=== PATIENT | female | born 1970 | race Caucasian/White ===

== ENCOUNTER → 2020-12-03 14:45 | Outpatient (CLI) | payer OTHER, SELFPAY | PROVIDERS: PCP Family Medicine; Referring Provider Family Medicine; Visit Provider Family Medicine | DX: Z20.822 Contact with and (suspected) exposure to COVID-19 (principal) | CPT/HCPCS: 87635; U0005; U0003 ==

== ENCOUNTER 2022-01-11 20:24 | Emergency (ER) | payer OTHER, SELFPAY ==
[2022-01-11 20:24] VITALS: BP 153/87; PULSE 73; RESP 15; TEMP 36.8; O2SAT 96; BMI 34.2
[2022-01-11 20:32] VITALS: RESP 16
--- NOTE | 2022-01-11 20:32 | RAD_ITS ---
INDICATION: injury EXAMINATION/TECHNIQUE: X-RAY - RIGHT XR Wrist Min 3 Views 3 VIEWS COMPARISON: None. FINDINGS: SOFT TISSUES: No soft tissue swelling or gas. No radiopaque foreign body. BONES/JOINTS: 1. There is normal bony alignment, degenerative change however noted at the trapezium metacarpal articulation. Endplate sclerosis and minimal osteophyte formation noted. 2. Widening of scapholunate distance is also noted which is of uncertain acuity. Chronic ligamentous laxity versus acute ligamentous injury are considerations. 3. The remaining carpal rows have normal appearance. 4. There is on the positive configuration of distal radial ulnar joint. 5. No acute fractures or acute destructive bony process. RAD/Wrist min 3 Views IMPRESSION: 1. Degenerative change involving the trapezium metacarpal articulation. 2. Ulna positive configuration of distal radial ulnar joint. 3. Widening of scapholunate distance is also noted which is of uncertain acuity. Chronic ligamentous laxity versus acute ligamentous injury are considerations. Electronically Signed: Chance West MD at 20:56 EDT ,
--- NOTE | 2022-01-11 20:44 | EX.ED.UPPERE ---
HPI History of Present Illness Chief Complaint: Upper Extremity Injury Detail of Chief Complaint: Injury right wrist. Informant: patient Occured/Mechanism Mechanism/Context: Yes blunt trauma, Yes fall and Yes same level fall Comment: Patient fell and attempted to stop her fall by putting her right arm out out to walk/ease her fall. Onset/Context/Timing Onset: Hours Context: Sudden Onset Timing: Continuous Quality of Pain: Dull Location: Right wrist Current Severity: Mild Maximum Severity: Moderate Worsened by: Movement Relieved by: Rest Associated Symptoms Associated Symptoms: Negative for Parasthesia, Weakness or Loss of Funtion Narrative Narrative: Patient is a [id number] woman who presents with blunt trauma to the right wrist due to a fall onto an outstretched extremity. She localizes the pain to the right wrist. Denies paresthesia, anesthesia motors. She denies prior fracture. She denies pain in her digits, elbow or shoulder. Prior similar symptoms: No Recent Illness/Hospitalization: No PFSH PFSH Medical History no medical history no medical history Home Medications meclizine 25 mg tablet 25 mg PO 4X/DAY PRN PRN Vertigo ##20 01/15/16 [Rx Last Taken Unknown] Allergy/AdvReac Type Severity Reaction Status Date / Time No Known Allergies Allergy Verified 01/11/22 20:27 Social History (Updated 01/11/22 @ 20:[address] Keaton Pak MD) household members: spouse Smoking Status: Never smoker substance use type: does not use ROS ROS ED Musculoskeletal Musculoskeletal: Denies back pain, myalgias or neck pain Integumentary Denies Abrasions or rash Neurologic Neurologic: Denies paresthesias or weakness Hematologic/Lymphatic Hematologic/Lymphatic: Denies easy bleeding or easy bruising EXAM Physical Exam Const Vital Signs: 01/11/22 20:24 Temperature 98.3 F Temperature Source Temporal Pulse Rate 73 Respiratory Rate 15 Blood Pressure 153/87 H Blood Pressure Mean 109 Pulse Ox 96 Oxygen Delivery Method Room Air Positive well nourished, well developed and obese General Appearance ED: well developed and NAD; Negative for cyanotic or diaphoretic Nutritional Appearance: obese HEENT Reports moist mucous membranes normocephalic and atraumatic Eyes PERRL Resp normal respiratory effort Cardio regular rate and regular rhythm Extremity Negative for normal to inspection Extremity Narrative: There is soft tissue swelling over the wrist. She complains of pain to palpation of the distal radius. There is no pain ovation of the anatomical snuffbox Axalid in the thumb. Median, radial and ulnar function intact. There is no pain the patient of the proximal humerus. There is no pain the patient over the lateral medial epicondyle, lateral process or radial head. There is no pain the patient over the metacarpal bones or phalanges. Neuro oriented x3, CN's II-XII intact bilaterally and moves all extremities Sensorium / Orientation: alert Psych mental status grossly normal Skin Lesions: no lesions Rashes: no rashes Trauma: no lacerations or abrasions MDM MDM MDM Narrative Medical decision making narrative: Nurse protocol was initiated and x-ray of the wrist was obtained. Radiography Diagnostic Testin view x-ray of the right wrist was obtained. There is no evidence of fracture. There is no malalignment of the carpal bones. There is no volar fat pad noted. There is no subluxation or dislocation. There is an independently reviewed and interpreted by me at 2047. Discharge Plan Triage Chief Complaint: Upper Extremity Injury ED Provider: Keaton Pak Dx/Rx/DC Orders Clinical Impression: Contusion of right wrist, initial encounter Instructions: ED Soft Tissue Contusion Prescriptions: No Action meclizine 25 MG tablet 25 mg PO 4X/DAY PRN PRN (Reason: Vertigo) Qty: 20 0RF Primary Care Provider: Pk Piedra Referrals: Pk Piedra MD [Primary Care Provider] - 1 Week if not improving Disposition Disposition: Home, Self Care
[2022-01-11 20:49] VITALS: RESP 16
== END 2022-01-11 21:23 | disposition home or self-care (01) ==
PROVIDERS: Emergency Provider Emergency Medicine; PCP Family Medicine; Visit Provider Emergency Medicine
DX: S60.211A Contusion of right wrist, initial encounter (principal); W18.30XA Fall on same level, unspecified, initial encounter; E66.9 Obesity, unspecified; Z68.34 Body mass index [BMI] 34.0-34.9, adult
CPT/HCPCS: 73110; 99282

== ENCOUNTER → 2022-04-28 | Outpatient (CLI) | payer OTHER, SELFPAY ==
[2022-04-28 14:07] LABS: Anion Gap 10 (5-15); BUN 10 mg/dL (7-18); BUN/Creat Ratio 12.6 RATIO (10-20); Calcium,Total 9.4 mg/dL (8.5-10.1); Chloride 106 mmol/L (98-107); Cholesterol 406 mg/dL (200); Creatinine, Serum 0.79 mg/dL (0.55-1.02); EST Glomerular Filtration Rate 81 mL/min (>60); Est Glom Filt Rate - Afr Amer 98 mL/min (>60); Glucose 88 mg/dL (74-106); High Density Lipoprotein 59 mg/dL; Potassium 4.4 mmol/L (3.5-5.1); Sodium Level 138 mmol/L (136-145); Thyroid Stim Hormone (TSH) 0.55 uIU/mL (0.358-3.74); Triglycerides 228 mg/dL; Very Low Density Lipoprotein 46 mg/dL (5-40)
== END | disposition home or self-care (01) ==
LOC: MFPLAB 11:12
PROVIDERS: PCP Family Medicine; Referring Provider Family Medicine; Visit Provider Family Medicine
DX: Z13.1 Encounter for screening for diabetes mellitus (principal); Z13.29 Encounter for screening for other suspected endocrine disorder; Z13.220 Encounter for screening for lipoid disorders
CPT/HCPCS: 36415; 80048; 80061; 84443

== ENCOUNTER 2022-05-29 02:45 | Emergency (ER) | payer OTHER, SELFPAY ==
[2022-05-29 02:46] VITALS: BP 142/109; PULSE 80; RESP 28; TEMP 35.8; O2SAT 100; BMI 33.0
--- NOTE | 2022-05-29 03:41 | EKG12_ITS ---
Test Reason : CP Blood Pressure : / mmHG Vent. Rate : 069 BPM Atrial Rate : 069 BPM P-R Int : 118 ms QRS Dur : 076 ms QT Int : 394 ms P-R-T Axes : 015 069 067 degrees QTc Int : 422 ms Normal sinus rhythm with sinus arrhythmia Normal ECG Confirmed by ELISHA LY, RHIANNA ([id number]), editor sound LAZARUS GUDINO ([id number]) on 05/31/2022 9:31:42 AM Referred By: GLADIS Confirmed By:RHIANNA TELLO MD
--- NOTE | 2022-05-29 03:41 | ED.VIS.GI ---
HPI HPI - GI History of Present Illness Chief Complaint: Abd Pain Informant: patient and family Abdominal Pain/Flank Pain Onset: Days (3) Context: Gradual Onset Timing: Intermittent Quality: Sharp Location: Epigastric Current Severity: Severe Maximum Severity: Severe Worsened by: Nothing Relieved by: - (Vomiting) Nausea/Vomiting/Emesis GI Symptom: Positive for Nausea and Vomiting Onset: Days (2) Quality: Positive for Nonbilious; Negative for Blood streaks, Coffee ground or Hematemesis Diarrhea/Melena/Hematochezia GI Symptom: Negative for Diarrhea, Melena or Hematochezia Associated Symptoms Associated Symptoms: Negative for Dysuria, Frequency or Hematuria Narrative Narrative: Patient presents with abdominal pain that has been intermittent over the last 3 days. Patient states it is worse at night. Patient states that it comes on rather suddenly. Patient describes the pain as sharp. Patient states the pain is over the epigastric area. Patient states nothing makes it worse. Patient states it feels better after she vomits briefly. Patient denies any hematemesis or coffee-ground emesis. Patient denies any diarrhea, melena, or hematochezia. Patient denies any dysuria, hematuria, or frequency. Patient denies any fevers or chills. Patient denies any radiation of the pain into her back. [facility] Medical History (Updated 05/29/22 @ 07:[address] Constantino Juarez DO) Hypercholesterolemia Home Medications hydrocodone-acetaminophen 5-325mg 5mg-325mg 1 tab PO Q6H PRN PRN Pain 3 days #10 TABLETS 05/29/22 [Rx Last Taken Unknown] Allergy/AdvReac Type Severity Reaction Status Date / Time No Known Allergies Allergy Verified 05/29/22 02:49 Surgical History no surgical history no surgical history Social History household members: spouse Smoking Status: Never smoker substance use type: does not use ROS ROS ED Constitutional Constitutional ED: Denies chills or fever(s) Eyes Eyes: Denies blurry vision or change in vision ENT ENT ED: Denies rhinorrhea or sore throat Cardiovascular Cardiovascular: Denies chest pain or palpitations Respiratory/Chest Respiratory/Chest: Reports dyspnea; Denies cough Gastrointestinal Gastrointestinal: Reports abdominal pain, nausea and vomiting Genitourinary Genitourinary ED: Denies dysuria or hematuria Musculoskeletal Musculoskeletal: Denies back pain or neck pain Integumentary Denies abscess or rash Neurologic Neurologic: Denies headache(s) or weakness Allergic/Immunologic Allergic/Immunologic ED: Denies mouth swelling or urticaria EXAM Physical Exam Const Vital Signs: 05/29/22 02:46 05/29/22 02:59 05/29/22 03:52 Temperature 96.4 F L Temperature Source Temporal Pulse Rate 80 61 Respiratory Rate 28 H 17 Respiratory Effort Short of Breath Respiratory Pattern Tachypnea Blood Pressure 142/109 H 124/103 H Blood Pressure Mean 120 110 Pulse Ox 100 100 Oxygen Delivery Method Room Air Room Air 05/29/22 05:00 Temperature Temperature Source Pulse Rate 57 L Respiratory Rate 22 H Respiratory Effort Respiratory Pattern Blood Pressure Blood Pressure Mean Pulse Ox 100 Oxygen Delivery Method Room Air Positive well nourished, well developed and obese General Appearance ED: well developed and NAD Nutritional Appearance: obese HEENT Reports moist mucous membranes Neck supple and no JVD Resp normal respiratory effort and clear to auscultation bilaterally Cardio regular rate, regular rhythm and no murmurs GI normal to inspection, nondistended, normoactive bowel sounds Palpation: soft and tender epigastric, LUQ and RUQ; Negative for guarding or rebound tenderness present Extremity normal to inspection General Extremety ED: Negative for edema or tenderness General Extremity: Negative for edema Neuro oriented x3, CN's II-XII intact bilaterally and no sensory deficits noted Sensorium / Orientation: alert Motor Exam: strength 5/5 throughout Psych mental status grossly normal Mood & Affect: anxious Skin no rashes or lesions noted MDM MDM MDM Narrative Medical decision making narrative: Differential diagnosis includes pancreatitis, bowel obstruction, perforation, gastroenteritis, cholecystitis, cholelithiasis, colitis, cardiac dysrhythmia, and cardiac ischemia. EKG will be obtained to assess for cardiac dysrhythmia and cardiac ischemia. CBC will be obtained to assess for leukocytosis and anemia. Comprehensive metabolic profile will be obtained to assess for hepatic function, renal function, and electrolyte abnormality. Lipase will be obtained to assess for pancreatitis. Troponin will be obtained to assess for cardiac ischemia. CT scan of the abdomen pelvis will be obtained to assess for bowel obstruction, perforation, cholelithiasis, colitis, and pancreatitis. Lab Data Attestation: I reviewed the patient's lab results. Lab results narrative: CBC was reviewed and was within normal limits. Comprehensive metabolic profile was reviewed and was within normal limits with the exception of a mildly elevated glucose of 132. Lipase was reviewed and was normal. Urinalysis was reviewed and showed urine ketones of 150 but does not show any evidence of hematuria or urinary tract infection. Labs: Laboratory Results - last 24 hr 05/29/22 05/29/22 05/29/22 02:55 02:55 07:15 WBC 10.6 RBC 5.15 Hgb 14.5 Hct 43.0 MCV 83.5 MCH 28.2 MCHC 33.7 RDW Std Deviation 39.7 RDW Coeff of [place] 13.0 Plt Count 388 MPV 10.8 Immature Gran % (Auto) 0.300 Neut % (Auto) 68.7 Lymph % (Auto) 23.0 [place] % (Auto) 6.8 Eos % (Auto) 0.9 Baso % (Auto) 0.3 Absolute Neuts (auto) 7.3 Absolute Lymphs (auto) 2.44 Nucleated RBC % 0 Sodium 137 Potassium 3.8 Chloride 107 Carbon Dioxide 17.0 L Anion Gap 13 BUN 15 Creatinine 0.98 Estim Creat Clear Calc 67.74 Est GFR (MDRD) Af Amer 77 Est GFR (MDRD) Non-Af 64 BUN/Creatinine Ratio 15.4 Glucose 132 H Calcium 9.2 Total Bilirubin 0.40 AST 21 ALT 26 Alkaline Phosphatase 117 Troponin I High Sens 6 Total Protein 7.6 Albumin 3.8 Globulin 3.8 Albumin/Globulin Ratio 1.0 Lipase 115 Urine Color Yellow Urine Clarity Clear Urine pH 7.0 Ur Specific [place] 1.005 Urine Protein 30 H Urine Glucose (UA) 50 H Urine Ketones 150 A* Urine Occult Blood Negative Urine Nitrite Negative Urine Bilirubin Negative Urine Urobilinogen Normal Ur Leukocyte Esterase Negative Urine RBC 0 SEEN Urine WBC 0 SEEN Ur Squamous Epith Cells 0 SEEN Urine Bacteria 0 SEEN Urine Mucus 0 SEEN Radiography Diagnostic Testing: Clinical Impression(s) from Imaging Studies Abdomen/Pelvis CT 05/29/22 03:47 IMPRESSION: 1. No acute intra-abdominal findings. 2. 2.7 cm nodule in the inferior right breast. Recommend mammographic correlation. Electronically Signed: Petra Osuna MD at 6:43 EST , CT scan of the abdomen pelvis was obtained. There is no acute intra-abdominal abnormality. There is no free air or free fluid. There is a 2.7 cm nodule in the inferior right breast. This was interpreted by the radiologist and was also independently reviewed by myself. EKG Initial EKG: Attestation: I personally reviewed and interpreted this EKG as follows: Interpretation: Sinus Rhythm (69) and No Acute Injury Pattern Comments: EKG was obtained. On my independent interpretation, it showed a normal sinus rhythm with a rate of 69. MI interval, QRS interval, and QTc intervals were all normal. [place] was normal. There are no acute ST or T wave changes. Prior EKG tracings: not available for review Prior: No Prior Treatment and Re-Evaluation Narrative: Patient was given IV fluids, morphine, and Zofran. Patient was still having persistent pain. Patient was given a dose of Bentyl. Patient was still having pain after this. Patient was given a dose of Dilaudid. Patient is resting comfortably on reevaluation. Patient was advised of her findings. Patient was instructed to start with liquids and bland foods and advance her diet as tolerated. Patient was given a prescription for a short course of [place]. Patient was instructed to follow-up with her primary care physician in 5 to 7 days. Patient understood and was agreeable with the plan. All questions were answered. Discharge Plan Triage Chief Complaint: Abd Pain ED Provider: Constantino Juarez Dx/Rx/DC Orders Clinical Impression: Epigastric abdominal pain, Obesity (BMI 30-39.9) Instructions: ED Epigastric Pain Uncertain Cause Prescriptions: New hydrocodone-acetaminophen [hydrocodone-acetaminophen] 5-325 mg tablet 1 tab PO Q6H PRN PRN (Reason: Pain) 3 Days Qty: 10 0RF Primary Care Provider: Pk Piedra Referrals: Pk Piedra MD [Primary Care Provider] - 3-5 Days
[2022-05-29] MEDS: 0.9% Normal Saline 1,000 ML 1000 ML IV (03:46)
[2022-05-29] MEDS: Ondansetron 4 MG/2 ML Vial IV (03:46)
--- NOTE | 2022-05-29 03:47 | CT_ITS ---
INDICATION: Abdominal pain -- IV PO Contrast EPIGASTRIC PAIN,ABD CRAMPING,NAUSEA X3 DAYS N/V WORSE TODAY EXAMINATION: CT ABDOMEN AND PELVIS WITH CONTRAST - CT Abdomen And Pelvis W/ Contrast Injection TECHNIQUE: Helically acquired images were obtained of the abdomen and pelvis following IV contrast. A radiation dose optimization technique was used for this scan. IV Contrast dosage and agent: Oral contrast: With. COMPARISON: None. FINDINGS: LOWER CHEST: Unremarkable. LIVER: Unremarkable. GALLBLADDER/BILE DUCTS: Unremarkable. PANCREAS: Unremarkable. SPLEEN: Unremarkable. ADRENAL GLANDS: Unremarkable. KIDNEYS / URETERS: Unremarkable. BOWEL / MESENTERY: Unremarkable. No bowel obstruction. APPENDIX: Not identified. No findings to suggest acute appendicitis. PERITONEUM: No free air. No free fluid. VESSELS: Abdominal aorta is normal caliber. RETROPERITONEUM: Unremarkable. REPRODUCTIVE ORGANS: Small uterine fibroid. BLADDER: Unremarkable. ABDOMINAL WALL: Unremarkable. BONES: No acute abnormality. OTHER: There is a 2.7 x 2.5 cm low-attenuation nodular structure in the inferior right breast. CT/Abdomen/Pelvis WITH Contrast IMPRESSION: 1. No acute intra-abdominal findings. 2. 2.7 cm nodule in the inferior right breast. Recommend mammographic correlation. Electronically Signed: Petra Osuna MD at 6:43 EST ,
[2022-05-29] MEDS: Morphine 4 MG/ML Syringe IV (03:50)
[2022-05-29 03:52] VITALS: BP 124/103; PULSE 61; RESP 17; O2SAT 100
[2022-05-29 03:59] LABS: Absolute Lymphocyte Count 2.44 X10^3/uL (0.83-4.51); Absolute Neutrophil Count 7.3 X10^3/uL (2.0-7.7); Basophil# 0.03 X10^3/uL; Basophil% 0.3 % (0-1); Eosinophils% 0.9 % (0-5); Hemoglobin 14.5 g/dL (12.0-15.0); Lymphocyte # 2.44 X10^3/ul (0.83-4.51); Mean Corp Hgb Conc 33.7 g/dL (32-36); Mean Corpuscular Hgb 28.2 pg (27.0-32.0); Mean Corpuscular Volume 83.5 fL (81-99); Mean Platelet Vol. 10.8 fl (6.2-12.0); Monocyte# 0.72 X10^3/uL; Monocyte% 6.8 % (0-10); NRBC Flagged by Analyzer 0 % (0-5); Neutrophil # 7.27 X10^3/uL (2.7-7.7); Neutrophil % 68.7 % (47-70); Platelet Count 388 K/mm3 (150-450); RBC Distribution Width SD 39.7 fl (35.1-43.9); Red Blood Count 5.15 M/mm3 (4.2-5.4); White Blood Count 10.6 K/mm3 (4.4-11.0)
[2022-05-29] MEDS: Dicyclomine 20 MG/2 ML Vial IM (04:15)
[2022-05-29 04:18] LABS: AST(SGOT) 21 U/L (15-37); Alanine Aminotransfer ALT/SGPT 26 U/L (13-56); Albumin, Serum 3.8 g/dL (3.2-5.0); Alkaline Phosphatase 117 U/L (45-117); Anion Gap 13 (5-15); BUN 15 mg/dL (7-18); BUN/Creat Ratio 15.4 RATIO (10-20); Calcium,Total 9.2 mg/dL (8.5-10.1); Chloride 107 mmol/L (98-107); Creatinine, Serum 0.98 mg/dL (0.55-1.02); EST Glomerular Filtration Rate 64 mL/min (>60); Est Glom Filt Rate - Afr Amer 77 mL/min (>60); Estimated Creatinine Clearance 67.74 ml/min; Globulin 3.8 g/dL (2.2-4.2); Glucose 132 mg/dL (74-106); Lipase 115 U/L (73-393); Potassium 3.8 mmol/L (3.5-5.1); Protein, Total 7.6 g/dL (6.4-8.2); Sodium Level 137 mmol/L (136-145); Troponin-I HS 6 pg/mL (3.0-54.0)
[2022-05-29 05:00] VITALS: PULSE 57; RESP 22; O2SAT 100
[2022-05-29] MEDS: HYDROmorphone 1 MG/ML Syringe 0.5 MG IV ×2 (05:10→08:29)
--- NOTE | 2022-05-29 05:30 | ED.RN ---
IV flushed before administration of dilaudid. Pt denies any pain. IV push dilaudid given, NS hooked back up for infusion. RN noticed arm was swollen and cool to touch. IV fluid administration stopped, IV d/c, wrapped site and used warm compress. Education given on infiltration, Dr. Juarez notified, careful monitoring warranted.
[2022-05-29 07:22] LABS: Bacteria 0 SEEN /hpf (None Seen); Mucous, Urine 0 SEEN /hpf (<or=2+); Red Blood Cells-Urine 0 SEEN /hpf (0-5); Squamous Epithelial Cells - UA 0 SEEN /hpf (5-10); White Blood Cells 0 SEEN /hpf (0-5)
[2022-05-29 07:23] LABS: Color, Urine Yellow (Yellow); Glucose, Dipstick 50 mg/dl (Normal); Leukocyte Esterase-Dipstick Negative /ul (Negative); Nitrite-Dipstick Negative (Negative); Occult Blood-Urine Negative /ul (Negative); Protein-Dipstick 30 mg/dl (Negative); Specific Gravity, Urine 1.005 (1.002-1.030); Urine Bilirubin Dipstick Negative (Negative); Urine Clarity Clear (Clear); Urine Urobilinogen Normal (Normal)
[2022-05-29 07:27] LABS: Ketone-Dipstick 150 mg/dl (Negative)
--- NOTE | 2022-05-29 07:27 | ED.RN ---
LAB CALLED CRITICAL OF URINE KETON[facility] 150. DR BROWN
--- NOTE | 2022-05-29 08:53 | ED.RN ---
PT VERY ANGRY AND REFUSING DISCHARGE. THIS RN INTO ROOM TO TALK WITH PT. THIS RN TALKED WITH DR GAN. DR GAN AGREED TO 1 FINAL DOSE OF PAIN MEDICATION. PT WAS OBSERVED. PT REMAINS PAINFUL. PT REQUESTING ADMISSION. THIS RN EXPLAINS ADMISSION PROCESS AND RATIONALE FOR EMERGENCY CARE. PT ENCOURAGED TO FOLLOW UP WITH HER PHYSICIAN TOMORROW. PT AGREES. AMBULATORY OUT OF DEPARTMENT
[2022-05-29 08:57] VITALS: BP 190/88; PULSE 80; RESP 20; O2SAT 98
== END 2022-05-29 08:59 | disposition home or self-care (01) ==
LOC: ED 03:45
PROVIDERS: Emergency Provider Emergency Medicine; PCP Family Medicine; Visit Provider Emergency Medicine
DX: R10.13 Epigastric pain (principal); E66.9 Obesity, unspecified
CPT/HCPCS: 74177; 80053; 81001; 83690; 84484; 85025; 93005; 96361; 96372; 96374; 96375; 96376; 99284; J7030; Q9967; A4216; J2405

== ENCOUNTER 2022-06-01 04:17 | Emergency (ER) | payer OTHER, SELFPAY ==
[2022-06-01 04:17] VITALS: BP 184/101; PULSE 71; RESP 16; TEMP 36.6; O2SAT 100; BMI 33.3
--- NOTE | 2022-06-01 04:35 | EKG12_ITS ---
Test Reason : DYSRHYHMIA Blood Pressure : / mmHG Vent. Rate : 075 BPM Atrial Rate : 075 BPM P-R Int : 128 ms QRS Dur : 080 ms QT Int : 388 ms P-R-T Axes : 063 053 053 degrees QTc Int : 433 ms Normal sinus rhythm with sinus arrhythmia Septal infarct , age undetermined Abnormal ECG Confirmed by RAÚL LY, NEISHA ([id number]), newspaper editor LAZARUS GUDINO ([id number]) on 06/06/2022 9:59:28 AM Referred By: BARBARA Confirmed By:MICHELLE OLSEN MD
--- NOTE | 2022-06-01 04:36 | ED.VIS.GI ---
HPI HPI - GI History of Present Illness Chief Complaint: Abd Pain Informant: patient and spouse/S.O. Narrative Narrative: This is repeat dictation of dictation that was lost in the middle of work process. This is after computer downtime. The computer then shut off again unexpectedly. Data in detail that had been initially documented is now lost. Patient presents with epigastric pain nausea vomiting. She was seen recently in the emergency department for this. She had blood work done along with CT scan. She was sent home with some Vicodin. She took 1 this morning but likely threw it up. She also saw her physician yesterday. They thought this might be GERD. However the patient is not on any H2 tushar or proton pump inhibitors. She has been having symptoms since the recent night. These always tend to occur at night. Her pain is well isolated to the epigastric area. It does not really radiate. She gets vomiting of bile type material with burning sensation. But she does not normally have burning at other times. She does not carry a diagnosis of GERD. She is overall healthy and on no routine medications. She is about to start a statin for cholesterol. She has not yet started this. She has no history of any abdominal surgeries. [facility] Medical History Hypercholesterolemia Home Medications hydrocodone-acetaminophen 5-325mg 5mg-325mg 1 tab PO Q6H PRN PRN Pain 3 days #10 TABLETS 05/29/22 [Rx Last Taken Unknown] esomeprazole magnesium 20 mg capsule,delayed release (Nexium) 20 mg PO BID 30 days #60 caps 06/01/22 [Rx Last Taken Unknown] ondansetron 4 mg disintegrating tablet 4 mg PO Q8H PRN PRN Nausea #10 tabs 06/01/22 [Rx Last Taken Unknown] promethazine 25 mg tablet 25 mg PO Q6H PRN PRN Nausea #10 TABLETS 06/01/22 [Rx Last Taken Unknown] sucralfate 1 gram tablet (Carafate) 1 g PO Q6H #60 tabs 06/01/22 [Rx Last Taken Unknown] Allergy/AdvReac Type Severity Reaction Status Date / Time No Known Allergies Allergy Verified 06/01/22 04:20 Social History household members: spouse Smoking Status: Never smoker substance use type: does not use ROS ROS ED Constitutional Constitutional ED: Denies chills or fever(s) ENT ENT ED: Denies sore throat Cardiovascular Cardiovascular: Denies palpitations Respiratory/Chest Respiratory/Chest: Denies cough or dyspnea Gastrointestinal Gastrointestinal: Reports abdominal pain, diarrhea, nausea, vomiting and other Details: She had 1 soft bowel movement. No blood in the stool or vomitus. All her abdominal pain is epigastric. ; Denies constipation or melena Genitourinary Genitourinary ED: Denies dysuria or hematuria Musculoskeletal Musculoskeletal: Denies back pain Integumentary Denies rash Hematologic/Lymphatic Hematologic/Lymphatic: Denies easy bleeding or easy bruising Allergic/Immunologic Allergic/Immunologic ED: Denies urticaria EXAM Physical Exam Narrative Exam Narrative: Patient awake and alert. She is having dry heaves holding an emesis bag at this time. She looks somewhat uncomfortable feeling. HEENT shows no pallor. Mucous membranes are moist. Neck shows no JVD Lungs are clear bilaterally Heart is regular. Peripheral pulses are normal. Abdomen is soft does have normal sounding bowel sounds. She has some epigastric tenderness but no rebound or guarding. No tenderness of the right upper quadrant or right lower quadrant. Skin shows no pallor mottling or rash. Neurologically she is awake alert and appropriate. Const Vital Signs: 06/01/22 04:17 06/01/22 07:07 Temperature 97.8 F Temperature Source Temporal Pulse Rate 71 75 Respiratory Rate 16 15 Blood Pressure 184/101 H 199/104 H Blood Pressure Mean 128 135 Pulse Ox 100 99 Oxygen Delivery Method Room Air Room Air MDM MDM MDM Narrative Medical decision making narrative: Patient CBC shows minimal elevation of white count but also slight elevation of the hemoglobin. Electrolytes do show low potassium at 3.1 but this is likely due to her vomiting as is the low bicarb. Liver function test look good. Glucose was minimally up at 133. Alk phos had minimal elevations at 130. Lipase was negative. Troponin was also negative. My independent interpretation of her CT of the abdomen does show a little bit of stranding around the pancreas. But she is not having back pain. She is not having elevation of the lipase which would normally be elevated in somebody who has never had pancreatitis before. I think this stranding as read by radiology is more from the stomach and likely due to ulcer disease. There is no sign of perforation. Patient was rechecked but she started getting very nauseated again. She was given Phenergan which seems to really have helped her quite a bit. I am now gone and another time to see her. She is calm down she is relaxed she is feeling markedly improved. I think her illness likely represents ulcer disease with some gastritis and reflux. I do not see any indication that this would be dissection or other acute process that would require a CTA. She is having no chest symptoms at all. This patient is already been seen but she has not really been started on many meds. She still has about 5 or 6 hydrocodone at home. But I will get her started on a proton pump inhibitor. I will also start her on Carafate. We will send her home on both Phenergan and Zofran so she has 2 options for nausea. If she develops hematemesis, worsening pain, lightheadedness, fevers or is not improving she may need to return but I hope we can get this under control. I will refer her to gastroenterology. Lab Data Attestation: I reviewed the patient's lab results. Labs: Laboratory Results - last 24 hr 06/01/22 06/01/22 05:00 05:00 WBC 12.4 H RBC 5.37 Hgb 15.1 H Hct 45.9 MCV 85.5 MCH 28.1 MCHC 32.9 RDW Std Deviation 39.8 RDW Coeff of Sydnee 12.8 Plt Count 400 MPV 10.2 Immature Gran % (Auto) 0.200 Neut % (Auto) 79.5 H Lymph % (Auto) 15.2 L [place] % (Auto) 4.7 Eos % (Auto) 0.2 Baso % (Auto) 0.2 Absolute Neuts (auto) 9.8 H Absolute Lymphs (auto) 1.88 Nucleated RBC % 0 Sodium 138 Potassium 3.1 L Chloride 107 Carbon Dioxide 19.0 L Anion Gap 12 BUN 14 Creatinine 0.93 Estim Creat Clear Calc 71.38 Est GFR (MDRD) Af Amer 82 Est GFR (MDRD) Non-Af 67 BUN/Creatinine Ratio 15.1 Glucose 133 H Calcium 9.3 Total Bilirubin 0.40 AST 21 ALT 41 Alkaline Phosphatase 130 H Troponin I High Sens 5 Total Protein 7.6 Albumin 3.9 Globulin 3.7 Albumin/Globulin Ratio 1.1 Lipase 102 Radiography Diagnostic Testing: Clinical Impression(s) from Imaging Studies Abdomen/Pelvis CT 06/01/22 05:55 IMPRESSION: Mild inflammatory stranding adjacent to the gastric antrum and the head of the pancreas (which approximate each other). Differential includes pancreatic head pancreatitis or gastritis/duodenitis with or without ulceration. Correlate pancreatic labs. Fluoroscopic upper GI or endoscopy could further evaluate for occult ulceration as clinically indicated. Redemonstration of right posterior upper and right outer inferior breast 2.9 and 1.7 cm indeterminate masses. Follow-up diagnostic mammogram with ultrasound is recommended to further characterize. Fibroid uterus. Electronically Signed: Sukhwinder Davis MD at 6:39 EST , ADDENDUM: 06/01/22 0701 IMPRESSION: Mild inflammatory stranding adjacent to the gastric antrum and the head of the pancreas (which approximate each other). Differential includes pancreatic head pancreatitis or gastritis/duodenitis with or without ulceration. Correlate pancreatic labs. Fluoroscopic upper GI or endoscopy could further evaluate for occult ulceration as clinically indicated. Redemonstration of right posterior upper and right outer inferior breast 2.9 and 1.7 cm indeterminate masses. Follow-up diagnostic mammogram with ultrasound is recommended to further characterize. Fibroid uterus. N.B. : Franklin Martinez MD, confirmed on 06/01/2022 06:54:41 (ET) that the healthcare facility has received the radiology report. Electronically Signed: Sukhwinder Davis MD at 6:39 EST , EKG Initial EKG: Comments: My independent interpretation of the EKG done for upper abdominal pain in a 52-year-old female shows a normal sinus rhythm with a rate of 75. Mild sinus arrhythmia. No ventricular ectopy. No acute ST elevation or depression. [place] interval, QRS duration and QTc are normal. Discharge Plan Triage Chief Complaint: Abd Pain ED Provider: Franklin Martinez Dx/Rx/DC Orders Clinical Impression: Epigastric abdominal pain, Gastric ulcer, Nausea & vomiting Instructions: ED Abdominal Pain Unkn Cause Fem, ED Gastritis Ulcer No Abx Prescriptions: New sucralfate [Carafate] 1 gram tablet 1 g PO Q6H Qty: 60 0RF Rx Instructions: Take 4 times a day for at least 5 days. If better after several days can reduce to 3 times a day then twice a day. promethazine [promethazine] 25 mg tablet 25 mg PO Q6H PRN PRN (Reason: Nausea) Qty: 10 0RF ondansetron [ondansetron] 4 mg tablet,disintegrating 4 mg PO Q8H PRN PRN (Reason: Nausea) Qty: 10 0RF esomeprazole magnesium [Nexium] 20 mg capsule,delayed release(DR/EC) 20 mg PO BID 30 Days Qty: 60 0RF No Action hydrocodone-acetaminophen [hydrocodone-acetaminophen] 5-325 mg tablet 1 tab PO Q6H PRN PRN (Reason: Pain) 3 Days Qty: 10 0RF Primary Care Provider: Pk Piedra Referrals: Pk Piedra MD [Primary Care Provider] - 3-5 Days if not improving Johnny Rincon DO [Med Staff - Active Staff] - 1 Week Disposition Disposition: Home, Self Care Discharge Date/Time: 06/01/22 07:52
[2022-06-01] MEDS: 0.9% Normal Saline 1,000 ML 1000 ML IV (05:12)
[2022-06-01] MEDS: Ondansetron 4 MG/2 ML Vial IV (05:12)
[2022-06-01] MEDS: Morphine 4 MG/ML Syringe IV ×2 (05:12→06:02)
[2022-06-01 05:18] LABS: Absolute Lymphocyte Count 1.88 X10^3/uL (0.83-4.51); Absolute Neutrophil Count 9.8 X10^3/uL (2.0-7.7); Basophil# 0.03 X10^3/uL; Basophil% 0.2 % (0-1); Eosinophil# 0.03 X10^3/uL; Eosinophils% 0.2 % (0-5); Hematocrit 45.9 % (37-47); Hemoglobin 15.1 g/dL (12.0-15.0); Lymphocyte # 1.88 X10^3/ul (0.83-4.51); Lymphocyte % 15.2 % (19-41); Mean Corp Hgb Conc 32.9 g/dL (32-36); Mean Corpuscular Hgb 28.1 pg (27.0-32.0); Mean Corpuscular Volume 85.5 fL (81-99); Mean Platelet Vol. 10.2 fl (6.2-12.0); Monocyte# 0.58 X10^3/uL; Monocyte% 4.7 % (0-10); NRBC Flagged by Analyzer 0 % (0-5); Neutrophil # 9.82 X10^3/uL (2.7-7.7); Neutrophil % 79.5 % (47-70); Platelet Count 400 K/mm3 (150-450); RBC Distribution Width CV 12.8 % (11.6-14.6); RBC Distribution Width SD 39.8 fl (35.1-43.9); Red Blood Count 5.37 M/mm3 (4.2-5.4); White Blood Count 12.4 K/mm3 (4.4-11.0)
[2022-06-01 05:45] LABS: ALB/GLOB Ratio 1.1 RATIO (0.9-2.4); AST(SGOT) 21 U/L (15-37); Alanine Aminotransfer ALT/SGPT 41 U/L (13-56); Albumin, Serum 3.9 g/dL (3.2-5.0); Alkaline Phosphatase 130 U/L (45-117); Anion Gap 12 (5-15); BUN 14 mg/dL (7-18); BUN/Creat Ratio 15.1 RATIO (10-20); Calcium,Total 9.3 mg/dL (8.5-10.1); Chloride 107 mmol/L (98-107); Creatinine, Serum 0.93 mg/dL (0.55-1.02); EST Glomerular Filtration Rate 67 mL/min (>60); Est Glom Filt Rate - Afr Amer 82 mL/min (>60); Estimated Creatinine Clearance 71.38 ml/min; Globulin 3.7 g/dL (2.2-4.2); Glucose 133 mg/dL (74-106); Lipase 102 U/L (73-393); Potassium 3.1 mmol/L (3.5-5.1); Protein, Total 7.6 g/dL (6.4-8.2); Sodium Level 138 mmol/L (136-145); Troponin-I HS 5 pg/mL (3.0-54.0)
--- NOTE | 2022-06-01 05:55 | CT_ITS ---
ACR Level 3 findings have been noted. An addendum which confirms receipt of the report will follow. INDICATION: Epigastric pain EXAMINATION: CT ABDOMEN AND PELVIS WITH CONTRAST - CT Abdomen And Pelvis W/ Contrast Injection TECHNIQUE: Helically acquired images were obtained of the abdomen and pelvis following IV contrast. A radiation dose optimization technique was used for this scan. IV Contrast dosage and agent: 100 mL Isovue-300 Oral contrast: None. COMPARISON: None 05/29/2022. FINDINGS: LOWER CHEST: Lung bases are clear. No cardiomegaly or pericardial effusion. LIVER: Homogeneous. No focal mass. GALLBLADDER AND BILIARY TREE: No calcified gallstones. No gallbladder distension or wall edema. No intra- or extrahepatic biliary ductal dilation. PANCREAS: No focal cystic or solid mass. Pancreatic head is in close proximity to the gastric antrum with mild adjacent fat stranding. SPLEEN: Normal size without focal cystic or solid mass. ADRENAL GLANDS: No nodules. KIDNEYS AND URETERS: Normal renal size and position. No hydronephrosis. PERITONEUM: No ascites or free air. No other fluid collection. BOWEL: Stomach is decompressed. There is mild fat inflammatory stranding along the gastric antrum, axial image 54-59. No gross CT apparent ulceration. Small bowel is nondistended without focal wall thickening. Colonic diverticulosis without evidence of diverticulitis. LYMPH NODES:. No suspicious adenopathy.. No enlarged mesenteric or retroperitoneal lymph nodes. VESSELS: Minimal scattered atherosclerosis without ectasia. URINARY BLADDER: Unremarkable. REPRODUCTIVE ORGANS: Exophytic fundal uterine fibroid. No evidence of adnexal mass.. ABDOMINAL WALL: No discrete abdominal or pelvic wall hernia. MUSCULOSKELETAL: No lytic or blastic abnormality. Redemonstration of right inferior breast cystic 2.9 cm mass with adjacent fat stranding in close proximity to pectoralis. Additional 1.7 cm hypodense mass at the inferior outer right breast. CT/Abdomen/Pelvis W IV Cont ONLY IMPRESSION: Mild inflammatory stranding adjacent to the gastric antrum and the head of the pancreas (which approximate each other). Differential includes pancreatic head pancreatitis or gastritis/duodenitis with or without ulceration. Correlate pancreatic labs. Fluoroscopic upper GI or endoscopy could further evaluate for occult ulceration as clinically indicated. Redemonstration of right posterior upper and right outer inferior breast 2.9 and 1.7 cm indeterminate masses. Follow-up diagnostic mammogram with ultrasound is recommended to further characterize. Fibroid uterus. Electronically Signed: Sukhwinder Davis MD at 6:39 EST ,
[2022-06-01] MEDS: proMETHazine 25 MG/ML Syringe 12.5 MG IM (07:03)
[2022-06-01 07:07] VITALS: BP 199/104; PULSE 75; RESP 15; O2SAT 99
== END 2022-06-01 07:52 | disposition home or self-care (01) ==
PROVIDERS: Emergency Provider Emergency Medicine; PCP Family Medicine; Visit Provider Emergency Medicine
DX: R10.13 Epigastric pain (principal); K25.9 Gastric ulcer, unspecified as acute or chronic, without hemorrhage or perforation; R11.2 Nausea with vomiting, unspecified
CPT/HCPCS: 74177; 80053; 83690; 84484; 85025; 93005; 96365; 96372; 96375; 99282; J7030; Q9967; A4216; J2405; J3490

== ENCOUNTER → 2022-06-07 | Outpatient (CLI) | payer OTHER, SELFPAY ==
--- NOTE | 2022-06-07 08:44 | BI_ITS ---
MAMMOGRAPHY - BILATERAL DIAGNOSTIC REASON FOR EXAM: Female, 52 years old. Right breast lump. PERTINENT HISTORY: Grandmother with breast cancer. Aunt with breast cancer. TECHNIQUE: Digital bilateral breast mirela (3D mammographic acquisition) in the CC and MLO projections. 2-D mediolateral oblique (MLO) and craniocaudad (CC) views of both breasts were obtained. CAD: Full Field Digital Mammography with Computer Added Detection was performed. COMPARISON: None. Baseline examination. FINDINGS: Breast Composition: The breasts are heterogeneously dense, which may obscure small masses. There is a 2.8 cm x 2.3 cm mass in the deep central lateral aspect of the right breast. This corresponds to the palpable abnormality and the CT findings. There is also evidence of a 1.4 cm x 1.1 cm nodule in the slightly inferior central portion of the right breast. There is also evidence of an enlarged lymph node in the right axilla measuring 1.8 cm. Correlation with ultrasound is recommended. No other significant abnormalities are identified. BI/DIAG MAMM W/CAD, BILAT IMPRESSION: 2 masses are seen in the right breast as described as well as enlargement of the right axillary lymph node. Correlation with ultrasound is recommended. ASSESSMENT CATEGORY: BIRADS Category 2: Benign. A letter regarding these results will be sent to the patient by the facility within 30 days. Approximately 10% of breast cancers are not detected by mammography. A normal mammogram should not delay biopsy of a clinically suspicious abnormality. Electronically Signed: Jamie Langford MD at 10:06 EST ,
--- NOTE | 2022-06-07 08:46 | US_ITS ---
STUDY: ULTRASOUND BREAST - RIGHT REASON FOR EXAM: Female, 52 years old. Abnormal screening mammogram. TECHNIQUE: Axial and longitudinal images of the RIGHT breast were performed with a high resolution ultrasound transducer. # OF IMAGES: 95 COMPARISON: Comparison is made with prior exam done earlier in the day. FINDINGS: RIGHT Breast: There is a 4.1 cm x 3.8 cm x 2.8 cm hypoechoic irregular mass lesion at the 8:00 position of the breast at 10 cm from the nipple. Biopsy is strongly recommended. There is also evidence of a 2.2 cm x 1.9 cm by 1.4 cm irregular mass with vascularity at the 7:00 position of the breast at 5 cm from the nipple. Biopsy is strongly recommended. There is a 2.1 cm x 1.8 cm x 1.6 cm abnormal lymph node in the right axilla . US/Breast Limited Unilateral IMPRESSION: Suspicious masses in the right breast as described. Biopsy strongly recommended. Abnormal appearance of the right axilla. ASSESSMENT CATEGORY: BIRADS Category 5: Highly Suggestive of Malignancy - Appropriate Action Should Be Taken. A letter regarding these results will be sent to the patient by the facility within 30 days. Electronically Signed: Jamie Langford MD at 10:56 EST ,
== END | disposition home or self-care (01) ==
PROVIDERS: PCP Family Medicine; Visit Provider Nurse Practitioner Family
DX: N63.10 Unspecified lump in the right breast, unspecified quadrant (principal)
CPT/HCPCS: 76642; 77062; 77066; G0279

== ENCOUNTER → 2022-06-08 | Outpatient (CLI) | payer OTHER, SELFPAY ==
--- NOTE | 2022-06-08 | IMM_PTH ---
PATIENT: ZAN FERRERA LOC: [facility] U#:[id number] AGE/SX: 52/F ROOM: RE06/08/[address]: Dr. Joy Sams MD : 1970 BED: DIS: 06/08/2022 SPEC #: [id number] RECD: 06/10/22 14:22 STATUS: GEETHA REQ #: [id number] SUMMER: 06/08/22 00:[address]: Joy Sams DEPT: IMMUNOHISTOCHEMISTRY RECD BY: Erica Nielsen ENTERED: 06/10/22 14:24 SP TYPE: IMMUNO OTHR DR: Dr. Victor M Piedra MD Tissues: A - Right breast, NOS C - Axillary lymph node, NOS Procedures: Mammoglobin (initial) CALPONIN-1 (add) CK5-6 (add) CK7 (add) CK8 (add) E-CAD (add) HER2 JUAN (add) KI-67 (add) P53 (add) AR (add) Pankeratin (add) GATA3 (add) P40 (add) ER (initial) PHYSICIAN & [address] [address] SPECIMEN INFORMATION: Tissue Source: A - Right breast mass, 5.0 cm, 7 o?clock, C - Right axillary lymph node tissue Clinical Info: Right breast mass x2, lymph node likely cancer Specimen Number: [id number] A & C CPT code: 76852 x2, 30425 x9, 59327 x3 METHODOLOGY: Deparaffinized sections of prefer/formalin-fixed tissue or PAP/DQ stained slides are incubated with monoclonal/polyclonal antibodies/oligonucleotide probes. Localization is made via biotin free immunoperoxidase method. Appropriate controls are performed and reacted as expected. Results on target cell population are indicated in the following table: RESULTS: ANTIBODY / CLONE RESULT Block A E-Cad (ECH-6) positive CK8 (99agecY77) positive Calponin-1 (OJ252O) negative CK5-6 (D5 & 1684) positive, focal P40 (BC28) negative P53 (DO-7) positive, focal (wild-type pattern) Ki-67 (30-9) positive, ~70% MORPHOMETRIC ANALYSIS ER (clone 6F11) 0% AR (clone 16/1E2) 0% Her-2Neu (clone CB11) 1+ Block C Mammaglobin (31A5) negative GATA3 (L50-823) negative AE1-3 (AE1/AE3/PCK26) positive CK7 (OV-TL12/30) positive The prognostic test for HER2 is performed on formalin-fixed paraffin embedded tissue. A 3+ (positive) staining pattern is defined as intense, homogeneous, complete, circumferential membranous staining in >10% of contiguous tumor cells. A similar weak (2+) staining pattern is interpreted as equivocal. ROHINI follow-up testing is recommended for all equivocal cases. Positivity/negativity for ER/AR is reported if > or < 1% of the tumor cells are immuno- reactive, respectively. The ASCO/CAP criteria is used for scoring. Reference: Journal of Clinical Oncology, 2013; 31:0452-3296 & 2010; 16:1260-7571. Duration of fixation: 27 Hrs; Sample Adequate: Yes. These assays have not been validated on decalcified tissues. Results should be interpreted with caution given the likelihood of false negativity on decalcified specimens. These tests were developed and their performance characteristics determined by [facility]. They may not have been cleared or approved by the U.S. Food and Drug Administration. The FDA has determined that such clearance or approval is not necessary. The above immunohistochemical/dualISH markers are ordered and reviewed by the Pathologist. INTERPRETATION: A. Right breast mass, 5.0 cm, 7 o?clock, core biopsy: Invasive ductal carcinoma. Negative for estrogen receptors (unfavorable prognostic indicator). Negative for progesterone receptors (unfavorable prognostic indicator). Negative for overexpression of ZPL7iyp. C. Right axillary lymph node tissue, core biopsy: Metastatic carcinoma. SJ:andreas 06/13/2022
--- NOTE | 2022-06-08 | BRBX_PTH ---
PATIENT: ZAN FERRERA [facility]: [facility] U#:[id number] AGE/SX: 52/F ROOM: RE06/08/[address]: Dr. Joy Sams MD : 1970 BED: DIS: 06/08/2022 SPEC #: [id number] RECD: 06/08/22 16:27 STATUS: GEETHA RECalos #: [id number] SUMMER: 06/08/22 00:[address]: Joy Sams DEPT: SURGICAL PATHOLOGY RECD BY: Roxana Elder ENTERED: 06/09/22 08:09 SP TYPE: BREAST BX OTHR DR: Dr. Victor M Piedra MD Tissues: A - Right breast, NOS B - Right breast, NOS C - Lymph node, NOS Procedures: Surgery Specimen Level IV HEADER OPERATION: Biopsy of right breast mass x2, biopsy of lymph node right axilla PRE-OP DIAGNOSIS: Right breast mass x2, lymph node likely cancer TISSUE SUBMITTED: A - Central lateral right breast mass tissue 7 o?clock 5.0 cm, B - Central inferior right breast mass tissue 8 o?clock 10.0 cm, C - Right axilla lymph node tissue MICROSCOPIC DIAGNOSIS A. Right breast mass, 5.0 cm, 7 o?clock, core biopsy: Invasive ductal carcinoma, nuclear grade 2 (0.8 cm in greatest length). See comment. B. Right breast mass, 10.0 cm, 8 o?clock, core biopsy: Invasive ductal carcinoma, nuclear grade 2 (1.1 cm in greatest length). See comment. C. Right axillary lymph node tissue, core biopsy: Metastatic carcinoma. See comment. SJ:rg 06/10/2022 COMMENT A. Immunohistochemistry ([id number]) supports the above diagnosis. ER/WV/Qlt8bxj studies are being performed on sections of tumor and the results from this study will be reported separately ([id number]). A & B. Both tumors show extensive necrosis. They are similar in morphology. If ER/WV/Ksq9iqs studies are needed in specimen B, please notify the laboratory. C. Immunohistochemistry ([id number]) supports the above diagnosis. Metastatic focus measures 0.4 cm in greatest length. MICROSCOPIC DESCRIPTION Slides are reviewed. GROSS DESCRIPTION A - Received in fixative is one container labeled with the patient's name and designated right breast mass tissue 5.0 cm, 7 o?clock. The specimen consists of multiple elongated fragments of michel-yellow fibroadipose tissue that in aggregate measure 1.5 x 0.3 x 0.1 cm. The entire specimen is submitted in one cassette. B - Received in fixative is one container labeled with the patient's name and designated right breast mass tissue 10.0 cm, 8 o?clock. The specimen consists of two elongated fragments of michel-yellow fibroadipose tissue that in aggregate measure 1.5 x 0.3 x 0.1 cm. The entire specimen is submitted in one cassette. C - Received fresh and post fixed in formalin is one container labeled with the patient's name and designated right axillary lymph node tissue. The specimen consists of multiple elongated fragments of michel-yellow soft tissue that in aggregate measure 1.0 x 0.5 x 0.1 cm. The entire specimen is submitted in one cassette. / SJ:rg 06/09/2022 TC:0 [facility]: 30274 x3, 20061 ADDENDUM ADDENDUM ADDENDUM ADDENDUM ADDENDUM ADDENDUM ADDENDUM ADDENDUM ADDENDUM ADDENDUM ADDENDUM ADDENDUM ADDENDUM ADDENDUM 08/01/2022 14:35 ADDENDUM 08/01/2022 14:35 ADDENDUM 08/01/2022 14:35 ADDENDUM 08/01/2022 14:35 ADDENDUM 08/01/2022 14:35 This addendum is added to incorporate an outside pathology consultation report. The case was examined at [facility] (#[id number]) and the following diagnosis was rendered. A. Right breast mass, 5.0 cm, 7 o?clock, core biopsy: Invasive ductal carcinoma, grade 3 with associated necrosis. B. Right breast mass, 10.0 cm, 8 o?clock, core biopsy: Invasive ductal carcinoma, grade 3 with associated necrosis. C. Right axillary lymph node tissue, core biopsy: Lymph node with macrometastatic carcinoma. Please see complete above mentioned consultation report in EMR
== END | disposition home or self-care (01) ==
LOC: LABSPEC 16:38
PROVIDERS: PCP Family Medicine; Referring Provider Surgery; Visit Provider Surgery
DX: C50.911 Malignant neoplasm of unspecified site of right female breast (principal); C77.3 Secondary and unspecified malignant neoplasm of axilla and upper limb lymph nodes
CPT/HCPCS: 88305; 88341; 88342

== ENCOUNTER → 2022-06-29 | Outpatient (CLI) | payer OTHER, SELFPAY ==
--- NOTE | 2022-06-29 07:40 | CT_ITS ---
STUDY: CT CHEST T ABDOMEN WITH CONTRAST REASON FOR EXAM: Female, 52 years old. STAGING BREAST CA. New diagnosis. RADIATION DOSAGE (If Supplied By Facility): CTDIvol = ( 14.29 ) mGy, DLP = ( 560.31 ) mGycm TECHNIQUE: Transaxial imaging was performed following intravenous administration of IV 100mL Isovue-300. Multiplanar coronal and sagittal images were reformatted. Individualized dose optimization techniques were used for this CT. COMPARISON: No relevant priors. FINDINGS: CHEST There is a 1.9 cm x 1.8 cm enlarged lymph node in the right axilla. Nodular appearance in the lateral inferior aspect of the right breast. There is a 1.57 nodule or a tissue clip marker within it. There is also evidence of a 3.2 cm x 3.2 cm mass in the inferior deep medial portion of the right breast. The lungs are normal. There is no demonstrated pleural abnormality. There are calcifications of the coronary arteries. Normal mediastinum. Normal hilar regions. Normal unenhanced pulmonary arteries. Normal aorta arch and descending thoracic aorta. There are multi-level degenerative changes of the thoracic spine. There is no demonstrated abnormality of the visualized upper abdomen. CT/Chest WITH Contrast IMPRESSION: Enlarged right axillary lymph nodes. 2. Masses are seen in the right breast as described. Electronically Signed: Jamie Langford MD at 15:05 EDT ,
== END | disposition home or self-care (01) ==
PROVIDERS: PCP Family Medicine; Visit Provider Internal Medicine Medical Oncology
DX: C50.911 Malignant neoplasm of unspecified site of right female breast (principal)
CPT/HCPCS: 71260; Q9967

== ENCOUNTER → 2022-06-30 | Outpatient (CLI) | payer OTHER, SELFPAY ==
--- NOTE | 2022-06-30 10:14 | MRI_ITS ---
STUDY: BILATERAL BREAST MR WITHOUT AND WITH CONTRAST REASON FOR EXAM: Female, 52 years old. 2 right breast masses with enlarged axillary lymph nodes. Biopsy proven breast cancer. TECHNIQUE: Multi-sequence multi-echo imaging of both breasts was performed with a dedicated breast coil. T1-weighted and T2-weighted images were performed before the administration of contrast. T1-weighted images were also performed after the intravenous administration 19 cc of Clariscan contrast. COMPARISON: Bilateral mammogram dated June 07, 2022 and right breast ultrasound dated June 07, 2022. FINDINGS: RIGHT BREAST: Scattered fibroglandular density with minimal background enhancement. No abnormal enhancing masses or areas of non-mass enhancement in the right breast. LEFT BREAST: Scattered fibroglandular density with minimal background enhancement. Irregular enhancing mass in the lateral and inferior aspect of the right breast at approximately the 8:00 position measuring 2 cm x 1.6 cm x 18 mm corresponding to the lesion seen at ultrasound. Separate enhancing mass with apparent cavitation 10 cm behind the anterior lesion measuring 4 cm x 3.3 cm x 2.5 cm. This lesion was also seen at ultrasound. Multiple enlarged lymph nodes in the right axilla, the largest of which measures approximately 1.6 cm x 1.8 cm. No abnormality in the visualized regions of the chest or liver. MRI/Breast Bilateral W/O and W IMPRESSION: 2 masses in the right breast corresponding to the ultrasonographic masses, the largest of which resides posteriorly near the chest wall but not involving the chest wall. Multiple enlarged lymph nodes in the right axilla as described. CATEGORY: BIRADS Category 6: Known Biopsy-Proven Malignancy - Appropriate Action Should Be Taken. A letter regarding these results will be sent to the patient by the facility within 30 days. Electronically Signed: Michel Boyle, at 11:39 EDT ,
--- NOTE | 2022-06-30 13:51 | ECHODONC_ITS ---
Reason For Study: R BREAST MASS Procedure This was a 2D Doppler, Color Flow transthoracic echocardiogram. Myocardial strain analysis was performed in this exam to aid in the assessment of cardiac function. Exam performed in department. Left Ventricle Normal LV size. Left ventricular systolic function is normal. The estimated ejection fraction is 58 %. Normal diastology for age. No regional wall motion abnormalities noted. Right Ventricle Normal RV size. Normal systolic function. Atria Normal left atrium. Normal right atrium. Mitral Valve Normal mitral valve. Tricuspid Valve Normal tricuspid valve. Mild (1+) tricuspid valve insufficiency. Pulmonary artery systolic pressure is 28 mmHg. Aortic Valve Normal aortic valve. Trisinus/trileaflet aortic valve. Pulmonic Valve Normal pulmonic valve. Great Vessels Normal aortic root. The pulmonary artery is normal size. Normal inferior vena cava. Pericardium/Pleural No pericardial effusion. MMode/2D Measurements & Calculations LVIDd: 4.6 cm IVSd: 1.0 cm Ao root diam: 2.6 cm LVIDs: 2.9 cm LVPWd: 0.88 cm RVDd: 3.0 cm FS: 35.7 % LAV(MOD-bp): 32.8 ml LVAd ap4: 25.2 cm2 SV(MOD-sp4): 42.1 ml LAV(MOD-bp) Indexed: 15.5 ml/m2 LVLd ap4: 7.9 cm LAV(MOD-sp2): 34.9 ml EDV(MOD-sp4): 65.4 ml LAV(MOD-sp4): 30.4 ml EDV(sp4-el): 68.0 ml LVAs ap4: 13.0 cm2 LVLs ap4: 6.6 cm ESV(MOD-sp4): 23.3 ml ESV(sp4-el): 21.7 ml EF(MOD-sp4): 64.3 % EF(sp4-el): 68.1 % SV(sp4-el): 46.3 ml LA A4 area: 13.7 cm2 LA dimension(2D): 3.7 cm RA A4 area: 11.3 cm2 Time Measurements MV dec time: 0.25 sec Doppler Measurements & Calculations MV E max john: 102.5 cm/sec Lat Peak E' John: 13.7 cm/sec Med Peak E' John: 16.0 cm/sec MV A max john: 76.3 cm/sec E/E' lat: 7.5 E/E' med: 6.4 MV E/A: 1.3 Ao V2 max: 161.3 cm/sec LV V1 max: 142.1 cm/sec PA V2 max: 95.0 cm/sec Ao max P.4 mmHg LV V1 max P.1 mmHg TR max john: 243.2 cm/sec TR max P.7 mmHg ECHO/ONC Echo Complete Interpretation Summary Normal LV size. Left ventricular systolic function is normal. The estimated ejection fraction is 58 %. Pulmonary artery systolic pressure is 28 mmHg. The global longitudinal strain is normal. The global longitudinal strain = -17. 7 % (normal). Ordering Physician: Sukh Miller Referring Physician: Joy Sams Performed By: Aliya Sesay RDCS
== END | disposition home or self-care (01) ==
PROVIDERS: PCP Family Medicine; Referring Provider Surgery; Visit Provider Surgery
DX: C50.911 Malignant neoplasm of unspecified site of right female breast (principal); R59.0 Localized enlarged lymph nodes
CPT/HCPCS: 77049; 93306; 93356; A9575; A4216; C8908

== ENCOUNTER → 2022-07-05 | Outpatient (CLI) | payer OTHER, SELFPAY ==
--- NOTE | 2022-07-05 08:31 | NM_ITS ---
CLINICAL: 52-year-old female with history of primary breast carcinoma. WHOLE BODY 99m Tc MDP RADIONUCLIDE BONE SCINTIGRAPHY COMPARISON: None available FINDINGS: Following the intravenous administration of 25.0 mCi of 99m Tc MDP, whole body bone images reveal: 1. Increased radiopharmaceutical concentration is defined in the upper cervical spine posteriorly on the left, fourth lumbar vertebra posteriorly on the left and right, the ninth thoracic vertebra posteriorly on the left and right, the acromioclavicular compartments of both shoulders. 2. The remaining skeletal structures are scintigraphically unremarkable with normal-appearing renal images and urinary bladder activity identified. NM/Bone Scan Whole Body IMPRESSION: 1. The increase in radiotracer visualized in the cervical, thoracic, and lumbar spine, the bilateral shoulders is commensurate with degenerative arthritis. 2. There is no definitive scintigraphic evidence of skeletal metastatic disease. Electronically Signed: Chance D eLa Garza, at 23:08 EDT ,
== END | disposition home or self-care (01) ==
LOC: NM 08:31
PROVIDERS: PCP Family Medicine; Visit Provider Internal Medicine Medical Oncology
DX: C50.911 Malignant neoplasm of unspecified site of right female breast (principal)
CPT/HCPCS: 78306; A9503

== ENCOUNTER 2022-07-07 07:12 | Day surgery (SDC) | payer OTHER, SELFPAY ==
[2022-07-07] VITALS (7 sets, daily range): BP systolic 90–133; BP diastolic 52–70; PULSE 60–75; RESP 16–18; TEMP 36.2–36.8; O2SAT 95–100; BMI 32.1
--- NOTE | 2022-07-07 07:35 | PCM.HP.STD ---
HPI - General General Date of Admission: 07/07/22 HPI Narrative ZAN FERRERA, is a 52 F who presents for port placement due to right breast cancer and lymphadenopathy. Patient is planned starting neoadjuvant chemotherapy next Monday. [facility] Medical History Alcohol use Cancer Gastric reflux History of echocardiogram History of edema History of stress test Hypercholesterolemia Migraine headache Non-smoker Wears glasses Home Medications pantoprazole 40 mg tablet,delayed release 40 mg PO DAILY #30 tabs 06/08/22 [Rx Last Taken 07/07/22 06:45] Allergy/AdvReac Type Severity Reaction Status Date / Time No Known Allergies Allergy Verified 07/07/22 07:42 Family History Grandmother Breast cancer CVA (cerebral vascular accident) Aunt Breast cancer Surgical History Hx of breast biopsy No history of previous surgery Social History household members: spouse Smoking Status: Never smoker substance use type: does not use Physical Exam Narrative Neck supple, palpation bilateral upper chest normal Const oriented x3 and no apparent distress Resp normal respiratory effort Cardio regular rate GI soft to palpation and non-tender Assessment & Plan Assessment/Plan (1) Encounter for insertion of venous access port: (2) Invasive ductal carcinoma of right breast: (3) Lymphadenopathy, axillary: PLAN: Plan I have discussed above with the patient- Port-a-Cath placement. Patient has been counseled as to the risks/benefits of the procedure. I have explained the risks of the surgery, including but not limited to: infection, bleeding, injury to any blood vessels/nerves, injury to lungs (such as pneumothorax or hemothorax and need for chest tube), not having any access, nonfunctioning of port due to thrombosis, infection of port, etc. the patient understands and agrees to proceed. I have answered all the patient's questions to the patient?s satisfaction and the patient has no further questions. Joy Sams M.D. Pager: [phone] [facility] [address] [place] [address], [facility], [address] [place] [address] Office: [phone]
[2022-07-07 07:40] LABS: Internal QC Validated? YES +Cl - CLEAR BKGD; Pregnancy, Urine Negative Negative
[2022-07-07] MEDS: Lactated Ringers 1,000 ML 15 ML IV (07:53)
[2022-07-07] MEDS: Cefazolin 2 GM in 0.9% Normal Saline 100 ML IV (08:43)
[2022-07-07] MEDS: Bupivacaine 0.25% 30 ML Vial (08:57)
[2022-07-07] MEDS: Lidocaine 1% /Epi 1:100 (20ml) 20 ML Vial (08:57)
--- NOTE | 2022-07-07 09:21 | OP.PCM_ITS ---
Report of Operation Date of Procedure: 07/07/22 Pre-Operative Diagnosis: z45.2. Right breast cancer Post-Operative Diagnosis: Same Surgery/Procedure Performed:: 1. Insertion of left IJ Port-A-Cath, 2. Use of fluoroscopy, 3. Use of ultrasound Surgeon: Joy Sams Type of Anesthesia: Local MAC Anesthesiologist: Bib Coronado Special Medications: Ancef 2 g IV x1 Estimated Blood Loss (mL): < 10 cc Description of Procedure: After informed consent was given, the patient was brought to the operating room and placed in the supine position. Appropriate time out protocol was followed. Patient was then given IV conscious sedation for anesthesia. The patient's left upper chest and neck were then prepped with a surgical skin preparation and sterile surgical drapes were placed. After proper landmarks were ascertained, the skin at the upper left chest area was then infiltrated with 1:1 mixture of 1% lidocaine with epinephrine and 0.5% marcaine. A needle trocar was then inserted into the left internal jugular vein with ultrasound guidance-multiple vessels were viewed with u/s and the left IJ was ch osen-- and there was good aspiration of venous blood. A wire was then threaded into the needle trocar and this was visualized under fluoroscopy to ensure that the wire was in the superior vena cava. Once this was done, then the needle trocar was removed. A small skin sejal was made with an 11 blade knife at the wire entrance site. The dilator with the introducer sheath attached was then placed over the wire into the left internal jugular vein via the Seldinger technique and this was visualized under fluoroscopy. The dilator and sheath were in proper position as visualized by fluoroscopy. A subcutaneous pocket was then created caudad to the catheter insertion site. A transverse skin incision was made after the skin and subcutaneous tissues were infiltrated with local anesthetic. Blunt dissection was then used to create a space large enough for placement of the subcutaneous port. The catheter was then tunneled into the subcutaneous pocket. The wire and dilator were then removed. The catheter was then threaded into the introducer sheath and was positioned with its tip at the junction of the superior vena cava and the right atrium as visualized under fluoroscopy. The excess catheter was transected. The catheter was then attached to the subcutaneous port using manufacturers guidelines. The catheter was flushed with a heparin saline mixture prior to placement. Hemostasis was carefully controlled with electrocautery. The port was sutured to the subcutaneous fascia using 2-0 Vicryl suture at two sites. The port was then placed in the subcutaneous pocket. The incision were reapproximated with interrupted subdermal 3-0 vicryl sutures. The skin was reapproximated with 3-0 nylon suture in a interrupted fashion. Steristrips were used for reinforcement of the skin closure at IJ insertion site and a sterile opsite dressings were applied. The patient tolerated the procedure well. Grafts/Implants Used: Bard PowerPort isp M.R.I. 6Fr Lot [id number] Complications none
--- NOTE | 2022-07-07 09:21 | RAD_ITS ---
STUDY: X-RAY CHEST REASON FOR EXAM: Female, 52 years old. Port -- pacu TECHNIQUE: Single AP portable view of the chest. COMPARISON: None. FINDINGS: A left-sided Port-A-Cath is seen with the tip at the junction of the superior vena cava and right atrium. EKG electrodes are seen. Scattered calcified granulomas. No acute abnormality seen. There is no demonstrated pleural abnormality. Normal size heart. Normal mediastinum and trevin. Normal visualized pulmonary arteries. Normal visualized aortic arch and descending thoracic aorta. Normal visualized thoracic spine. Normal visualized ribs, clavicles, and shoulders. There is no demonstrated abnormality of the visualized soft tissue structures of the upper abdomen. RAD/Chest 1 View (Portable) IMPRESSION: The tip of the left amparo catheter is at the junction of the superior vena cava and right atrium. Electronically Signed: Jamie Langford MD at 9:47 EDT ,
--- NOTE | 2022-07-07 09:23 | DCINST_ITS ---
Discharge Instructions Procedure Port-A-Cath Diet Discharge Diet: Light diet - advance as tolerated Activity May shower in (days): 5 (Keep port site clean and dry x5 days. Neck incision okay to get wet after 1 day. Okay to lower shower and upper sponge bath. OR okay to taper off port site with a Ziploc bag to shower) Lifting Restrictions: No lifting > 15 pounds for 3 days with the arm on the side of the port Dressing / Incision Call your doctor if your incision/area has: Continuous Slow Oozing, Sudden Increased Bleeding, Increased Pain/ Swelling, Increased Redness, Foul Smelling Discharge and Swelling at the incision site Call your doctor if you observe: Fever of 101 or Higher Change Dressing in: 2 days Follow Up Care Please Follow Up With: Joy Sams MD When: In 10 days for permanent suture removal?call office for appointment Test Results: Test results from this visit will be discussed in further detail at your follow- up appointment, if applicable. Discharge Plan Admission Attending Provider: Joy Sams Primary Care Provider: Pk Piedra Discharge Orders/Prescriptions Prescriptions: New oxycodone-acetaminophen 5-325 mg tablet 1 tab PO Q6H PRN (Reason: pain) 3 Days Qty: 5 0RF Continued pantoprazole 40 mg tablet,delayed release (DR/EC) 40 mg PO DAILY Qty: 30 3RF Referrals / Follow Up: Pk Piedra MD [Primary Care Provider] - Disposition Disposition (needs filled in before D/C Order can be placed): Home, Self Care
== END 2022-07-07 10:56 | disposition home or self-care (01) ==
LOC: SDC 07:17 → AC 07:18
PROVIDERS: Anesthesiology; PCP Family Medicine; Referring Provider Surgery; Visit Provider Surgery
PROC: (CPT 36561; principal; 2022-07-07 08:30)
DX: Z45.2 Encounter for adjustment and management of vascular access device (principal); C50.511 Malignant neoplasm of lower-outer quadrant of right female breast; Z17.1 Estrogen receptor negative status [ER-]; R59.0 Localized enlarged lymph nodes
CPT/HCPCS: 36561; 71045; 77001; 81025; J7120; J2405

== ENCOUNTER 2022-08-22 10:55 | Day surgery (SDC) | payer OTHER, SELFPAY ==
[2022-08-22] VITALS (7 sets, daily range): BP systolic 101–131; BP diastolic 58–78; PULSE 71–82; RESP 16; TEMP 36.2–36.6; O2SAT 97–100; BMI 30.8
--- NOTE | 2022-08-22 11:02 | HP.PCM_ITS ---
History and Physical Date of Admission: 08/22/22 ?52 F who presents to the office today to establish with Gastroenterology for episodes of epigastric pain. She presented to the ED twice for this pain. The first time the epigastric pain occurred it awoke her in the night, describes it as a stabbing pain, then she vomited and the pain lessened. Pain returned during the daytime. 05/29/22 CT had incidental finding of breast mass. Another CT on 06/01/22 showed mild fat inflammatory stranding along the gastric antrum, adjacent to the pancreatic head. Pain didn't radiate. She stopped coffee, soda, acidic foods and that has helped. When she tried to resume these foods then the pain recurred. She was started on PPI therapy, taking pantoprazole 40 mg daily. The epigastric pain hasn't returned since she changed her diet and started PPI, but she did vomit once after eating salsa. Currently denies nausea, vomiting, heartburn, acid reflux, dysphagia, abdominal pain, diarrhea, constipation, melena. She has had some bright red blood with a couple of BMs in the last week, may be due to chemotherapy. No prior EGD or colonoscopy. No hx of GERD or PUD. No prior GI issues. She has right breast invasive ductal carcinoma, triple negative, BRCA2 mutation positive. On neoadjuvant chemotherapy. Also has left breast invasive ductal carcinoma. Father had colon polyps ROS Const Constitutional: Positive for fatigue ENT ENT: No difficulty swallowing Gastro GI: Positive for abdominal pain, bloating, constipation, excessive flatus, Blood in stool and vomiting; No belching, change in bowel habits, change in stool character, coffee ground emesis, cramping, diarrhea, heartburn, difficulty swallowing, feeling full early, incontinent of stools, Vomiting blood/hematemesis, loose stools, Black,tarry stools, nausea/dyspepsia, pain with swallowing or other Musc Musculoskeletal: No joint pain Skin Skin: No yellowing of the eye or itchy eyes Psych Psychiatric: No anxiety and No depression Endo Endocrine: Positive for fatigue Aller/Imm Allergy/Immunologic: No itchy eyes Lincoln/Lymp Hematologic/Lymphatic: Positive for easy bleeding and easy bruising Exam Const General: cooperative, comfortable and no acute distress Nutritional Appearance: obese Orientation: alert, awake and oriented x3 Eyes Sclera: sclerae normal Resp Effort & Inspection: normal respiratory effort GI Inspection: normal to inspection Skin General: no rashes or lesions noted Other: alopecia Neuro Speech: speech normal Gait: normal gait Psych Mood: congruent mood Quality Reporting Tobacco Screening ([facility] 138) Smoking Status: Never smoker Assessment and Plan Assessment and Plan (1) Epigastric pain: ?Status:?Acute ?Plan: 52 yr old female with episodes of epigastric pain which have resolved with low- acid diet and PPI. Breast masses were found incidentally on CT scans done in ED when she presented for the abdominal pain. She is now undergoing treatment for breast cancer. She is BRCA2 mutation positive. Will get EGD to evaluate for PUD, H pylori, gastritis, duodenitis or other cause for the recent pain. Continue pantoprazole 40 mg daily. Consider other causes for epigastric pain including pancreatic or biliary etiology. I'll discuss possibly getting tumor markers with Dr Rincon, considering BRCA2 mutation--CEA, CA 19-9, AFP. Will get colonoscopy to eval the recent BRBPR; no prior screening colonoscopy. I have examined the patient and the H&P has been reviewed. There are no clinical changes since date of exam.
[2022-08-22] MEDS: Lactated Ringers 1,000 ML 15 ML IV (11:22)
--- NOTE | 2022-08-22 12:15 | EGD_PTH ---
PATIENT: ZAN FERRERA LOC: EN U#:[id number] AGE/SX: 52/F ROOM: RE08/22/[address]: Dr. Johnny Rincon DO : 1970 BED: DIS: 08/22/2022 SPEC #: [id number] RECD: 08/22/22 13:34 STATUS: GEETHA REQ #: [id number] SUMMER: 08/22/22 12:[address]: Johnny Rincon DEPT: SURGICAL PATHOLOGY RECD BY: Roxana Elder ENTERED: 08/23/22 07:52 SP TYPE: EGD BIOPSY OT DR: Dr. Victor M Piedra MD Tissues: A - Esophagus, NOS B - Esophagus, NOS Procedures: Special Stain Group II Surgery Specimen Level IV Alcian Blue/PAS (control) HEADER OPERATION: [place] [place] PRE-OP DIAGNOSIS: Epigastric pain TISSUE SUBMITTED: A ? Distal esophagus biopsy, B ? Random esophageal biopsy MICROSCOPIC DIAGNOSIS A. Distal esophagus, biopsy: Gastroesophageal junctional mucosa with mild chronic inflammation. No evidence of goblet cell metaplasia. See comment. B. Esophagus, random biopsy: No pathologic change. AM:andreas 08/24/2022 COMMENT A. Alcian blue/PAS stain with matched control supports the above diagnosis. MICROSCOPIC DESCRIPTION Slides are reviewed. GROSS DESCRIPTION A - Received in fixative is one container labeled with the patient's name and designated distal esophagus biopsy. The specimen consists of two irregular fragments of light michel soft tissue that in aggregate measure 0.7 x 0.5 x 0.1 cm. The specimen is totally submitted in one cassette. B - Received in fixative is one container labeled with the patient's name and designated random esophageal biopsy. The specimen consists of multiple irregular fragments of light michel soft tissue that in aggregate measure 1.0 x 0.3 x 0.1 cm. The specimen is totally submitted in one cassette. / SJ:andreas 08/23/2022 TC:3 CPT: 74747 x2, 31200
--- NOTE | 2022-08-22 12:43 | OP.EGD_ITS ---
Patient Name: Milvia Gillis Procedure Date: 08/22/2022 12:06 PM Date of : 1970 Age: 52 Procedure: Upper GI endoscopy Indications: Epigastric abdominal pain Providers: Johnny Rincon DO Medicines: Monitored Anesthesia Care Patient Profile: This is a 52 year old female. Refer to note in patient chart for documentation of history and physical. Patient has symptoms of acute epigastric abdominal pain. Complications: No immediate complications. Procedure: Pre-Anesthesia Assessment: - Prior to the procedure, a History and Physical was performed, and patient medications and allergies were reviewed. The patient is competent. The risks and benefits of the procedure and the sedation options and risks were discussed with the patient. All questions were answered and informed consent was obtained. Patient identification and proposed procedure were verified by the physician in the pre-procedure area. Mental Status Examination: alert and oriented. Airway Examination: normal oropharyngeal airway and neck mobility. Respiratory Examination: clear to auscultation. CV Examination: normal. Prophylactic Antibiotics: The patient does not require prophylactic antibiotics. Prior Anticoagulants: The patient has taken no previous anticoagulant or antiplatelet agents. ASA Grade Assessment: II - A patient with mild systemic disease. After reviewing the risks and benefits, the patient was deemed in satisfactory condition to undergo the procedure. The anesthesia plan was to use monitored anesthesia care (MAC). Immediately prior to administration of medications, the patient was re-assessed for adequacy to receive sedatives. The heart rate, respiratory rate, oxygen saturations, blood pressure, adequacy of pulmonary ventilation, and response to care were monitored throughout the procedure. The physical status of the patient was re-assessed after the procedure. After obtaining informed consent, the endoscope was passed under direct vision. Throughout the procedure, the patient's blood pressure, pulse, and oxygen saturations were monitored continuously. The pediatric colonoscope was introduced through the mouth, and advanced to the second part of duodenum. The upper GI endoscopy was accomplished without difficulty. The patient tolerated the procedure well. Scope In: 12:14:21 PM Scope Out: 12:19:05 PM Total Procedure Duration Time 0 hours 4 minutes 44 seconds Findings: Non-severe esophagitis with no bleeding was found 35 to 37 cm from the incisors. Biopsies were taken with a cold forceps for histology. Verification of patient identification for the specimen was done. Estimated blood loss was minimal. Patchy mildly erythematous mucosa without bleeding was found in the gastric body. The second portion of the duodenum was normal. Impression: - Non-severe non-erosive esophagitis. Biopsied. - Erythematous mucosa in the gastric body. - Normal second portion of the duodenum. Recommendation: - Discharge patient to home. - Resume previous diet. - Continue present medications. - Await pathology results. Procedure Code(s): --- Professional --- 61322, Esophagogastroduodenoscopy, flexible, transoral; with biopsy, single or multiple CPT copyright 2017 [employer]. All rights reserved. The codes documented in this report are preliminary and upon shellfish weigher review may be revised to meet current compliance requirements. Johnny Rincon DO 08/22/2022 12:43:17 PM This report has been signed electronically. Number of Addenda: 0 Note Initiated On: 08/22/2022 12:06 PM
--- NOTE | 2022-08-22 12:44 | OP.CCLET_ITS ---
08/22/2022 Pk Piedra [address] [place] [address] Re : Upper GI endoscopy procedure for Milvia Gillis Dear Dr. Piedra This procedure was performed on Monday, August 22, 2022. My impressions and recommendations are as follows: Impressions : - Non-severe non-erosive esophagitis. Biopsied. - Erythematous mucosa in the gastric body. - Normal second portion of the duodenum. Recommendations : - Discharge patient to home. - Resume previous diet. - Continue present medications. - Await pathology results. My findings are described in the full procedure note, which is enclosed. If I can be of further assistance, please feel free to contact me at . Sincerely, Johnny Rincon, 08/22/2022 12:43:17 PM This report has been signed electronically.
--- NOTE | 2022-08-22 12:46 | OP.COLON_ITS ---
Patient Name: Milvia Gillis Procedure Date: 08/22/2022 12:19 PM Date of : 1970 Age: 52 Procedure: Colonoscopy Indications: Screening for colorectal malignant neoplasm Providers: Johnny Rincon DO Medicines: Monitored Anesthesia Care Patient Profile: This is a 52 year old female. Refer to note in patient chart for documentation of history and physical. Patient has symptoms of acute epigastric abdominal pain. Last Colonoscopy: none. The patient's first colonoscopy is today. Complications: No immediate complications. Procedure: Pre-Anesthesia Assessment: - Prior to the procedure, a History and Physical was performed, and patient medications and allergies were reviewed. The patient is competent. The risks and benefits of the procedure and the sedation options and risks were discussed with the patient. All questions were answered and informed consent was obtained. Patient identification and proposed procedure were verified by the physician in the pre-procedure area. Mental Status Examination: alert and oriented. Airway Examination: normal oropharyngeal airway and neck mobility. Respiratory Examination: clear to auscultation. CV Examination: normal. Prophylactic Antibiotics: The patient does not require prophylactic antibiotics. Prior Anticoagulants: The patient has taken no previous anticoagulant or antiplatelet agents. ASA Grade Assessment: II - A patient with mild systemic disease. After reviewing the risks and benefits, the patient was deemed in satisfactory condition to undergo the procedure. The anesthesia plan was to use monitored anesthesia care (MAC). Immediately prior to administration of medications, the patient was re-assessed for adequacy to receive sedatives. The heart rate, respiratory rate, oxygen saturations, blood pressure, adequacy of pulmonary ventilation, and response to care were monitored throughout the procedure. The physical status of the patient was re-assessed after the procedure. After I obtained informed consent, the scope was passed under direct vision. Throughout the procedure, the patient's blood pressure, pulse, and oxygen saturations were monitored continuously. The pediatric colonoscope was introduced through the anus and advanced to the cecum, identified by appendiceal orifice and ileocecal valve. The colonoscopy was performed without difficulty. The patient tolerated the procedure well. The quality of the bowel preparation was adequate. Scope In: 12:20:53 PM Scope Withdrawal Time 0 hours 8 minutes 40 seconds Scope Out: 12:36:07 PM Total Procedure Duration Time 0 hours 15 minutes 14 seconds Findings: The perianal and digital rectal examinations were normal. A few small and large-mouthed diverticula were found in the recto-sigmoid colon and sigmoid colon. The exam was otherwise without abnormality on direct and retroflexion views. Impression: - Diverticulosis in the recto-sigmoid colon and in the sigmoid colon. - The examination was otherwise normal on direct and retroflexion views. - No specimens collected. Recommendation: - Discharge patient to home. - Resume previous diet. - Continue present medications. - Repeat colonoscopy in 10 years for screening purposes. Procedure Code(s): --- Professional --- G0121, Colorectal cancer screening; colonoscopy on individual not meeting criteria for high risk CPT copyright 2017 [employer]. All rights reserved. The codes documented in this report are preliminary and upon sling operator review may be revised to meet current compliance requirements. Johnny Rincon DO 08/22/2022 12:46:27 PM This report has been signed electronically. Number of Addenda: 0 Note Initiated On: 08/22/2022 12:19 PM
--- NOTE | 2022-08-22 12:47 | OP.CCLET_ITS ---
08/22/2022 Pk Piedra [address] [place] [address] Re : Colonoscopy procedure for Milvia Gillis Dear Dr. Piedra This procedure was performed on Monday, August 22, 2022. My impressions and recommendations are as follows: Impressions : - Diverticulosis in the recto-sigmoid colon and in the sigmoid colon. - The examination was otherwise normal on direct and retroflexion views. - No specimens collected. Recommendations : - Discharge patient to home. - Resume previous diet. - Continue present medications. - Repeat colonoscopy in 10 years for screening purposes. My findings are described in the full procedure note, which is enclosed. If I can be of further assistance, please feel free to contact me at . Sincerely, Johnny Rincon, 08/22/2022 12:46:27 PM This report has been signed electronically.
== END 2022-08-22 13:27 | disposition home or self-care (01) ==
LOC: EN 10:56 → AC 10:57
PROVIDERS: PCP Family Medicine; Referring Provider Family Medicine; Visit Provider Internal Medicine Gastroenterology
PROC: 0DJD8ZZ Inspection of Lower Intestinal Tract, Via Natural or Artificial Opening Endoscopic (ICD-10-PCS; CPT 45378; principal; 2022-08-22 12:10)
DX: Z12.11 Encounter for screening for malignant neoplasm of colon (principal); C50.912 Malignant neoplasm of unspecified site of left female breast; Z15.01 Genetic susceptibility to malignant neoplasm of breast; K57.30 Diverticulosis of large intestine without perforation or abscess without bleeding; K21.00 Gastro-esophageal reflux disease with esophagitis, without bleeding; E78.00 Pure hypercholesterolemia, unspecified; Z79.899 Other long term (current) drug therapy
CPT/HCPCS: 43239; 45378; 88305; 88313; J7120; A4216; J2405

== ENCOUNTER → 2022-08-31 | Outpatient (CLI) | payer OTHER, SELFPAY ==
--- NOTE | 2022-08-31 12:07 | US_ITS ---
STUDY: ULTRASOUND BREAST - RIGHT REASON FOR EXAM: Female, 52 years old. History of bilateral breast masses. Patient is on chemotherapy. TECHNIQUE: Axial and longitudinal images of the RIGHT breast were performed with a high resolution ultrasound transducer. # OF IMAGES: 70 COMPARISON: Comparison is made with prior mammogram dated June 07, 2022 as well as MRI of the breasts dated June 30, 2022 and ultrasound of the right breast. FINDINGS: RIGHT Breast: There is a 1.9 cm x 2.7 cm x 2.1 cm solid mass at the 8:00 position breast at 10 cm from nipple. There is also evidence of a 1.1 cm x 1.2 cm x 0.4 cm solid mass at the 7:00 position of the breast at 7 cm from nipple. A dominant axillary node measuring 2.6 x 1.4 cm x 0.9 cm is seen. IMPRESSION: Dominant mass at the o''clock position breast at 10 cm from the nipple measuring 1.9 cm x 2.7 cm x 2.1 cm. There is also evidence of an enlarged lymph node measuring 2.6 x 1.4 cm x 0.9 cm in the right axilla. ASSESSMENT CATEGORY: BIRADS Category 4: Suspicious - Biopsy Should Be Considered. A letter regarding these results will be sent to the patient by the facility within 30 days. Electronically Signed: Jamie Langford MD at 14:27 EDT , STUDY: ULTRASOUND BREAST - LEFT REASON FOR EXAM: Female, 52 years old. Abnormal screening mammogram. TECHNIQUE: Axial and longitudinal images of the LEFT breast were performed with a high resolution ultrasound transducer. # OF IMAGES: 70 COMPARISON: Comparison is made with prior mammogram dated June 07, 2022 and MRI dated June 30, 2022. FINDINGS: LEFT Breast: The inner lower aspect of the left breast was examined with ultrasound. No sonographic abnormality is seen at this time. US/Breast Limited Unilateral IMPRESSION: No sonographic abnormality is seen at this time. ASSESSMENT CATEGORY: BIRADS Category 1: Negative. A letter regarding these results will be sent to the patient by the facility within 30 days. Electronically Signed: Jamie Langford MD at 14:28 EDT ,
--- NOTE | 2022-08-31 12:07 | US_ITS ---
STUDY: ULTRASOUND BREAST - RIGHT REASON FOR EXAM: Female, 52 years old. History of bilateral breast masses. Patient is on chemotherapy. TECHNIQUE: Axial and longitudinal images of the RIGHT breast were performed with a high resolution ultrasound transducer. # OF IMAGES: 70 COMPARISON: Comparison is made with prior mammogram dated June 07, 2022 as well as MRI of the breasts dated June 30, 2022 and ultrasound of the right breast. FINDINGS: RIGHT Breast: There is a 1.9 cm x 2.7 cm x 2.1 cm solid mass at the 8:00 position breast at 10 cm from nipple. There is also evidence of a 1.1 cm x 1.2 cm x 0.4 cm solid mass at the 7:00 position of the breast at 7 cm from nipple. A dominant axillary node measuring 2.6 x 1.4 cm x 0.9 cm is seen. IMPRESSION: Dominant mass at the o''clock position breast at 10 cm from the nipple measuring 1.9 cm x 2.7 cm x 2.1 cm. There is also evidence of an enlarged lymph node measuring 2.6 x 1.4 cm x 0.9 cm in the right axilla. ASSESSMENT CATEGORY: BIRADS Category 4: Suspicious - Biopsy Should Be Considered. A letter regarding these results will be sent to the patient by the facility within 30 days. Electronically Signed: Jamie Langford MD at 14:27 EDT , STUDY: ULTRASOUND BREAST - LEFT REASON FOR EXAM: Female, 52 years old. Abnormal screening mammogram. TECHNIQUE: Axial and longitudinal images of the LEFT breast were performed with a high resolution ultrasound transducer. # OF IMAGES: 70 COMPARISON: Comparison is made with prior mammogram dated June 07, 2022 and MRI dated June 30, 2022. FINDINGS: LEFT Breast: The inner lower aspect of the left breast was examined with ultrasound. No sonographic abnormality is seen at this time. US/Breast Limited Unilateral IMPRESSION: No sonographic abnormality is seen at this time. ASSESSMENT CATEGORY: BIRADS Category 1: Negative. A letter regarding these results will be sent to the patient by the facility within 30 days. Electronically Signed: Jamie Langford MD at 14:28 EDT ,
== END | disposition home or self-care (01) ==
LOC: OPUS 12:06
PROVIDERS: PCP Family Medicine; Referring Provider Internal Medicine Medical Oncology; Visit Provider Internal Medicine Medical Oncology
DX: C50.811 Malignant neoplasm of overlapping sites of right female breast (principal); C50.912 Malignant neoplasm of unspecified site of left female breast
CPT/HCPCS: 76642

== ENCOUNTER 2022-09-02 03:54 | Emergency (ER) | payer OTHER, SELFPAY ==
[2022-09-02 03:56] VITALS: BP 154/59; PULSE 97; RESP 16; TEMP 37.8; O2SAT 96; BMI 32.1
--- NOTE | 2022-09-02 04:05 | RAD_ITS ---
INDICATION: fever EXAMINATION/TECHNIQUE: X-RAY - XR Chest 1 View COMPARISON: 07/07/2022 FINDINGS: LINES/DEVICES: Mediporte on the left. LUNGS: No consolidation, edema or effusion. No pneumothorax. MEDIASTINUM AND CARDIOVASCULAR STRUCTURES: Cardiac silhouette not enlarged. Central airways and mediastinal contour are unremarkable. BONES AND SOFT TISSUES: Unremarkable. RAD/Chest 1 View (Portable) IMPRESSION: No radiographic evidence of acute cardiopulmonary disease. Electronically Signed: Mario Schaefer MD at 5:11 EDT ,
--- NOTE | 2022-09-02 04:07 | EDS_ITS ---
HPI History of Present Illness Chief Complaint: Fever Detail of Chief Complaint: Fever Informant: patient Narrative Narrative: Patient presents with fever that started this morning. Patient states that she woke up around 1 AM with chills. Initially checked her temperature and it was 99 and she waited about 45 minutes and checked it again it was 102. She denies cough or sore throat. She denies vomiting or diarrhea. She denies abdominal pain. She denies sick contacts. Patient currently being treated for breast cancer and receiving chemotherapy. Last chemotherapy was 2 days ago. PFSH PFS Medical History Alcohol use Cancer Encounter for education Gastric reflux History of echocardiogram History of edema History of stress test Hypercholesterolemia Migraine headache Non-smoker Wears glasses Home Medications pantoprazole 40 mg tablet,delayed release 40 mg PO DAILY #30 tabs 06/08/22 [Rx Last Taken 08/22/22 09:00] lidocaine-prilocaine 2.5 %-2.5 % topical cream 1 applic topical ONCE PRN port access 30 days #30 grams 07/12/22 [Rx Last Taken Unknown] ondansetron 8 mg disintegrating tablet 8 mg PO Q8H PRN nausea and vomiting #30 tabs 07/12/22 [Rx Last Taken Unknown] hydrocodone-acetaminophen 5-325mg 5mg-325mg 1 tab PO Q4H PRN PRN Pain 09/02/22 [History Last Taken Unknown] polyethylene glycol 3350 17 gram oral powder packet (Miralax) 17 g PO DAILY PRN Constipation 09/02/22 [History Last Taken Unknown] Allergy/AdvReac Type Severity Reaction Status Date / Time No Known Allergies Allergy Verified 08/31/22 09:05 Family History Grandmother Breast cancer CVA (cerebral vascular accident) Aunt Breast cancer Surgical History History of left breast biopsy History of vascular access device Hx of breast biopsy Social History household members: spouse Smoking Status: Never smoker substance use type: does not use ROS ROS ED Review of Systems ROS Unobtainable: other Constitutional Constitutional ED: Reports chills, fever(s) and lethargy; Denies sweats or weight loss Eyes Eyes: Denies blurry vision, change in vision or diplopia ENT ENT ED: Denies rhinorrhea or sore throat Cardiovascular Cardiovascular: Denies chest pain, orthopnea or racing heartbeat Respiratory/Chest Respiratory/Chest: Denies cough, dyspnea, dyspnea on exertion, orthopnea or sputum Gastrointestinal Gastrointestinal: Denies abdominal pain, diarrhea, nausea or vomiting Genitourinary Genitourinary ED: Denies dysuria, hematuria or urinary frequency Musculoskeletal Musculoskeletal: Denies arthralgias, back pain, myalgias or neck pain Integumentary Denies abscess, Abrasions or rash Neurologic Neurologic: Denies headache(s) or weakness Psychiatric Psychiatric: Denies anxiety, depression or suicidal thoughts Endocrine Endocrinology: Denies polydipsia, polyphagia or polyuria Hematologic/Lymphatic Hematologic/Lymphatic: Denies easy bleeding, easy bruising or lymphadenopathy Allergic/Immunologic Allergic/Immunologic ED: Denies mouth swelling, tongue swelling or urticaria EXAM Physical Exam Const Vital Signs: 09/02/22 03:56 Temperature 100.0 F H Temperature Source Temporal Pulse Rate 97 Respiratory Rate 16 Blood Pressure 154/59 H Blood Pressure Mean 90 Pulse Ox 96 Oxygen Delivery Method Room Air Positive well nourished and well developed General Appearance ED: well developed and NAD HEENT Reports TM's clear and moist mucous membranes normocephalic and atraumatic; Negative for trauma or tenderness Tympanic Membrane ED: Yes TM's clear Eyes PERRL and EOMs intact bilaterally General Eye ED: Negative for pale conjunctiva or scleral icterus Neck no lymphadenopathy, supple and no JVD General: Negative for tenderness Chest Wall inspection of chest normal and palpation of chest normal Chest: Negative for tenderness Resp normal respiratory effort and clear to auscultation bilaterally Effort and Inspection: Negative for respiratory distress or pain with movement Auscultation: Negative for rhonchi, wheezes or diminished lung sounds Cardio regular rate, regular rhythm, S1 normal heart sound, S2 normal heart sound and no murmurs Peripheral Pulses: pulses 2+ throughout GI normal to inspection, nondistended, normoactive bowel sounds, soft to palpation, non-tender, non-distended and no masses Back/Spine no CVA tenderness and no thoracic nor lumbar tenderness Extremity normal to inspection General Extremety ED: Negative for edema General Extremity: Negative for edema Neuro oriented x3, CN's II-XII intact bilaterally, no sensory deficits noted and gait normal Sensorium / Orientation: awake, alert, oriented to person, oriented to place and oriented to time Motor Exam: strength 5/5 throughout and strength abnormal Psych mental status grossly normal Skin no rashes or lesions noted and no wounds MDM MDM MDM Narrative Medical decision making narrative: Patient with history of cancer and presents with fever. Clinically looks well. IV line established on arrival. CBC with differential obtained showed a white count of 4.9 with a hemoglobin of 8.8 and platelet count 281. She had 79% neutrophils and an absolute neutrophil count of 3.9. Patient is not neutropenic. Chemistries unremarkable. Lactate was normal at 1.4. LFTs were normal. BUN was 28 and creatinine 1.17. COVID and flu testing negative. Chest x-ray unremarkable. Urinalysis normal. Patient had blood cultures ordered. Case discussed with oncologist on-call for Dr. Miller, spoke with Dr. Brandon. He felt no antibiotics were indicated and I am in agreement. As she does look well and we do not have a source. In the differential would be infectious etiology With a virus versus bacterial infection. This felt patient can be discharged to home and outpatient follow-up on her culture results. She is advised to return if worrisome symptoms should develop such as lightheadedness, shortness of breath, severe abdominal pain, dehydration, or condition should worsen anyway. Lab Data Attestation: I reviewed the patient's lab results. Labs: Laboratory Results - last 24 hr 09/02/22 09/02/22 09/02/22 04:32 04:32 04:32 WBC 4.9 RBC 2.99 L Hgb 8.8 L Hct 26.7 L MCV 89.3 MCH 29.4 MCHC 33.0 RDW Std Deviation 53.1 H RDW Coeff of Sydnee 17.1 H Plt Count 281 MPV 9.5 Immature Gran % (Auto) 0.600 Neut % (Auto) 79.5 H Lymph % (Auto) 13.[address] [place] % (Auto) 5.9 Eos % (Auto) 0.2 Baso % (Auto) 0.0 Absolute Neuts (auto) 3.9 Absolute Lymphs (auto) 0.68 L Nucleated RBC % 0 Sodium 139 Potassium 3.5 Chloride 107 Carbon Dioxide 24.0 Anion Gap 8 BUN 28 H Creatinine 1.17 H Estim Creat Clear Calc 56.74 Est GFR (MDRD) Af Amer 62 Est GFR (MDRD) Non-Af 52 L BUN/Creatinine Ratio 23.9 H Glucose 102 Lactic Acid 1.4 Calcium 8.5 Total Bilirubin 0.30 AST 11 L ALT 22 Alkaline Phosphatase 105 Total Protein 6.4 Albumin 3.1 L Globulin 3.3 Albumin/Globulin Ratio 0.9 Urine Color Urine Clarity Urine pH Ur Specific [place] Urine Protein Urine Glucose (UA) Urine Ketones Urine Occult Blood Urine Nitrite Urine Bilirubin Urine Urobilinogen Ur Leukocyte Esterase Urine RBC Urine WBC Ur Squamous Epith Cells Urine Bacteria Urine Mucus 09/02/22 04:49 WBC RBC Hgb Hct MCV MCH MCHC RDW Std Deviation RDW Coeff of Sydnee Plt Count MPV Immature Gran % (Auto) Neut % (Auto) Lymph % (Auto) [place] % (Auto) Eos % (Auto) Baso % (Auto) Absolute Neuts (auto) Absolute Lymphs (auto) Nucleated RBC % Sodium Potassium Chloride Carbon Dioxide Anion Gap BUN Creatinine Estim Creat Clear Calc Est GFR (MDRD) Af Amer Est GFR (MDRD) Non-Af BUN/Creatinine Ratio Glucose Lactic Acid Calcium Total Bilirubin AST ALT Alkaline Phosphatase Total Protein Albumin Globulin Albumin/Globulin Ratio Urine Color Yellow Urine Clarity Clear Urine pH 5.0 Ur Specific [place] 1.010 Urine Protein 15 H Urine Glucose (UA) Normal Urine Ketones Negative Urine Occult Blood 10 H Urine Nitrite Negative Urine Bilirubin Negative Urine Urobilinogen Normal Ur Leukocyte Esterase 100 H Urine RBC 0-5 SEEN Urine WBC 0-5 SEEN Ur Squamous Epith Cells 0-5 SEEN Urine Bacteria RARE Urine Mucus 0 SEEN Radiography Diagnostic Testing: Clinical Impression(s) from Imaging Studies Chest X-Ray 09/02/22 04:05 IMPRESSION: No radiographic evidence of acute cardiopulmonary disease. Electronically Signed: Mario Schaefer MD at 5:11 EDT Reading Location ID and State: [facility] / [place] Tel , Service support , 1 view chest x-ray obtained interpreted by myself as no evidence of infiltrate or pneumothorax or acute disease process. Radiology in agreement. Discharge Plan Triage Chief Complaint: Fever ED Provider: Dian Phillip Dx/Rx/DC Orders Clinical Impression: FUO (fever of unknown origin) Instructions: ED FUO Adult Prescriptions: No Action pantoprazole 40 mg tablet,delayed release (DR/EC) 40 mg PO DAILY Qty: 30 3RF polyethylene glycol 3350 [Miralax] 17 gram Powder In Packet 17 g PO DAILY PRN (Reason: Constipation) hydrocodone-acetaminophen 5-325 mg tablet 1 tab PO Q4H PRN PRN (Reason: Pain) lidocaine-prilocaine 2.5-2.5 % cream 1 applic topical ONCE PRN (Reason: port access) 30 Days Qty: 30 2RF ondansetron 8 mg tablet,disintegrating 8 mg PO Q8H PRN (Reason: nausea and vomiting) Qty: 30 2RF Primary Care Provider: Pk Piedra Referrals: Pk Piedra MD [Primary Care Provider] - Disposition Disposition: Home, Self Care
[2022-09-02 04:41] LABS: Absolute Lymphocyte Count 0.68 X10^3/uL (0.83-4.51); Absolute Neutrophil Count 3.9 X10^3/uL (2.0-7.7); Eosinophil# 0.01 X10^3/uL; Eosinophils% 0.2 % (0-5); Hematocrit 26.7 % (37-47); Hemoglobin 8.8 g/dL (12.0-15.0); Lymphocyte # 0.68 X10^3/ul (0.83-4.51); Lymphocyte % 13.8 % (19-41); Mean Corpuscular Hgb 29.4 pg (27.0-32.0); Mean Corpuscular Volume 89.3 fL (81-99); Mean Platelet Vol. 9.5 fl (6.2-12.0); Monocyte# 0.29 X10^3/uL; Monocyte% 5.9 % (0-10); NRBC Flagged by Analyzer 0 % (0-5); Neutrophil # 3.91 X10^3/uL (2.7-7.7); Neutrophil % 79.5 % (47-70); Platelet Count 281 K/mm3 (150-450); RBC Distribution Width CV 17.1 % (11.6-14.6); RBC Distribution Width SD 53.1 fl (35.1-43.9); Red Blood Count 2.99 M/mm3 (4.2-5.4); White Blood Count 4.9 K/mm3 (4.4-11.0)
[2022-09-02] MEDS: 0.9% Normal Saline 1,000 ML 150 ML IV (04:52)
[2022-09-02] MEDS: Acetaminophen 500 MG Tablet 1000 MG PO (04:52)
[2022-09-02 04:54] LABS: Mucous, Urine 0 SEEN /hpf (<or=2+)
[2022-09-02 04:58] LABS: ALB/GLOB Ratio 0.9 RATIO (0.9-2.4); AST(SGOT) 11 U/L (15-37); Alanine Aminotransfer ALT/SGPT 22 U/L (13-56); Albumin, Serum 3.1 g/dL (3.2-5.0); Alkaline Phosphatase 105 U/L (45-117); Anion Gap 8 (5-15); BUN 28 mg/dL (7-18); BUN/Creat Ratio 23.9 RATIO (10-20); Calcium,Total 8.5 mg/dL (8.5-10.1); Chloride 107 mmol/L (98-107); Creatinine, Serum 1.17 mg/dL (0.55-1.02); EST Glomerular Filtration Rate 52 mL/min (>60); Est Glom Filt Rate - Afr Amer 62 mL/min (>60); Estimated Creatinine Clearance 56.74 ml/min; Globulin 3.3 g/dL (2.2-4.2); Glucose 102 mg/dL (74-106); Potassium 3.5 mmol/L (3.5-5.1); Protein, Total 6.4 g/dL (6.4-8.2); Sodium Level 139 mmol/L (136-145)
[2022-09-02 05:01] LABS: Color, Urine Yellow (Yellow); Glucose, Dipstick Normal (Normal); Ketone-Dipstick Negative (Negative); Leukocyte Esterase-Dipstick 100 /ul (Negative); Nitrite-Dipstick Negative (Negative); Occult Blood-Urine 10 /ul (Negative); Protein-Dipstick 15 mg/dl (Negative); Urine Bilirubin Dipstick Negative (Negative); Urine Clarity Clear (Clear); Urine Urobilinogen Normal (Normal)
[2022-09-02 05:07] LABS: Lactic Acid 1.4 mmol/L (0.4-1.9)
[2022-09-02 05:28] LABS: Bacteria RARE /hpf (None Seen); Red Blood Cells-Urine 0-5 SEEN /hpf (0-5); Squamous Epithelial Cells - UA 0-5 SEEN /hpf (5-10); White Blood Cells 0-5 SEEN /hpf (0-5)
[2022-09-02 06:21] VITALS: BP 145/60; PULSE 80; RESP 16; TEMP 37.2; O2SAT 97
== END 2022-09-02 06:28 | disposition home or self-care (01) ==
PROVIDERS: Emergency Provider Emergency Medicine; PCP Family Medicine; Visit Provider Emergency Medicine
DX: R50.9 Fever, unspecified (principal); C50.912 Malignant neoplasm of unspecified site of left female breast
CPT/HCPCS: 36591; 71045; 80053; 81001; 83605; 85025; 87040; 87086; 87088; 87428; 99284; J7030; A4216

== ENCOUNTER 2022-09-06 05:34 | Emergency (ER) | payer OTHER, SELFPAY ==
[2022-09-06 05:35] VITALS: BP 138/73; PULSE 108; RESP 20; TEMP 37.2; O2SAT 96; BMI 32.1
[2022-09-06 05:38] VITALS: BP 138/73; PULSE 107; RESP 20; TEMP 37.2; O2SAT 98
--- NOTE | 2022-09-06 05:45 | RAD_ITS ---
EXAM: XR CHEST, 2 VIEWS CLINICAL INDICATION: fever TECHNIQUE: Frontal and lateral views of the chest. COMPARISON: September 02, 2022. FINDINGS: LUNGS AND PLEURAL SPACES: Unremarkable. No consolidation or edema. No pneumothorax. No effusion. HEART: Unremarkable. Cardiac silhouette not enlarged. MEDIASTINUM: Central airways and mediastinal contour are unremarkable. BONES/JOINTS: Unremarkable. SOFT TISSUES: Unremarkable. TUBES, LINES AND DEVICES: Stable left jugular [id number] catheter, tip over the mid-distal SVC, estimated to be 3 cm proximal to the SVC-right atrial junction. RAD/Chest PA and Lateral IMPRESSION: Stable chest. No infiltrates or effusions. Electronically Signed: Irma Teixeira MD at 6:30 EDT ,
[2022-09-06 06:01] LABS: Mucous, Urine 0 SEEN /hpf (<or=2+); Red Blood Cells-Urine 0 SEEN /hpf (0-5)
[2022-09-06 06:03] LABS: Color, Urine Yellow (Yellow); Glucose, Dipstick Normal (Normal); Ketone-Dipstick Negative (Negative); Leukocyte Esterase-Dipstick 500 /ul (Negative); Nitrite-Dipstick Negative (Negative); Occult Blood-Urine 10 /ul (Negative); Protein-Dipstick 30 mg/dl (Negative); Urine Bilirubin Dipstick Negative (Negative); Urine Clarity Clear (Clear); Urine Urobilinogen Normal (Normal)
[2022-09-06] MEDS: 0.9% Normal Saline 1,000 ML 150 ML IV (06:11)
[2022-09-06 06:12] LABS: Absolute Lymphocyte Count 0.67 X10^3/uL (0.83-4.51); Absolute Neutrophil Count 3.3 X10^3/uL (2.0-7.7); Basophil# 0.01 X10^3/uL; Basophil% 0.2 % (0-1); Eosinophil# 0.06 X10^3/uL; Eosinophils% 1.3 % (0-5); Hematocrit 27.5 % (37-47); Hemoglobin 8.8 g/dL (12.0-15.0); Lymphocyte # 0.67 X10^3/ul (0.83-4.51); Lymphocyte % 15.1 % (19-41); Mean Corpuscular Hgb 29.3 pg (27.0-32.0); Mean Corpuscular Volume 91.7 fL (81-99); Mean Platelet Vol. 8.8 fl (6.2-12.0); Monocyte# 0.35 X10^3/uL; Monocyte% 7.9 % (0-10); NRBC Flagged by Analyzer 0 % (0-5); Neutrophil # 3.34 X10^3/uL (2.7-7.7); Neutrophil % 75.1 % (47-70); Platelet Count 398 K/mm3 (150-450); RBC Distribution Width CV 17.3 % (11.6-14.6); RBC Distribution Width SD 56.6 fl (35.1-43.9); White Blood Count 4.5 K/mm3 (4.4-11.0)
[2022-09-06 06:20] LABS: Bacteria 1+ /hpf (None Seen); Hyaline Cast 0-5 SEEN /lpf (0-5); Squamous Epithelial Cells - UA 0-5 SEEN /hpf (5-10); White Blood Cells 50-100 SEEN /hpf (0-5)
[2022-09-06 06:29] LABS: ALB/GLOB Ratio 0.9 RATIO (0.9-2.4); AST(SGOT) 11 U/L (15-37); Alanine Aminotransfer ALT/SGPT 20 U/L (13-56); Alkaline Phosphatase 111 U/L (45-117); Anion Gap 6 (5-15); BUN 20 mg/dL (7-18); BUN/Creat Ratio 16.1 RATIO (10-20); Calcium,Total 8.9 mg/dL (8.5-10.1); Chloride 110 mmol/L (98-107); Creatinine, Serum 1.24 mg/dL (0.55-1.02); EST Glomerular Filtration Rate 48 mL/min (>60); Est Glom Filt Rate - Afr Amer 58 mL/min (>60); Estimated Creatinine Clearance 53.54 ml/min; Globulin 3.5 g/dL (2.2-4.2); Glucose 99 mg/dL (74-106); Potassium 3.2 mmol/L (3.5-5.1); Protein, Total 6.5 g/dL (6.4-8.2); Sodium Level 138 mmol/L (136-145)
[2022-09-06 06:41] LABS: Lactic Acid 1.6 mmol/L (0.4-1.9)
--- NOTE | 2022-09-06 07:56 | EDS_ITS ---
HPI History of Present Illness Chief Complaint: Fever Informant: patient Narrative Narrative: Patient is a 52-year-old female with breast cancer currently undergoing chemotherapy and immunotherapy with [facility], last chemotherapy was 1 week ago. She is presenting with recurrent fever. Patient had a fever 3 to 4 days ago and was seen in the ER. She had neutropenic work-up and everything largely came back normal. She was discharged home. Patient states she did well over the weekend however last night she woke up having chills and checked her temperature at 4 AM. Was 99.7. She did take a dose of Tylenol but continued to check her temperature and she went up from 100.7-101.4. She notes that she had a mild cough. Denies any abdominal pain, urinary symptoms, chest pain or difficulty breathing. Denies any associated nausea or vomiting. Does have a slight rash on her hands that she describes as tiny pinpoint blisters. She notes she had it once before and was associated with gardening. No significant change in this rash. Initially was itchy but that since resolved. No other complaints at this time. [facility] Medical History Alcohol use Cancer Encounter for education Gastric reflux History of echocardiogram History of edema History of stress test Hypercholesterolemia Migraine headache Non-smoker Wears glasses Home Medications pantoprazole 40 mg tablet,delayed release 40 mg PO DAILY #30 tabs 06/08/22 [Rx Last Taken 08/22/22 09:00] lidocaine-prilocaine 2.5 %-2.5 % topical cream 1 applic topical ONCE PRN port access 30 days #30 grams 07/12/22 [Rx Last Taken Unknown] ondansetron 8 mg disintegrating tablet 8 mg PO Q8H PRN nausea and vomiting #30 tabs 07/12/22 [Rx Last Taken Unknown] hydrocodone-acetaminophen 5-325mg 5mg-325mg 1 tab PO Q4H PRN PRN Pain 09/02/22 [History Last Taken Unknown] polyethylene glycol 3350 17 gram oral powder packet (Miralax) 17 g PO DAILY PRN Constipation 09/02/22 [History Last Taken Unknown] cephalexin 500 mg capsule 500 mg PO Q12 #14 CAPSULES 09/06/22 [Rx Last Taken Unknown] Allergy/AdvReac Type Severity Reaction Status Date / Time No Known Allergies Allergy Verified 09/06/22 05:34 Family History Grandmother Breast cancer CVA (cerebral vascular accident) Aunt Breast cancer Surgical History History of left breast biopsy History of vascular access device Hx of breast biopsy Social History household members: spouse Smoking Status: Never smoker substance use type: does not use ROS ROS ED Constitutional Constitutional ED: Reports chills and fever(s) Eyes Eyes: Denies blurry vision ENT ENT ED: Denies sore throat Cardiovascular Cardiovascular: Denies chest pain or palpitations Respiratory/Chest Respiratory/Chest: Reports cough; Denies dyspnea Gastrointestinal Gastrointestinal: Denies abdominal pain, nausea or vomiting Genitourinary Genitourinary ED: Denies dysuria or hematuria Musculoskeletal Musculoskeletal: Denies arthralgias, back pain or myalgias Integumentary Reports rash Neurologic Neurologic: Denies headache(s) or weakness Hematologic/Lymphatic Hematologic/Lymphatic: Denies easy bleeding or easy bruising EXAM Physical Exam Const Vital Signs: 09/06/22 05:35 09/06/22 05:38 09/06/22 05:40 Temperature 99.0 F 99.0 F Temperature Source Oral Oral Pulse Rate 108 H 107 H Respiratory Rate 20 H 20 H Respiratory Effort Normal Respiratory Pattern Normal Blood Pressure 138/73 H 138/73 H Blood Pressure Mean 94 94 Pulse Ox 96 98 Oxygen Delivery Method Room Air Room Air Positive well nourished and well developed General Appearance ED: well developed and NAD HEENT Reports TM's clear and moist mucous membranes Tympanic Membrane ED: Yes TM's clear Eyes PERRL and EOMs intact bilaterally Neck supple Chest Wall inspection of chest normal and palpation of chest normal Chest Narrative: port in left anterior chest wall. Resp normal respiratory effort and clear to auscultation bilaterally Cardio regular rhythm and no murmurs Rate: tachycardic GI normal to inspection, nondistended, normoactive bowel sounds and non-tender Palpation: soft; Negative for tender or guarding Back/Spine no CVA tenderness Extremity normal to inspection Neuro oriented x3 Motor Exam: Negative for general weakness Psych mental status grossly normal Skin no wounds Skin Narrative: Patient is a scattered erythematous rash over the dorsum of her bilateral hands most pronounced over the index finger and the second metacarpal. Some of the areas are slightly scabbed over and in very stages of healing. No involvement of the palms. It is blanching. MDM MDM MDM Narrative Medical decision making narrative: Patient is evaluated for fever at home. She has no obvious source. She is currently undergoing chemotherapy is high risk of neutropenic fever. Neutropenic fever order set is entered and patient is given empiric cefepime. Patient's lab work shows a stable anemia and normal white blood cell count with a normal absolute neutrophil count. Her CMP shows a mild elevation of her creatinine of 1.24, her baseline is 0.9. Her urinalysis is consistent with UTI with 500 leukoesterase, 50-100 white blood cells and 1+ bacteria. In addition she does have some casts. I suspect she has a component of dehydration. Patient is given a liter of IV fluids in the emergency room. Her lactate is normal. Blood cultures and urine culture are sent. Case is discussed with oncology nurse practitioner, Kassandra. She would like the patient to follow-up tomorrow to see how she is doing and determine at that time if she received another infusion/treatment. Can be discharged home. Does not require admission. Will be placed on Keflex. Is counseled return precautions. Patient verbalizes agreement understanding with this plan. Is discharged home in stable condition. History & Record Review Discussion w/independent historian: Patient Additional record(s) reviewed:: Prior ED visit Lab Data Labs: Laboratory Results - last 24 hr 09/06/22 09/06/22 09/06/22 05:58 06:03 06:03 WBC 4.5 RBC 3.00 L Hgb 8.8 L Hct 27.5 L MCV 91.7 MCH 29.3 MCHC 32.0 RDW Std Deviation 56.6 H RDW Coeff of Sydnee 17.3 H Plt Count 398 MPV 8.8 Immature Gran % (Auto) 0.400 Neut % (Auto) 75.1 H Lymph % (Auto) 15.1 L [place] % (Auto) 7.9 Eos % (Auto) 1.3 Baso % (Auto) 0.2 Absolute Neuts (auto) 3.3 Absolute Lymphs (auto) 0.67 L Nucleated RBC % 0 Sodium 138 Potassium 3.2 L Chloride 110 H Carbon Dioxide 22.0 Anion Gap 6 BUN 20 H Creatinine 1.24 H Estim Creat Clear Calc 53.54 Est GFR (MDRD) Af Amer 58 L Est GFR (MDRD) Non-Af 48 L BUN/Creatinine Ratio 16.1 Glucose 99 Lactic Acid Calcium 8.9 Total Bilirubin 0.30 AST 11 L ALT 20 Alkaline Phosphatase 111 Total Protein 6.5 Albumin 3.0 L Globulin 3.5 Albumin/Globulin Ratio 0.9 Urine Color Yellow Urine Clarity Clear Urine pH 6.0 Ur Specific [place] 1.010 Urine Protein 30 H Urine Glucose (UA) Normal Urine Ketones Negative Urine Occult Blood 10 H Urine Nitrite Negative Urine Bilirubin Negative Urine Urobilinogen Normal Ur Leukocyte Esterase 500 H Urine RBC 0 SEEN Urine WBC 50-100 SEEN Ur Squamous Epith Cells 0-5 SEEN Urine Bacteria 1+ Hyaline Casts 0-5 SEEN Urine Mucus 0 SEEN 09/06/22 06:03 WBC RBC Hgb Hct MCV MCH MCHC RDW Std Deviation RDW Coeff of Sydnee Plt Count MPV Immature Gran % (Auto) Neut % (Auto) Lymph % (Auto) [place] % (Auto) Eos % (Auto) Baso % (Auto) Absolute Neuts (auto) Absolute Lymphs (auto) Nucleated RBC % Sodium Potassium Chloride Carbon Dioxide Anion Gap BUN Creatinine Estim Creat Clear Calc Est GFR (MDRD) Af Amer Est GFR (MDRD) Non-Af BUN/Creatinine Ratio Glucose Lactic Acid 1.6 Calcium Total Bilirubin AST ALT Alkaline Phosphatase Total Protein Albumin Globulin Albumin/Globulin Ratio Urine Color Urine Clarity Urine pH Ur Specific [place] Urine Protein Urine Glucose (UA) Urine Ketones Urine Occult Blood Urine Nitrite Urine Bilirubin Urine Urobilinogen Ur Leukocyte Esterase Urine RBC Urine WBC Ur Squamous Epith Cells Urine Bacteria Hyaline Casts Urine Mucus Radiography Chest X-Ray - ED: 2 View, Read by ED Physician, Read by Radiologist and No Acute Disease Diagnostic Testing: Clinical Impression(s) from Imaging Studies Chest X-Ray 09/06/22 05:45 IMPRESSION: Stable chest. No infiltrates or effusions. Electronically Signed: Irma Teixeira MD at 6:30 EDT , Discharge Plan Triage Chief Complaint: Fever ED Provider: Ana Lombardi Dx/Rx/DC Orders Clinical Impression: UTI (urinary tract infection), Breast cancer, left Instructions: ED Cystitis Female Adult Prescriptions: New cephalexin 500 mg capsule 500 mg PO Q12 Qty: 14 0RF No Action pantoprazole 40 mg tablet,delayed release (DR/EC) 40 mg PO DAILY Qty: 30 3RF polyethylene glycol 3350 [Miralax] 17 gram Powder In Packet 17 g PO DAILY PRN (Reason: Constipation) hydrocodone-acetaminophen 5-325 mg tablet 1 tab PO Q4H PRN PRN (Reason: Pain) lidocaine-prilocaine 2.5-2.5 % cream 1 applic topical ONCE PRN (Reason: port access) 30 Days Qty: 30 2RF ondansetron 8 mg tablet,disintegrating 8 mg PO Q8H PRN (Reason: nausea and vomiting) Qty: 30 2RF Primary Care Provider: Pk Piedra Referrals: Pk Piedra MD [Primary Care Provider] - Activity Restrictions/Additional Instructions: Please follow-up tomorrow as scheduled with oncology. Try to drink lots of fluids as you do have some findings consistent with dehydration your lab work today. Disposition Disposition: Home, Self Care
[2022-09-06 08:03] VITALS: BP 135/73; PULSE 106; RESP 20; TEMP 37.2; O2SAT 100
== END 2022-09-06 09:22 | disposition home or self-care (01) ==
PROVIDERS: Emergency Provider Emergency Medicine; PCP Family Medicine; Visit Provider Emergency Medicine
DX: N39.0 Urinary tract infection, site not specified (principal); C50.912 Malignant neoplasm of unspecified site of left female breast; Z79.899 Other long term (current) drug therapy
CPT/HCPCS: 36415; 36591; 71046; 80053; 81001; 83605; 85025; 87040; 87086; 87088; 96361; 96365; 99284; J7030; A4216

== ENCOUNTER 2022-09-07 11:20 | Inpatient (IN) | payer OTHER, SELFPAY ==
[2022-09-07 11:20] VITALS: BP 158/75; PULSE 102; RESP 20; TEMP 36.1; O2SAT 98; BMI 31.4
--- NOTE | 2022-09-07 11:50 | EX.ED.DYSGE1 ---
HPI History of Present Illness Chief Complaint: Fever Detail of Chief Complaint: Fever Informant: patient Narrative Narrative: Patient presents with fever she said for about a week. She had several visits to the emergency department for this as she is a cancer patient undergoing chemotherapy. Patient diagnosed with a UTI yesterday and started on antibiotics. This morning she vomited twice and she had somewhat decreased p.o. intake. She was to have chemotherapy today and they repeated her blood work and noted a worsening renal function and concern for pyelonephritis. Patient was referred to the emergency department. Patient denies any abdominal pain. She just generally feels achy all over. [facility] Medical History Alcohol use Cancer Encounter for education Gastric reflux History of echocardiogram History of edema History of stress test Hypercholesterolemia Migraine headache Non-smoker Wears glasses Home Medications pantoprazole 40 mg tablet,delayed release 40 mg PO DAILY #30 tabs 06/08/22 [Rx Last Taken 09/07/22 10:00] lidocaine-prilocaine 2.5 %-2.5 % topical cream 1 applic topical ONCE PRN port access 30 days #30 grams 07/12/22 [Rx Last Taken 08/31/22] ondansetron 8 mg disintegrating tablet 8 mg PO Q8H PRN nausea and vomiting #30 tabs 07/12/22 [Rx Last Taken Unknown] polyethylene glycol 3350 17 gram oral powder packet (Miralax) 17 g PO DAILY PRN PRN Constipation 09/02/22 [History Last Taken 09/01/22] cephalexin 500 mg capsule 500 mg PO Q12 #14 CAPSULES 09/06/22 [Rx Last Taken 09/07/22 10:00] acetaminophen 500 mg tablet 1,000 mg PO DAILY PRN PRN Fever 09/07/22 [History Last Taken 09/06/22 22:00] Allergy/AdvReac Type Severity Reaction Status Date / Time No Known Allergies Allergy Verified 09/07/22 11:20 Family History Grandmother Breast cancer CVA (cerebral vascular accident) Aunt Breast cancer Surgical History History of left breast biopsy History of vascular access device Hx of breast biopsy Social History household members: spouse Smoking Status: Never smoker substance use type: does not use ROS ROS ED Review of Systems ROS Unobtainable: other Constitutional Constitutional ED: Reports fever(s) and lethargy; Denies chills, sweats or weight loss Eyes Eyes: Denies blurry vision, change in vision or diplopia ENT ENT ED: Denies rhinorrhea or sore throat Cardiovascular Cardiovascular: Denies chest pain, orthopnea or racing heartbeat Respiratory/Chest Respiratory/Chest: Denies cough, dyspnea, dyspnea on exertion, orthopnea or sputum Gastrointestinal Gastrointestinal: Denies abdominal pain, diarrhea, nausea or vomiting Genitourinary Genitourinary ED: Denies dysuria, hematuria or urinary frequency Musculoskeletal Musculoskeletal: Reports back pain; Denies arthralgias, myalgias or neck pain Integumentary Denies abscess, Abrasions or rash Neurologic Neurologic: Denies headache(s) or weakness Psychiatric Psychiatric: Denies anxiety, depression or suicidal thoughts Endocrine Endocrinology: Denies polydipsia, polyphagia or polyuria Hematologic/Lymphatic Hematologic/Lymphatic: Denies easy bleeding, easy bruising or lymphadenopathy Allergic/Immunologic Allergic/Immunologic ED: Denies mouth swelling, tongue swelling or urticaria EXAM Physical Exam Const Vital Signs: 09/07/22 11:20 09/07/22 11:29 Temperature 97.0 F L Temperature Source Temporal Pulse Rate 102 H Respiratory Rate 20 H Respiratory Effort Normal Non-Labored Respiratory Pattern Normal Blood Pressure 158/75 H Blood Pressure Mean 102 Pulse Ox 98 Oxygen Delivery Method Room Air Positive well nourished and well developed General Appearance ED: well developed and NAD HEENT Reports TM's clear and moist mucous membranes normocephalic and atraumatic; Negative for trauma or tenderness Tympanic Membrane ED: Yes TM's clear Eyes PERRL and EOMs intact bilaterally General Eye ED: Negative for pale conjunctiva or scleral icterus Neck no lymphadenopathy, supple and no JVD General: Negative for tenderness Chest Wall inspection of chest normal and palpation of chest normal Chest: Negative for tenderness Resp normal respiratory effort and clear to auscultation bilaterally Effort and Inspection: Negative for respiratory distress or pain with movement Auscultation: Negative for rhonchi, wheezes or diminished lung sounds Cardio regular rate, regular rhythm, S1 normal heart sound, S2 normal heart sound and no murmurs Peripheral Pulses: pulses 2+ throughout GI normal to inspection, nondistended, normoactive bowel sounds, soft to palpation, non-tender, non-distended and no masses Back/Spine no CVA tenderness and no thoracic nor lumbar tenderness Extremity normal to inspection General Extremety ED: Negative for edema General Extremity: Negative for edema Neuro oriented x3, CN's II-XII intact bilaterally, no sensory deficits noted and gait normal Sensorium / Orientation: awake, alert, oriented to person, oriented to place and oriented to time Motor Exam: strength 5/5 throughout and strength abnormal Psych mental status grossly normal Skin no rashes or lesions noted and no wounds MDM MDM MDM Narrative Medical decision making narrative: Patient presents with lab work-up that was performed today. She was noted to have acute kidney injury. IV line established. Patient was started on Rocephin 1 g IV. She was ordered a liter of the same fluid bolus. We will discussed with hospitalist to evaluate patient for admission. Lab Data Attestation: I reviewed the patient's lab results. Discharge Plan Triage Chief Complaint: Fever ED Provider: Dian Phillip Dx/Rx/DC Orders Clinical Impression: UTI (urinary tract infection), NGOC (acute kidney injury), Fever, History of breast cancer Prescriptions: No Action pantoprazole 40 mg tablet,delayed release (DR/EC) 40 mg PO DAILY Qty: 30 3RF polyethylene glycol 3350 [Miralax] 17 gram Powder In Packet 17 g PO DAILY PRN PRN (Reason: Constipation) cephalexin 500 mg capsule 500 mg PO Q12 Qty: 14 0RF acetaminophen 500 mg Tablet 1,000 mg PO DAILY PRN PRN (Reason: Fever) lidocaine-prilocaine 2.5-2.5 % cream 1 applic topical ONCE PRN (Reason: port access) 30 Days Qty: 30 2RF ondansetron 8 mg tablet,disintegrating 8 mg PO Q8H PRN (Reason: nausea and vomiting) Qty: 30 2RF Primary Care Provider: Pk Piedra Referrals: Pk Piedra MD [Primary Care Provider] - Disposition Disposition: [facility]
--- NOTE | 2022-09-07 11:56 | PCM.HP.STD ---
HPI - General General Date of Admission: 09/07/22 Date of Service: 09/07/22 Chief Complaint: fever HPI Narrative ZAN FERRERA, is a 52 F with a PMH as outlined who presents via the EDb with a complaint of fever. She has a history of breast cancer undergoing chemotherapy. She said she has been having fever for about a week. She has had several visits to the emergency room for this. She was started on antibiotics for UTI the day before admission after she came to the ED. She went to see her oncologist for chemotherapy on the day of admission, and labs done showed worsening renal function, so she was brought in to the ED. She still complained of fever but denied any chills, she said she felt achy all over. She also had some associated vomiting. Review of systems is otherwise negative. Vitals were 158/75, TX of 102, RR of 20 and temp of 97F. She was saturating at 98% on room air. Labs done today in her oncologist's office showed Hb of 9, wbc of 7.5 and platelets of 428. CHemsitry was significant for Cr of 2.4, with a baseline of 0.8. Urine culture from 09/06/2022 grew mixed gram positive organisms. Blood cultures were ordered. She is being admitted to be managed for NGOC and UTI with concern for pyelonephritis in the setting of breast cancer, undergoing chemotherapy. [facility] Medical History (Updated 09/07/22 @ 13:18 by Lashawn Clemente NP, CREDIT REPRESENTATIVE-C) NGOC (acute kidney injury) Alcohol use Cancer Complicated UTI (urinary tract infection) Encounter for education Gastric reflux History of echocardiogram History of edema History of stress test Hypercholesterolemia Migraine headache Non-smoker Wears glasses Home Medications pantoprazole 40 mg tablet,delayed release 40 mg PO DAILY #30 tabs 06/08/22 [Rx Last Taken 09/07/22 10:00] lidocaine-prilocaine 2.5 %-2.5 % topical cream 1 applic topical ONCE PRN port access 30 days #30 grams 07/12/22 [Rx Last Taken 08/31/22] ondansetron 8 mg disintegrating tablet 8 mg PO Q8H PRN nausea and vomiting #30 tabs 07/12/22 [Rx Last Taken Unknown] polyethylene glycol 3350 17 gram oral powder packet (Miralax) 17 g PO DAILY PRN PRN Constipation 09/02/22 [History Last Taken 09/01/22] cephalexin 500 mg capsule 500 mg PO Q12 #14 CAPSULES 09/06/22 [Rx Last Taken 09/07/22 10:00] acetaminophen 500 mg tablet 1,000 mg PO DAILY PRN PRN Fever 09/07/22 [History Last Taken 09/06/22 22:00] Allergy/AdvReac Type Severity Reaction Status Date / Time No Known Allergies Allergy Verified 09/07/22 11:20 Family History Grandmother Breast cancer CVA (cerebral vascular accident) Aunt Breast cancer Surgical History History of left breast biopsy History of vascular access device Hx of breast biopsy Social History household members: spouse Smoking Status: Never smoker substance use type: does not use ROS Review of Systems ROS Unobtainable: Denies due to encephalopathy Constitutional Constitutional: Reports chills, fatigue, fever(s) and malaise; Denies anorexia, change in weight or weakness Eyes Eyes: Denies change in vision ENT HEENT: Denies dysphagia or headache(s) Cardiovascular Cardiovascular: Denies chest pain, dyspnea on exertion, edema, lightheadedness, orthopnea or rapid heart rate Respiratory/Chest Respiratory/Chest: Denies cough, dyspnea, productive cough, shortness of breath at rest or shortness of breath with exertion Gastrointestinal Gastrointestinal: Denies abdominal pain, diarrhea, nausea or vomiting Genitourinary Genitourinary: Denies difficulty urinating or dysuria Musculoskeletal Musculoskeletal: Denies arthralgias Neurologic Neurologic: Denies confusion, dizziness, headache(s) or seizures Psychiatric Psychiatric: Denies anxiety Vital Signs Vital Signs Vital Signs: 09/07/22 11:20 09/07/22 11:29 Temperature 97.0 F L Temperature Source Temporal Pulse Rate 102 H Respiratory Rate 20 H Respiratory Effort Normal Non-Labored Respiratory Pattern Normal Blood Pressure 158/75 H Blood Pressure Mean 102 Pulse Ox 98 Oxygen Delivery Method Room Air Weight Weight: 212 lb 9.6 oz Body Mass Index (BMI) 31.4 Physical Exam Const Negative for alert, oriented x3 or no apparent distress General Appearance: Negative for cooperative HEENT Negative for normocephalic, head/scalp atraumatic or moist oral mucous membranes Mouth: No oral and palatal mucosa normal Eyes Negative for PERRL, EOMs intact bilaterally or conjunctivae normal Neck No no lymphadenopathy Resp No normal respiratory effort, No no retractions, No no use of accessory muscles and No clear to auscultation bilaterally Cardio Negative for regular rhythm, S1 normal heart sound, S2 normal heart sound or no murmurs Cardio Narrative: tachycardia GI normal to inspection, nondistended, normoactive bowel sounds, soft to palpation, non-tender, non-distended and hepatosplenomegaly GI Narrative: costophrenic angle tenderness Extremity normal to inspection, full ROM and no clubbing, cyanosis or edema Neuro oriented x3, CN's II-XII intact bilaterally and moves all extremities Sensorium / Orientation: awake and alert Motor Exam: strength 5/5 throughout Psych affect normal Assessment & Plan Assessment/Plan (1) NGOC (acute kidney injury): (2) Complicated UTI (urinary tract infection): PLAN: Plan #Acute UTI admit to PCU was started on oral antibiotics yesterday after being diagnosed with UTI yesterday. there is concern for pyelonephritis but denies any flank tenderness start IV ceftriaxone urine culture and blood culture ordered. #NGOC Cr is up to 2.4, with baseline being <1 likely due to decreased intake and recent diarrhea hydrate with IVF and trend Cr. #Breast cancer has bilateral breast cancer is undergoing neoadjuvant therapy. to follow up with oncology on outpatient basis. #GERD: on PPI DVT prophylaxis; lovenox Code status: full code Patient counseled extensively about different types of CODE STATUS including full code, DNR CCA and DNR CCA. Patient elects to be full code. Total [id number] time 16 minutes. Charges/Coding Visit Charges Inpatient E&M: 92948 Init Hosp L3 Procedures Hospitalists Procedures: 39183 Advncd Care Plan 30 Min
[2022-09-07] MEDS: 0.9% Normal Saline 1,000 ML 1000 ML IV (12:03)
[2022-09-07] MEDS: Ondansetron 4 MG/2 ML Vial IV (12:04)
[2022-09-07] MEDS: Ceftriaxone 1 GM/50 ML BAG IV (12:09)
[2022-09-07 12:10] VITALS: BP 130/63; PULSE 91; RESP 18; TEMP 36.1; O2SAT 99
[2022-09-07 15:31] VITALS: BP 145/79; PULSE 101; RESP 20; TEMP 37.5; O2SAT 97
[2022-09-07 15:35] VITALS: BMI 31.4
[2022-09-07] MEDS: 0.9% Normal Saline 1,000 ML 125 ML IV ×2 (16:33→23:55)
[2022-09-07 20:59] VITALS: BP 150/67; PULSE 102; RESP 20; TEMP 37.8; O2SAT 99
[2022-09-07] MEDS: 0.9% Saline Lock 10 ML Syringe IV (21:05)
[2022-09-07] MEDS: Acetaminophen 325 MG Tablet 650 MG PO (21:05)
[2022-09-08 04:07] VITALS: BP 138/88; PULSE 87; RESP 20; TEMP 36.5; O2SAT 98
[2022-09-08 06:40] LABS: Absolute Lymphocyte Count 0.72 X10^3/uL (0.83-4.51); Absolute Neutrophil Count 5.6 X10^3/uL (2.0-7.7); Basophil# 0.03 X10^3/uL; Basophil% 0.4 % (0-1); Eosinophil# 0.03 X10^3/uL; Eosinophils% 0.4 % (0-5); Hematocrit 26.4 % (37-47); Hemoglobin 8.4 g/dL (12.0-15.0); Lymphocyte # 0.72 X10^3/ul (0.83-4.51); Lymphocyte % 9.9 % (19-41); Mean Corp Hgb Conc 31.8 g/dL (32-36); Mean Corpuscular Hgb 29.6 pg (27.0-32.0); Mean Platelet Vol. 9.2 fl (6.2-12.0); Monocyte# 0.89 X10^3/uL; Monocyte% 12.2 % (0-10); NRBC Flagged by Analyzer 0 % (0-5); Neutrophil # 5.57 X10^3/uL (2.7-7.7); Neutrophil % 76.4 % (47-70); Platelet Count 402 K/mm3 (150-450); RBC Distribution Width CV 18.2 % (11.6-14.6); RBC Distribution Width SD 60.6 fl (35.1-43.9); Red Blood Count 2.84 M/mm3 (4.2-5.4); White Blood Count 7.3 K/mm3 (4.4-11.0)
[2022-09-08 07:16] LABS: Anion Gap 7 (5-15); BUN 42 mg/dL (7-18); BUN/Creat Ratio 11.2 RATIO (10-20); Calcium,Total 8.7 mg/dL (8.5-10.1); Chloride 112 mmol/L (98-107); Creatinine, Serum 3.76 mg/dL (0.55-1.02); EST Glomerular Filtration Rate 13 mL/min (>60); Est Glom Filt Rate - Afr Amer 16 mL/min (>60); Estimated Creatinine Clearance 18.29 ml/min; Glucose 123 mg/dL (74-106); Potassium 3.7 mmol/L (3.5-5.1); Sodium Level 138 mmol/L (136-145)
[2022-09-08 07:20] VITALS: O2SAT 96
--- NOTE | 2022-09-08 08:03 | CT_ITS ---
STUDY: CT ABDOMEN AND PELVIS WITHOUT CONTRAST REASON FOR EXAM: Female, 52 years old. Acute renal failure. History of breast cancer. RADIATION DOSAGE (If Supplied By Facility): CTDIvol = ( 15.81 ) mGy, DLP = ( 793.83 ) mGycm TECHNIQUE: Transaxial images were obtained from the dome of the diaphragm to the symphysis pubis without oral contrast, and without intravenous contrast. Sagittal and coronal images were reconstructed. Individualized dose optimization techniques were used for this CT. COMPARISON: Comparison is made with prior study June 01, 2022. FINDINGS: A tissue clip marker is seen within the nodule in the inferior right breast. 2.6 cm nodule in the lateral inferior aspect of the right breast. Minimal bilateral pleural effusions with mild bibasilar atelectasis. The visualized portions of the heart are within normal limits. Normal liver. The gallbladder is contracted. Findings suggestive of sludge and/or tiny gallstones along the dependent portion of the gallbladder lumen. Normal spleen. Normal pancreas. Normal bilateral adrenal glands. Mild degree of nonspecific bilateral perinephric stranding. There is engorgement of both kidneys more prominent on the right side. Normal visualized stomach. Normal small intestine. Normal colon. The appendix is visualized and appears normal. There is diffuse atherosclerotic calcification of the abdominal aorta, without a demonstrated aneurysm. Normal inferior vena cava. Normal retroperitoneum. Normal urinary bladder. Tiny amount of free fluid in the cul-de-sac. Normal abdominal wall. Normal osseous structures. CT/Abdomen/Pelvis without Cont IMPRESSION: Nonspecific bilateral perinephric stranding and engorgement of both kidneys. Sludge or tiny gallstones in the gallbladder lumen. Small amount of free fluid in the cul-de-sac. Tiny bilateral pleural effusions with bibasilar atelectasis. Electronically Signed: Jamie Langford MD at 9:36 EDT ,
[2022-09-08] MEDS: Ceftriaxone 1 GM/50 ML BAG IV (09:42)
[2022-09-08] MEDS: 0.9% Saline Lock 10 ML Syringe IV (09:42)
[2022-09-08] MEDS: 0.9% Normal Saline 1,000 ML 150 ML IV ×2 (09:42→15:50)
[2022-09-08] MEDS: Pantoprazole Sodium 40 MG Tablet PO (09:44)
[2022-09-08 09:55] VITALS: BP 149/89; PULSE 91; RESP 18; TEMP 36.6; O2SAT 97
[2022-09-08 11:36] LABS: Urea Nitrogen, Urine 199 mg/dL (NO RANGE EST.)
--- NOTE | 2022-09-08 12:00 | PN_ITS ---
Subjective Subjective Patient seen and examined. She had no complaints and had an uneventful night. Review of symptoms otherwise negative. Her creatinine has trended up from 2.4- 3.76 today. She says she is making good urine. She denies any abdominal pain or flank pain and denies any fever or chills. Review of systems otherwise neg ative. Objective Data Objective Data Vital Signs: Vital Signs Temp Pulse Resp BP Pulse Ox O2 Del Method 97.8 F 91 18 149/89 H 97 Room Air 09/08/22 09:55 09/08/22 09:55 09/08/22 09:55 09/08/22 09:55 09/08/22 09:55 09/08/22 09:55 Oxygen Delivery Method Room Air Weight: 212 lb 9.6 oz Body Mass Index (BMI) 31.4 Intake & Output: Intake and Output for Last 24 Hours 09/06/22 09/07/22 09/08/22 23:59 23:59 23:59 Intake Total 2210.83 / 2210.83 990.25 / 990.25 Balance 2210.83 / 2210.83 990.25 / 990.25 Lab / Micro Data Result Diagrams: 09/08/22 06:23 09/08/22 06:23 Labs: Laboratory Results - last 24 hr 09/08/22 06:23: WBC 7.3, RBC 2.84 L, Hgb 8.4 L, Hct 26.4 L, MCV 93.0, MCH 29.6, MCHC 31.8 L D, RDW Std Deviation 60.6 H, RDW Coeff of Sydnee 18.2 H, Plt Count 402, MPV 9.2, Immature Gran % (Auto) 0.700, Neut % (Auto) 76.4 H, Lymph % (Auto) 9.9 L, Alexander % (Auto) 12.2 H, Eos % (Auto) 0.4, Baso % (Auto) 0.4, Absolute Neuts (auto) 5.6, Absolute Lymphs (auto) 0.72 L, Nucleated RBC % 0 09/08/22 06:23: Sodium 138, Potassium 3.7, Chloride 112 H, Carbon Dioxide 19.0 L , Anion Gap 7, BUN 42 H, Creatinine 3.76 H, Estim Creat Clear Calc 18.29, Est GFR (MDRD) Af Amer 16 L, Est GFR (MDRD) Non-Af 13 L, BUN/Creatinine Ratio 11.2, Glucose 123 H, Calcium 8.7 09/08/22 11:00: Urine Creatinine 29.20, Urine Urea Nitrogen 199 Radiography Diagnostic Testing: Radiology Impression Abdomen/Pelvis CT 09/08/22 08:03 IMPRESSION: Nonspecific bilateral perinephric stranding and engorgement of both kidneys. Sludge or tiny gallstones in the gallbladder lumen. Small amount of free fluid in the cul-de-sac. Tiny bilateral pleural effusions with bibasilar atelectasis. Electronically Signed: Jamie Langford MD at 9:36 EDT , Physical Exam Const alert, oriented x3 and no apparent distress General Appearance: cooperative HEENT normocephalic, head/scalp atraumatic and moist oral mucous membranes Eyes PERRL, EOMs intact bilaterally and conjunctivae normal Neck no lymphadenopathy Resp No normal respiratory effort, normal air movement, No no retractions, no use of accessory muscles and clear to auscultation bilaterally Cardio regular rate, regular rhythm, S1 normal heart sound, S2 normal heart sound and no murmurs GI normal to inspection, nondistended, normoactive bowel sounds, soft to palpation, non-tender and non-distended Extremity normal to inspection, full ROM, normal capillary refill and no clubbing, cyanosis or edema Skin General Skin Exam: no breakdown Neuro oriented x3, CN's II-XII intact bilaterally and moves all extremities Sensorium / Orientation: awake and alert Motor Exam: strength 5/5 throughout Psych thought process normal, cooperative and affect normal Appearance: appropriate Assessment & Plan Assessment/Plan (1) NGOC (acute kidney injury): (2) Complicated UTI (urinary tract infection): PLAN: Plan #Acute UTI * on iV ceftriaxone. * urine cultures pending * being hydrated with IVF * * * #NGOC * Cr today is up to 3.76 from 2.4 yesterday * was thought to be pre-renal, due to decreased intake and recent diarrhea * being hydrated with IVF, but kidney function is worsening. * will order CT abdomen and pelvis without contrast, and check FeUrera * nephrology consulted * continue gentle hydration with IVF * carboplatin and keytruda can cause nephrotoxicity, so may be contributing to her worsening kidney function * await nephrology recs. 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 * is undergoing neoadjuvant therapy with carboplatin, keytruda and taxol. Of her chemo meds, carboplatin and keytruda can cause nephrotoxicity, so it may be contirbuting to the NGOC. * to follow up with oncology on outpatient basis. * #GERD: on PPI DVT prophylaxis; lovenox Code status: full code * Charges/Coding Visit Charges Inpatient E&M: 33666 Subs Hosp L3
--- NOTE | 2022-09-08 13:05 | CASEMGMT ---
NORMAN DOTSON Assessment: Face to Face with pt for initial transition planning/care coordination assessment. RN MAURI introduced self and role at [facility], pt voices understanding and consents to assessment. Pt is A/O x4 and answers all questions appropriately at this time. Pt sitting up in bed with 2 visitors at bedside. Pt agreeable to assessment with visitors present. Care providers, pharmacy, and demographics verified/updated. Admitting Dx: UTI, NGOC PCP:Dorothea Specialists:Prah, onc; Friend, GI Preferred Pharmacy: [facility] Retail Insurance: MMO Prescription Benefit: yes LNOK: Gabriel Munguia, ex ; Bassem Munguia, son Living Arrangements: Pt lives with dtr in a two story home with 3 steps to enter. Pt reprots she is I in ADL's and denies concerns at home. Transportation: Pt drives self and denies concerns with transportation. DME/HHC/SNF: Pt denies having any DME in the home, previous HHC or SNF stays. Pt states no concerns with going home at time of dc. Pt states no further concerns/needs. CM to follow. Advised pt to ask CM if any further question/concerns/needs arise, voices understanding. Pt Goal: Home Plan: Home
--- NOTE | 2022-09-08 13:38 | CHAPLAIN ---
Type of Pastoral Visit _x__ Initial Visit ___ Follow-up Visit ___ On-call Visit ___ General Patient Visit ___ Spiritual Assessment ___ Family Conference ___ Bereavement ___ Rapid Response ___ Code Blue ___ Other (describe below) Pastoral Care Referral From _x__ Patient ___ Family ___ Nurse ___ Physician ___ Soldering Machine Feeder ___ Asic Design Engineer ___ Other (describe below) Sacrament/Intervention _x__ Active listening ___ Anointing ___ Caodaism ___ Bereavement ___ Communion ___ Rita exploration ___ ___ Life review ___ Prayer ___ Reconciliation ___ Sacrament of Sick ___ Supportive presence ___ Wedding ___ Other (describe below) Pastoral Comments patient calls this a bump along the road of my cancer/chemo treatments; pt has family members and perry in the room; pt states that she is coping well and just hopes to have treatments restart soon; no other needs
--- NOTE | 2022-09-08 14:32 | CON.PCM.RE_ITS ---
Assessment & Plan Assessment/Plan (1) NGOC (acute kidney injury): PLAN: Plan acute renal failure. Normal baseline creatinine. Fractional excretion of urea is more than 55%. Urine analysis shows leukocytes, negative nitrates. Urine culture is negative. CT abdomen without any hydronephrosis, it is noted that the kidneys are somewhat adamant this with perinephric stranding suggestive of inflammation. She denies NSAIDs. No recent contrast. Other than PPI for acid reflux which was started in June or the new medications. Discussed with hospitalist. Does not seem like she has any sepsis at this point. WBC count is normal. No fevers. Blood cultures negative urine cultures negative. Chest x-ray is clear. CT abdomen without any obvious findings. Differential includes immune checkpoint inhibitor induced nephritis versus carboplatin nephrotoxicity. It is possible that this is Keytruda induced. She does not have pulmonary involvement, no GI symptoms. She does have a faint skin rash over her hands. No rash on the back or lower extremities. We'll be somewhat unusual to have isolated nephritis from checkpoint inhibitor but it has been described. Less likely possibilities carboplatin nephrotoxicity which again is rare but is possible. She also does not have any other signs of carboplatin toxicity. There is some studies that show coexisting PPI use increases the risk of checkpoint inhibitor induced nephritis Discussed with oncology. Diagnoses does have some implications for her breast cancer diagnosis. We will go ahead with biopsy. Ordered PT PTT. Will order biopsy. If all cultures remain negative tomorrow, I'll start her on high-dose steroids empirically for checkpoint inhibitor induced nephritis. In general treatment carries good prognosis if started within 3-4 days of suspected nephritis. HPI Consult Data Date of Consult: 09/08/22 HPI Narrative Reason for Consultation: acute renal failure HPI Narrative: ZAN FERRERA, is a 52 F who presents to the hospital with acute renal failure. Somewhat complicated history. In May she came into the hospital with abdominal pain, CT abdomen showed breast mass. Subsequent workup showed metastatic breast cancer. She was started on adjuvant chemotherapy with Keytruda, carboplatin and paclitaxel. She has received 2 cycles of chemotherapy so far. She was you for the third round today. Spiked a fever last week, went to the emergency room, initial sepsis workup was negative, discharged home. She spiked another fever yesterday, routine blood work showed worsening renal failure and she was sent in for suspected pyelonephritis. Currently feels okay. No fevers. Blood pressure is okay. WBC count is normal. No urinary complaints. Urine analysis did show leukocytes per urine culture is negative. Blood culture is negative. No obstructive symptoms. She was started on PPI in June after endoscopy showed reflux esophagitis. Other than chemotherapy and associated medications no other medications new. No [id number] me dications. [facility] Medical History (Updated 09/07/22 @ 13:18 by Lashawn Clemente BOATBUILDER APPRENTICE WOOD, BOATBUILDER APPRENTICE WOOD-C) NGOC (acute kidney injury) Alcohol use Cancer Complicated UTI (urinary tract infection) Encounter for education Gastric reflux History of echocardiogram History of edema History of stress test Hypercholesterolemia Migraine headache Non-smoker Wears glasses Home Medications pantoprazole 40 mg tablet,delayed release 40 mg PO DAILY #30 tabs 06/08/22 [Rx Last Taken 09/07/22 10:00] lidocaine-prilocaine 2.5 %-2.5 % topical cream 1 applic topical ONCE PRN port access 30 days #30 grams 07/12/22 [Rx Last Taken 08/31/22] ondansetron 8 mg disintegrating tablet 8 mg PO Q8H PRN nausea and vomiting #30 tabs 07/12/22 [Rx Last Taken Unknown] polyethylene glycol 3350 17 gram oral powder packet (Miralax) 17 g PO DAILY PRN PRN Constipation 09/02/22 [History Last Taken 09/01/22] cephalexin 500 mg capsule 500 mg PO Q12 #14 CAPSULES 09/06/22 [Rx Last Taken 09/07/22 10:00] acetaminophen 500 mg tablet 1,000 mg PO DAILY PRN PRN Fever 09/07/22 [History Last Taken 09/06/22 22:00] Allergy/AdvReac Type Severity Reaction Status Date / Time No Known Allergies Allergy Verified 09/07/22 11:20 Family History Grandmother Breast cancer CVA (cerebral vascular accident) Aunt Breast cancer Surgical History History of left breast biopsy History of vascular access device Hx of breast biopsy Social History household members: spouse Smoking Status: Never smoker substance use type: does not use ROS ROS Narrative negative except above Physical Exam Narrative Alert awake oriented x 3 no obvious distress no pallor no icterus no JVD s1s2 no murmurs lungs clear abdomen soft no organomegaly no edema no cyanosis Lab / Micro Data Result Diagrams: 09/08/22 06:23 09/08/22 06:23 Labs: Laboratory Results - last 24 hr 09/08/22 06:23: WBC 7.3, RBC 2.84 L, Hgb 8.4 L, Hct 26.4 L, MCV 93.0, MCH 29.6, MCHC 31.8 L D, RDW Std Deviation 60.6 H, RDW Coeff of Sydnee 18.2 H, Plt Count 402, MPV 9.2, Immature Gran % (Auto) 0.700, Neut % (Auto) 76.4 H, Lymph % (Auto) 9.9 L, Weber % (Auto) 12.2 H, Eos % (Auto) 0.4, Baso % (Auto) 0.4, Absolute Neuts (auto) 5.6, Absolute Lymphs (auto) 0.72 L, Nucleated RBC % 0 09/08/22 06:23: Sodium 138, Potassium 3.7, Chloride 112 H, Carbon Dioxide 19.0 L , Anion Gap 7, BUN 42 H, Creatinine 3.76 H, Estim Creat Clear Calc 18.29, Est GFR (MDRD) Af Amer 16 L, Est GFR (MDRD) Non-Af 13 L, BUN/Creatinine Ratio 11.2, Glucose 123 H, Calcium 8.7 09/08/22 11:00: Urine Creatinine 29.20, Urine Urea Nitrogen 199 Radiology Impression Abdomen/Pelvis CT 09/08/22 08:03 IMPRESSION: Nonspecific bilateral perinephric stranding and engorgement of both kidneys. Sludge or tiny gallstones in the gallbladder lumen. Small amount of free fluid in the cul-de-sac. Tiny bilateral pleural effusions with bibasilar atelectasis. Electronically Signed: Jamie Langford MD at 9:36 EDT ,
[2022-09-08 14:51] VITALS: BP 163/86; PULSE 91; RESP 18; TEMP 36.7; O2SAT 100
[2022-09-08 15:54] VITALS: BP 157/84
[2022-09-08 20:51] VITALS: BP 164/90; PULSE 96; RESP 16; TEMP 37.1; O2SAT 97
[2022-09-08] MEDS: Acetaminophen 325 MG Tablet 650 MG PO (21:15)
[2022-09-09] VITALS (36 sets, daily range): BP systolic 92–222; BP diastolic 45–111; PULSE 70–126; RESP 12–32; TEMP 36.6–37.1; O2SAT 95–100
[2022-09-09 06:15] LABS: Absolute Lymphocyte Count 0.74 X10^3/uL (0.83-4.51); Absolute Neutrophil Count 4.9 X10^3/uL (2.0-7.7); Basophil# 0.01 X10^3/uL; Basophil% 0.2 % (0-1); Eosinophil# 0.06 X10^3/uL; Eosinophils% 0.9 % (0-5); Hematocrit 24.2 % (37-47); Hemoglobin 7.6 g/dL (12.0-15.0); Lymphocyte # 0.74 X10^3/ul (0.83-4.51); Lymphocyte % 11.4 % (19-41); Mean Corp Hgb Conc 31.4 g/dL (32-36); Mean Corpuscular Hgb 29.3 pg (27.0-32.0); Mean Corpuscular Volume 93.4 fL (81-99); Mean Platelet Vol. 9.3 fl (6.2-12.0); Monocyte% 10.8 % (0-10); NRBC Flagged by Analyzer 0 % (0-5); Neutrophil # 4.94 X10^3/uL (2.7-7.7); Neutrophil % 75.9 % (47-70); Platelet Count 413 K/mm3 (150-450); RBC Distribution Width CV 17.8 % (11.6-14.6); Red Blood Count 2.59 M/mm3 (4.2-5.4); White Blood Count 6.5 K/mm3 (4.4-11.0)
[2022-09-09 06:25] LABS: International Normalized Ratio 1.2; Partial Thromboplast Time 33.8 Seconds (24.1-36.2); Prothrombin Time (Protime)PT. 15.3 SECONDS (11.7-14.9)
[2022-09-09 06:48] LABS: Anion Gap 10 (5-15); BUN 49 mg/dL (7-18); BUN/Creat Ratio 10.9 RATIO (10-20); Calcium,Total 8.9 mg/dL (8.5-10.1); Chloride 109 mmol/L (98-107); Creatinine, Serum 4.51 mg/dL (0.55-1.02); EST Glomerular Filtration Rate 11 mL/min (>60); Est Glom Filt Rate - Afr Amer 13 mL/min (>60); Estimated Creatinine Clearance 15.25 ml/min; Glucose 112 mg/dL (74-106); Potassium 3.2 mmol/L (3.5-5.1); Sodium Level 136 mmol/L (136-145)
--- NOTE | 2022-09-09 09:00 | CT_ITS ---
PROCEDURE: CT GUIDED PERCUTANEOUS KIDNEY BIOPSY. DATE: September 09, 2022. INDICATION: Female, 52 years old. Acute renal failure. PHYSICIAN: Jamie Langford M.D. MEDICATIONS: 2 mg of Versed and 50 mcg of fentanyl intravenously. Conscious sedation was started at 1:17 PM and terminated at 1:35 PM. The patient was independently monitored by the department nurse. ACCESS SITE: Lower pole right kidney. NEEDLE: 18-gauge core biopsy needle system SPECIMEN: 4 18-gauge cores EBL: None. COMPLICATIONS: None immediate. RADIATION DOSAGE (If Supplied By Facility): CTDIvol = ( 17.5 ) mGy, DLP = ( 856.75 ) mGycm. Individualized dose optimization techniques were utilized. The risks, benefits, and alternatives to the procedure and sedation were explained to the patient. The specific risk of hemorrhage requiring further treatment or intervention was detailed and accepted. Written informed consent was obtained. The patient was placed on the CT table in the prone position. Multiple axial images were obtained from the lung base through the caudal extent of the kidneys. An appropriate entry site was identified and a dory made on the skin. The skin overlying the [right ] posterior flank was prepped and draped in sterile fashion. 1% lidocaine was administered subcutaneously for local anesthesia. Initially, a 22 gauge needle was advanced and CT images confirmed good needle position. The 22 gauge needle was then exchanged for an 17 gauge introducer needle which was advanced. Repeat CT images confirmed good needle trajectory and tip position. The introducer needle was then advanced into the periphery of the inferior renal pole, and CT images were again obtained to confirm exact tip location. The inner stylet of the introducer needle was then removed and an 18 gauge coaxial needle was advanced thru the introducer needle and biopsy performed. A total of [4 ] passes were performed and the specimen collected was sent to Pathology for further evaluation. The needle was withdrawn. Hemostasis was achieved with manual compression and a sterile dressing was applied. Repeat CT images of the biopsy area was performed which demonstrated no gross bleeding or hematoma. The patient tolerated the procedure well without immediate complications. The patient was transported to the [floor/recovery area] in stable condition. CT/Biopsy/Inj or Needle Placement IMPRESSION: Successful CT guided percutaneous kidney biopsy. Conscious sedation protocol was followed. Electronically Signed: Jamie Langford MD at 14:10 EDT ,
--- NOTE | 2022-09-09 09:08 | NURSING ---
pt off floor for procedure
[2022-09-09] MEDS: hydrALAZINE 20 MG/ML Vial 10 MG IV (09:24)
--- NOTE | 2022-09-09 10:15 | PCM.PROGNOTE ---
Subjective Subjective Patient seen and examined. She complained of abdominal bloating, but denied any nausea, vomiting or fever or chills. Review of systems is otherwise negative. She is for renal biopsy today. Objective Data Objective Data Vital Signs: Vital Signs Temp Pulse Resp BP Pulse Ox O2 Del Method 98.8 F 114 H 20 H 212/108 H 98 Room Air 09/09/22 09:14 09/09/22 09:45 09/09/22 09:45 09/09/22 09:45 09/09/22 09:45 09/09/22 09:45 Oxygen Delivery Method Room Air Weight: 212 lb 9.609 oz Body Mass Index (BMI) 31.4 Intake & Output: Intake and Output for Last 24 Hours 09/07/22 09/08/22 09/09/22 23:59 23:59 23:59 Intake Total 2210.83 / 2210.83 3410.25 / 3410.25 Output Total 1200 / 1200 800 / 800 Balance 2210.83 / 2210.83 2210.25 / 2210.25 -800 / -800 Lab / Micro Data Result Diagrams: 09/09/22 05:40 09/09/22 05:40 Labs: Laboratory Results - last 24 hr 09/08/22 11:00: Urine Creatinine 29.20, Urine Urea Nitrogen 199 09/09/22 05:40: WBC 6.5, RBC 2.59 L, Hgb 7.6 L, Hct 24.2 L, MCV 93.4, MCH 29.3, MCHC 31.4 L, RDW Std Deviation 60.0 H, RDW Coeff of Sydnee 17.8 H, Plt Count 413, MPV 9.3, Immature Gran % (Auto) 0.800, Neut % (Auto) 75.9 H, Lymph % (Auto) 11.4 L, [place] % (Auto) 10.8 H, Eos % (Auto) 0.9, Baso % (Auto) 0.2, Absolute Neuts (auto) 4.9, Absolute Lymphs (auto) 0.74 L, Nucleated RBC % 0 09/09/22 05:40: Sodium 136, Potassium 3.2 L, Chloride 109 H, Carbon Dioxide 17.0 L, Anion Gap 10, BUN 49 H, Creatinine 4.51 H, Estim Creat Clear Calc 15.25, Est GFR (MDRD) Af Amer 13 L, Est GFR (MDRD) Non-Af 11 L, BUN/Creatinine Ratio 10.9, Glucose 112 H, Calcium 8.9 09/09/22 05:40: PT 15.3 H, INR 1.2, APTT 33.8 Physical Exam Const alert, oriented x3 and no apparent distress General Appearance: cooperative HEENT normocephalic, head/scalp atraumatic, moist oral mucous membranes and oropharynx normal Mouth: dry mucous membranes Eyes PERRL, EOMs intact bilaterally and conjunctivae normal Neck no lymphadenopathy, supple and no JVD Lymph Lymphatic: no lymphadenopathy noted and no lymphedema noted Resp No normal respiratory effort, normal air movement, No no retractions, no use of accessory muscles and clear to auscultation bilaterally Cardio regular rhythm, S1 normal heart sound, S2 normal heart sound and no murmurs Cardio Narrative: tachycardia GI normal to inspection, nondistended, normoactive bowel sounds, soft to palpation, non-tender, non-distended and hepatosplenomegaly GI Narrative: no costophrenic angle tenderness Extremity normal to inspection, full ROM, normal capillary refill and no clubbing, cyanosis or edema General Extremity: no tenderness to palpation of joints or extremities Skin General Skin Exam: no breakdown Neuro oriented x3, CN's II-XII intact bilaterally and moves all extremities Sensorium / Orientation: awake and alert Motor Exam: strength 5/5 throughout Psych thought process normal, cooperative and affect normal Appearance: appropriate Assessment & Plan Assessment/Plan (1) NGOC (acute kidney injury): (2) Complicated UTI (urinary tract infection): PLAN: Plan #Acute UTI on iV ceftriaxone. urine cultures grew mixed gram positive organisms and blood cultures negative. #NGOC Cr today is up to 4.51, from 3.76 yesterday. thought to be due to chemotherapy induced nephritis from Keytruda. CT abdomen and pelvis without contrast showed nonspecific bilateral perinephric stranding and engorgement of both kidneys, and tiny bilateral pleural effusions as well as sludge or tiny gallstones in gallbladder lumen was due for a renal biopsy today, but it wasnt done today due to elevated BP. #Elevated BP BP markedly increased and in the 220s systolic not a known hypertensive IV hydralazine. Give PO clonidine 0.2mg x 1 start on amlodipine 10mg daily and check BP. 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 is undergoing neoadjuvant therapy with carboplatin, keytruda and taxol. Of her chemo meds, carboplatin and keytruda can cause nephrotoxicity, so it may be contirbuting to the NGOC. to follow up with oncology on outpatient basis. #GERD: on PPI; hold PPI as it can be nephrotoxic DVT prophylaxis; lovenox Code status: full code Charges/Coding Visit Charges Inpatient E&M: 80852 Subs Hosp L2
--- NOTE | 2022-09-09 10:44 | NURSING ---
residential monitor showing Hr is 145-150's. This RN in to see pt and C/O SOB and vomitting. Pt reports she has CP since last night squeezing feeling. CP is Sternal area does not go anywhere else. REspirations 27/min. CPS here and doing [address] Mosley notified via [email or web address] and has not viewed yet.
[2022-09-09] MEDS: cloNIDine HCl 0.2 MG Tablet PO (10:58)
[2022-09-09] MEDS: amLODIPine 10 MG Tablet PO (10:58)
--- NOTE | 2022-09-09 10:59 | NURSING ---
Dr. Mosley aware of CP, SOB, N/V and EKG. Sent a photo of EKG via Cortext to Dr. Mosley. Dr. Mosley wants Nursing to give the Po Catapress and Norvasc, get Troponins and Transfer to PCU. Michael Elevator Installer aware of the need to transfer to PCU.
--- NOTE | 2022-09-09 11:04 | EKG12_ITS ---
Test Reason : Blood Pressure : / mmHG Vent. Rate : 123 BPM Atrial Rate : 123 BPM P-R Int : 132 ms QRS Dur : 074 ms QT Int : 274 ms P-R-T Axes : 056 058 009 degrees QTc Int : [address] & T wave abnormality, consider inferior ischemia Abnormal ECG Confirmed by ELISHA LY, RHIANNA ([id number]), newspaper editor managing LAZARUS GUDINO ([id number]) on 09/13/2022 9:45:09 AM Referred By: OLINDA Confirmed By:RHIANNA TELLO MD
[2022-09-09] MEDS: Ceftriaxone 1 GM/50 ML BAG IV (11:06)
--- NOTE | 2022-09-09 11:06 | NURSING ---
Lab aware of Troponin series order. Dr. Mosley called back and asked for her to be sent to ICU instead of PCU.
--- NOTE | 2022-09-09 11:11 | NURSING ---
This RN called and spoke with Roxanne Quiroz, pts sister as to what was going on. Pt also has family member in the room with her.
--- NOTE | 2022-09-09 11:29 | NURSING ---
Report called and given to ICU, pt going to room 202
[2022-09-09 11:36] LABS: Troponin-I HS 31 pg/mL (3.0-54.0)
--- NOTE | 2022-09-09 12:39 | NURSING ---
Dr Serra here talking with pt , to radiology per bed for kidney biopsy, family present bp 127/68
--- NOTE | 2022-09-09 12:50 | RAD_ITS ---
STUDY: X-RAY CHEST REASON FOR EXAM: Female, 52 years old. Shortness of breath TECHNIQUE: PA and lateral views of the chest. COMPARISON: Comparison is made with prior study dated September 06, 2022. FINDINGS: EKG electrodes are seen. A left-sided portacatheter is seen with the tip at the junction of the superior vena cava and right atrium. Small bilateral pleural effusions with evidence of vascular congestion and mild CHF. Normal size heart. Normal mediastinum and trevin. Normal visualized pulmonary arteries. Normal visualized aortic arch and descending thoracic aorta. Normal visualized thoracic spine. Normal visualized ribs, clavicles, and shoulders. There is no demonstrated abnormality of the visualized soft tissue structures of the upper abdomen. RAD/Chest PA and Lateral IMPRESSION: Massive congestion and mild CHF with bilateral pleural effusions. Electronically Signed: Jamie Langford MD at 13:21 EDT ,
[2022-09-09] MEDS: Acetaminophen 325 MG Tablet 650 MG PO (13:00)
--- NOTE | 2022-09-09 13:04 | PCM.PN.REN ---
Subjective Subjective Events noted. She went for biopsy this morning, was found to have significantly high blood pressure. Transferred to the ICU. Currently somewhat better. Blood pressure is back to normal. She also complained of chest pain. She tells me that it felt like acid reflux pain that she had before. Urine output is okay. Creatinine continues to worsen. Objective Data Objective Data Vital Signs: Vital Signs Temp Pulse Resp BP Pulse Ox O2 Del Method O2 Flow Rate 98.8 F 92 30 H 140/72 H 100 Nasal Cannula 2 09/09/22 09:14 09/09/22 12:00 09/09/22 12:00 09/09/22 12:00 09/09/22 12:00 09/09/22 12:00 09/09/22 11:29 Oxygen Flow Rate (L/min) 2 Oxygen Delivery Method Nasal Cannula Weight: 96.434 kg Body Mass Index (BMI) 31.4 Intake & Output: Intake and Output for Last 24 Hours 09/07/22 09/08/22 09/09/22 23:59 23:59 23:59 Intake Total 2210.83 / 2210.83 3410.25 / 3410.25 50 / 50 Output Total 1200 / 1200 1250 / 1250 Balance 2210.83 / 2210.83 2210.25 / 2210.25 -1200 / -1200 Lab / Micro Data Result Diagrams: 09/09/22 05:40 09/09/22 05:40 Labs: Laboratory Results - last 24 hr 09/09/22 05:40: WBC 6.5, RBC 2.59 L, Hgb 7.6 L, Hct 24.2 L, MCV 93.4, MCH 29.3, MCHC 31.4 L, RDW Std Deviation 60.0 H, RDW Coeff of Sydnee 17.8 H, Plt Count 413, MPV 9.3, Immature Gran % (Auto) 0.800, Neut % (Auto) 75.9 H, Lymph % (Auto) 11.4 L, Peach % (Auto) 10.8 H, Eos % (Auto) 0.9, Baso % (Auto) 0.2, Absolute Neuts (auto) 4.9, Absolute Lymphs (auto) 0.74 L, Nucleated RBC % 0 09/09/22 05:40: Sodium 136, Potassium 3.2 L, Chloride 109 H, Carbon Dioxide 17.0 L, Anion Gap 10, BUN 49 H, Creatinine 4.51 H, Estim Creat Clear Calc 15.25, Est GFR (MDRD) Af Amer 13 L, Est GFR (MDRD) Non-Af 11 L, BUN/Creatinine Ratio 10.9, Glucose 112 H, Calcium 8.9 09/09/22 05:40: PT 15.3 H, INR 1.2, APTT 33.8 09/09/22 11:08: Troponin I High Sens 31 Physical Exam Narrative Alert awake oriented x 3 no obvious distress no pallor no icterus no JVD s1s2 no murmurs lungs clear abdomen soft no organomegaly no edema no cyanosis Assessment & Plan Assessment/Plan (1) NGOC (acute kidney injury): PLAN: Plan acute renal failure. Normal baseline creatinine. Fractional excretion of urea is more than 55%. Urine analysis shows leukocytes, negative nitrates. Urine culture is negative. CT abdomen without any hydronephrosis, it is noted that the kidneys are somewhat prominent with perinephric stranding suggestive of inflammation. She denies NSAIDs. No recent contrast. Other than PPI for acid reflux which was started in June no other new medications. Discussed with hospitalist. Does not seem like she has any sepsis at this point. WBC count is normal. No fevers. Blood cultures negative urine cultures negative. Chest x-ray is clear. CT abdomen without any obvious findings. Differential includes immune checkpoint inhibitor induced nephritis versus carboplatin nephrotoxicity. It is possible that this is Keytruda induced. She does not have pulmonary involvement, no GI symptoms. She does have a faint skin rash over her hands. No rash on the back or lower extremities. We'll be somewhat unusual to have isolated nephritis from checkpoint inhibitor but it has been described. Less likely possibilities carboplatin nephrotoxicity which again is rare but is possible. She also does not have any other signs of carboplatin toxicity. There is some studies that show coexisting PPI use increases the risk of checkpoint inhibitor induced nephritis Discussed with oncology. Diagnoses does have some implications for her breast cancer diagnosis. 09/09/2022. Blood pressure is better now. She will get biopsy today. Will probably not get results till Monday. I do not see any other alternative diagnosis. I will go ahead and start the treatment empirically. Explained about high-dose prednisone treatment, explained potential side effects including acid reflux, lack of sleep, excessive appetite, hyperglycemia, fluid overload, mood changes. At this point she is willing to try anything and deal with issues as they come along. I will start back the PPI since we will have prednisone coverage. She will eventually need prophylaxis with Bactrim. I will hold that for today. Discussed with family at bedside. Discussed with hospitalist. Raymond catheter can be removed.
[2022-09-09] MEDS: Midazolam 2 MG/2 ML Syringe IV (13:17)
[2022-09-09] MEDS: fentaNYL 100 MCG/2 ML Ampul IV (13:20)
[2022-09-09] MEDS: Lidocaine 2% (20 ml mdv) 20 ML Vial INFILT (13:31)
--- NOTE | 2022-09-09 13:34 | KI_PTH ---
PATIENT: ZAN FERRERA LOC: [facility] U#:[id number] AGE/SX: 52/F ROOM: [facility] RE09/07/[address]: Dr. Melyssa Mosley MD : 1970 BED: 1 DIS: 09/14/2022 SPEC #: [id number] RECD: 09/09/22 13:46 STATUS: GEETHA REQ #: [id number] SUMMER: 09/09/22 13:[address]: Valdemar Serra DEPT: SURGICAL PATHOLOGY RECD BY: Alexsandra Vásquez ENTERED: 09/12/22 08:17 SP TYPE: KIDNEY BX OTHR DR: MD Dr. Vivek Humphries MD Dr. Christopher Ranney, MD Dr. Derek Brown, DO Dr. Gabriele Pedicelli, MD Dr. Jayaprakas Dasari, MD Dr. Lee Ann Baggott, MD Dr. Nana Yaa Koram, MD Dr. Tanmay Panchabhai, MD Christina Muller, RAW FINISH MILL OPERATOR-C Tissues: Kidney, NOS Procedures: Electron Microscopy (ACH) Fluorescent Antibody (ACH) Sp St Grp II Kidney (ACH) Kidney Biopsy (ACH) Fluorescent antibody (ACH) add'l Comments: @ Ordering doctor for KIDBX edited from to @ by BOSSMAN at 09/12/22 0858 @ Submitting doctor edited from to @ by BOSSMAN at 09/12/22 0858 HEADER OPERATION: CT-guided kidney biopsy PRE-OP DIAGNOSIS: Acute kidney injury TISSUE SUBMITTED: Right kidney 18-gauge x4 MICROSCOPIC DIAGNOSIS Kidney, right, renal biopsy: Acute interstitial nephritis, marked/severe, lymphocyte-predominant. Arteriolar hyalinosis, mild. Interstitial fibrosis (10%). COMMENT The findings are those of renal parenchyma with mild arteriolar hyalinosis and with intact/patent (open) glomeruli and with marked interstitial inflammatory infiltrate including tubulitis, disruption of tubules and extravasation of Tamm-Horsfall protein. The inflammatory infiltrate consists predominantly of small round (nucleus) lymphocytes and is T-cell predominant with an admixture of B cells (immunohistochemical stains/findings). There is also an admixture of plasma cells in addition to rare eosinophils and scattered neutrophils. No vasculitis is identified, rather, the inflammatory infiltrate occupies and expands the interstitial space of the kidney. There is a background 10% interstitial fibrosis (trichrome positive). No active glomerular or vascular disease is identified. No immune deposition or immune deposits or electron dense deposits are seen. Pattern best fits with acute interstitial nephritis (lymphocyte predominant), marked/severe. This pattern may be seen with/as response to medications or administered medications, among others. The patient?s history of PDL-1 inhibitor therapy/administration (and history of lung neoplasm) is noted. This pattern of injury is the most frequent manifestation of renal toxicity due to immune checkpoint administration/use. Clinical and medication history correlation may be helpful. MICROSCOPIC DESCRIPTION LIGHT MICROSCOPY: Good biopsy specimen consisting predominantly of renal cortex and up to 9 glomeruli or portions of glomeruli for histologic evaluation. All glomeruli demonstrate open capillary loops with normal mesangial matrix and cellularity. Vasculature is otherwise unremarkable. Interstitium demonstrates marked lymphocytic infiltrate in addition to admixture of plasma cells and few eosinophils and rare neutrophils. Tubulitis is also identified. Extravasated Tamm-Horsfall protein is also noted within the interstitium. Marked interstitial inflammatory infiltrate is seen throughout the biopsy specimen. PAS stain highlights normal glomeruli, vasculature with mild arteriolar hyalinosis and marked interstitial inflammatory infiltrate. Elizondo (silver) stain demonstrates normal thickness glomerular basement membranes in all glomeruli with no ?splits,? ?breaks? or irregular luminal outlines. Marked interstitial inflammatory infiltrate is noted. Congo red stain is negative for congophilia and is negative for birefringence and dichromatism by polarization microscopy. Trichrome stain is negative for fuchsinophilic deposits within glomeruli and demonstrates marked interstitial inflammatory infiltrate with widening of tubular interstitium as well as disruption of some tubules in addition to tubulitis and extravasated tubular contents in some areas/sections. No vasculitis is identified. Mild arteriolar hyalinosis is seen. Interstitial fibrosis (renal cortical) is estimated at 10%. CD20 immunostain highlights the presence of B cells (CD20 positive cells) within the interstitium. CD3 demonstrates predominantly T cells within this interstitial inflammatory infiltrate (lymphocyte-rich). IMMUNOFLUORESCENCE: Tissue submitted for immunofluorescence microscopy demonstrates renal cortex and medulla and up to 5 glomeruli or portions of glomeruli for histologic evaluation. All glomeruli demonstrate open capillary loops and normal mesangial matrix and cellularity. Marked interstitial inflammatory infiltrate is seen with predominantly small round (nucleus) lymphocytes in addition to rare admixed plasma cells and scattered eosinophils and rare neutrophils. IgG, IgA, IgM, C1q, kappa light chain, lambda light chain, fibrin and albumin are negative within glomeruli, tubules and vascular structures. C3 demonstrates 1+ positivity within small vascular jiménez (arteriolar hyalinosis) but is negative within glomeruli and tubules/interstitium. ELECTRON MICROSCOPY: Toluidine blue-stained sections (thick/?electrical engineering teacher? sections) reveal 3 glomeruli or portions of glomeruli for histologic evaluation. Interstitium demonstrates marked interstitial inflammatory infiltrate consisting of small round (nucleus) lymphocytes in addition to plasma cells and scattered eosinophils and rare neutrophils. Active tubulitis is also noted. Rare extravasated Tamm-Horsfall protein is also noted within the interstitium. Ultrastructure examination reveals normal thickness glomerular basement membranes without electron dense deposits. Podocyte arrangement is otherwise unremarkable and glomerular basement membranes demonstrate normal thickness and contour. Interstitial inflammatory infiltrate is lymphocyte rich and contains an admixture of plasma cells in addition to rare polymorphonuclear leukocytes including eosinophils and rare neutrophils. No abnormal extracellular deposits are seen. No electron dense deposits are identified. GROSS DESCRIPTION The specimen is sent entirely to [facility] for diagnosis. Received in transport medium labeled with the patient?s name and ?right kidney,? the specimen consists of four cylindrical cores of michel-yellow renal parenchyma that are 1.0 to 1.3 cm in maximum dimension. Cabinet Finisher portion is submitted for immunofluorescent microscopy. Cabinet Finisher portion is submitted for microscopy. The remainder of the specimen is entirely submitted for light microscopic examination as A1.
[2022-09-09] MEDS: predniSONE 20 MG Tablet 80 MG PO (14:52)
[2022-09-09 21:49] LABS: Troponin-I HS 29 pg/mL (3.0-54.0)
[2022-09-10] VITALS (21 sets, daily range): BP systolic 112–144; BP diastolic 61–81; PULSE 68–94; RESP 14–85; TEMP 36.4–36.6; O2SAT 93–100; BMI 31.3
[2022-09-10] MEDS: predniSONE 20 MG Tablet 80 MG PO (08:26)
[2022-09-10] MEDS: amLODIPine 10 MG Tablet PO (08:26)
--- NOTE | 2022-09-10 08:56 | NURSING ---
EMERGENCY ON UNIT - crisis charting done and not all assessments completed
[2022-09-10] MEDS: Ceftriaxone 1 GM/50 ML BAG IV (10:23)
--- NOTE | 2022-09-10 10:28 | PN_ITS ---
Subjective Subjective Patient seen and examined. She had no complaints today. Her BP has improved markedly, and she didnt require any nitro drip. She did have the biopsy done yesterday. Review of systems is otherwise negative. Objective Data Objective Data Vital Signs: Vital Signs Temp Pulse Resp BP Pulse Ox O2 Del Method O2 Flow Rate 97.6 F L 78 14 132/76 H 100 Room Air 3 09/10/22 07:46 09/10/22 09:00 09/10/22 09:00 09/10/22 09:00 09/10/22 09:00 09/10/22 09:00 09/10/22 08:39 Oxygen Flow Rate (L/min) [5] 3 Oxygen Flow Rate (L/min) [4] 3 Oxygen Flow Rate (L/min) [3] 3 Oxygen Flow Rate (L/min) [2] 3 Oxygen Flow Rate (L/min) [1 ( 3 Initial Baseline)] Oxygen Flow Rate (L/min) 3 Oxygen Delivery Method [5] Nasal Cannula Oxygen Delivery Method [4] Nasal Cannula Oxygen Delivery Method [3] Nasal Cannula Oxygen Delivery Method [2] Nasal Cannula Oxygen Delivery Method [1 ( Nasal Cannula Initial Baseline)] Oxygen Delivery Method Room Air Weight: 211 lb 14.4 oz Body Mass Index (BMI) 31.3 Intake & Output: Intake and Output for Last 24 Hours 09/08/22 09/09/22 09/10/22 23:59 23:59 23:59 Intake Total 3410.25 / 3410.25 460 / 460 110 / 110 Output Total 1200 / 1200 1450 / 1450 Balance 2210.25 / 2210.25 -990 / -990 110 / 110 Lab / Micro Data Result Diagrams: 09/09/22 05:40 09/09/22 05:40 Labs: Laboratory Results - last 24 hr 09/09/22 11:08: Troponin I High Sens 31 09/09/22 21:02: Troponin I High Sens 29 Radiography Diagnostic Testing: Radiology Impression Biopsy CT 09/09/22 09:00 IMPRESSION: Successful CT guided percutaneous kidney biopsy. Conscious sedation protocol was followed. Electronically Signed: Jamie Langford MD at 14:10 EDT , Chest X-Ray 09/09/22 12:50 IMPRESSION: Massive congestion and mild CHF with bilateral pleural effusions. Electronically Signed: Jamie Langford MD at 13:21 EDT , Physical Exam Const alert, oriented x3 and no apparent distress General Appearance: cooperative HEENT normocephalic, head/scalp atraumatic, moist oral mucous membranes and oropharynx normal Eyes PERRL, EOMs intact bilaterally and conjunctivae normal Neck no lymphadenopathy, supple and no JVD Lymph Lymphatic: no lymphadenopathy noted and no lymphedema noted Resp No normal respiratory effort, normal air movement, No no retractions, no use of accessory muscles and clear to auscultation bilaterally Cardio regular rate, regular rhythm, S1 normal heart sound, S2 normal heart sound and no murmurs GI normal to inspection, nondistended, normoactive bowel sounds, soft to palpation, non-tender, non-distended and hepatosplenomegaly Extremity normal to inspection, full ROM, normal capillary refill and no clubbing, cyanosis or edema General Extremity: no tenderness to palpation of joints or extremities Skin General Skin Exam: no breakdown Neuro oriented x3, CN's II-XII intact bilaterally, moves all extremities and no focal motor deficits Sensorium / Orientation: awake and alert Motor Exam: strength 5/5 throughout Psych thought process normal, cooperative and affect normal Appearance: appropriate Assessment & Plan Assessment/Plan (1) NGOC (acute kidney injury): (2) Complicated UTI (urinary tract infection): PLAN: Plan #Acute UTI * on iV ceftriaxone. * urine cultures grew mixed gram positive organisms and blood cultures negative. * #NGOC * Cr pending today. Went up to 4.51 * thought to be chemotherapy induced nephritis from keytruda * CT abdomen and pelvis without contrast showed nonspecific bilateral perineph ashlyn stranding and engorgement of both kidneys, and tiny bilateral pleural effusions as well as sludge or tiny gallstones in gallbladder lumen * had renal biopsy done yesterday. * started on high dose steroids- PO prednisone 80mg daily * #Elevated BP * She was transferred to the ICU yesterday on account of markedly elevated blood pressure with chest pain, meeting the criteria for hypertensive emergency. She was to be started on nitro drip. However blood pressure subsequently came down and this was not required. 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 * is undergoing neoadjuvant therapy with carboplatin, keytruda and taxol. Of her chemo meds, carboplatin and keytruda can cause nephrotoxicity, so it may be contirbuting to the NGOC. * to follow up with oncology on outpatient basis. * #GERD: on PPI; hold PPI as it can be nephrotoxic DVT prophylaxis; lovenox Code status: full code Charges/Coding Visit Charges Inpatient E&M: 98182 Subs Hosp L2
[2022-09-10] MEDS: Alteplase 2 MG/2 ML Vial IV (12:13)
[2022-09-10 13:05] LABS: Absolute Lymphocyte Count 0.52 X10^3/uL (0.83-4.51); Absolute Neutrophil Count 7.5 X10^3/uL (2.0-7.7); Basophil# 0.01 X10^3/uL; Basophil% 0.1 % (0-1); Hematocrit 22.9 % (37-47); Hemoglobin 7.6 g/dL (12.0-15.0); Lymphocyte # 0.52 X10^3/ul (0.83-4.51); Mean Corp Hgb Conc 33.2 g/dL (32-36); Mean Corpuscular Volume 90.5 fL (81-99); Mean Platelet Vol. 9.4 fl (6.2-12.0); Monocyte# 0.52 X10^3/uL; NRBC Flagged by Analyzer 0 % (0-5); Neutrophil # 7.54 X10^3/uL (2.7-7.7); POSITIVE DIFFERENTIAL YES; Platelet Count 416 K/mm3 (150-450); RBC Distribution Width CV 17.8 % (11.6-14.6); RBC Distribution Width SD 58.1 fl (35.1-43.9); Red Blood Count 2.53 M/mm3 (4.2-5.4); White Blood Count 8.7 K/mm3 (4.4-11.0)
[2022-09-10 13:07] LABS: Anion Gap 11 (5-15); BUN 64 mg/dL (7-18); BUN/Creat Ratio 10.6 RATIO (10-20); Calcium,Total 8.4 mg/dL (8.5-10.1); Chloride 109 mmol/L (98-107); Creatinine, Serum 6.01 mg/dL (0.55-1.02); EST Glomerular Filtration Rate 8 mL/min (>60); Est Glom Filt Rate - Afr Amer 9 mL/min (>60); Estimated Creatinine Clearance 11.44 ml/min; Glucose 156 mg/dL (74-106); Potassium 3.6 mmol/L (3.5-5.1); Sodium Level 135 mmol/L (136-145)
[2022-09-10 13:31] LABS: Differential Indicated SCAN CRITERIA MET
[2022-09-10 13:53] LABS: Differential Comment SCANNED
--- NOTE | 2022-09-10 17:36 | NURSING ---
report called to [facility] for transfer to room 105, transferred per wheelchair with belongings, family present
--- NOTE | 2022-09-10 20:05 | PCM.PN.REN ---
Subjective Subjective Following for acute kidney injury. The patient complains of bloated feeling around the abdomen. There is no pain. She denies nausea or vomiting. There has been no diarrhea. There is no chest pain or shortness of breath. Objective Data Objective Data Vital Signs: Vital Signs Temp Pulse Resp BP Pulse Ox O2 Del Method O2 Flow Rate 97.6 F L 94 18 144/81 H 99 Room Air 3 09/10/22 17:45 09/10/22 17:45 09/10/22 17:45 09/10/22 17:45 09/10/22 17:45 09/10/22 17:45 09/10/22 08:39 Oxygen Flow Rate (L/min) [5] 3 Oxygen Flow Rate (L/min) [4] 3 Oxygen Flow Rate (L/min) [3] 3 Oxygen Flow Rate (L/min) [2] 3 Oxygen Flow Rate (L/min) [1 ( 3 Initial Baseline)] Oxygen Flow Rate (L/min) 3 Oxygen Delivery Method [5] Nasal Cannula Oxygen Delivery Method [4] Nasal Cannula Oxygen Delivery Method [3] Nasal Cannula Oxygen Delivery Method [2] Nasal Cannula Oxygen Delivery Method [1 ( Nasal Cannula Initial Baseline)] Oxygen Delivery Method Room Air Weight: 96.116 kg Body Mass Index (BMI) 31.3 Intake & Output: Intake and Output for Last 24 Hours 09/08/22 09/09/22 09/10/22 23:59 23:59 23:59 Intake Total 3410.25 / 3410.25 460 / 460 970 / 970 Output Total 1200 / 1200 1450 / 1450 800 / 800 Balance 2210.25 / 2210.25 -990 / -990 170 / 170 Lab / Micro Data Result Diagrams: 09/10/22 12:45 09/10/22 12:45 Labs: Laboratory Results - last 24 hr 09/09/22 21:02: Troponin I High Sens 29 09/10/22 12:45: WBC 8.7, RBC 2.53 L, Hgb 7.6 L, Hct 22.9 L, MCV 90.5, MCH 30.0, MCHC 33.2 D, RDW Std Deviation 58.1 H, RDW Coeff of Sydnee 17.8 H, Plt Count 416, MPV 9.4, Immature Gran % (Auto) 0.900, Neut % (Auto) 87.0 H, Lymph % (Auto) 6.0 L, [place] % (Auto) 6.0, Eos % (Auto) 0.0, Baso % (Auto) 0.1, Absolute Neuts (auto) 7.5, Absolute Lymphs (auto) 0.52 L, Nucleated RBC % 0, Differential Comment SCANNED 09/10/22 12:45: Sodium 135 L, Potassium 3.6, Chloride 109 H, Carbon Dioxide 15.0 L, Anion Gap 11, BUN 64 H, Creatinine 6.01 H, Estim Creat Clear Calc 11.44, Est GFR (MDRD) Af Amer 9 L, Est GFR (MDRD) Non-Af 8 L, BUN/Creatinine Ratio 10.6, Glucose 156 H, Calcium 8.4 L Physical Exam Narrative Alert awake oriented x 3 no obvious distress no pallor no icterus no JVD s1s2 no murmurs lungs clear abdomen soft no organomegaly no edema no cyanosis Assessment & Plan Assessment/Plan (1) NGOC (acute kidney injury): PLAN: Plan Acute kidney injury. Normal baseline creatinine. Fractional excretion of urea is more than 55%. Urine analysis shows leukocytes, negative nitrates. Urine culture is negative. CT abdomen without any hydronephrosis, it is noted that the kidneys are somewhat prominent with perinephric stranding suggestive of inflammation. She denies NSAIDs. No recent contrast. Other than PPI for acid reflux which was started in June no other new medications. Discussed with hospitalist. Does not seem like she has any sepsis at this point. WBC count is normal. No fevers. Blood cultures negative urine cultures negative. Chest x-ray is clear. CT abdomen without any obvious findings. Differential includes immune checkpoint inhibitor induced nephritis versus carboplatin nephrotoxicity. It is possible that this is Keytruda induced. She does not have pulmonary involvement, no GI symptoms. She does have a faint skin rash over her hands. No rash on the back or lower extremities. We'll be somewhat unusual to have isolated nephritis from checkpoint inhibitor but it has been described. Less likely possibilities carboplatin nephrotoxicity which again is rare but is possible. She also does not have any other signs of carboplatin toxicity. There is some studies that show coexisting PPI use increases the risk of checkpoint inhibitor induced nephritis Discussed with oncology. Diagnoses does have some implications for her breast cancer diagnosis. 09/09/2022. Blood pressure is better now. She will get biopsy today. Will probably not get results till Monday. I do not see any other alternative diagnosis. I will go ahead and start the treatment empirically. Explained about high-dose prednisone treatment, explained potential side effects including acid reflux, lack of sleep, excessive appetite, hyperglycemia, fluid overload, mood changes. At this point she is willing to try anything and deal with issues as they come along. I will start back the PPI since we will have prednisone coverage. She will eventually need prophylaxis with Bactrim. I will hold that for today. Discussed with family at bedside. Discussed with hospitalist. Raymond catheter can be removed. 09/10/2022: The patient was started on empiric corticosteroid for suspected interstitial nephritis from immune checkpoint inhibitor. Unfortunately, serum creatinine has continued to increase and is now 6.01 mg/dL. Serum bicarbonate level is also low at 15 mmol/L. No indications for sodium bicarbonate supplementation in the setting of NGOC. There is no hyperkalemia. The patient may still need kidney replacement therapy while we are waiting for corticosteroid to work. She was informed about the possibility of hemodialysis today. Continue to encourage oral solute/fluid intake. We should have some definitive answer on what is causing her NGOC by early next week. Kidney biopsy was done on 09/09/2022. Nephrology plan was discussed with Dr. Mosley.
[2022-09-11 05:19] VITALS: BMI 31.5
[2022-09-11 06:22] VITALS: BP 125/64; PULSE 82; RESP 16; TEMP 36.5; O2SAT 99
[2022-09-11 06:26] LABS: Albumin, Serum 2.3 g/dL (3.2-5.0); BUN 78 mg/dL (7-18); BUN/Creat Ratio 11.7 RATIO (10-20); Calcium,Total 8.8 mg/dL (8.5-10.1); Chloride 109 mmol/L (98-107); Creatinine, Serum 6.65 mg/dL (0.55-1.02); EST Glomerular Filtration Rate 7 mL/min (>60); Est Glom Filt Rate - Afr Amer 8 mL/min (>60); Estimated Creatinine Clearance 10.34 ml/min; Glucose 117 mg/dL (74-106); Phosphorus 5.2 mg/dL (2.5-4.9); Sodium Level 137 mmol/L (136-145)
[2022-09-11 08:05] VITALS: BP 139/79; PULSE 79; RESP 16; TEMP 36.4; O2SAT 99
[2022-09-11] MEDS: amLODIPine 10 MG Tablet PO (08:24)
[2022-09-11] MEDS: predniSONE 20 MG Tablet 80 MG PO (08:24)
[2022-09-11] MEDS: 0.9% Saline Lock 10 ML Syringe IV (08:31)
[2022-09-11] MEDS: Ceftriaxone 1 GM/50 ML BAG IV (09:32)
--- NOTE | 2022-09-11 09:41 | PN_ITS ---
Subjective Subjective Patient seen nad examined. She still complained of bloating. She denied any fever, chills, cough, chets pain, palpitations, dizziness,nausea, vomiting or diarrhea. Review of systems is otherwise negative. Her Cr has trended upwards some more to 6.65 today and bicarb is 15. She has otherwise remained hemodynamically stable. Objective Data Objective Data Vital Signs: Vital Signs Temp Pulse Resp BP Pulse Ox O2 Del Method O2 Flow Rate 97.5 F L 79 16 139/79 H 99 Room Air 3 09/11/22 08:05 09/11/22 08:05 09/11/22 08:05 09/11/22 08:05 09/11/22 08:05 09/11/22 08:05 09/10/22 08:39 Oxygen Flow Rate (L/min) [5] 3 Oxygen Flow Rate (L/min) [4] 3 Oxygen Flow Rate (L/min) [3] 3 Oxygen Flow Rate (L/min) [2] 3 Oxygen Flow Rate (L/min) [1 ( 3 Initial Baseline)] Oxygen Flow Rate (L/min) 3 Oxygen Delivery Method [5] Nasal Cannula Oxygen Delivery Method [4] Nasal Cannula Oxygen Delivery Method [3] Nasal Cannula Oxygen Delivery Method [2] Nasal Cannula Oxygen Delivery Method [1 ( Nasal Cannula Initial Baseline)] Oxygen Delivery Method Room Air Weight: 213 lb 6.519 oz Body Mass Index (BMI) 31.5 Intake & Output: Intake and Output for Last 24 Hours 09/09/22 09/10/22 09/11/22 23:59 23:59 23:59 Intake Total 460 / 460 1330 / 1330 110 / 110 Output Total 1450 / 1450 1100 / 1100 400 / 400 Balance -990 / -990 230 / 230 -290 / -290 Lab / Micro Data Result Diagrams: 09/10/22 12:45 09/11/22 05:27 Labs: Laboratory Results - last 24 hr 09/10/22 12:45: WBC 8.7, RBC 2.53 L, Hgb 7.6 L, Hct 22.9 L, MCV 90.5, MCH 30.0, MCHC 33.2 D, RDW Std Deviation 58.1 H, RDW Coeff of Sydnee 17.8 H, Plt Count 416, MPV 9.4, Immature Gran % (Auto) 0.900, Neut % (Auto) 87.0 H, Lymph % (Auto) 6.0 L, [place] % (Auto) 6.0, Eos % (Auto) 0.0, Baso % (Auto) 0.1, Absolute Neuts (auto) 7.5, Absolute Lymphs (auto) 0.52 L, Nucleated RBC % 0, Differential Comment SCANNED 09/10/22 12:45: Sodium 135 L, Potassium 3.6, Chloride 109 H, Carbon Dioxide 15.0 L, Anion Gap 11, BUN 64 H, Creatinine 6.01 H, Estim Creat Clear Calc 11.44, Est GFR (MDRD) Af Amer 9 L, Est GFR (MDRD) Non-Af 8 L, BUN/Creatinine Ratio 10.6, Glucose 156 H, Calcium 8.4 L 09/11/22 05:27: Sodium 137, Potassium 4.0, Chloride 109 H, Carbon Dioxide 15.0 L , BUN 78 H, Creatinine 6.65 H, Estim Creat Clear Calc 10.34, Est GFR (MDRD) Af Amer 8 L, Est GFR (MDRD) Non-Af 7 L, BUN/Creatinine Ratio 11.7, Glucose 117 H, Calcium 8.8, Phosphorus 5.2 H, Albumin 2.3 L
[2022-09-11 14:04] VITALS: BP 130/80; PULSE 89; RESP 17; TEMP 36.5; O2SAT 96
[2022-09-11 20:13] VITALS: BP 155/88; PULSE 93; RESP 18; TEMP 36.4; O2SAT 100
[2022-09-12] VITALS (7 sets, daily range): BP systolic 131–158; BP diastolic 75–84; PULSE 86–95; RESP 14–18; TEMP 36.4–36.6; O2SAT 95–100; BMI 33.9
--- NOTE | 2022-09-12 04:01 | PCA ---
RN has been notified of weight differential
[2022-09-12] MEDS: 0.9% Saline Lock 10 ML Syringe IV ×2 (06:07→15:11)
[2022-09-12] MEDS: predniSONE 20 MG Tablet 80 MG PO (08:31)
[2022-09-12 08:35] LABS: Absolute Lymphocyte Count 1.23 X10^3/uL (0.83-4.51); Absolute Neutrophil Count 10.1 X10^3/uL (2.0-7.7); Basophil# 0.04 X10^3/uL; Basophil% 0.3 % (0-1); Hemoglobin 8.2 g/dL (12.0-15.0); Lymphocyte # 1.23 X10^3/ul (0.83-4.51); Lymphocyte % 9.6 % (19-41); Mean Corp Hgb Conc 32.8 g/dL (32-36); Mean Corpuscular Hgb 29.6 pg (27.0-32.0); Mean Corpuscular Volume 90.3 fL (81-99); Mean Platelet Vol. 9.2 fl (6.2-12.0); Monocyte# 0.98 X10^3/uL; Monocyte% 7.6 % (0-10); NRBC Flagged by Analyzer 0 % (0-5); Neutrophil # 10.07 X10^3/uL (2.7-7.7); Neutrophil % 78.5 % (47-70); Platelet Count 502 K/mm3 (150-450); RBC Distribution Width CV 18.1 % (11.6-14.6); RBC Distribution Width SD 58.8 fl (35.1-43.9); Red Blood Count 2.77 M/mm3 (4.2-5.4); White Blood Count 12.8 K/mm3 (4.4-11.0)
[2022-09-12 08:58] LABS: Anion Gap 14 (5-15); BUN 97 mg/dL (7-18); BUN/Creat Ratio 13.6 RATIO (10-20); Calcium,Total 8.9 mg/dL (8.5-10.1); Chloride 109 mmol/L (98-107); Creatinine, Serum 7.15 mg/dL (0.55-1.02); EST Glomerular Filtration Rate 6 mL/min (>60); Est Glom Filt Rate - Afr Amer 8 mL/min (>60); Estimated Creatinine Clearance 9.62 ml/min; Glucose 102 mg/dL (74-106); Potassium 3.8 mmol/L (3.5-5.1); Sodium Level 136 mmol/L (136-145)
[2022-09-12] MEDS: amLODIPine 10 MG Tablet PO (09:02)
[2022-09-12] MEDS: Ceftriaxone 1 GM/50 ML BAG IV (09:26)
--- NOTE | 2022-09-12 09:50 | PCM.PN.REN ---
Subjective Subjective Following for NGOC. The patient is tolerating high-dose corticosteroid pretty well so far. She denies chest pain, shortness of breath, or nausea. The patient does complain of feeling bloated and more swollen especially in the lower extremities. Objective Data Objective Data Vital Signs: Vital Signs Temp Pulse Resp BP Pulse Ox O2 Del Method O2 Flow Rate 97.8 F 88 16 135/75 H 95 Room Air 3 09/12/22 06:09 09/12/22 09:00 09/12/22 06:09 09/12/22 09:00 09/12/22 07:26 09/12/22 08:23 09/10/22 08:39 Oxygen Flow Rate (L/min) [5] 3 Oxygen Flow Rate (L/min) [4] 3 Oxygen Flow Rate (L/min) [3] 3 Oxygen Flow Rate (L/min) [2] 3 Oxygen Flow Rate (L/min) [1 ( 3 Initial Baseline)] Oxygen Flow Rate (L/min) 3 Oxygen Delivery Method [5] Nasal Cannula Oxygen Delivery Method [4] Nasal Cannula Oxygen Delivery Method [3] Nasal Cannula Oxygen Delivery Method [2] Nasal Cannula Oxygen Delivery Method [1 ( Nasal Cannula Initial Baseline)] Oxygen Delivery Method Room Air Weight: 104.1 kg Body Mass Index (BMI) 33.9 Intake & Output: Intake and Output for Last 24 Hours 09/10/22 09/11/22 09/12/22 23:59 23:59 23:59 Intake Total 1330 / 1330 2220 / 2220 170 / 170 Output Total 1100 / 1100 1600 / 1600 350 / 350 Balance 230 / 230 620 / 620 -180 / -180 Lab / Micro Data Result Diagrams: 09/12/22 08:17 09/12/22 08:17 Labs: Laboratory Results - last 24 hr 09/12/22 08:17: WBC 12.8 H, RBC 2.77 L, Hgb 8.2 L, Hct 25.0 L, MCV 90.3, MCH 29.6, MCHC 32.8, RDW Std Deviation 58.8 H, RDW Coeff of Sydnee 18.1 H, Plt Count 502 H, MPV 9.2, Immature Gran % (Auto) 4.000 H, Neut % (Auto) 78.5 H, Lymph % (Auto) 9.6 L, [place] % (Auto) 7.6, Eos % (Auto) 0.0, Baso % (Auto) 0.3, Absolute Neuts (auto) 10.1 H, Absolute Lymphs (auto) 1.23, Nucleated RBC % 0 09/12/22 08:17: Sodium 136, Potassium 3.8, Chloride 109 H, Carbon Dioxide 13.0 L, Anion Gap 14, BUN 97 H, Creatinine 7.15 H, Estim Creat Clear Calc 9.62, Est GFR (MDRD) Af Amer 8 L, Est GFR (MDRD) Non-Af 6 L, BUN/Creatinine Ratio 13.6, Glucose 102, Calcium 8.9 Physical Exam Narrative General: Alert and oriented x3, NAD HEENT: Normocephalic, atraumatic. Mucous membrane moist. Cardiovascular: Normal S1, S2. No rubs or murmurs. Lungs: Clear to auscultation bilaterally. Abdomen: Normal bowel sound, soft, nontender, no guarding or rebound. Extremities: There is 1+ edema of the lower extremities. Assessment & Plan Assessment/Plan (1) NGOC (acute kidney injury): PLAN: Plan Impression/Plan: The patient is a 52-year-old woman with past history of breast cancer, hyperlipidemia, and GERD. The patient was admitted to the hospital on 09/07/2022 because of fever. She is being treated for UTI with antibiotic. The patient was also found to have acute kidney injury on presentation with serum creatinine of 2.40 mg/dL on 09/07/2022. The patient was on pembrolizumab for breast cancer prior to admission. Nephrology is following for NGOC. Acute kidney injury. Normal baseline creatinine. Serum creatinine was 0.82 mg/dL as recently as 08/24/2022. The patient has been on pembrolizumab for treatment of her breast cancer. She was also on carboplatin. Differential diagnoses for NGOC includes immune checkpoint inhibitor induced nephritis versus carboplatin nephrotoxicity. It is possible that this is pembrolizumab induced interstitial nephritis. However, she does not have pulmonary involvement, no GI symptoms. She does have a faint skin rash over her hands. No rash on the back or lower extremities. Less likely possibilities carboplatin nephrotoxicity which again is rare but is possible. She also does not have any other signs of carboplatin toxicity. There is some studies that show coexisting PPI use increases the risk of checkpoint inhibitor induced nephritis The patient underwent kidney biopsy on 09/09/2022. I will call pathology today to see if there is any preliminary diagnosis. She was started on high-dose corticosteroid on 09/09/2022. Unfortunately, her renal function continues to decline despite starting prednisone on 09/09/2022. Serum creatinine is up to 7.15 mg/dL today. Acidosis is worse and serum bicarbonate level is down to 13 mmol/L. There is no hyperkalemia. Therefore, there is no immediate need for kidney replacement therapy today but she is at increased risk. Continue steroid for now until we can get more definitive answers from kidney biopsy. Although there is no immediate need for dialysis today, we will proceed with hemodialysis tomorrow if renal function continue to worsen. Dialysis was discussed with the patient and her family in the room today. Hypertension. BP is acceptable on current dose of amlodipine. UTI. The patient is being treated for IV ceftriaxone as directed by hospital medicine service.
--- NOTE | 2022-09-12 13:07 | PN_ITS ---
Subjective Subjective Patient seen and examined. she had no complaints and had an uneventful night. She still does feel a bit bloated. Review of systems is otherwise negative. Cr has trended upwards to 7.15. and bicarb is 13. Objective Data Objective Data Vital Signs: Vital Signs Temp Pulse Resp BP Pulse Ox O2 Del Method O2 Flow Rate 97.7 F L 90 18 149/84 H 99 Room Air 3 09/12/22 11:58 09/12/22 11:58 09/12/22 11:58 09/12/22 11:58 09/12/22 11:58 09/12/22 11:58 09/10/22 08:39 Oxygen Flow Rate (L/min) [5] 3 Oxygen Flow Rate (L/min) [4] 3 Oxygen Flow Rate (L/min) [3] 3 Oxygen Flow Rate (L/min) [2] 3 Oxygen Flow Rate (L/min) [1 ( 3 Initial Baseline)] Oxygen Flow Rate (L/min) 3 Oxygen Delivery Method [5] Nasal Cannula Oxygen Delivery Method [4] Nasal Cannula Oxygen Delivery Method [3] Nasal Cannula Oxygen Delivery Method [2] Nasal Cannula Oxygen Delivery Method [1 ( Nasal Cannula Initial Baseline)] Oxygen Delivery Method Room Air Weight: 229 lb 8.019 oz Body Mass Index (BMI) 33.9 Intake & Output: Intake and Output for Last 24 Hours 09/10/22 09/11/22 09/12/22 23:59 23:59 23:59 Intake Total 1330 / 1330 2220 / 2220 1100 / 1100 Output Total 1100 / 1100 1600 / 1600 825 / 825 Balance 230 / 230 620 / 620 275 / 275 Lab / Micro Data Result Diagrams: 09/12/22 08:17 09/12/22 08:17 Labs: Laboratory Results - last 24 hr 09/12/22 08:17: WBC 12.8 H, RBC 2.77 L, Hgb 8.2 L, Hct 25.0 L, MCV 90.3, MCH 29.6, MCHC 32.8, RDW Std Deviation 58.8 H, RDW Coeff of Sydnee 18.1 H, Plt Count 502 H, MPV 9.2, Immature Gran % (Auto) 4.000 H, Neut % (Auto) 78.5 H, Lymph % (Auto) 9.6 L, Jones % (Auto) 7.6, Eos % (Auto) 0.0, Baso % (Auto) 0.3, Absolute Neuts (auto) 10.1 H, Absolute Lymphs (auto) 1.23, Nucleated RBC % 0 09/12/22 08:17: Sodium 136, Potassium 3.8, Chloride 109 H, Carbon Dioxide 13.0 L , Anion Gap 14, BUN 97 H, Creatinine 7.15 H, Estim Creat Clear Calc 9.62, Est GFR (MDRD) Af Amer 8 L, Est GFR (MDRD) Non-Af 6 L, BUN/Creatinine Ratio 13.6, Glucose 102, Calcium 8.9 Physical Exam Const alert, oriented x3 and no apparent distress General Appearance: cooperative and well developed HEENT normocephalic, head/scalp atraumatic, moist oral mucous membranes and oropharynx normal Eyes PERRL, EOMs intact bilaterally and conjunctivae normal Neck no lymphadenopathy, supple and no JVD Lymph Lymphatic: no lymphadenopathy noted and no lymphedema noted Resp No normal respiratory effort, normal air movement, No no retractions, no use of accessory muscles and clear to auscultation bilaterally Cardio regular rate, regular rhythm, S1 normal heart sound, S2 normal heart sound and no murmurs Cardio Narrative: GI normal to inspection, nondistended, normoactive bowel sounds, soft to palpation, non-tender, non-distended and hepatosplenomegaly Extremity normal to inspection, full ROM and normal capillary refill Extremity Narrative: 1+ bipedal edema General Extremity: no tenderness to palpation of joints or extremities Skin General Skin Exam: no breakdown Neuro oriented x3, CN's II-XII intact bilaterally, moves all extremities and no focal motor deficits Sensorium / Orientation: awake and alert Motor Exam: strength 5/5 throughout Psych thought process normal, cooperative and affect normal Appearance: appropriate Assessment & Plan Assessment/Plan (1) NGOC (acute kidney injury): (2) Complicated UTI (urinary tract infection): PLAN: Plan #Acute UTI * on iV ceftriaxone. * urine cultures grew mixed gram positive organisms and blood cultures negative. * #NGOC * Cr up to 7.15 today. Cr keeps trending upwards. * thought to be chemotherapy induced nephritis from keytruda * CT abdomen and pelvis without contrast showed nonspecific bilateral perinephric stranding and engorgement of both kidneys, and tiny bilateral pleural effusions as well as sludge or tiny gallstones in gallbladder lumen * renal biopsy done, results pending. * continue on high dose steroids. * Patient counseled that she is heading towards requiring temporary dialysis. Will defer to nephrology about when to initiate dialysis. * #Hypertension * On p.o. amlodipine 10 mg daily. 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 * is undergoing neoadjuvant therapy with carboplatin, keytruda and taxol. Of her chemo meds, carboplatin and keytruda can cause nephrotoxicity, so it may be contirbuting to the NGOC. * to follow up with oncology on outpatient basis. * #GERD: on PPI; DVT prophylaxis; lovenox Code status: full code Charges/Coding Visit Charges Inpatient E&M: 37102 Subs Hosp L2
[2022-09-12] MEDS: Furosemide 40 MG/4 ML Vial IV (15:11)
--- NOTE | 2022-09-12 15:39 | CON.PCM.SX_ITS ---
Assessment & Plan Assessment/Plan (1) NGOC (acute kidney injury): (2) Invasive ductal carcinoma of right breast: (3) Breast cancer, left: PLAN: Plan Discussed with patient that we will plan to place right IJ tunneled dialysis catheter tomorrow if patient's creatinine does increase in the morning. Discussed procedure including but not limited to risk of bleeding, infection, and anesthesia. Patient no further questions this time. Joy Sams M.D. Pager: [phone] [facility] [address] [place] [address], [facility], [address] [place] [address] Office: [phone] HPI Consult Data Date of Consult: 09/13/22 HPI Narrative Reason for Consultation: Possible need for tunneled dialysis catheter HPI Narrative: ZAN FERRERA, is a 52 F who admitted due to acute kidney injury. Patient is currently on chemotherapy for bilateral breast cancer. Patient is well-known to me. Patient's creatinine this morning is 7.15-if this increases tomorrow nephrology will plan to start dialysis. Patient has a left IJ Port-A-Cath in place. [facility] Medical History (Updated 09/10/22 @ 00:05 by Background Daemon) NGOC (acute kidney injury) Alcohol use Cancer Complicated UTI (urinary tract infection) Encounter for education Gastric reflux History of echocardiogram History of edema History of stress test Hypercholesterolemia Migraine headache Non-smoker Wears glasses Home Medications pantoprazole 40 mg tablet,delayed release 40 mg PO DAILY #30 tabs 06/08/22 [Rx Last Taken 09/07/22 10:00] lidocaine-prilocaine 2.5 %-2.5 % topical cream 1 applic topical ONCE PRN port access 30 days #30 grams 07/12/22 [Rx Last Taken 08/31/22] ondansetron 8 mg disintegrating tablet 8 mg PO Q8H PRN nausea and vomiting #30 tabs 07/12/22 [Rx Last Taken Unknown] polyethylene glycol 3350 17 gram oral powder packet (Miralax) 17 g PO DAILY PRN PRN Constipation 09/02/22 [History Last Taken 09/01/22] cephalexin 500 mg capsule 500 mg PO Q12 #14 CAPSULES 09/06/22 [Rx Last Taken 09/07/22 10:00] acetaminophen 500 mg tablet 1,000 mg PO DAILY PRN PRN Fever 09/07/22 [History Last Taken 09/06/22 22:00] Allergy/AdvReac Type Severity Reaction Status Date / Time No Known Allergies Allergy Verified 09/07/22 11:20 Family History Grandmother Breast cancer CVA (cerebral vascular accident) Aunt Breast cancer Surgical History History of left breast biopsy History of vascular access device Hx of breast biopsy Social History household members: spouse Smoking Status: Never smoker substance use type: does not use ROS Eyes Eyes: Denies change in vision ENT HEENT: Denies dysphagia Cardiovascular Cardiovascular: Denies chest pain Respiratory/Chest Respiratory/Chest: Denies cough Gastrointestinal Gastrointestinal: Denies abdominal pain or vomiting Genitourinary Genitourinary: Denies hematuria Musculoskeletal Musculoskeletal: Denies joint swelling Integumentary Integumentary: Denies jaundice Neurologic Neurologic: Denies focal weakness Psychiatric Psychiatric: Denies depression Hematologic/Lymphatic Hematologic/Lymphatic: Denies easy bleeding Physical Exam Const alert and oriented x3 Neck supple Chest Chest Narrative: Left IJ Port-A-Cath in place and accessed, right upper chest normal palpation Resp normal respiratory effort Cardio Rate: regular rate Lab / Micro Data Result Diagrams: 09/13/22 04:29 09/13/22 04:29 Labs: Laboratory Results - last 24 hr 09/12/22 08:17: WBC 12.8 H, RBC 2.77 L, Hgb 8.2 L, Hct 25.0 L, MCV 90.3, MCH 29.6, MCHC 32.8, RDW Std Deviation 58.8 H, RDW Coeff of Sydnee 18.1 H, Plt Count 502 H, MPV 9.2, Immature Gran % (Auto) 4.000 H, Neut % (Auto) 78.5 H, Lymph % (Auto) 9.6 L, [place] % (Auto) 7.6, Eos % (Auto) 0.0, Baso % (Auto) 0.3, Absolute Neuts (auto) 10.1 H, Absolute Lymphs (auto) 1.23, Nucleated RBC % 0 09/12/22 08:17: Sodium 136, Potassium 3.8, Chloride 109 H, Carbon Dioxide 13.0 L , Anion Gap 14, BUN 97 H, Creatinine 7.15 H, Estim Creat Clear Calc 9.62, Est GFR (MDRD) Af Amer 8 L, Est GFR (MDRD) Non-Af 6 L, BUN/Creatinine Ratio 13.6, Glucose 102, Calcium 8.9 Charges/Coding Visit Charges Inpatient E&M: 04423 Init Hosp L2
[2022-09-13] VITALS (12 sets, daily range): BP systolic 129–175; BP diastolic 62–90; PULSE 76–102; RESP 16–18; TEMP 36.3–37.3; O2SAT 95–100; BMI 33.9
[2022-09-13 05:26] LABS: Mean Corp Hgb Conc 33.3 g/dL (32-36); Mean Corpuscular Hgb 29.5 pg (27.0-32.0); Mean Corpuscular Volume 88.6 fL (81-99); Mean Platelet Vol. 9.3 fl (6.2-12.0); POSITIVE COUNT YES; POSITIVE MORPHOLOGY YES; Platelet Count 504 K/mm3 (150-450); RBC Distribution Width CV 18.1 % (11.6-14.6); RBC Distribution Width SD 57.7 fl (35.1-43.9); Red Blood Count 2.71 M/mm3 (4.2-5.4); White Blood Count 14.4 K/mm3 (4.4-11.0)
[2022-09-13 05:29] LABS: Differential Indicated MANUAL DIFF
[2022-09-13 05:52] LABS: Anisocytosis 1+; Platelet Estimate MOD INC (ADEQ)
[2022-09-13 05:56] LABS: Absolute Lymphocyte Count 1.15 X10^3/uL (0.83-4.51); Absolute Neutrophil Count 12.1 X10^3/uL (2.0-7.7); Lymphocyte 8 % (19-41); Monocyte 4 % (0-10); Myelocyte 4 % (0-0); Neutrophil-Band 4 % (0-5); Neutrophil-Segmented 80 % (47-70); Red Cell Morphology NORM C+C NORMAL (NORM C&C); Total Cells Counted 100 (MANUAL DIFF)
[2022-09-13 05:58] LABS: Albumin, Serum 2.5 g/dL (3.2-5.0); BUN 109 mg/dL (7-18); BUN/Creat Ratio 14.7 RATIO (10-20); Calcium,Total 8.8 mg/dL (8.5-10.1); Chloride 107 mmol/L (98-107); Creatinine, Serum 7.44 mg/dL (0.55-1.02); EST Glomerular Filtration Rate 6 mL/min (>60); Est Glom Filt Rate - Afr Amer 7 mL/min (>60); Estimated Creatinine Clearance 9.24 ml/min; Glucose 98 mg/dL (74-106); Phosphorus 5.8 mg/dL (2.5-4.9); Potassium 4.1 mmol/L (3.5-5.1); Sodium Level 134 mmol/L (136-145)
[2022-09-13] MEDS: amLODIPine 10 MG Tablet PO (07:54)
--- NOTE | 2022-09-13 10:00 | CASEMGMT ---
NORMAN DOTSON updated by cafe assistant that patient will need HD setup as outpatient and prefers [facility]. NORMAN DOTSON placed HD referral through [facility] via [employer] portal. CM will continue to follow this patient and plan for a safe discharge.
[2022-09-13] MEDS: 0.9% Saline Lock 10 ML Syringe IV (10:12)
[2022-09-13 10:16] LABS: Hepatitis B Surface Antigen Non-Reactive (Nonreactive)
--- NOTE | 2022-09-13 10:36 | PCM.PN.REN ---
Subjective Subjective Resting quietly in bed. No complaints today. No overnight events Objective Data Objective Data Vital Signs: Vital Signs Temp Pulse Resp BP Pulse Ox O2 Del Method O2 Flow Rate 97.9 F 89 17 149/80 H 99 Room Air 3 09/13/22 08:17 09/13/22 08:21 09/13/22 08:17 09/13/22 08:17 09/13/22 08:17 09/13/22 08:21 09/10/22 08:39 Oxygen Flow Rate (L/min) [5] 3 Oxygen Flow Rate (L/min) [4] 3 Oxygen Flow Rate (L/min) [3] 3 Oxygen Flow Rate (L/min) [2] 3 Oxygen Flow Rate (L/min) [1 ( 3 Initial Baseline)] Oxygen Flow Rate (L/min) 3 Oxygen Delivery Method [5] Nasal Cannula Oxygen Delivery Method [4] Nasal Cannula Oxygen Delivery Method [3] Nasal Cannula Oxygen Delivery Method [2] Nasal Cannula Oxygen Delivery Method [1 ( Nasal Cannula Initial Baseline)] Oxygen Delivery Method Room Air Weight: 104.2 kg Body Mass Index (BMI) 33.9 Intake & Output: Intake and Output for Last 24 Hours 09/11/22 09/12/22 09/13/22 23:59 23:59 23:59 Intake Total 2220 / 2220 2340 / 2340 Output Total 1600 / 1600 2075 / 2475 1400 / 1400 Balance 620 / 620 265 / -135 -1400 / -1400 Lab / Micro Data Result Diagrams: 09/13/22 04:29 09/13/22 04:29 Labs: Laboratory Results - last 24 hr 09/13/22 04:29: Sodium 134 L, Potassium 4.1, Chloride 107, Carbon Dioxide 13.0 L, BUN 109 H*, Creatinine 7.44 H*, Estim Creat Clear Calc 9.24, Est GFR (MDRD) Af Amer 7 L, Est GFR (MDRD) Non-Af 6 L, BUN/Creatinine Ratio 14.7, Glucose 98, Calcium 8.8, Phosphorus 5.8 H, Albumin 2.5 L 09/13/22 04:29: Hep Bs Antigen Non-Reactive 09/13/22 04:29: WBC 14.4 H, RBC 2.71 L, Hgb 8.0 L, Hct 24.0 L, MCV 88.6, MCH 29.5, MCHC 33.3, RDW Std Deviation 57.7 H, RDW Coeff of Sydnee 18.1 H, Plt Count 504 H, MPV 9.3, Neut % (Auto) Not Reportable, Absolute Neuts (auto) 12.1 H, Absolute Lymphs (auto) 1.15, Total Counted 100, Neutrophils % (Manual) 80 H, Band Neutrophils % 4, Lymphocytes % (Manual) 8 L, Monocytes % (Manual) 4, Myelocytes % 4 H, Diff Path Review May foll, Platelet Estimate MOD INC, RBC Morphology NORM C+C, Anisocytosis 1+ Physical Exam Narrative General: Alert and oriented x3, NAD HEENT: Normocephalic, atraumatic. Mucous membrane moist. Cardiovascular: Normal S1, S2. No rubs or murmurs. Lungs: Clear to auscultation bilaterally. Abdomen: Normal bowel sounds, soft, nontender Extremities: There is 1+ edema of the lower extremities. Port-A-Cath left chest Assessment & Plan Assessment/Plan (1) NGOC (acute kidney injury): PLAN: Plan Impression/Plan: The patient is a 52-year-old woman with past history of breast cancer, hyperlipidemia, and GERD. The patient was admitted to the hospital on 09/07/2022 because of fever. She is being treated for UTI with antibiotic. The patient was also found to have acute kidney injury on presentation with serum creatinine of 2.40 mg/dL on 09/07/2022. The patient was on pembrolizumab for breast cancer prior to admission. Nephrology is following for NGOC. Nonoliguric, mildly hypervolemic acute kidney injury. Normal baseline creatinine. Serum creatinine was 0.82 mg/dL as recently as 08/24/2022. The patient has been on pembrolizumab for treatment of her breast cancer. She was also on carboplatin. Differential diagnoses for NGOC includes immune checkpoint inhibitor induced nephritis versus carboplatin nephrotoxicity. It is possible that this is pembrolizumab induced interstitial nephritis. However, she does not have pulmonary involvement, no GI symptoms. She does have a faint skin rash over her hands. No rash on the back or lower extremities. Less likely possibilities carboplatin nephrotoxicity which again is rare but is possible. She also does not have any other signs of carboplatin toxicity. There is some studies that show coexisting PPI use increases the risk of checkpoint inhibitor induced nephritis Patient was complaining of abdominal fullness and some mild shortness of breath at rest yesterday. She received furosemide 40 mg IV x1 dose yesterday. Patient reports noted some immediate relief with furosemide yesterday. We will remove fluid with dialysis. The patient underwent kidney biopsy on 09/09/2022. Report pending She was started on high-dose corticosteroid on 09/09/2022 and unfortunately renal function continues to decline despite starting prednisone on 09/09/2022. Serum creatinine is up to 7.44 mg/dL/BUN 109 today. Because of worsening kidney function with mild hypervolemia and mild uremic symptoms we will start kidney replacement therapy. Discussed with patient risks and benefits of dialysis. She is in agreement for starting dialysis. Surgery consulted for tunneled HD catheter placement. Patient will have tunneled dialysis catheter placed today and we will begin dialysis afterwards. We will attempt to remove fluid as patient/blood pressure tolerates. Continue steroid for now until we can get more definitive answers from kidney biopsy. Hypertension. BP is acceptable on current dose of amlodipine. Expect blood pressures to improve with volume removal. UTI. The patient is being treated for IV ceftriaxone as directed by hospital medicine service. Discussed with discharge planning team arrangements to be made at [facility] for dialysis, dx NGOC.
[2022-09-13] MEDS: Ceftriaxone 1 GM/50 ML BAG IV (11:29)
--- NOTE | 2022-09-13 11:45 | PN_ITS ---
Subjective Subjective Patient seen and examind. She had no complaints today and had an uneventful night. Review of systems is othewrise negative. Cr has trended upwards to 7.44 today. Objective Data Objective Data Vital Signs: Vital Signs Temp Pulse Resp BP Pulse Ox O2 Del Method O2 Flow Rate 97.4 F L 80 17 143/90 H 99 Room Air 3 09/13/22 10:45 09/13/22 10:45 09/13/22 10:45 09/13/22 10:45 09/13/22 10:45 09/13/22 10:45 09/10/22 08:39 Oxygen Flow Rate (L/min) [5] 3 Oxygen Flow Rate (L/min) [4] 3 Oxygen Flow Rate (L/min) [3] 3 Oxygen Flow Rate (L/min) [2] 3 Oxygen Flow Rate (L/min) [1 ( 3 Initial Baseline)] Oxygen Flow Rate (L/min) 3 Oxygen Delivery Method [5] Nasal Cannula Oxygen Delivery Method [4] Nasal Cannula Oxygen Delivery Method [3] Nasal Cannula Oxygen Delivery Method [2] Nasal Cannula Oxygen Delivery Method [1 ( Nasal Cannula Initial Baseline)] Oxygen Delivery Method Room Air Weight: 229 lb 11.547 oz Body Mass Index (BMI) 33.9 Intake & Output: Intake and Output for Last 24 Hours 09/11/22 09/12/22 09/13/22 23:59 23:59 23:59 Intake Total 2220 / 2220 2340 / 2340 110 / 110 Output Total 1600 / 1600 2075 / 2475 1400 / 1400 Balance 620 / 620 265 / -135 -1290 / -1290 Lab / Micro Data Result Diagrams: 09/13/22 04:29 09/13/22 04:29 Labs: Laboratory Results - last 24 hr 09/13/22 04:29: Sodium 134 L, Potassium 4.1, Chloride 107, Carbon Dioxide 13.0 L , BUN 109 H*, Creatinine 7.44 H*, Estim Creat Clear Calc 9.24, Est GFR (MDRD) Af Amer 7 L, Est GFR (MDRD) Non-Af 6 L, BUN/Creatinine Ratio 14.7, Glucose 98, Calcium 8.8, Phosphorus 5.8 H, Albumin 2.5 L 09/13/22 04:29: Hep Bs Antigen Non-Reactive 09/13/22 04:29: WBC 14.4 H, RBC 2.71 L, Hgb 8.0 L, Hct 24.0 L, MCV 88.6, MCH 29.5, MCHC 33.3, RDW Std Deviation 57.7 H, RDW Coeff of Sydnee 18.1 H, Plt Count 504 H, MPV 9.3, Neut % (Auto) Not Reportable, Absolute Neuts (auto) 12.1 H, Absolute Lymphs (auto) 1.15, Total Counted 100, Neutrophils % (Manual) 80 H, Band Neutrophils % 4, Lymphocytes % (Manual) 8 L, Monocytes % (Manual) 4, Myelocytes % 4 H, Diff Path Review August foll, Platelet Estimate MOD INC, RBC Morphology NORM C+C, Anisocytosis 1+ Physical Exam Const alert, oriented x3 and no apparent distress General Appearance: cooperative and well developed HEENT normocephalic, head/scalp atraumatic, moist oral mucous membranes and oropharynx normal Eyes PERRL, EOMs intact bilaterally and conjunctivae normal Neck no lymphadenopathy, supple and no JVD Lymph Lymphatic: no lymphadenopathy noted and no lymphedema noted Resp No normal respiratory effort, normal air movement, No no retractions, no use of accessory muscles and clear to auscultation bilaterally Cardio regular rate, regular rhythm, S1 normal heart sound, S2 normal heart sound and no murmurs Cardio Narrative: GI normal to inspection, nondistended, normoactive bowel sounds, soft to palpation, non-tender, non-distended and hepatosplenomegaly Extremity normal to inspection, full ROM, normal capillary refill and no clubbing, cyanosis or edema Extremity Narrative: 1+ bipedal edema General Extremity: no tenderness to palpation of joints or extremities Skin General Skin Exam: no breakdown Neuro oriented x3, CN's II-XII intact bilaterally, moves all extremities and no focal motor deficits Sensorium / Orientation: awake and alert Motor Exam: strength 5/5 throughout Psych thought process normal, cooperative and affect normal Appearance: appropriate Assessment & Plan Assessment/Plan (1) NGOC (acute kidney injury): (2) Complicated UTI (urinary tract infection): PLAN: Plan #Acute UTI * on iV ceftriaxone. * urine cultures grew mixed gram positive organisms and blood cultures negative. * will dc antibiotics #NGOC * Cr up further to 7.44 today. * thought to be chemotherapy induced nephritis from keytruda * CT abdomen and pelvis without contrast showed nonspecific bilateral perinephric stranding and engorgement of both kidneys, and tiny bilateral pleural effusions as well as sludge or tiny gallstones in gallbladder lumen * renal biopsy done, results pending. * continue on high dose steroids. * For temporary dialysis catheter insertion today. * nephrology on board * * #Hypertension * On p.o. amlodipine 10 mg daily. * IV hydralazine as needed * #Breast cancer * has bilateral breast cancer, wih the left breast having an invasive ducatal carcinoma which is ER positive, [place] positive and HER2 sapna negative; right multifocal breast cancer is triple negative. * is undergoing neoadjuvant therapy with carboplatin, keytruda and taxol. Of her chemo meds, carboplatin and keytruda can cause nephrotoxicity, so it may be contirbuting to the NGOC. * to follow up with oncology on outpatient basis. * #GERD: on PPI; DVT prophylaxis; lovenox Code status: full code Charges/Coding Visit Charges Inpatient E&M: 11396 Subs Hosp L3
[2022-09-13] MEDS: Heparin 10,000 UNITS/10 ML Vial 10000 UNITS (13:23)
[2022-09-13] MEDS: Lidocaine 1%/Epi 1:100 (30ml) 30 ML VIAL (13:25)
--- NOTE | 2022-09-13 13:29 | RAD_ITS ---
STUDY: X-RAY CHEST REASON FOR EXAM: Female, 52 years old. Dialysis cath -- pacu TECHNIQUE: Single AP portable view of the chest. COMPARISON: Comparison is made with prior study dated September 09, 2022. FINDINGS: A left-sided amparo catheter has been placed with the tip at the junction of the superior vena cava and right atrium. A right-sided double-lumen catheter is seen with the tip at the junction of the superior vena cava and right atrium. The lungs are clear and expanded. There is no demonstrated pleural abnormality. Normal size heart. Normal mediastinum and trevin. Normal visualized pulmonary arteries. There is atherosclerotic tortuosity of the aortic arch and descending thoracic aorta. Normal visualized thoracic spine. Normal visualized ribs, clavicles, and shoulders. There is no demonstrated abnormality of the visualized soft tissue structures of the upper abdomen. RAD/Chest 1 View (Portable) IMPRESSION: The tip of the double-lumen catheter is at the junction of the superior vena cava and right atrium. A left-sided portacatheter is seen with the tip at the junction of the superior vena cava and the right atrium. No acute abnormality is seen. Electronically Signed: Jamie Langford MD at 14:22 EDT ,
--- NOTE | 2022-09-13 13:30 | PCM.OPRPT ---
Report of Operation Date of Procedure: 09/13/22 Pre-Operative Diagnosis: alicia Post-Operative Diagnosis: Same Surgery/Procedure Performed:: Insertion of right IJ tunneled dialysis catheter Use of ultrasound Use of fluoroscopy Surgeon: Joy Sams Type of Anesthesia: Local MAC Anesthesiologist: Constantino Arteaga Special Medications: Ancef 3 g IV x1 Specimen's removed: None Estimated Blood Loss (mL): < 5 cc Description of Procedure: After informed consent was given, the patient was brought to the operating room and placed in the supine position. Appropriate time out protocol was followed. She was then given IV conscious sedation for anesthesia. The patient's right upper chest and neck were then prepped with a surgical skin preparation and sterile surgical drapes were placed. After proper landmarks were ascertained, the skin at the upper right chest area was then infiltrated with 1:1 mixture of 1% lidocaine with epinephrine. A needle trocar was then inserted into the right internal jugular vein with ultrasound guidance-multiple vessels were viewed with u/s and the right IJ was chosen-- and there was good aspiration of venous blood. A wire was then threaded into the needle trocar and this was visualized under fluoroscopy to ensure that the wire was in the superior vena cava. Once this was done, then the needle trocar was removed. A small incision was made with an 11 blade knife at the wire entrance site. The dilator x2 with the introducer sheath attached was then placed over the wire into the right internal jugular vein via the Seldinger technique and this was visualized under fluoroscopy. Next the introducer and sheath were in proper position as visualized by fluoroscopy. The location of the cuffed was estimated on the skin, an incision was made with a 15 blade scalpel. The 14.5 Fr x 19 cm Palindrome dual lumen (Lot lot [id number] reference [id number]) was tunneled from the chest incision to the right neck incision. The sheath was removed. The catheter was placed through the introducer and was positioned with its tip at the junction of the superior vena cava and the right atrium as visualized under fluoroscopy. The cuff of the catheter was in the subcutaneous tissue. The catheter flushed and lucian well with saline. Catheter was also flushed with 1.6 cc of 1-10,000 of heparin. Hemostasis was assured. Silver dressing was placed at the catheter exit site. Catheter was sutured with 3-0 nylon sutures. The neck incision was sutured with interrupted 3-0 Vicryl interrupted sutures x2 and Steri-Strips were placed. A large OpSite was placed over the catheter site and a small OpSite over the neck incision. The patient tolerated the procedure well. Grafts/Implants Used: 14.5 Fr x 19 cm Palindrome dual lumen (Lot lot [id number] reference [id number] Complications none
[2022-09-13] MEDS: Acetaminophen 325 MG Tablet 650 MG PO ×2 (14:39→20:53)
[2022-09-13] MEDS: predniSONE 20 MG Tablet 80 MG PO (14:40)
[2022-09-13 15:06] LABS: Pathologist Review Reviewed
--- NOTE | 2022-09-13 15:45 | CM.UR ---
NORMAN DOTSON received call from [employer] with confirmation of chair time for outpatient HD at [facility]. Patient will have chair time of MW at 0945, nephrology updated.
[2022-09-13] MEDS: Heparin 10,000 UNITS/10 ML Vial IV (18:34)
--- NOTE | 2022-09-13 18:44 | DIALYSIS ---
Hemodialysis complete with 500ml fluid removed. Pt tolerated treatment without difficulty. Dialysis CVC dressing is clean and dry, both lumens are patent. Next treatment to be tomorrow 09/14/22.
[2022-09-14 00:20] VITALS: BP 138/77; PULSE 80; RESP 18; TEMP 36.1; O2SAT 96
[2022-09-14] MEDS: Acetaminophen 325 MG Tablet 650 MG PO (02:43)
[2022-09-14 03:07] VITALS: BP 140/75; PULSE 69; RESP 18; TEMP 36.1; O2SAT 96
[2022-09-14 05:38] VITALS: BMI 34.2
[2022-09-14 06:13] LABS: Hematocrit 23.8 % (37-47); Hemoglobin 7.9 g/dL (12.0-15.0); Mean Corp Hgb Conc 33.2 g/dL (32-36); Mean Corpuscular Hgb 29.8 pg (27.0-32.0); Mean Corpuscular Volume 89.8 fL (81-99); Mean Platelet Vol. 9.2 fl (6.2-12.0); POSITIVE COUNT YES; POSITIVE MORPHOLOGY YES; Platelet Count 445 K/mm3 (150-450); RBC Distribution Width CV 18.3 % (11.6-14.6); RBC Distribution Width SD 59.4 fl (35.1-43.9); Red Blood Count 2.65 M/mm3 (4.2-5.4); White Blood Count 10.6 K/mm3 (4.4-11.0)
[2022-09-14 06:23] LABS: Differential Indicated MANUAL DIFF
[2022-09-14 06:46] LABS: Anisocytosis 1+; Platelet Estimate ADEQUATE (ADEQ); Red Cell Morphology NORM C+C NORMAL (NORM C&C)
[2022-09-14 06:47] LABS: Absolute Lymphocyte Count 0.95 X10^3/uL (0.83-4.51); Absolute Neutrophil Count 8.7 X10^3/uL (2.0-7.7); Lymphocyte 9 % (19-41); Monocyte 8 % (0-10); Myelocyte 1 % (0-0); Neutrophil-Segmented 82 % (47-70); Total Cells Counted 100 (MANUAL DIFF)
[2022-09-14 06:49] LABS: Albumin, Serum 2.4 g/dL (3.2-5.0); BUN 86 mg/dL (7-18); BUN/Creat Ratio 14.7 RATIO (10-20); Calcium,Total 8.5 mg/dL (8.5-10.1); Chloride 109 mmol/L (98-107); Creatinine, Serum 5.86 mg/dL (0.55-1.02); EST Glomerular Filtration Rate 8 mL/min (>60); Est Glom Filt Rate - Afr Amer 10 mL/min (>60); Estimated Creatinine Clearance 11.74 ml/min; Glucose 117 mg/dL (74-106); Phosphorus 5.5 mg/dL (2.5-4.9); Potassium 4.3 mmol/L (3.5-5.1); Sodium Level 138 mmol/L (136-145)
[2022-09-14 07:32] VITALS: O2SAT 96
[2022-09-14 08:30] VITALS: BP 140/75; PULSE 75; RESP 14; TEMP 36.6; O2SAT 98
[2022-09-14] MEDS: predniSONE 20 MG Tablet 80 MG PO (10:24)
[2022-09-14] MEDS: amLODIPine 10 MG Tablet PO (10:25)
[2022-09-14] MEDS: Ceftriaxone 1 GM/50 ML BAG IV (10:26)
[2022-09-14] MEDS: 0.9% Saline Lock 10 ML Syringe IV (10:27)
--- NOTE | 2022-09-14 11:05 | PN.RENAL_ITS ---
Subjective Subjective Sitting in chair. Daughter at bedside. No overnight events. Patient reports she is feeling better overall today. Breathing better. Voiding after Raymond was removed. Objective Data Objective Data Vital Signs: Vital Signs Temp Pulse Resp BP Pulse Ox O2 Del Method O2 Flow Rate 97.9 F 75 14 140/75 H 98 Room Air 3 09/14/22 08:30 09/14/22 08:30 09/14/22 08:30 09/14/22 08:30 09/14/22 08:30 09/14/22 08:30 09/10/22 08:39 Oxygen Flow Rate (L/min) [5] 3 Oxygen Flow Rate (L/min) [4] 3 Oxygen Flow Rate (L/min) [3] 3 Oxygen Flow Rate (L/min) [2] 3 Oxygen Flow Rate (L/min) [1 ( 3 Initial Baseline)] Oxygen Flow Rate (L/min) 3 Oxygen Delivery Method [5] Nasal Cannula Oxygen Delivery Method [4] Nasal Cannula Oxygen Delivery Method [3] Nasal Cannula Oxygen Delivery Method [2] Nasal Cannula Oxygen Delivery Method [1 ( Nasal Cannula Initial Baseline)] Oxygen Delivery Method Room Air Weight: 105.1 kg Body Mass Index (BMI) 34.2 Intake & Output: Intake and Output for Last 24 Hours 09/12/22 09/13/22 09/14/22 23:59 23:59 23:59 Intake Total 2340 / 2340 515 / 515 Output Total 2075 / 2475 2780 / 2780 Balance 265 / -135 -2265 / -2265 Lab / Micro Data Result Diagrams: 09/14/22 05:35 09/14/22 05:35 Labs: Laboratory Results - last 24 hr 09/13/22 04:29: Diff Path Review Reviewed 09/14/22 05:35: WBC 10.6, RBC 2.65 L, Hgb 7.9 L, Hct 23.8 L, MCV 89.8, MCH 29.8, MCHC 33.2, RDW Std Deviation 59.4 H, RDW Coeff of Sydnee 18.3 H, Plt Count 445, MPV 9.2, Neut % (Auto) Not Reportable, Absolute Neuts (auto) 8.7 H, Absolute Lymphs (auto) 0.95, Total Counted 100, Neutrophils % (Manual) 82 H, Lymphocytes % (Manual) 9 L, Monocytes % (Manual) 8, Myelocytes % 1 H, Diff Path Review August, Platelet Estimate ADEQUATE, RBC Morphology NORM C+C, Anisocytosis 1+ 09/14/22 05:35: Sodium 138, Potassium 4.3, Chloride 109 H, Carbon Dioxide 19.0 L , BUN 86 H, Creatinine 5.86 H, Estim Creat Clear Calc 11.74, Est GFR (MDRD) Af Amer 10 L, Est GFR (MDRD) Non-Af 8 L, BUN/Creatinine Ratio 14.7, Glucose 117 H, Calcium 8.5, Phosphorus 5.5 H, Albumin 2.4 L Radiography Diagnostic Testing: Radiology Impression Chest X-Ray 09/13/22 13:29 IMPRESSION: The tip of the double-lumen catheter is at the junction of the superior vena cava and right atrium. A left-sided portacatheter is seen with the tip at the junction of the superior vena cava and the right atrium. No acute abnormality is seen. Electronically Signed: Jamie Langford MD at 14:22 EDT , Physical Exam Narrative General: Alert and oriented x3, NAD HEENT: Normocephalic, atraumatic. Mucous membrane moist. Cardiovascular: Normal S1, S2. No rubs or murmurs. Lungs: Clear to auscultation bilaterally. Abdomen: Normal bowel sounds, soft, nontender Extremities: There is trace non-pitting edema of the lower extremities. Port-A-Cath left chest TDC right chest dressing C/D/I Assessment & Plan Assessment/Plan (1) NGOC (acute kidney injury): PLAN: Plan Impression/Plan: The patient is a 52-year-old woman with past history of breast cancer, hyperlipidemia, and GERD. The patient was admitted to the hospital on 09/07/2022 because of fever. She is being treated for UTI with antibiotic. The patient was also found to have acute kidney injury on presentation with serum creatinine of 2.40 mg/dL on 09/07/2022. The patient was on pembrolizumab for breast cancer prior to admission. Nephrology is following for NGOC. Nonoliguric, mildly hypervolemic acute kidney injury. Normal baseline creatinine. Serum creatinine was 0.82 mg/dL as recently as 08/24/2022. The patient has been on pembrolizumab for treatment of her breast cancer. She was also on carboplatin. Differential diagnoses for NGOC includes immune checkpoint inhibitor induced nephritis versus carboplatin nephrotoxicity; she does not have pulmonary involvement, no GI symptoms. She does have a faint skin rash over her hands. No rash on the back or lower extremities. Less likely possibilities carboplatin nephrotoxicity which again is rare but is possible. She also does not have any other signs of carboplatin toxicity. There is some studies that show coexisting PPI use increases the risk of check point inhibitor induced nephritis The patient underwent kidney biopsy on 09/09/2022. Preliminary report: Severe acute interstitial nephritis, glomeruli and tubules are normal. She was started on high-dose corticosteroid on 09/09/2022 and unfortunately renal function continues to decline despite starting prednisone on 09/09/2022. Serum creatinine peaked up to 7.44 mg/dL/BUN 109 09/13. GEOGRAPHIC INFORMATION SYSTEM ANALYST started 09/13. Because of worsening kidney function with mild hypervolemia and mild uremic symptoms kidney replacement therapy began 09/13. Patient tolerated 500 mL fluid removal with dialysis yesterday. To dialyze again today over 2.5 hours likely with no fluid removal. Patient appears near euvolemic. Continue steroid for now. Continue to monitor for renal recovery. Hypertension. BP is acceptable on current dose of amlodipine. Expect blood pressures to improve with volume removal. UTI. The patient is being treated for IV ceftriaxone as directed by hospital medicine service. Arrangements made at [facility] for dialysis, dx NGOC. Since patient has dialysis schedule, placement is confirmed, and dialysis unit is able to take patient on Monday then okay for discharge per nephrology standpoint when cleared by primary team.
[2022-09-14 12:34] LABS: Pathologist Review Reviewed
--- NOTE | 2022-09-14 14:13 | DIALYSIS ---
Hemodialysis x2.5 hours completed at 1415 on a 3K bath, 2nd treatment, tolerated well, UF 0mL, accessed via right chest tunneled dialysis catheter, worked well, post BP 167/89, next treatment planned for Monday
--- NOTE | 2022-09-14 14:21 | CASEMGMT ---
NORMAN DOTSON in to discuss outpatient HD with patient. NORMAN DOTSON provided schedule for HD at [facility]. Patient voiced understanding and denied further needs at this time. Patient had no further questions or concerns at this time.
[2022-09-14 14:30] VITALS: BP 163/92; PULSE 93; RESP 14; TEMP 37.1; O2SAT 99
[2022-09-14 15:37] VITALS: BP 163/92; PULSE 93; RESP 18; TEMP 37.1; O2SAT 99
--- NOTE | 2022-09-14 15:37 | DCINST_ITS ---
Discharge Instructions Diet Discharge Diet: Low fat / Low cholesterol Activity Discharge Activity: Return to Normal Activity Weight Bearing Status: Weight bearing as tolerated Dressing / Incision Call your doctor if you observe: Fever of 101 or Higher, Shortness of breath, Dizziness, Swelling in the ankles and Chest pain Follow Up Care Test Results: Test results from this visit will be discussed in further detail at your follow- up appointment, if applicable. Discharge Plan Admission Admit Date/Time: 09/07/22 12:31 Primary Reason for Your Visit: NGOC Attending Provider: Melyssa Mosley Primary Care Provider: Pk Piedra Consulting Providers: Vivek Bull ; Anselmo Wall ; Ralph Quiroz ; Sree Melendez ; Topher Maria ; Dinah Green NP ; Jamie Langford ; Valdeamr Serra Instructions Patient Instructions: RAD nurse outreach case manager Instructions for Kidney Biopsy, RAD RN Procedural Sedation Additional Instructions / Restrictions: To have dialysis MWF as scheduled on outpatient basis. Discharge Orders/Prescriptions Prescriptions: New prednisone 20 mg Tablet 80 mg PO BREAKFAST Qty: 120 1RF amlodipine 10 mg Tablet 10 mg PO DAILY Qty: 30 2RF sulfamethoxazole-trimethoprim [Bactrim DS] 800-160 mg tablet 1 tab PO UD Qty: 30 1RF Rx Instructions: Take one tablet Mondays, and Fridays Continued pantoprazole 40 mg tablet,delayed release (DR/EC) 40 mg PO DAILY Qty: 30 3RF polyethylene glycol 3350 [Miralax] 17 gram Powder In Packet 17 g PO DAILY PRN PRN (Reason: Constipation) acetaminophen 500 mg Tablet 1,000 mg PO DAILY PRN PRN (Reason: Fever) lidocaine-prilocaine 2.5-2.5 % cream 1 applic topical ONCE PRN (Reason: port access) 30 Days Qty: 30 2RF ondansetron 8 mg tablet,disintegrating 8 mg PO Q8H PRN (Reason: nausea and vomiting) Qty: 30 2RF Discontinued cephalexin 500 mg capsule 500 mg PO Q12 Qty: 14 0RF Referrals / Follow Up: Pk Piedra MD [Primary Care Provider] - Within 1 Week Topher Maria MD [Med Staff - Active Staff] - Within 1 Week Disposition Disposition (needs filled in before D/C Order can be placed): Home, Self Care
--- NOTE | 2022-09-14 15:38 | DS.PCM_ITS ---
Providers Date of Admission: 09/07/22 Primary Care Physician: Dr. Pk Piedra MD Consultations 09/08/22 08:03 Consult: Nephrology Routine Consulting Provider: Valdemar Serra Reason for Consult: NGOC EMERGENT Consult: No Notified: Yes Date Notified: 09/08/22 Time Notified: 08:04 Method of Notification: Text 09/08/22 15:12 Consult: Interventional Radiology Routine Consulting Provider: Jamie Langford Reason for Consult: kidney biopsy EMERGENT Consult: No Notified: Yes Date Notified: 09/08/22 Time Notified: 15:12 Method of Notification: Answering Service Comments:: talked with CT staff 09/10/22 12:01 Consult: Cardiology Routine Consulting Provider: Vivek Bull Reason for Consult: chest pain, abnormal EKG EMERGENT Consult: No Notified: Yes Date Notified: 09/09/22 Time Notified: 11:08 Method of Notification: Text Consult: Interior Design Professional / Pulmonary Medicine Routine Consulting Provider: Pulmonary Medicine [facility] Reason for Consult: hypertensive emergency EMERGENT Consult: No Notified: Yes Date Notified: 09/09/22 Time Notified: 11:09 Method of Notification: Text Reason For Visit: UTI, NGOC Diagnosis Discharge Diagnosis (1) NGOC (acute kidney injury): Status: Acute Code(s): N17.9 - Acute kidney failure, unspecified Plan #Acute UTI * on iV ceftriaxone. * urine cultures grew mixed gram positive organisms and blood cultures negative. * will dc antibiotics #NGOC * Cr up further to 7.44 today. * thought to be chemotherapy induced nephritis from keytruda * CT abdomen and pelvis without contrast showed nonspecific bilateral perinephric stranding and engorgement of both kidneys, and tiny bilateral pleural effusions as well as sludge or tiny gallstones in gallbladder lumen * renal biopsy done, results pending. * continue on high dose steroids. * For temporary dialysis catheter insertion today. * nephrology on board * * #Hypertension * On p.o. amlodipine 10 mg daily. 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 * is undergoing neoadjuvant therapy with carboplatin, keytruda and taxol. Of her chemo meds, carboplatin and keytruda can cause nephrotoxicity, so it may be contirbuting to the NGOC. * to follow up with oncology on outpatient basis. * #GERD: on PPI; DVT prophylaxis; lovenox Code status: full code Medications at Discharge Home Medications pantoprazole 40 mg tablet,delayed release 40 mg PO DAILY #30 tabs 06/08/22 lidocaine-prilocaine 2.5 %-2.5 % topical cream 1 applic topical ONCE PRN port access 30 days #30 grams 07/12/22 ondansetron 8 mg disintegrating tablet 8 mg PO Q8H PRN nausea and vomiting #30 tabs 07/12/22 polyethylene glycol 3350 17 gram oral powder packet (Miralax) 17 g PO DAILY PRN PRN Constipation 09/02/22 acetaminophen 500 mg tablet 1,000 mg PO DAILY PRN PRN Fever 09/07/22 amlodipine 10 mg tablet 10 mg PO DAILY #30 tabs 09/14/22 prednisone 20 mg tablet 80 mg PO BREAKFAST #120 tabs 09/14/22 sulfamethoxazole 800 mg-trimethoprim 160 mg tablet (Bactrim DS) 1 tab PO UD #30 tabs 09/14/22 Weight / BMI Weight Weight: 231 lb 11.293 oz Body Mass Index (BMI) 34.2 ABG / Lab / Microbiology Data Result Diagrams: 09/14/22 05:35 09/14/22 05:35 Laboratory: Laboratory Results - last 24 hr 09/14/22 05:35: WBC 10.6, RBC 2.65 L, Hgb 7.9 L, Hct 23.8 L, MCV 89.8, MCH 29.8, MCHC 33.2, RDW Std Deviation 59.4 H, RDW Coeff of Sydnee 18.3 H, Plt Count 445, MPV 9.2, Neut % (Auto) Not Reportable, Absolute Neuts (auto) 8.7 H, Absolute Lymphs (auto) 0.95, Total Counted 100, Neutrophils % (Manual) 82 H, Lymphocytes % (Manual) 9 L, Monocytes % (Manual) 8, Myelocytes % 1 H, Diff Path Review Reviewed, Platelet Estimate ADEQUATE, RBC Morphology NORM C+C, Anisocytosis 1+ 09/14/22 05:35: Sodium 138, Potassium 4.3, Chloride 109 H, Carbon Dioxide 19.0 L , BUN 86 H, Creatinine 5.86 H, Estim Creat Clear Calc 11.74, Est GFR (MDRD) Af Amer 10 L, Est GFR (MDRD) Non-Af 8 L, BUN/Creatinine Ratio 14.7, Glucose 117 H, Calcium 8.5, Phosphorus 5.5 H, Albumin 2.4 L D/C Instructions Discharge Diet: Low fat / Low cholesterol Weight Bearing Status: Weight bearing as tolerated Call your doctor if you observe: Fever of 101 or Higher, Shortness of breath, Dizziness, Swelling in the ankles and Chest pain Discharge Plan Admission Admit Date/Time: 09/07/22 12:31 Primary Reason for Your Visit: NGOC Attending Provider: Melyssa Mosley Primary Care Provider: Pk Piedra Consulting Providers: Vivek Bull ; Anselmo Wall ; Ralph Quiroz ; Sree Melendez ; Topher Maria ; Dinah Green [employer]PER[employer] ; Jamie Langford ; Valdemar Serra Instructions Patient Instructions: RAD switch crew supervisor Instructions for Kidney Biopsy, CLAUDY RN Procedural Sedation Additional Instructions / Restrictions: To have dialysis MWF as scheduled on outpatient basis. Discharge Orders/Prescriptions Prescriptions: New prednisone 20 mg Tablet 80 mg PO BREAKFAST Qty: 120 1RF amlodipine 10 mg Tablet 10 mg PO DAILY Qty: 30 2RF sulfamethoxazole-trimethoprim [Bactrim DS] 800-160 mg tablet 1 tab PO UD Qty: 30 1RF Rx Instructions: Take one tablet Mondays, and Fridays Continued pantoprazole 40 mg tablet,delayed release (DR/EC) 40 mg PO DAILY Qty: 30 3RF polyethylene glycol 3350 [Miralax] 17 gram Powder In Packet 17 g PO DAILY PRN PRN (Reason: Constipation) acetaminophen 500 mg Tablet 1,000 mg PO DAILY PRN PRN (Reason: Fever) lidocaine-prilocaine 2.5-2.5 % cream 1 applic topical ONCE PRN (Reason: port access) 30 Days Qty: 30 2RF ondansetron 8 mg tablet,disintegrating 8 mg PO Q8H PRN (Reason: nausea and vomiting) Qty: 30 2RF Discontinued cephalexin 500 mg capsule 500 mg PO Q12 Qty: 14 0RF Referrals / Follow Up: Pk Piedra MD [Primary Care Provider] - Within 1 Week Topher Maria MD [Med Staff - Active Staff] - Within 1 Week Disposition Disposition (needs filled in before D/C Order can be placed): Home, Self Care
--- NOTE | 2022-09-14 15:38 | PCM.DC.SUM ---
Providers Date of Admission: 09/07/22 Date of Discharge: 09/14/22 Primary Care Physician: Dr. Pk Piedra MD Consultations 09/08/22 08:03 Consult: Nephrology Routine Consulting Provider: Valdemar Serra Reason for Consult: NGOC EMERGENT Consult: No Notified: Yes Date Notified: 09/08/22 Time Notified: 08:04 Method of Notification: Text 09/08/22 15:12 Consult: Interventional Radiology Routine Consulting Provider: Jamie Langford Reason for Consult: kidney biopsy EMERGENT Consult: No Notified: Yes Date Notified: 09/08/22 Time Notified: 15:12 Method of Notification: Answering Service Comments:: talked with CT staff 09/10/22 12:01 Consult: Cardiology Routine Consulting Provider: Vivek Bull Reason for Consult: chest pain, abnormal EKG EMERGENT Consult: No Notified: Yes Date Notified: 09/09/22 Time Notified: 11:08 Method of Notification: Text Consult: Equip Maint Eng / Pulmonary Medicine Routine Consulting Provider: Pulmonary Medicine [facility] Reason for Consult: hypertensive emergency EMERGENT Consult: No Notified: Yes Date Notified: 09/09/22 Time Notified: 11:09 Method of Notification: Text Reason For Visit: UTI, NGOC Diagnosis Discharge Diagnosis (1) NGOC (acute kidney injury): Status: Acute Code(s): N17.9 - Acute kidney failure, unspecified Plan #Acute UTI on iV ceftriaxone. urine cultures grew mixed gram positive organisms and blood cultures negative. will dc antibiotics #NGOC Cr up further to 7.44 today. 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 continue on high dose steroids. For temporary dialysis catheter insertion today. nephrology on board #Hypertension On p.o. amlodipine 10 mg daily. 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 is undergoing neoadjuvant therapy with carboplatin, keytruda and taxol. Of her chemo meds, carboplatin and keytruda can cause nephrotoxicity, so it may be contirbuting to the NGOC. to follow up with oncology on outpatient basis. #GERD: on PPI; DVT prophylaxis; lovenox Code status: full code Medications at Discharge Home Medications pantoprazole 40 mg tablet,delayed release 40 mg PO DAILY #30 tabs 06/08/22 lidocaine-prilocaine 2.5 %-2.5 % topical cream 1 applic topical ONCE PRN port access 30 days #30 grams 07/12/22 ondansetron 8 mg disintegrating tablet 8 mg PO Q8H PRN nausea and vomiting #30 tabs 07/12/22 polyethylene glycol 3350 17 gram oral powder packet (Miralax) 17 g PO DAILY PRN PRN Constipation 09/02/22 acetaminophen 500 mg tablet 1,000 mg PO DAILY PRN PRN Fever 09/07/22 amlodipine 10 mg tablet 10 mg PO DAILY #30 tabs 09/14/22 prednisone 20 mg tablet 80 mg PO BREAKFAST #120 tabs 09/14/22 sulfamethoxazole 800 mg-trimethoprim 160 mg tablet (Bactrim DS) 1 tab PO UD #30 tabs 09/14/22 Hospital Course Operations None Procedures Dialysis Summary of Care Provided Minutes Spent on Discharge: 55 Hospital Course: ZAN FERRERA, is a 52 F with a PMH as outlined who presents via the EDb with a complaint of fever. She has a history of breast cancer undergoing chemotherapy. She said she has been having fever for about a week. She has had several visits to the emergency room for this. She was started on antibiotics for UTI the day before admission after she came to the ED. She went to see her oncologist for chemotherapy on the day of admission, and labs done showed worsening renal function, so she was brought in to the ED. She still complained of fever but denied any chills, she said she felt achy all over. She also had some associated vomiting. Review of systems is otherwise negative. Vitals were 158/75, NC of 102, RR of 20 and temp of 97F. She was saturating at 98% on room air. Labs done today in her oncologist's office showed Hb of 9, wbc of 7.5 and platelets of 428. CHemsitry was significant for Cr of 2.4, with a baseline of 0.8. Urine culture from 09/06/2022 grew mixed gram positive organisms. Blood cultures were ordered. She was initially admitted to be managed for NGOC and UTI with concern for pyelonephritis in the setting of breast cancer, undergoing chemotherapy. She was started on IV ceftriaxone and urine cultures were obtained. Patient's kidney function however did not improve and gradually worsened despite IV fluid administration. Altered. 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 Her creatinine trended up to a peak of 7.44. She was commenced on dialysis per nephrology after she had a temporary dialysis catheter inserted. She had dialysis on 09/13/2022 and 09/14/2022. Her creatinine trended down to about 5.4. Biopsy results showed interstitial nephritis likely from Keytruda. Of note she was started on high dose steroids at 80 mg daily but this did not help. Patient improved and did well on dialysis. She was discharged home on 09/14/2022. She was discharged on p.o. prednisone 80 mg daily as well as double strength Bactrim 1 tablet Wednesdays and Fridays whilst on dialysis. She is to follow-up with her primary care doctor and follow-up with nephrology on outpatient basis she is also to follow-up with oncology. Per nephrology her NGOC would likely improve with time. Her chemotherapy regimen would have to be modified by oncology in light of the Keytruda associated interstitial nephritis. Patient seen and examined prior to discharge. She had no complaints and had an uneventful night. Review of systems otherwise negative. Labs and vitals reviewed. Home medication reviewed and reconciled. Physical Exam Const alert, oriented x3 and no apparent distress General Appearance: cooperative, comfortable, well kempt and well developed HEENT normocephalic, head/scalp atraumatic, moist oral mucous membranes and oropharynx normal Eyes PERRL, EOMs intact bilaterally and conjunctivae normal Neck no lymphadenopathy, supple and no JVD Lymph Lymphatic: no lymphadenopathy noted and no lymphedema noted Resp No normal respiratory effort, normal air movement, No no retractions, no use of accessory muscles and clear to auscultation bilaterally Cardio regular rate, regular rhythm, S1 normal heart sound, S2 normal heart sound and no murmurs Cardio Narrative: GI normal to inspection, nondistended, normoactive bowel sounds, soft to palpation, non-tender, non-distended and hepatosplenomegaly GI Narrative: no costophrenic angle tenderness Extremity normal to inspection, full ROM, normal capillary refill and no clubbing, cyanosis or edema Extremity Narrative: 1+ bipedal edema, dialysis catheter in situ General Extremity: no tenderness to palpation of joints or extremities Skin General Skin Exam: no breakdown Neuro oriented x3, CN's II-XII intact bilaterally, moves all extremities and no focal motor deficits Sensorium / Orientation: awake and alert Motor Exam: strength 5/5 throughout Psych thought process normal, cooperative and affect normal Appearance: appropriate Weight / BMI Weight Weight: 231 lb 11.293 oz Body Mass Index (BMI) 34.2 ABG / Lab / Microbiology Data Result Diagrams: 09/14/22 05:35 09/14/22 05:35 Laboratory: Laboratory Results - last 24 hr 09/14/22 05:35: WBC 10.6, RBC 2.65 L, Hgb 7.9 L, Hct 23.8 L, MCV 89.8, MCH 29.8, MCHC 33.2, RDW Std Deviation 59.4 H, RDW Coeff of Sydnee 18.3 H, Plt Count 445, MPV 9.2, Neut % (Auto) Not Reportable, Absolute Neuts (auto) 8.7 H, Absolute Lymphs (auto) 0.95, Total Counted 100, Neutrophils % (Manual) 82 H, Lymphocytes % (Manual) 9 L, Monocytes % (Manual) 8, Myelocytes % 1 H, Diff Path Review Reviewed, Platelet Estimate ADEQUATE, RBC Morphology NORM C+C, Anisocytosis 1+ 09/14/22 05:35: Sodium 138, Potassium 4.3, Chloride 109 H, Carbon Dioxide 19.0 L, BUN 86 H, Creatinine 5.86 H, Estim Creat Clear Calc 11.74, Est GFR (MDRD) Af Amer 10 L, Est GFR (MDRD) Non-Af 8 L, BUN/Creatinine Ratio 14.7, Glucose 117 H, Calcium 8.5, Phosphorus 5.5 H, Albumin 2.4 L D/C Instructions Discharge Diet: Low fat / Low cholesterol Weight Bearing Status: Weight bearing as tolerated Call your doctor if you observe: Fever of 101 or Higher, Shortness of breath, Dizziness, Swelling in the ankles and Chest pain Meaningful Use Info Meaningful Use Diagnoses (Choose all that apply): None applicable Discharge Plan Admission Admit Date/Time: 09/07/22 12:31 Primary Reason for Your Visit: NGOC Attending Provider: Melyssa Mosley Primary Care Provider: Pk Piedra Consulting Providers: Vivek Bull ; Anselmo Wall ; Ralph Quiroz ; Sree Melendez ; Topher Maria ; Dinah Green LINE SERVER ; Jamie Langford ; Valdemar Serra Instructions Patient 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 Discharge Orders/Prescriptions Prescriptions: New prednisone 20 mg Tablet 80 mg PO BREAKFAST Qty: 120 1RF amlodipine 10 mg Tablet 10 mg PO DAILY Qty: 30 2RF sulfamethoxazole-trimethoprim [Bactrim DS] 800-160 mg tablet 1 tab PO UD Qty: 30 1RF Rx Instructions: Take one tablet Mondays, and Fridays Continued pantoprazole 40 mg tablet,delayed release (DR/EC) 40 mg PO DAILY Qty: 30 3RF polyethylene glycol 3350 [Miralax] 17 gram Powder In Packet 17 g PO DAILY PRN PRN (Reason: Constipation) acetaminophen 500 mg Tablet 1,000 mg PO DAILY PRN PRN (Reason: Fever) lidocaine-prilocaine 2.5-2.5 % cream 1 applic topical ONCE PRN (Reason: port access) 30 Days Qty: 30 2RF ondansetron 8 mg tablet,disintegrating 8 mg PO Q8H PRN (Reason: nausea and vomiting) Qty: 30 2RF Discontinued cephalexin 500 mg capsule 500 mg PO Q12 Qty: 14 0RF Referrals / Follow Up: Topher Maria MD [Med Staff - Active Staff] - Within 1 Week Mariana Santana NP, LINE SERVER-C [Non-Staff -Ordering Privileges] - 09/22/22 3:30 pm Disposition Disposition (needs filled in before D/C Order can be placed): Home, Self Care Charges/Coding Visit Charges Inpatient E&M: 46707 Disch Hosp >30min
== END 2022-09-14 16:20 | disposition home or self-care (01) | DRG 700 ==
LOC: ED 12:10 → MS3 12:54 → ICU 09-09 12:09 → PCU 09-12 11:19
PROVIDERS: Internal Medicine Nephrology; Nurse Practitioner Adult Health; Surgery; Admitting Provider Student in an Organized Health Care Education/Training Program; Emergency Provider Emergency Medicine; PCP Family Medicine; Visit Provider Student in an Organized Health Care Education/Training Program
PROC: 02HV33Z Insertion of Infusion Device into Superior Vena Cava, Percutaneous Approach (ICD-10-PCS; principal; 2022-09-13 13:30)
DX: N14.19 Nephropathy induced by other drugs, medicaments and biological substances (principal); N17.9 Acute kidney failure, unspecified; C50.911 Malignant neoplasm of unspecified site of right female breast; C50.912 Malignant neoplasm of unspecified site of left female breast; E78.00 Pure hypercholesterolemia, unspecified; K21.9 Gastro-esophageal reflux disease without esophagitis; I10 Essential (primary) hypertension; T45.1X5A Adverse effect of antineoplastic and immunosuppressive drugs, initial encounter; R07.9 Chest pain, unspecified; R94.31 Abnormal electrocardiogram [ECG] [EKG]; Z17.0 Estrogen receptor positive status [ER+]; Z79.899 Other long term (current) drug therapy
CPT/HCPCS: 36415; 36591; 71045; 71046; 74176; 76000; 77012; 80048; 80053; 80069; 81001; 82570; 83605; 84484; 84540; 85025; 85610; 85730; 87040; 87086; 87088; 87340; 88305; 88313; 88346; 88348; 88350; 90937; 93005; 96361; 96365; 99156; 99283; 99284; J2997; J7030; J7040; J7050; A4216; C1750; G0257; J1940; J2405

== ENCOUNTER 2022-09-26 20:40 | Emergency (ER) | payer OTHER, SELFPAY ==
[2022-09-26 20:41] VITALS: BP 128/59; PULSE 86; RESP 18; TEMP 37.3; O2SAT 97; BMI 30.7
[2022-09-26 21:28] LABS: Bacteria 0 SEEN /hpf (None Seen); Mucous, Urine 0 SEEN /hpf (<or=2+); Red Blood Cells-Urine 0 SEEN /hpf (0-5); Squamous Epithelial Cells - UA 0 SEEN /hpf (5-10); White Blood Cells 0 SEEN /hpf (0-5)
[2022-09-26 21:29] LABS: Color, Urine Yellow (Yellow); Glucose, Dipstick Normal (Normal); Ketone-Dipstick Negative (Negative); Leukocyte Esterase-Dipstick Negative /ul (Negative); Nitrite-Dipstick Negative (Negative); Occult Blood-Urine Negative /ul (Negative); Protein-Dipstick 15 mg/dl (Negative); Specific Gravity, Urine 1.005 (1.002-1.030); Urine Bilirubin Dipstick Negative (Negative); Urine Clarity Clear (Clear); Urine Urobilinogen Normal (Normal)
--- NOTE | 2022-09-26 21:39 | RAD_ITS ---
STUDY: X-RAY CHEST REASON FOR EXAM: Female, 52 years old. Neutropenic Fever TECHNIQUE: PA and lateral views of the chest. COMPARISON: 09/13/2022 FINDINGS: Tunneled right internal jugular dialysis catheter which is unchanged. Left internal jugular chest port which is also unchanged. The lungs are clear and expanded. There is no demonstrated pleural abnormality. Normal size heart. Normal mediastinum and trevin. Normal visualized pulmonary arteries. Normal visualized aortic arch and descending thoracic aorta. Normal visualized thoracic spine. Normal visualized ribs, clavicles, and shoulders. There is no demonstrated abnormality of the visualized soft tissue structures of the upper abdomen. RAD/Chest PA and Lateral IMPRESSION: No active disease. Electronically Signed: Chance Ayala MD at 22:45 EDT ,
[2022-09-26 22:00] LABS: Absolute Lymphocyte Count 0.17 X10^3/uL (0.83-4.51); Absolute Neutrophil Count 7.6 X10^3/uL (2.0-7.7); Basophil# 0.01 X10^3/uL; Basophil% 0.1 % (0-1); Eosinophil# 0.02 X10^3/uL; Eosinophils% 0.2 % (0-5); Hematocrit 24.9 % (37-47); Hemoglobin 7.9 g/dL (12.0-15.0); Lymphocyte # 0.17 X10^3/ul (0.83-4.51); Lymphocyte % 2.1 % (19-41); Mean Corp Hgb Conc 31.7 g/dL (32-36); Mean Corpuscular Hgb 29.3 pg (27.0-32.0); Mean Corpuscular Volume 92.2 fL (81-99); Mean Platelet Vol. 9.8 fl (6.2-12.0); Monocyte# 0.19 X10^3/uL; Monocyte% 2.4 % (0-10); NRBC Flagged by Analyzer 0 % (0-5); Neutrophil # 7.57 X10^3/uL (2.7-7.7); Neutrophil % 94.5 % (47-70); POSITIVE DIFFERENTIAL YES; Platelet Count 191 K/mm3 (150-450); RBC Distribution Width CV 17.7 % (11.6-14.6); RBC Distribution Width SD 59.2 fl (35.1-43.9)
[2022-09-26 22:09] LABS: Differential Indicated SCAN CRITERIA MET
[2022-09-26 22:14] LABS: Lactic Acid 1.8 mmol/L (0.4-1.9)
[2022-09-26 22:16] LABS: ALB/GLOB Ratio 0.9 RATIO (0.9-2.4); AST(SGOT) 10 U/L (15-37); Alanine Aminotransfer ALT/SGPT 28 U/L (13-56); Albumin, Serum 3.1 g/dL (3.2-5.0); Alkaline Phosphatase 108 U/L (45-117); Anion Gap 7 (5-15); BUN 30 mg/dL (7-18); BUN/Creat Ratio 15.4 RATIO (10-20); Calcium,Total 8.5 mg/dL (8.5-10.1); Chloride 102 mmol/L (98-107); Creatinine, Serum 1.95 mg/dL (0.55-1.02); EST Glomerular Filtration Rate 29 mL/min (>60); Est Glom Filt Rate - Afr Amer 35 mL/min (>60); Estimated Creatinine Clearance 35.27 ml/min; Globulin 3.3 g/dL (2.2-4.2); Glucose 155 mg/dL (74-106); Potassium 4.3 mmol/L (3.5-5.1); Protein, Total 6.4 g/dL (6.4-8.2); Sodium Level 137 mmol/L (136-145)
[2022-09-26 22:18] LABS: International Normalized Ratio 1.1; Prothrombin Time (Protime)PT. 13.8 SECONDS (11.7-14.9)
[2022-09-26 22:29] LABS: Differential Comment SCANNED
[2022-09-26 22:37] VITALS: BP 147/84; PULSE 77; RESP 16; TEMP 36.6
--- NOTE | 2022-09-26 23:21 | EDS_ITS ---
HPI History of Present Illness Chief Complaint: Fever Informant: patient Onset/Context/Timing Onset: Today Narrative Narrative: Patient presents with fever up to 101. She is a history of breast cancer and her last chemotherapy was on 31 August. She states she was taken off of Keytruda because they believe that may have led to her kidney failure. She is currently on dialysis. She went to dialysis this morning feeling well. She took a nap when she got home from dialysis and woke up with mild body aches and low-grade fever. This evening she developed a slight rash over her trunk so presented to the ER. She had very minimal cough. No vomiting or diarrhea. No urinary symptoms. [facility] Medical History Alcohol use Breast cancer, left Cancer Complicated UTI (urinary tract infection) Encounter for education Gastric reflux History of breast cancer History of echocardiogram History of edema History of stress test Hypercholesterolemia Invasive ductal carcinoma of right breast Migraine headache Non-smoker Wears glasses Home Medications lidocaine-prilocaine 2.5 %-2.5 % topical cream 1 applic topical ONCE PRN port access 30 days #30 grams 07/12/22 [Rx Last Taken 08/31/22] ondansetron 8 mg disintegrating tablet 8 mg PO Q8H PRN nausea and vomiting #30 tabs 07/12/22 [Rx Last Taken Unknown] amlodipine 10 mg tablet 10 mg PO DAILY #30 tabs 09/14/22 [Rx Last Taken Unknown] prednisone 20 mg tablet 80 mg PO BREAKFAST #120 tabs 09/14/22 [Rx Last Taken Unknown] sulfamethoxazole 800 mg-trimethoprim 160 mg tablet (Bactrim DS) 1 tab PO UD #30 tabs 09/14/22 [Rx Last Taken Unknown] Allergy/AdvReac Type Severity Reaction Status Date / Time No Known Allergies Allergy Verified 09/26/22 20:42 Family History Grandmother Breast cancer CVA (cerebral vascular accident) Aunt Breast cancer Surgical History History of left breast biopsy History of vascular access device Hx of breast biopsy Social History household members: spouse Smoking Status: Never smoker substance use type: does not use ROS ROS ED Constitutional Constitutional ED: Reports fever(s) Eyes Eyes: Denies change in vision or discharge from eye(s) ENT ENT ED: Denies discharge from eye(s), rhinorrhea or sore throat Cardiovascular Cardiovascular: Denies chest pain or palpitations Respiratory/Chest Respiratory/Chest: Denies cough or dyspnea Gastrointestinal Gastrointestinal: Denies abdominal pain, nausea or vomiting Genitourinary Genitourinary ED: Denies difficulty urinating or dysuria Musculoskeletal Musculoskeletal: Denies back pain or extremity pain Integumentary Reports rash; Denies Abrasions Neurologic Neurologic: Denies headache(s) or weakness Endocrine Endocrinology: Denies polydipsia or polyuria Allergic/Immunologic Allergic/Immunologic ED: Denies lip swelling or urticaria EXAM Physical Exam Const Vital Signs: 09/26/22 20:41 09/26/22 21:03 09/26/22 21:47 Temperature 99.2 F H Temperature Source Oral Pulse Rate 86 Respiratory Rate 18 Respiratory Effort Normal Non-Labored Respiratory Pattern Normal Blood Pressure 128/59 H Blood Pressure Mean 82 Pulse Ox 97 Oxygen Delivery Method Room Air Room Air 09/26/22 22:37 Temperature 97.9 F Temperature Source Oral Pulse Rate 77 Respiratory Rate 16 Respiratory Effort Respiratory Pattern Blood Pressure 147/84 H Blood Pressure Mean 105 Pulse Ox Oxygen Delivery Method Room Air Positive well nourished and well developed General Appearance ED: well developed HEENT Reports normocephalic and head/scalp atraumatic Eyes PERRL and EOMs intact bilaterally Neck supple Chest Wall inspection of chest normal and palpation of chest normal Resp normal respiratory effort and clear to auscultation bilaterally Cardio regular rate and regular rhythm GI normal to inspection, nondistended, normoactive bowel sounds Palpation: soft Extremity normal to inspection Neuro oriented x3 and no sensory deficits noted Sensorium / Orientation: alert Motor Exam: strength 5/5 throughout Psych mental status grossly normal Skin Skin Narrative: Faint red rash noted over the upper chest and back. No vesicles noted. MDM MDM MDM Narrative Medical decision making narrative: Labwork obtained to evaluate for leukocytosis, anemia, and electrolyte derangement. Chest x-ray obtained to evaluate for acute lung pathology, cardiac size, or mediastinal abnormality. Urinalysis obtained to evaluate for infection/hematuria. Blood cultures drawn Lab Data Attestation: I reviewed the patient's lab results. Labs: Laboratory Results - last 24 hr 09/26/22 09/26/22 09/26/22 21:22 21:39 21:39 WBC 8.0 RBC 2.70 L Hgb 7.9 L Hct 24.9 L MCV 92.2 MCH 29.3 MCHC 31.7 L RDW Std Deviation 59.2 H RDW Coeff of Sydnee 17.7 H Plt Count 191 MPV 9.8 Immature Gran % (Auto) 0.700 Neut % (Auto) 94.5 H Lymph % (Auto) 2.1 L [place] % (Auto) 2.4 Eos % (Auto) 0.2 Baso % (Auto) 0.1 Absolute Neuts (auto) 7.6 Absolute Lymphs (auto) 0.17 L Nucleated RBC % 0 Differential Comment SCANNED PT 13.8 INR 1.1 APTT 24.0 L Sodium Potassium Chloride Carbon Dioxide Anion Gap BUN Creatinine Estim Creat Clear Calc Est GFR (MDRD) Af Amer Est GFR (MDRD) Non-Af BUN/Creatinine Ratio Glucose Lactic Acid Calcium Total Bilirubin AST ALT Alkaline Phosphatase Total Protein Albumin Globulin Albumin/Globulin Ratio Urine Color Yellow Urine Clarity Clear Urine pH 7.0 Ur Specific [place] 1.005 Urine Protein 15 H Urine Glucose (UA) Normal Urine Ketones Negative Urine Occult Blood Negative Urine Nitrite Negative Urine Bilirubin Negative Urine Urobilinogen Normal Ur Leukocyte Esterase Negative Urine RBC 0 SEEN Urine WBC 0 SEEN Ur Squamous Epith Cells 0 SEEN Urine Bacteria 0 SEEN Urine Mucus 0 SEEN 09/26/22 09/26/22 21:39 21:39 WBC RBC Hgb Hct MCV MCH MCHC RDW Std Deviation RDW Coeff of Sydnee Plt Count MPV Immature Gran % (Auto) Neut % (Auto) Lymph % (Auto) [place] % (Auto) Eos % (Auto) Baso % (Auto) Absolute Neuts (auto) Absolute Lymphs (auto) Nucleated RBC % Differential Comment PT INR APTT Sodium 137 Potassium 4.3 Chloride 102 Carbon Dioxide 28.0 Anion Gap 7 BUN 30 H Creatinine 1.95 H Estim Creat Clear Calc 35.27 Est GFR (MDRD) Af Amer 35 L Est GFR (MDRD) Non-Af 29 L BUN/Creatinine Ratio 15.4 Glucose 155 H Lactic Acid 1.8 Calcium 8.5 Total Bilirubin 0.30 AST 10 L ALT 28 Alkaline Phosphatase 108 Total Protein 6.4 Albumin 3.1 L Globulin 3.3 Albumin/Globulin Ratio 0.9 Urine Color Urine Clarity Urine pH Ur Specific [place] Urine Protein Urine Glucose (UA) Urine Ketones Urine Occult Blood Urine Nitrite Urine Bilirubin Urine Urobilinogen Ur Leukocyte Esterase Urine RBC Urine WBC Ur Squamous Epith Cells Urine Bacteria Urine Mucus Radiography Chest X-Ray - ED: 1 View, Read by ED Physician and No Infiltrates Diagnostic Testing: Clinical Impression(s) from Imaging Studies Chest X-Ray 09/26/22 21:39 IMPRESSION: No active disease. Electronically Signed: Chance Ayala MD at 22:45 EDT , Treatment and Re-Evaluation :: CBC was normal white count 8.0 with 95% neutrophils. Hemoglobin is 7.9 which is consistent with her prior values. Coags are unremarkable. Chemistry studies reveal a BUN of 30 and a creatinine of 1.95. She did have dialysis earlier today. Lactic acid is 1.8. Coags are unremarkable. Urinalysis reveals no evidence of infection. Chest x-ray per my interpretation reveals no infiltrate. Radiology interpretation is reviewed and agrees. Blood cultures have been drawn and are pending. I spoke Dr. Brandon, on-call for Dr. Miller. He does not want the patient started on an antibiotic at this time. They will follow the cultures and we did ensure that 1 culture was drawn from her dialysis line. Patient is comfortable with this plan. Return instructions given. Discharge Plan Triage Chief Complaint: Fever ED Provider: Selam Adamson Dx/Rx/DC Orders Clinical Impression: Fever Instructions: ED FUO Adult Prescriptions: No Action prednisone 20 mg Tablet 80 mg PO BREAKFAST Qty: 120 1RF amlodipine 10 mg Tablet 10 mg PO DAILY Qty: 30 2RF sulfamethoxazole-trimethoprim [Bactrim DS] 800-160 mg tablet 1 tab PO UD Qty: 30 1RF Rx Instructions: Take one tablet Mondays, and Fridays lidocaine-prilocaine 2.5-2.5 % cream 1 applic topical ONCE PRN (Reason: port access) 30 Days Qty: 30 2RF ondansetron 8 mg tablet,disintegrating 8 mg PO Q8H PRN (Reason: nausea and vomiting) Qty: 30 2RF Primary Care Provider: Pk Piedra Referrals: Pk Piedra MD [Primary Care Provider] - Sukh Miller MD [Med Staff - Active Staff] - 2 Days Disposition Disposition: Home, Self Care
[2022-09-27 00:43] VITALS: BP 159/85; PULSE 80; RESP 16
[2022-09-27] MEDS: 0.9% Saline Lock 10 ML Syringe IV (00:43)
== END 2022-09-27 00:44 | disposition home or self-care (01) ==
PROVIDERS: Emergency Provider Emergency Medicine; PCP Family Medicine; Visit Provider Emergency Medicine
DX: R50.9 Fever, unspecified (principal); Z99.2 Dependence on renal dialysis; N19 Unspecified kidney failure; Z79.899 Other long term (current) drug therapy; Z85.3 Personal history of malignant neoplasm of breast
CPT/HCPCS: 36591; 71046; 80053; 81001; 83605; 85025; 85610; 85730; 87040; 87086; 99285; A4216

== ENCOUNTER → 2022-11-10 | Outpatient (CLI) | payer OTHER, SELFPAY ==
[2022-11-10 09:09] LABS: Anion Gap 7 (5-15); BUN 21 mg/dL (7-18); BUN/Creat Ratio 15.3 RATIO (10-20); Calcium,Total 8.9 mg/dL (8.5-10.1); Chloride 110 mmol/L (98-107); Creatinine, Serum 1.37 mg/dL (0.55-1.02); EST Glomerular Filtration Rate 43 mL/min (>60); Est Glom Filt Rate - Afr Amer 52 mL/min (>60); Glucose 86 mg/dL (74-106); Potassium 4.2 mmol/L (3.5-5.1); Sodium Level 140 mmol/L (136-145)
== END | disposition home or self-care (01) ==
PROVIDERS: PCP Family Medicine; Referring Provider Nurse Practitioner Adult Health; Visit Provider Nurse Practitioner Adult Health
DX: N17.9 Acute kidney failure, unspecified (principal)
CPT/HCPCS: 36415; 80048

== ENCOUNTER → 2023-01-06 | Outpatient (CLI) | payer OTHER, SELFPAY | END | disposition home or self-care (01) | LOC: LABSPEC 15:31 | PROVIDERS: PCP Family Medicine; Referring Provider Family Medicine; Visit Provider Family Medicine | DX: R30.0 Dysuria (principal) | CPT/HCPCS: 87086; 87088 ==

== ENCOUNTER 2023-01-08 18:38 | Emergency (ER) | payer OTHER, SELFPAY ==
[2023-01-08 18:40] VITALS: BP 176/104; PULSE 97; RESP 18; TEMP 35.8; O2SAT 96; BMI 31.7
--- NOTE | 2023-01-08 18:53 | EKG12_ITS ---
Test Reason : DYSRHTHMIA Blood Pressure : / mmHG Vent. Rate : 078 BPM Atrial Rate : 078 BPM P-R Int : 150 ms QRS Dur : 078 ms QT Int : 372 ms P-R-T Axes : 000 034 025 degrees QTc Int : 424 ms Normal sinus rhythm Normal ECG Confirmed by ELISHA LY, RHIANNA ([id number]), acquisition editor NADIRA VERAS ([id number]) on 01/10/2023 12:42:38 PM Referred By: RENALDO Confirmed By:RHIANNA TELLO MD
--- NOTE | 2023-01-08 18:59 | EDS_ITS ---
HPI HPI - Female History of Present Illness Chief Complaint: Complaint Narrative Narrative: Patient has a history of breast cancer, she is on oral chemotherapeutic agents, she was found to have a urinary tract infection 2 days ago and placed on antibiotics, cefdinir by PCP. She still has symptoms. She has no fever chills or flank pain. She has no abdominal pain. She wants to make sure since she is on chemotherapy that she is not getting septic, apparently she has been septic before from UTIs. PFSH PFSH Medical History Alcohol use Breast cancer, left Cancer Complicated UTI (urinary tract infection) Encounter for education Gastric reflux History of breast cancer History of echocardiogram History of edema History of stress test Hypercholesterolemia Invasive ductal carcinoma of right breast Migraine headache Non-smoker Wears glasses Home Medications lidocaine-prilocaine 2.5 %-2.5 % topical cream 1 applic topical ONCE PRN port access 30 days #30 grams 07/12/22 [Rx Last Taken 08/31/22] ondansetron 8 mg disintegrating tablet 8 mg PO Q8H PRN nausea and vomiting #30 tabs 07/12/22 [Rx Last Taken Unknown] amlodipine 10 mg tablet 10 mg PO DAILY #30 tabs 09/14/22 [Rx Last Taken Unknown] phenazopyridine 200 mg tablet (Pyridium) 200 mg PO TID #10 tabs 01/08/23 [Rx Last Taken Unknown] Allergy/AdvReac Type Severity Reaction Status Date / Time sulfamethoxazole Allergy Intermediate rash Verified 01/08/23 18:40 [From Bactrim] trimethoprim [From Bactrim] Allergy Intermediate rash Verified 01/08/23 18:40 Family History Grandmother Breast cancer CVA (cerebral vascular accident) Aunt Breast cancer Surgical History History of left breast biopsy History of vascular access device Hx of breast biopsy Social History household members: spouse Smoking Status: Never smoker substance use type: does not use ROS ROS ED ROS Narrative Review of systems: General: No fever Eyes: No visual changes ENT: No upper airway congestion, normal voice Neck: No neck pain Cardiovascular: No chest pain Respiratory: No shortness of breath or cough Gastrointestinal: No abdominal pain, nausea vomiting or diarrhea Genitourinary: As in HPI Musculoskeletal: Denies myalgias no difficulty with ambulation Skin: No rash EXAM Physical Exam Narrative Exam Narrative: Physical exam General: Well nourished, Well developed, No Acute Distress Head: Normocephalic, Atraumatic ENT: Moist mucous membranes Neck: Supple, Nontender, No lymphadenopathy Cardiovascular: Regular rate, Regular rhythm Respiratory: No distress, CTA bilaterally Abdomen: Soft, Nontender, Nondistended Back: Nontender, Normal Inspection. Negative for: CVA tenderness Extremities: Nontender, No edema Skin: Normal color, No rash Neurological: Alert, Normal Strength, Normal Sensation Const Vital Signs: 01/08/23 18:40 Temperature 96.5 F L Temperature Source Temporal Pulse Rate 97 Respiratory Rate 18 Blood Pressure 176/104 H Blood Pressure Mean 128 Pulse Ox 96 Oxygen Delivery Method Room Air MDM MDM MDM Narrative Medical decision making narrative: Is unremarkable there is no leukocytosis. The patient is not neutropenic. In fact there is no evidence of a UTI currently but she still has dysuria. I will give her Pyridium. Otherwise I will reassure her and she can be discharged. If any changes or she has fever chills she is to return. Her creatinine is baseline. Lab Data Labs: Laboratory Results - last 24 hr 01/08/23 19:30 WBC 4.3 L RBC 3.38 L Hgb 9.6 L Hct 29.5 L MCV 87.3 MCH 28.4 MCHC 32.5 RDW Std Deviation 42.3 RDW Coeff of Sydnee 14.2 Plt Count 194 MPV 9.6 Immature Gran % (Auto) 0.200 Neut % (Auto) 46.4 L Lymph % (Auto) 41.0 [place] % (Auto) 10.1 H Eos % (Auto) 2.1 Baso % (Auto) 0.2 Absolute Neuts (auto) 2.0 Absolute Lymphs (auto) 1.75 Nucleated RBC % 0 Sodium 135 L Potassium 3.4 L Chloride 105 Carbon Dioxide 22.0 Anion Gap 8 BUN 19 H Creatinine 1.31 H Estim Creat Clear Calc 52.50 Est GFR (MDRD) Af Amer 55 L Est GFR (MDRD) Non-Af 45 L BUN/Creatinine Ratio 14.5 Glucose 110 H Calcium 8.3 L Total Bilirubin 0.20 AST 11 L ALT 17 Alkaline Phosphatase 102 Total Protein 6.0 L Albumin 3.3 Globulin 2.7 Albumin/Globulin Ratio 1.2 Urine Color Yellow Urine Clarity Clear Urine pH 6.0 Ur Specific [place] 1.010 Urine Protein Negative Urine Glucose (UA) Normal Urine Ketones Negative Urine Occult Blood Negative Urine Nitrite Negative Urine Bilirubin Negative Urine Urobilinogen Normal Ur Leukocyte Esterase Negative Urine RBC 0 SEEN Urine WBC 0 SEEN Ur Squamous Epith Cells 0 SEEN Urine Bacteria 0 SEEN Urine Mucus 0 SEEN Discharge Plan Triage Chief Complaint: Complaint ED Provider: Mau Yeung Dx/Rx/DC Orders Clinical Impression: UTI (urinary tract infection), Breast cancer in female, Dysuria Instructions: Dysuria Prescriptions: New phenazopyridine [Pyridium] 200 mg tablet 200 mg PO TID Qty: 10 0RF No Action amlodipine 10 mg Tablet 10 mg PO DAILY Qty: 30 2RF lidocaine-prilocaine 2.5-2.5 % cream 1 applic topical ONCE PRN (Reason: port access) 30 Days Qty: 30 2RF ondansetron 8 mg tablet,disintegrating 8 mg PO Q8H PRN (Reason: nausea and vomiting) Qty: 30 2RF Primary Care Provider: Pk Piedra Referrals: Pk Piedra MD [Primary Care Provider] - 3-5 Days Disposition Disposition: Home, Self Care
[2023-01-08] MEDS: Ceftriaxone 1 GM/50 ML BAG IV (19:39)
[2023-01-08 19:46] LABS: Bacteria 0 SEEN /hpf (None Seen); Mucous, Urine 0 SEEN /hpf (<or=2+); Red Blood Cells-Urine 0 SEEN /hpf (0-5); Squamous Epithelial Cells - UA 0 SEEN /hpf (5-10); White Blood Cells 0 SEEN /hpf (0-5)
[2023-01-08 19:50] LABS: Absolute Lymphocyte Count 1.75 X10^3/uL (0.83-4.51); Basophil# 0.01 X10^3/uL; Basophil% 0.2 % (0-1); Color, Urine Yellow (Yellow); Eosinophil# 0.09 X10^3/uL; Eosinophils% 2.1 % (0-5); Glucose, Dipstick Normal (Normal); Hematocrit 29.5 % (37-47); Hemoglobin 9.6 g/dL (12.0-15.0); Ketone-Dipstick Negative (Negative); Leukocyte Esterase-Dipstick Negative /ul (Negative); Lymphocyte # 1.75 X10^3/ul (0.83-4.51); Mean Corp Hgb Conc 32.5 g/dL (32-36); Mean Corpuscular Hgb 28.4 pg (27.0-32.0); Mean Corpuscular Volume 87.3 fL (81-99); Mean Platelet Vol. 9.6 fl (6.2-12.0); Monocyte# 0.43 X10^3/uL; Monocyte% 10.1 % (0-10); NRBC Flagged by Analyzer 0 % (0-5); Neutrophil # 1.98 X10^3/uL (2.7-7.7); Neutrophil % 46.4 % (47-70); Nitrite-Dipstick Negative (Negative); Occult Blood-Urine Negative /ul (Negative); POSITIVE COUNT YES; Platelet Count 194 K/mm3 (150-450); Protein-Dipstick Negative (Negative); RBC Distribution Width CV 14.2 % (11.6-14.6); RBC Distribution Width SD 42.3 fl (35.1-43.9); Red Blood Count 3.38 M/mm3 (4.2-5.4); Urine Bilirubin Dipstick Negative (Negative); Urine Clarity Clear (Clear); Urine Urobilinogen Normal (Normal); White Blood Count 4.3 K/mm3 (4.4-11.0)
[2023-01-08 20:09] LABS: ALB/GLOB Ratio 1.2 RATIO (0.9-2.4); AST(SGOT) 11 U/L (15-37); Alanine Aminotransfer ALT/SGPT 17 U/L (13-56); Albumin, Serum 3.3 g/dL (3.2-5.0); Alkaline Phosphatase 102 U/L (45-117); Anion Gap 8 (5-15); BUN 19 mg/dL (7-18); BUN/Creat Ratio 14.5 RATIO (10-20); Calcium,Total 8.3 mg/dL (8.5-10.1); Chloride 105 mmol/L (98-107); Creatinine, Serum 1.31 mg/dL (0.55-1.02); EST Glomerular Filtration Rate 45 mL/min (>60); Est Glom Filt Rate - Afr Amer 55 mL/min (>60); Globulin 2.7 g/dL (2.2-4.2); Glucose 110 mg/dL (74-106); Potassium 3.4 mmol/L (3.5-5.1); Sodium Level 135 mmol/L (136-145)
[2023-01-08] MEDS: Phenazopyridine 95 MG Tablet 190 MG PO (20:59)
== END 2023-01-08 21:18 | disposition home or self-care (01) ==
PROVIDERS: Emergency Provider Emergency Medicine; PCP Family Medicine; Visit Provider Emergency Medicine
DX: N39.0 Urinary tract infection, site not specified (principal); C50.912 Malignant neoplasm of unspecified site of left female breast
CPT/HCPCS: 36591; 80053; 81001; 85025; 93005; 96365; 99282; J7050; A4216

== ENCOUNTER 2023-06-25 17:51 | Emergency (ER) | payer OTHER, SELFPAY ==
[2023-06-25 17:51] VITALS: BP 117/65; PULSE 99; RESP 16; TEMP 36.1; O2SAT 99; BMI 30.8
[2023-06-25 18:09] VITALS: BP 117/65; PULSE 99; RESP 16; TEMP 36.1; O2SAT 99
--- NOTE | 2023-06-25 18:21 | EDS_ITS ---
HPI History of Present Illness Chief Complaint: Fever Informant: patient and family Onset/Context/Timing Onset: Today Current Severity: Mild Maximum Severity: Mild Narrative Narrative: 53-year-old female history of bilateral breast cancer who had bilateral mastectomies this was last year. She has a left-sided Mediport. She did her last chemotherapy on the fifth of this month. She has been doing well today she had a low-grade fever 100.4 with some loose stools. Daughters had recent URI symptoms. Patient herself denies any chest pain. She denies any shortness of breath or cough. She denies any abdominal pain. She denies any dysuria. She denies any rashes. She has been feeling well until today. Prior similar symptoms: Yes Recent Illness/Hospitalization: No PFSH PFSH Medical History Alcohol use Breast cancer, left Cancer Complicated UTI (urinary tract infection) Encounter for education Gastric reflux History of breast cancer History of echocardiogram History of edema History of stress test Hypercholesterolemia Invasive ductal carcinoma of right breast Migraine headache Non-smoker Wears glasses Home Medications lidocaine-prilocaine 2.5 %-2.5 % topical cream 1 applic topical ONCE PRN port access 30 days #30 grams 07/12/22 [Rx Last Taken 08/31/22] ondansetron 8 mg disintegrating tablet 8 mg PO Q8H PRN nausea and vomiting #30 tabs 07/12/22 [Rx Last Taken Unknown] amlodipine 10 mg tablet 10 mg PO DAILY #30 tabs 09/14/22 [Rx Last Taken Unknown] phenazopyridine 200 mg tablet (Pyridium) 200 mg PO TID #10 tabs 01/08/23 [Rx Last Taken Unknown] Allergy/AdvReac Type Severity Reaction Status Date / Time sulfamethoxazole Allergy Intermediate rash Verified 06/25/23 17:55 [From Bactrim] trimethoprim [From Bactrim] Allergy Intermediate rash Verified 06/25/23 17:55 Family History Grandmother Breast cancer CVA (cerebral vascular accident) Aunt Breast cancer Surgical History History of left breast biopsy History of vascular access device Hx of breast biopsy Social History household members: spouse Smoking Status: Never smoker substance use type: does not use ROS ROS ED ROS Narrative Fever. Loose stools. Review of Systems ROS Unobtainable: Denies due to encephalopathy or other Constitutional Constitutional ED: Denies chills or fever(s) Eyes Eyes: Denies blurry vision, change in vision, diplopia or other ENT ENT ED: Denies ear pain, rhinorrhea or sore throat Cardiovascular Cardiovascular: Denies chest pain, orthopnea, palpitations, paroxysmal nocturnal dyspnea, racing heartbeat or other Respiratory/Chest Respiratory/Chest: Denies cough, dyspnea, dyspnea on exertion, orthopnea, paroxysmal nocturnal dyspnea or sputum Gastrointestinal Gastrointestinal: Reports diarrhea; Denies abdominal pain, constipation, melena, nausea or vomiting Genitourinary Genitourinary ED: Denies dysuria or hematuria Musculoskeletal Musculoskeletal: Denies arthralgias, back pain, myalgias or neck pain Integumentary Denies abscess, Abrasions or rash Neurologic Neurologic: Denies headache(s) Psychiatric Psychiatric: Denies anxiety, depression, suicidal ideation or suicidal thoughts Endocrine Endocrinology: Denies cold intolerance, heat intolerance, polydipsia, polyphagia or polyuria Hematologic/Lymphatic Hematologic/Lymphatic: Reports none Allergic/Immunologic Allergic/Immunologic ED: Denies mouth swelling, tongue swelling or urticaria EXAM Physical Exam Narrative Exam Narrative: 53-year-old female no acute distress. Vital signs stable afebrile currently her temperature is 97 temporal. Pulse ox 9 9% on room air no signs hypoxia. H EENT exam unremarkable. Mytrex membranes. Posterior pharynx unremarkable. Neck nontender no lymphadenopathy. No meningismus. Lungs clear to auscultation bilateral. Heart regular rhythm no murmur. Abdomen soft, nontender, nondistended normal bowel sounds no peritoneal signs. Moving all 4 extremities. Calves are nontender without edema edema or cords. Her right upper arm is in a wrap she has chronic lymphedema in that arm. Her Mediport on the left chest is nontender. Is not red. Back nontender. Skin no rashes. Neurologically she is awake and alert. Const Vital Signs: 06/25/23 17:51 06/25/23 18:09 06/25/23 18:11 Temperature 97 F L 97 F L Temperature Source Temporal Temporal Pulse Rate 99 99 Respiratory Rate 16 16 Respiratory Effort Normal Non-Labored Respiratory Pattern Normal Blood Pressure 117/65 117/65 Blood Pressure Mean 82 82 Pulse Ox 99 99 Oxygen Delivery Method Room Air Room Air 06/25/23 19:00 Temperature 98.8 F Temperature Source Oral Pulse Rate 79 Respiratory Rate 16 Respiratory Effort Respiratory Pattern Blood Pressure 135/80 H Blood Pressure Mean 98 Pulse Ox 99 Oxygen Delivery Method Room Air Positive well nourished and well developed; Negative for cachectic, contractures or unkempt General Appearance ED: well developed and NAD; Negative for unkempt, cachectic, contractures, cyanotic, diaphoretic or pallor Nutritional Appearance: Negative for cachectic HEENT Reports moist mucous membranes; Denies dry mucous membranes Negative for trauma or tenderness Mouth ED: No dry mucous membranes Mouth: No dry mucous membranes Eyes PERRL and EOMs intact bilaterally General Eye ED: Negative for pale conjunctiva, scleral icterus or other Neck no lymphadenopathy, supple and no JVD General: Negative for tenderness or other Lymph Lymphatic: Negative for other Chest Wall inspection of chest normal and palpation of chest normal Chest: Negative for other Resp normal respiratory effort and clear to auscultation bilaterally Effort and Inspection: Negative for retractions or pain with movement Auscultation: Negative for rales, rhonchi, wheezes or diminished lung sounds Cardio regular rate, regular rhythm, S1 normal heart sound, S2 normal heart sound and n o murmurs Palpation: Negative for palpable S3 or palpable S4 Rate: Negative for bradycardia or tachycardic Rhythm: Negative for abnormal rhythm GI normal to inspection, nondistended, normoactive bowel sounds, non-tender, non- distended and no masses Inspection: Negative for abdominal distention Auscultation: normoactive bowel sounds Palpation: soft; Negative for tender, guarding or rebound tenderness present Back/Spine no CVA tenderness General Back: Negative for CVA tenderness Cervical Spine: Negative for cervical spine tenderness Thoracic Spine / Upper Back: Negative for thoracic spinal tenderness or paraspinal muscle tenderness Lumbar Spine / Lower Back: Negative for lumbar spinal tenderness Extremity Negative for normal to inspection Extremity Narrative: Chronic lymphedema right arm. General Extremety ED: Yes edema; Negative for tenderness General Extremity: edema Neuro oriented x3 and CN's II-XII intact bilaterally Sensorium / Orientation: alert; Negative for orientation impaired, lethargic or stuporous Motor Exam: strength 5/5 throughout; Negative for general weakness or strength abnormal Psych mental status grossly normal Appearance: Negative for unkempt Skin no rashes or lesions noted, no wounds and skin turgor normal General Skin Exam: elasticity normal; Negative for jaundice or pallor Lesions: No lesion noted Rashes: No rashes noted Trauma: Negative for abrasion Wounds: Negative for wounds noted MDM MDM MDM Narrative Medical decision making narrative: 53-year-old female history of bilateral breast cancer who had bilateral mastectomies last year. She finished chemo therapy on 06/06/2023. Today she had a low-grade fever 100.4 with some loose stools. Daughter has had recent URI symptoms. Patient denies any other complaints. Screening labs are being obtained. Repeat exam patient doing well at 8:05 PM. Repeat vital signs were unremarkable temperature 98.8. Patient says she is feeling fine. We went over her test results. With a urinalysis having 5-10 white cells I sent a urine culture she is having no symptoms. I am not going to treat that at this time. Follow-up with your doctor if not improving or return if worse. Fluids and Tylenol. Again her daughter had a URI recently she very well may have a viral syndrome. History & Record Review Discussion w/independent historian: Patient Additional record(s) reviewed:: Prior inpatient record, Prior outpatient record, Prior ED visit and Prior labs Lab Data Attestation: I reviewed the patient's lab results. Lab results narrative: CBC shows a white count 5.1. H&H 11.6 and 34.3. Platelets 206. Electrolytes show a gap of 8. BUN 19 creatinine 1.31. Glucose 109. Abscess present somewhat fluctuant UA shows 5-10 white cells but no bacteria. No nitrites. Chest x-ray normal. Labs: Laboratory Results - last 24 hr 06/25/23 06/25/23 18:46 19:11 WBC 5.1 RBC 3.51 L Hgb 11.6 L Hct 34.3 L MCV 97.7 MCH 33.0 H MCHC 33.8 RDW Std Deviation 49.8 H RDW Coeff of Sydnee 13.9 Plt Count 206 MPV 9.3 Immature Gran % (Auto) 0.000 Neut % (Auto) 77.9 H Lymph % (Auto) 14.5 L [place] % (Auto) 6.8 Eos % (Auto) 0.4 Baso % (Auto) 0.4 Absolute Neuts (auto) 4.0 Absolute Lymphs (auto) 0.74 L Nucleated RBC % 0 Sodium 139 Potassium 3.6 Chloride 110 H Carbon Dioxide 21.0 Anion Gap 8 BUN 19 H Creatinine 1.31 H Estim Creat Clear Calc 60.87 Est GFR (MDRD) Af Amer 55 L Est GFR (MDRD) Non-Af 45 L BUN/Creatinine Ratio 14.5 Glucose 109 H Calcium 8.7 Urine Color Yellow Urine Clarity Clear Urine pH 5.0 Ur Specific [place] 1.015 Urine Protein 15 H Urine Glucose (UA) Normal Urine Ketones Negative Urine Occult Blood 10 H Urine Nitrite Negative Urine Bilirubin Negative Urine Urobilinogen Normal Ur Leukocyte Esterase 500 H Urine RBC 0 SEEN Urine WBC 5-10 SEEN Ur Squamous Epith Cells 0-5 SEEN Urine Bacteria 0 SEEN Urine Mucus 0 SEEN Radiography Chest X-Ray - ED: 2 View, Read by ED Physician, Normal, Heart, Lungs, Mediastinum, Bony Structures, No Acute Disease and Chronic Changes Diagnostic Testing: Clinical Impression(s) from Imaging Studies Chest X-Ray 06/25/23 18:55 IMPRESSION: No active disease. Electronically Signed: Chance Ayala MD at 19:26 EDT , Chest x-ray, 2 views, AP and lateral, interpreted by myself shows no acute abnormality. Normal cardiac silhouette. Normal lung sidhu. No infiltrates. Left chest wall Mediport. Discharge Plan Triage Chief Complaint: Fever ED Provider: Eric Glass Dx/Rx/DC Orders Clinical Impression: History of breast cancer, Fever, Viral syndrome, History of anemia Instructions: ED Fever Control (Adult) Prescriptions: No Action amlodipine 10 mg Tablet 10 mg PO DAILY Qty: 30 2RF phenazopyridine [Pyridium] 200 mg tablet 200 mg PO TID Qty: 10 0RF lidocaine-prilocaine 2.5-2.5 % cream 1 applic topical ONCE PRN (Reason: port access) 30 Days Qty: 30 2RF ondansetron 8 mg tablet,disintegrating 8 mg PO Q8H PRN (Reason: nausea and vomiting) Qty: 30 2RF Primary Care Provider: Pk Piedra Referrals: Pk Piedra MD [Primary Care Provider] - 3-5 Days if not improving Activity Restrictions/Additional Instructions: Your tests look good. Plenty of fluids. Tylenol as needed for fever. Follow-up with your doctor if not improving. Return to the ER if feeling worse. Your urinalysis showed 5-10 white cells. You are not having any UTI symptoms. There is no bacteria in it. Will send a culture. If the culture is positive for infection we will contact you and start you on antibiotic. That should be back in 24 to 48 hours. Disposition Disposition: Home, Self Care
--- NOTE | 2023-06-25 18:55 | RAD_ITS ---
STUDY: X-RAY CHEST REASON FOR EXAM: Female, 53 years old. fever TECHNIQUE: PA and lateral views of the chest. COMPARISON: None. FINDINGS: Left internal jugular chest port. Status post right axillary lymph node dissection. The lungs are clear and expanded. There is no demonstrated pleural abnormality. Normal size heart. Normal mediastinum and trevin. Normal visualized pulmonary arteries. Normal visualized aortic arch and descending thoracic aorta. Normal visualized thoracic spine. Normal visualized ribs, clavicles, and shoulders. There is no demonstrated abnormality of the visualized soft tissue structures of the upper abdomen. RAD/Chest PA and Lateral IMPRESSION: No active disease. Electronically Signed: Chance Ayala MD at 19:26 EDT ,
[2023-06-25 18:58] LABS: Absolute Lymphocyte Count 0.74 X10^3/uL (0.83-4.51); Basophil# 0.02 X10^3/uL; Basophil% 0.4 % (0-1); Eosinophil# 0.02 X10^3/uL; Eosinophils% 0.4 % (0-5); Hematocrit 34.3 % (37-47); Hemoglobin 11.6 g/dL (12.0-15.0); Lymphocyte # 0.74 X10^3/ul (0.83-4.51); Lymphocyte % 14.5 % (19-41); Mean Corp Hgb Conc 33.8 g/dL (32-36); Mean Corpuscular Volume 97.7 fL (81-99); Mean Platelet Vol. 9.3 fl (6.2-12.0); Monocyte# 0.35 X10^3/uL; Monocyte% 6.8 % (0-10); NRBC Flagged by Analyzer 0 % (0-5); Neutrophil # 3.99 X10^3/uL (2.7-7.7); Neutrophil % 77.9 % (47-70); Platelet Count 206 K/mm3 (150-450); RBC Distribution Width CV 13.9 % (11.6-14.6); RBC Distribution Width SD 49.8 fl (35.1-43.9); Red Blood Count 3.51 M/mm3 (4.2-5.4); White Blood Count 5.1 K/mm3 (4.4-11.0)
[2023-06-25 19:00] VITALS: BP 135/80; PULSE 79; RESP 16; TEMP 37.1; O2SAT 99
[2023-06-25 19:19] LABS: Bacteria 0 SEEN /hpf (None Seen); Mucous, Urine 0 SEEN /hpf (<or=2+); Red Blood Cells-Urine 0 SEEN /hpf (0-5)
[2023-06-25 19:21] LABS: Color, Urine Yellow (Yellow); Glucose, Dipstick Normal (Normal); Ketone-Dipstick Negative (Negative); Leukocyte Esterase-Dipstick 500 /ul (Negative); Nitrite-Dipstick Negative (Negative); Occult Blood-Urine 10 /ul (Negative); Protein-Dipstick 15 mg/dl (Negative); Specific Gravity, Urine 1.015 (1.002-1.030); Urine Bilirubin Dipstick Negative (Negative); Urine Clarity Clear (Clear); Urine Urobilinogen Normal (Normal)
[2023-06-25 19:31] LABS: Anion Gap 8 (5-15); BUN 19 mg/dL (7-18); BUN/Creat Ratio 14.5 RATIO (10-20); Calcium,Total 8.7 mg/dL (8.5-10.1); Chloride 110 mmol/L (98-107); Creatinine, Serum 1.31 mg/dL (0.55-1.02); EST Glomerular Filtration Rate 45 mL/min (>60); Est Glom Filt Rate - Afr Amer 55 mL/min (>60); Estimated Creatinine Clearance 60.87 ml/min; Glucose 109 mg/dL (74-106); Potassium 3.6 mmol/L (3.5-5.1); Sodium Level 139 mmol/L (136-145)
[2023-06-25 19:31] LABS: Squamous Epithelial Cells - UA 0-5 SEEN /hpf (5-10); White Blood Cells 5-10 SEEN /hpf (0-5)
[2023-06-25 20:25] VITALS: BP 124/63; PULSE 69; RESP 18; TEMP 36.6; O2SAT 100
== END 2023-06-25 20:27 | disposition home or self-care (01) ==
PROVIDERS: Emergency Provider Emergency Medicine; PCP Family Medicine; Visit Provider Emergency Medicine
DX: R50.9 Fever, unspecified (principal); B34.9 Viral infection, unspecified; Z85.3 Personal history of malignant neoplasm of breast
CPT/HCPCS: 71046; 80048; 81001; 85025; 87631; 99282; A4216

== ENCOUNTER → 2023-07-07 | Outpatient (CLI) | payer OTHER, SELFPAY ==
[2023-07-13 13:08] LABS: HPV APTIMA, High Risk Negative (Negative)
== END | disposition home or self-care (01) ==
LOC: LABSPEC 16:51
PROVIDERS: PCP Family Medicine; Referring Provider Obstetrics & Gynecology; Visit Provider Obstetrics & Gynecology
DX: Z12.4 Encounter for screening for malignant neoplasm of cervix (principal)
CPT/HCPCS: 87624; 88175; G0145

== ENCOUNTER 2023-07-19 23:32 | Emergency (ER) | payer OTHER, SELFPAY ==
[2023-07-19 23:33] VITALS: BP 192/102; PULSE 77; RESP 24; TEMP 36.1; O2SAT 100
[2023-07-20] MEDS: 0.9% Normal Saline (1000mL) 1,000 ML 999 ML IV ×2 (00:14→00:57)
[2023-07-20] MEDS: Ondansetron 4 MG/2 ML Vial IV (00:14)
[2023-07-20] MEDS: Morphine 4 MG/ML Syringe IV (00:14)
[2023-07-20 00:24] LABS: Absolute Lymphocyte Count 1.06 X10^3/uL (0.83-4.51); Absolute Neutrophil Count 3.6 X10^3/uL (2.0-7.7); Basophil# 0.02 X10^3/uL; Basophil% 0.4 % (0-1); Eosinophil# 0.09 X10^3/uL; Eosinophils% 1.6 % (0-5); Hematocrit 33.6 % (37-47); Hemoglobin 11.7 g/dL (12.0-15.0); Lymphocyte # 1.06 X10^3/ul (0.83-4.51); Lymphocyte % 19.1 % (19-41); Mean Corp Hgb Conc 34.8 g/dL (32-36); Mean Corpuscular Hgb 31.5 pg (27.0-32.0); Mean Corpuscular Volume 90.6 fL (81-99); Mean Platelet Vol. 9.2 fl (6.2-12.0); Monocyte# 0.74 X10^3/uL; Monocyte% 13.4 % (0-10); NRBC Flagged by Analyzer 0 % (0-5); Neutrophil # 3.59 X10^3/uL (2.7-7.7); Neutrophil % 64.8 % (47-70); Platelet Count 301 K/mm3 (150-450); RBC Distribution Width CV 12.6 % (11.6-14.6); RBC Distribution Width SD 41.1 fl (35.1-43.9); Red Blood Count 3.71 M/mm3 (4.2-5.4); White Blood Count 5.5 K/mm3 (4.4-11.0)
[2023-07-20 00:37] LABS: AST(SGOT) 19 U/L (15-37); Alanine Aminotransfer ALT/SGPT 29 U/L (13-56); Albumin, Serum 3.6 g/dL (3.2-5.0); Alkaline Phosphatase 157 U/L (45-117); Anion Gap 10 (5-15); BUN 21 mg/dL (7-18); BUN/Creat Ratio 17.4 RATIO (10-20); Calcium,Total 9.5 mg/dL (8.5-10.1); Chloride 110 mmol/L (98-107); Creatinine, Serum 1.21 mg/dL (0.55-1.02); EST Glomerular Filtration Rate 49 mL/min (>60); Est Glom Filt Rate - Afr Amer 60 mL/min (>60); Globulin 3.5 g/dL (2.2-4.2); Glucose 157 mg/dL (74-106); Lipase 40 U/L (13-75); Magnesium 1.9 mg/dL (1.6-2.6); Potassium 3.2 mmol/L (3.5-5.1); Protein, Total 7.1 g/dL (6.4-8.2); Sodium Level 138 mmol/L (136-145)
[2023-07-20] MEDS: Famotidine 200 MG/20 ML MDV 20 MG in 0.9% Normal Saline (Pres. free 8 ML 300 MG IV (00:56)
[2023-07-20] MEDS: HYDROmorphone 0.5 MG/0.5 ML SYRINGE IV (00:59)
--- NOTE | 2023-07-20 01:15 | EDS_ITS ---
HPI History of Present Illness Chief Complaint: Abd Pain Informant: patient and family Narrative Narrative: Patient is a 53-year-old female with past medical history of breast cancer who is currently undergoing radiation therapy. She states that in the past she has had bouts of generalized abdominal pain and vomiting and was admitted for it. She states she had CT scans as well as scopes that did not find an obvious cause. She states that occasionally she can related to food that she eats. She does states she had radiation today but was doing well and this evening developed generalized upper abdominal pain with bouts of nausea and vomiting. She states she cannot get the pain or symptoms under control and secondary to this comes in for evaluation [facility] Medical History Alcohol use Breast cancer, left Cancer Complicated UTI (urinary tract infection) Encounter for education Gastric reflux History of breast cancer History of echocardiogram History of edema History of stress test Hypercholesterolemia Invasive ductal carcinoma of right breast Migraine headache Non-smoker Wears glasses Home Medications lidocaine-prilocaine 2.5 %-2.5 % topical cream 1 applic topical ONCE PRN port access 30 days #30 grams 07/12/22 [Rx Last Taken 08/31/22] ondansetron 8 mg disintegrating tablet 8 mg PO Q8H PRN nausea and vomiting #30 tabs 07/12/22 [Rx Last Taken Unknown] amlodipine 10 mg tablet 10 mg PO DAILY #30 tabs 09/14/22 [Rx Last Taken Unknown] oxycodone-acetaminophen 5 mg-325 mg tablet (Percocet) 1 tab PO Q6H PRN pain 5 days #20 tabs 07/20/23 [Rx Last Taken Unknown] prochlorperazine maleate 10 mg tablet (Compazine) 10 mg PO TID PRN nausea and vomiting #21 tabs 07/20/23 [Rx Last Taken Unknown] Allergy/AdvReac Type Severity Reaction Status Date / Time sulfamethoxazole Allergy Intermediate rash Verified 07/19/23 23:36 [From Bactrim] trimethoprim [From Bactrim] Allergy Intermediate rash Verified 07/19/23 23:36 Family History Grandmother Breast cancer Paternal CVA (cerebral vascular accident) Aunt Breast cancer Paternal Surgical History History of left breast biopsy History of vascular access device Hx of breast biopsy Social History adopted: Yes household members: spouse 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 [employer] current occupational exposures/hazards: No pets and animals: No history of recent travel: No sexually active: No Smoking Status: Never smoker alcohol intake: current alcohol intake frequency: a few times a month details: Not since CA dx substance use type: does not use well-balanced diet: daily or most days caffeine: Yes (a few times a week) Type: coffee eating out: 1-3 times/week during the past year weight has: decreased > 10 lbs what type of physical activity do you participate in: walking frequency: 3-4 times per week duration: 15-30 minutes/day seatbelt use: sometimes do you feel safe at home: Yes additional social history: ROS ROS ED Constitutional Constitutional ED: Denies chills or fever(s) ENT ENT ED: Denies rhinorrhea or sore throat Cardiovascular Cardiovascular: Denies chest pain Respiratory/Chest Respiratory/Chest: Denies cough or dyspnea Gastrointestinal Gastrointestinal: Reports abdominal pain, nausea and vomiting; Denies diarrhea Genitourinary Genitourinary ED: Denies dysuria Musculoskeletal Musculoskeletal: Denies myalgias Integumentary Denies rash Neurologic Neurologic: Denies headache(s) Hematologic/Lymphatic Hematologic/Lymphatic: Denies easy bleeding or easy bruising EXAM Physical Exam Const Vital Signs: 07/19/23 23:33 07/20/23 01:33 07/20/23 02:23 Temperature 96.9 F L Temperature Source Temporal Pulse Rate 77 65 74 Respiratory Rate 24 H 18 18 Blood Pressure 192/102 H 196/110 H 203/89 H Blood Pressure Mean 132 138 127 Pulse Ox 100 98 100 Oxygen Delivery Method Room Air Room Air Room Air 07/20/23 02:30 Temperature Temperature Source Pulse Rate 84 Respiratory Rate 18 Blood Pressure 184/94 H Blood Pressure Mean 124 Pulse Ox 99 Oxygen Delivery Method Room Air Positive well nourished and well developed General Appearance ED: well developed; Negative for pallor HEENT HEENT Narrative: Mucous membranes are slightly dry and tacky No oral lesions no airway edema or compromise or secondary changes to suggest infection in the posterior pharynx Eyes PERRL and EOMs intact bilaterally General Eye ED: Negative for scleral icterus Neck supple Neck Narrative: No nuchal rigidity or meningeal signs Resp normal respiratory effort and clear to auscultation bilaterally Cardio regular rate and regular rhythm GI non-distended and no masses GI Narrative: Abdomen is soft and nondistended with normal active bowel sounds. There is pain on palpation in the midepigastric region without voluntary guarding or rigidity No pulsatile mass or fluid wave Auscultation: normoactive bowel sounds Palpation: soft Extremity normal to inspection Neuro oriented x3, CN's II-XII intact bilaterally and no sensory deficits noted Sensorium / Orientation: alert Motor Exam: strength 5/5 throughout Psych mental status grossly normal Skin no rashes or lesions noted and no wounds General Skin Exam: Negative for jaundice or pallor MDM MDM MDM Narrative Medical decision making narrative: Patient arrived to the ER hypertensive with bouts of nausea and vomiting. She states this has happened in the past and she was admitted and underwent multiple imaging and scopes with no obvious cause. Patient her symptoms concern is for biliary colic versus acute cholecystitis versus pancreatitis versus neutropenic infection versus acute kidney injury versus electrolyte abnormality. Patient blood work was obtained and reveals no derangement/low value for her neutrophil count and her kidney function is at her baseline going against NGOC. Her bicarb is low at 18 consistent with her symptoms and her lactic is also elevated consistent with dehydration. Patient was given 2 L of fluid and treated with morphine Zofran Compazine and Benadryl and she had resolution of her pain as we ll as resolution of her nausea and vomiting and her blood pressure also improved. Therefore this time with resolution of symptoms and abdomen being soft and nonsurgical upon initial evaluation and repeat evaluation I do not feel there is need for CT scan or admission especially as patient is not neutropenic and she is otherwise safe for discharge with symptomatic care History & Record Review Discussion w/independent historian: Patient and Family Lab Data Attestation: I reviewed the patient's lab results. Labs: Laboratory Results - last 24 hr 07/20/23 00:10 WBC 5.5 RBC 3.71 L Hgb 11.7 L Hct 33.6 L MCV 90.6 MCH 31.5 MCHC 34.8 RDW Std Deviation 41.1 RDW Coeff of Sydnee 12.6 Plt Count 301 MPV 9.2 Immature Gran % (Auto) 0.700 Neut % (Auto) 64.8 Lymph % (Auto) 19.1 [place] % (Auto) 13.4 H Eos % (Auto) 1.6 Baso % (Auto) 0.4 Absolute Neuts (auto) 3.6 Absolute Lymphs (auto) 1.06 Nucleated RBC % 0 Sodium 138 Potassium 3.2 L Chloride 110 H Carbon Dioxide 18.0 L Anion Gap 10 BUN 21 H Creatinine 1.21 H Est GFR (MDRD) Af Amer 60 Est GFR (MDRD) Non-Af 49 L BUN/Creatinine Ratio 17.4 Glucose 157 H Lactic Acid 3.0 H* Calcium 9.5 Magnesium 1.9 Total Bilirubin 0.30 Direct Bilirubin 0.10 AST 19 ALT 29 Alkaline Phosphatase 157 H Total Protein 7.1 Albumin 3.6 Globulin 3.5 Lipase 40 Procalcitonin < 0.04 Discharge Plan Triage Chief Complaint: Abd Pain ED Provider: Devyn Jaime Dx/Rx/DC Orders Clinical Impression: Nonspecific abdominal pain, Nausea and vomiting, Dehydration, Invasive ductal carcinoma of right breast, Hypertension Instructions: Abdominal Pain, ED Vomiting (Adult) Prescriptions: New oxycodone-acetaminophen [Percocet] 5-325 mg tablet 1 tab PO Q6H PRN (Reason: pain) 5 Days Qty: 20 0RF prochlorperazine maleate [Compazine] 10 mg tablet 10 mg PO TID PRN (Reason: nausea and vomiting) Qty: 21 0RF No Action amlodipine 10 mg Tablet 10 mg PO DAILY Qty: 30 2RF lidocaine-prilocaine 2.5-2.5 % cream 1 applic topical ONCE PRN (Reason: port access) 30 Days Qty: 30 2RF ondansetron 8 mg tablet,disintegrating 8 mg PO Q8H PRN (Reason: nausea and vomiting) Qty: 30 2RF Primary Care Provider: Victor M Piedra Referrals: Victor M Piedra MD [Primary Care Provider] - Disposition Disposition: Home, Self Care
[2023-07-20 01:33] VITALS: BP 196/110; PULSE 65; RESP 18; O2SAT 98
[2023-07-20 01:54] LABS: Procalcitonin < 0.04 ng/mL (0.00-0.09)
[2023-07-20] MEDS: proCHLORPERazine 10 MG/2 ML Vial IV (02:16)
[2023-07-20] MEDS: DiphenhydrAMINE 50 MG/ML Syringe 25 MG IV (02:16)
[2023-07-20 02:23] VITALS: BP 203/89; PULSE 74; RESP 18; O2SAT 100
[2023-07-20 02:30] VITALS: BP 184/94; PULSE 84; RESP 18; O2SAT 99
[2023-07-20 02:45] VITALS: BP 172/99; PULSE 60; RESP 16; O2SAT 99
[2023-07-20 03:38] VITALS: BP 204/104; PULSE 81; RESP 16; TEMP 36.4; O2SAT 99
[2023-07-20 04:15] LABS: Reflex Lactate? Y
== END 2023-07-20 03:49 | disposition home or self-care (01) ==
PROVIDERS: Emergency Provider Emergency Medicine; PCP Family Medicine; Visit Provider Emergency Medicine
DX: R10.9 Unspecified abdominal pain (principal); C50.911 Malignant neoplasm of unspecified site of right female breast; I10 Essential (primary) hypertension; E86.0 Dehydration; R11.2 Nausea with vomiting, unspecified
CPT/HCPCS: 80048; 80076; 83605; 83690; 83735; 84145; 85025; 96361; 96365; 96375; 99282; J7030; A4216; J2405; J3490

== ENCOUNTER 2023-07-20 08:34 | Emergency (ER) | payer OTHER, SELFPAY ==
[2023-07-20 08:34] VITALS: BP 193/103; PULSE 83; RESP 16; TEMP 36.6; O2SAT 100; BMI 30.4
--- NOTE | 2023-07-20 09:18 | US_ITS ---
STUDY: ABDOMINAL ULTRASOUND - RIGHT UPPER QUADRANT REASON FOR VISIT: Female, 53 years old . Mid epigastric pain. TECHNIQUE: Ultrasound evaluation of the right upper quadrant was performed with real-time and static merritt-scale imaging. TECHNICAL QUALITY: Adequate. COMPARISON: Comparison is made with prior CT scan abdomen and pelvis dated September 08, 2022. FINDINGS: Liver: The liver measures 15.2 cm. There is increased echogenicity consistent with fatty infiltration. The bile ducts are within normal limits. There is hepatic color flow. The direction of portal flow is hepatopetal. There is no demonstrated mass lesion. Gallbladder: Normal distended gallbladder. The gallbladder wall measures 2 mm. There is a negative sonographic Bourne''s sign. There is no pericholecystic fluid. There are no gallstones. Common Bile Duct (C.B.D.): The common bile duct measures 5.2 mm. Pancreas: Normal size of the head, body and tail of the pancreas. There is normal echogenicity of the pancreas. There is no demonstrated pancreatic mass or cyst. Right Kidney: Normal size of the right kidney. The right kidney measures 10.1 cm x 3.4 cm x 4.9 cm. cm. Normal renal cortex. The right cortex measures 1 cm. There is no demonstrated renal mass or cyst. There is no right hydronephrosis. US/Gallbladder IMPRESSION: Fatty infiltration of the liver. Electronically Signed: Jamie Langford MD at 11:17 EDT ,
--- NOTE | 2023-07-20 09:21 | EDS_ITS ---
HPI History of Present Illness Chief Complaint: Abd Pain Informant: patient and family Narrative Narrative: 53-year-old female presenting to the emergency room with a chief complaint of abdominal pain vomiting. Patient has a history of breast cancer currently und ergoing radiation with [facility] here in [place]. Patient notes that about a year ago she had similar symptoms. She states she follow-up with gastroenterology had negative endoscopy and no specific cause was found. Patient states she been doing pretty well until yesterday afternoon around 1600 hrs. when the pain returned as well as vomiting. Patient states she was seen in the emergency room during the overnight hours and was discharged home feeling better. She fell asleep when she woke the pain had returned. She has not yet taken the pain medication that she was prescribed. Patient states that the throbbing-like pain that waxes and wanes. She points to her epigastrium as the area that hurts. She states she is concerned because she did not get a CT scan and she is worried about cancer. There is no reported metastasis of her cancer. Patient denies any fevers. She notes no abdominal distention or diarrhea. Patient denies any prior abdominal surgeries. Pain is worse with movement vomiting and breathing. She states light touch on her abdomen hurts. [facility] Medical History Alcohol use Breast cancer, left Cancer Complicated UTI (urinary tract infection) Encounter for education Gastric reflux History of breast cancer History of echocardiogram History of edema History of stress test Hypercholesterolemia Invasive ductal carcinoma of right breast Migraine headache Non-smoker Wears glasses Home Medications lidocaine-prilocaine 2.5 %-2.5 % topical cream 1 applic topical ONCE PRN port access 30 days #30 grams 07/12/22 [Rx Last Taken 07/18/23] ondansetron 8 mg disintegrating tablet 8 mg PO Q8H PRN nausea and vomiting #30 tabs 07/12/22 [Rx Last Taken 07/18/23] amlodipine 10 mg tablet 10 mg PO DAILY #30 tabs 09/14/22 [Rx Last Taken 07/18/23] oxycodone-acetaminophen 5 mg-325 mg tablet (Percocet) 1 tab PO Q6H PRN pain 5 days #20 tabs 07/20/23 [Rx Last Taken 07/18/23] prochlorperazine maleate 10 mg tablet (Compazine) 10 mg PO TID PRN nausea and vomiting #21 tabs 07/20/23 [Rx Last Taken 07/18/23] Allergy/AdvReac Type Severity Reaction Status Date / Time sulfamethoxazole Allergy Intermediate rash Verified 07/20/23 08:34 [From Bactrim] trimethoprim [From Bactrim] Allergy Intermediate rash Verified 07/20/23 08:34 Family History Grandmother Breast cancer Paternal CVA (cerebral vascular accident) Aunt Breast cancer Paternal Surgical History History of left breast biopsy History of vascular access device Hx of breast biopsy Social History adopted: Yes household members: spouse 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 [employer] current occupational exposures/hazards: No pets and animals: No history of recent travel: No sexually active: No Smoking Status: Never smoker alcohol intake: current alcohol intake frequency: a few times a month details: Not since CA dx substance use type: does not use well-balanced diet: daily or most days caffeine: Yes (a few times a week) Type: coffee eating out: 1-3 times/week during the past year weight has: decreased > 10 lbs what type of physical activity do you participate in: walking frequency: 3-4 times per week duration: 15-30 minutes/day seatbelt use: sometimes do you feel safe at home: Yes additional social history: ROS ROS ED Constitutional Constitutional ED: Denies chills, fever(s) or weight loss Eyes Eyes: Denies change in vision or diplopia ENT ENT ED: Denies ear pain, rhinorrhea or sore throat Cardiovascular Cardiovascular: Denies chest pain, orthopnea, palpitations or racing heartbeat Respiratory/Chest Respiratory/Chest: Denies cough, dyspnea or orthopnea Gastrointestinal Gastrointestinal: Reports abdominal pain, nausea and vomiting; Denies constipation or diarrhea Genitourinary Genitourinary ED: Denies dysuria, hematuria or urinary frequency Musculoskeletal Musculoskeletal: Denies arthralgias, back pain or myalgias Integumentary Denies abscess or rash Neurologic Neurologic: Denies headache(s) or weakness Psychiatric Psychiatric: Denies anxiety, depression, suicidal ideation or suicidal thoughts Endocrine Endocrinology: Denies polydipsia, polyphagia or polyuria Allergic/Immunologic Allergic/Immunologic ED: Denies mouth swelling, tongue swelling or urticaria EXAM Physical Exam Const Vital Signs: 07/20/23 08:34 07/20/23 10:34 07/20/23 12:00 Temperature 97.8 F 97.8 F Temperature Source Temporal Temporal Pulse Rate 83 78 78 Respiratory Rate 16 16 16 Blood Pressure 193/103 H 188/91 H 134/78 H Blood Pressure Mean 133 123 96 Pulse Ox 100 98 97 Oxygen Delivery Method Room Air Room Air Room Air 07/20/23 12:34 Temperature 97.6 F L Temperature Source Pulse Rate 78 Respiratory Rate 14 Blood Pressure 145/64 H Blood Pressure Mean 91 Pulse Ox 99 Oxygen Delivery Method Positive well nourished and well developed General Appearance ED: well developed HEENT Reports normocephalic, head/scalp atraumatic and moist mucous membranes Eyes PERRL and EOMs intact bilaterally Neck no lymphadenopathy, supple and no JVD Resp normal respiratory effort and clear to auscultation bilaterally Cardio regular rate, regular rhythm and no murmurs GI Inspection: Negative for abdominal distention Auscultation: normoactive bowel sounds Palpation: soft and tender epigastric, LUQ, RUQ and other; Negative for rebound tenderness present Back/Spine no CVA tenderness and normal ROM Extremity normal to inspection General Extremety ED: Negative for edema General Extremity: Negative for edema Neuro oriented x3 and CN's II-XII intact bilaterally Sensorium / Orientation: alert Motor Exam: strength 5/5 throughout Psych mental status grossly normal Mood & Affect: Negative for depressed or tearful Skin no rashes or lesions noted and no wounds MDM MDM MDM Narrative Medical decision making narrative: I did repeat the blood work her white count is 6.7 hemoglobin 12.5 platelet count 296 which appears stable. Creatinine 0.89 normal electrolytes glucose 131. Lactic acid right now is 0.5 normal liver enzymes except for an alkaline phosphatase of 142 lipase is 30. Urinalysis is normal. I saw a prior CT of the abdomen pelvis showed possible gallbladder sludge. Given her symptoms a gallbladder ultrasound was obtained. No evidence of cholelithiasis at this time. Pancreas appears normal. The patient received pain and nausea medication and fluids. She was previously written for pain and nausea medications. We talked to her regarding follow-up possibly seeing GI again. Also advised her sh e may need a HIDA scan and to discuss this with her doctor. Patient is understanding of plan History & Record Review Discussion w/independent historian: Patient and Family Additional record(s) reviewed:: Prior outpatient record, Prior ED visit and Prior labs Lab Data Attestation: I reviewed the patient's lab results. Labs: Laboratory Results - last 24 hr 07/20/23 07/20/23 09:59 11:05 WBC 6.7 RBC 3.99 L Hgb 12.5 Hct 36.3 L MCV 91.0 MCH 31.3 MCHC 34.4 RDW Std Deviation 41.5 RDW Coeff of Sydnee 12.4 Plt Count 296 MPV 9.4 Immature Gran % (Auto) 0.300 Neut % (Auto) 88.7 H Lymph % (Auto) 6.1 L [place] % (Auto) 4.8 Eos % (Auto) 0.0 Baso % (Auto) 0.1 Absolute Neuts (auto) 5.9 Absolute Lymphs (auto) 0.41 L Nucleated RBC % 0 Sodium 136 Potassium 3.7 Chloride 106 Carbon Dioxide 23.0 Anion Gap 7 BUN 13 Creatinine 0.89 Estim Creat Clear Calc 88.97 Est GFR (MDRD) Af Amer 85 Est GFR (MDRD) Non-Af 70 BUN/Creatinine Ratio 14.6 Glucose 131 H Lactic Acid 0.5 Calcium 9.1 Total Bilirubin 0.40 Direct Bilirubin 0.08 AST 20 ALT 27 Alkaline Phosphatase 142 H Total Protein 7.6 Albumin 3.9 Globulin 3.7 Lipase 30 Urine Color Yellow Urine Clarity Clear Urine pH 7.0 Ur Specific [place] 1.010 Urine Protein 100 H Urine Glucose (UA) Normal Urine Ketones Negative Urine Occult Blood 10 H Urine Nitrite Negative Urine Bilirubin Negative Urine Urobilinogen Normal Ur Leukocyte Esterase 25 H Urine RBC 0 SEEN Urine WBC 0-5 SEEN Ur Squamous Epith Cells 0 SEEN Urine Bacteria 0 SEEN Urine Mucus 0 SEEN Radiography Diagnostic Testing: Clinical Impression(s) from Imaging Studies Gallbladder Ultrasound 07/20/23 09:18 IMPRESSION: Fatty infiltration of the liver. Electronically Signed: Jamie Langford MD at 11:17 EDT , Discharge Plan Triage Chief Complaint: Abd Pain ED Provider: Chin Iglesias Dx/Rx/DC Orders Clinical Impression: Breast cancer, Abdominal pain, Vomiting Instructions: HIDA Scan, ED Abdominal Pain Unkn Cause Fem Prescriptions: No Action amlodipine 10 mg Tablet 10 mg PO DAILY Qty: 30 2RF prochlorperazine maleate [Compazine] 10 mg tablet 10 mg PO TID PRN (Reason: nausea and vomiting) Qty: 21 0RF oxycodone-acetaminophen [Percocet] 5-325 mg tablet 1 tab PO Q6H PRN (Reason: pain) 5 Days Qty: 20 0RF lidocaine-prilocaine 2.5-2.5 % cream 1 applic topical ONCE PRN (Reason: port access) 30 Days Qty: 30 2RF ondansetron 8 mg tablet,disintegrating 8 mg PO Q8H PRN (Reason: nausea and vomiting) Qty: 30 2RF Primary Care Provider: Victor M Piedra Referrals: Victor M Piedra MD [Primary Care Provider] - As soon as possible (Please discuss HIDA scan with your doctor) Disposition Disposition: Home, Self Care Discharge Date/Time: 07/20/23 12:35
[2023-07-20 10:17] LABS: Absolute Lymphocyte Count 0.41 X10^3/uL (0.83-4.51); Absolute Neutrophil Count 5.9 X10^3/uL (2.0-7.7); Basophil# 0.01 X10^3/uL; Basophil% 0.1 % (0-1); Hematocrit 36.3 % (37-47); Hemoglobin 12.5 g/dL (12.0-15.0); Lymphocyte # 0.41 X10^3/ul (0.83-4.51); Lymphocyte % 6.1 % (19-41); Mean Corp Hgb Conc 34.4 g/dL (32-36); Mean Corpuscular Hgb 31.3 pg (27.0-32.0); Mean Platelet Vol. 9.4 fl (6.2-12.0); Monocyte# 0.32 X10^3/uL; Monocyte% 4.8 % (0-10); NRBC Flagged by Analyzer 0 % (0-5); Neutrophil # 5.93 X10^3/uL (2.7-7.7); Neutrophil % 88.7 % (47-70); POSITIVE DIFFERENTIAL YES; Platelet Count 296 K/mm3 (150-450); RBC Distribution Width CV 12.4 % (11.6-14.6); RBC Distribution Width SD 41.5 fl (35.1-43.9); Red Blood Count 3.99 M/mm3 (4.2-5.4); White Blood Count 6.7 K/mm3 (4.4-11.0)
[2023-07-20 10:34] VITALS: BP 188/91; PULSE 78; RESP 16; O2SAT 98
[2023-07-20 10:36] LABS: Lactic Acid 0.5 mmol/L (0.4-1.9)
[2023-07-20] MEDS: Ondansetron 4 MG/2 ML Vial IV (11:00)
[2023-07-20] MEDS: 0.9% Normal Saline (1000mL) 1,000 ML 1000 ML IV (11:01)
[2023-07-20] MEDS: Morphine 4 MG/ML Syringe IV (11:01)
--- NOTE | 2023-07-20 11:03 | ED.RN ---
pt wrist band shows a % sign in place of one of the numbers, verified pt. info. that is why wrist band was not scanned.
[2023-07-20 11:09] LABS: Bacteria 0 SEEN /hpf (None Seen); Mucous, Urine 0 SEEN /hpf (<or=2+); Red Blood Cells-Urine 0 SEEN /hpf (0-5); Squamous Epithelial Cells - UA 0 SEEN /hpf (5-10)
[2023-07-20 11:14] LABS: Color, Urine Yellow (Yellow); Glucose, Dipstick Normal (Normal); Ketone-Dipstick Negative (Negative); Leukocyte Esterase-Dipstick 25 /ul (Negative); Nitrite-Dipstick Negative (Negative); Occult Blood-Urine 10 /ul (Negative); Protein-Dipstick 100 mg/dl (Negative); Urine Bilirubin Dipstick Negative (Negative); Urine Clarity Clear (Clear); Urine Urobilinogen Normal (Normal)
[2023-07-20 11:17] LABS: AST(SGOT) 20 U/L (15-37); Alanine Aminotransfer ALT/SGPT 27 U/L (13-56); Albumin, Serum 3.9 g/dL (3.2-5.0); Alkaline Phosphatase 142 U/L (45-117); Anion Gap 7 (5-15); BUN 13 mg/dL (7-18); BUN/Creat Ratio 14.6 RATIO (10-20); Bilirubin, Direct 0.08 mg/dL (0.00-0.30); Calcium,Total 9.1 mg/dL (8.5-10.1); Chloride 106 mmol/L (98-107); Creatinine, Serum 0.89 mg/dL (0.55-1.02); EST Glomerular Filtration Rate 70 mL/min (>60); Est Glom Filt Rate - Afr Amer 85 mL/min (>60); Estimated Creatinine Clearance 88.97 ml/min; Globulin 3.7 g/dL (2.2-4.2); Glucose 131 mg/dL (74-106); Lipase 30 U/L (13-75); Potassium 3.7 mmol/L (3.5-5.1); Protein, Total 7.6 g/dL (6.4-8.2); Sodium Level 136 mmol/L (136-145)
[2023-07-20 11:35] LABS: White Blood Cells 0-5 SEEN /hpf (0-5)
[2023-07-20 12:00] VITALS: BP 134/78; PULSE 78; RESP 16; TEMP 36.6; O2SAT 97
[2023-07-20 12:34] VITALS: BP 145/64; PULSE 78; RESP 14; TEMP 36.4; O2SAT 99
== END 2023-07-20 12:35 | disposition home or self-care (01) ==
PROVIDERS: Emergency Provider Emergency Medicine; PCP Family Medicine; Visit Provider Emergency Medicine
DX: C50.919 Malignant neoplasm of unspecified site of unspecified female breast (principal); R10.9 Unspecified abdominal pain; R11.0 Nausea; Z80.3 Family history of malignant neoplasm of breast; Z79.899 Other long term (current) drug therapy
CPT/HCPCS: 36591; 76705; 80048; 80076; 81001; 83605; 83690; 85025; 96361; 96374; 96375; 99284; J7030; A4216; J2405

== ENCOUNTER → 2024-07-02 | Outpatient (CLI) | payer OTHER, SELFPAY ==
[2024-07-06 11:09] LABS: HPV APTIMA, High Risk Negative (Negative)
== END | disposition home or self-care (01) ==
LOC: LABSPEC 15:03
PROVIDERS: PCP Family Medicine; Referring Provider Obstetrics & Gynecology; Visit Provider Obstetrics & Gynecology
DX: Z12.4 Encounter for screening for malignant neoplasm of cervix (principal)
CPT/HCPCS: 87624; 88175; G0145

== ENCOUNTER → 2024-08-07 | Outpatient (CLI) | payer OTHER, SELFPAY ==
--- NOTE | 2024-08-07 13:55 | US_ITS ---
PROCEDURE: PELVIC W/ TRANSVAGINAL 08/07/2024 REASON FOR EXAM: BREAST CANCER TECHNIQUE: Transabdominal and transvaginal pelvic ultrasound. Color doppler analysis of the ovaries. COMPARISON: None. FINDINGS: Measurements: Uterus: 9.1 x 4.8 x 5.7 cm for volume of 130.0 mL Endometrial Thickness: 0.5 cm Right Ovary: 2.0 x 1.5 x 1.2 cm for volume of 2.0 mL Left Ovary: 1.7 x 1.3 x 1.1 cm for volume of 1.3 mL. Uterus: Normal size, myometrial echotexture, and contour. There are heterogeneous predominantly hypoechoic lesions at the posterior uterine body measuring 0.9 x 1.1 x 0.9 cm and near the uterine fundus measuring 1.2 x 0.8 x 1.1 cm. Tiny anechoic lesions near the endometrial stripe measuring up to 0.4 cm. Endometrium: Unremarkable. Right ovary: Normal size and echotexture. Left ovary: Normal size and echotexture. Color Doppler: Normal color flow doppler signal at both ovaries. US/Pelvic w/ Transvaginal IMPRESSION: 1. Cystic changes at the endometrium, as may be seen with endometrial hyperpla alexander. 2. Heterogeneous myometrial lesions measuring up to 1.2 cm, statistically like ly to represent leiomyomas. Reading Location: [id number]
== END | disposition home or self-care (01) ==
PROVIDERS: PCP Family Medicine; Referring Provider Obstetrics & Gynecology; Visit Provider Obstetrics & Gynecology
DX: Z15.01 Genetic susceptibility to malignant neoplasm of breast (principal); C50.912 Malignant neoplasm of unspecified site of left female breast; Z15.02 Genetic susceptibility to malignant neoplasm of ovary; Z17.0 Estrogen receptor positive status [ER+]
CPT/HCPCS: 76830; 76856

== ENCOUNTER → 2024-08-23 | Outpatient (CLI) | payer OTHER, SELFPAY ==
--- NOTE | 2024-08-23 11:00 | EMB_PTH ---
PATIENT: ZAN FERRERA LOC: [facility] U#:[id number] AGE/SX: 54/F ROOM: RE08/23/[address]: Dr. Selam Lorenz DO : 1970 BED: DIS: 08/23/2024 SPEC #: [id number] RECD: 08/23/24 16:42 STATUS: GEETHA DEE #: [id number] SUMMER: 08/23/24 11:[address]: Selam Lorenz DEPT: SURGICAL PATHOLOGY RECD BY: Henry Molina ENTERED: 08/27/24 08:49 SP TYPE: ENDOM BX/C JUDY DR: Dr. Victor M Piedra MD Tissues: A - Endometrium, NOS Procedures: Surgery Specimen Level IV HEADER OPERATION: Endometrial biopsy PRE-OP DIAGNOSIS: Thickened endometrium TISSUE SUBMITTED: A- Endometrial lining MICROSCOPIC DIAGNOSIS A. Endometrium, biopsy: * Proliferative endometrium, extensively fragmented. * Fragments of lower uterine segment. MICROSCOPIC DESCRIPTION Slides are reviewed. GROSS DESCRIPTION A. Received in formalin in a container labeled with the patient's name, date of , and EMB are multiple michel fragments of soft tissue admixed with blood and mucus measuring 0.8 x 0.7 x 0.2 cm in aggregate. Submitted in toto in A1. B 08-27-2024 CPT:63858
== END | disposition home or self-care (01) ==
LOC: LABSPEC 14:23
PROVIDERS: PCP Family Medicine; Referring Provider Obstetrics & Gynecology; Visit Provider Obstetrics & Gynecology
DX: R93.89 Abnormal findings on diagnostic imaging of other specified body structures (principal)
CPT/HCPCS: 88305

== ENCOUNTER 2024-10-25 08:18 | Day surgery (SDC) | payer OTHER, SELFPAY ==
--- NOTE | 2024-10-22 08:41 | EKG12_ITS ---
Test Reason : PRE OP Blood Pressure : */* mmHG Vent. Rate : 80 BPM Atrial Rate : 80 BPM P-R Int : 136 ms QRS Dur : 84 ms QT Int : 366 ms P-R-T Axes : 44 50 48 degrees QTcB Int : 422 ms Normal sinus rhythm Confirmed by Hola Hansen ([id number]), research editor HEBERT RILEY ([id number]) on 10/23/2024 1:44:19 PM Referred By: Selam Lorezn Confirmed By: Hola Hansen
--- NOTE | 2024-10-22 08:41 | EKG12_ITS ---
Test Reason : PRE OP Blood Pressure : */* mmHG Vent. Rate : 80 BPM Atrial Rate : 80 BPM P-R Int : 136 ms QRS Dur : 84 ms QT Int : 366 ms P-R-T Axes : 44 50 48 degrees QTcB Int : 422 ms Normal sinus rhythm Confirmed by Hola Hansen ([id number]), manuscript editor HEBERT RILEY ([id number]) on 10/23/2024 1:44:19 PM Referred By: Selam Lorenz Confirmed By: Hola Hansen
[2024-10-22 09:20] LABS: Hematocrit 37.5 % (37-47); Hemoglobin 12.4 g/dL (12.0-15.0); Mean Corp Hgb Conc 33.1 g/dL (32-36); Mean Corpuscular Volume 93.3 fL (81-99); Mean Platelet Vol. 9.4 fl (6.2-12.0); Platelet Count 278 K/mm3 (150-450); RBC Distribution Width CV 13.2 % (11.6-14.6); RBC Distribution Width SD 45.7 fl (35.1-43.9); Red Blood Count 4.02 M/mm3 (4.2-5.4); White Blood Count 5.1 K/mm3 (4.4-11.0)
[2024-10-22 09:59] LABS: AST(SGOT) 21 U/L (<=31); Alanine Aminotransfer ALT/SGPT 18 U/L (<=34); Albumin, Serum 4.0 g/dL (3.5-5.0); Alkaline Phosphatase 118 U/L (35-104); Anion Gap 13 (5-15); BUN 17 mg/dL (4-19); BUN/Creat Ratio 14.3 RATIO (10-20); Calcium,Total 9.3 mg/dL (7.6-11.0); Carbon Dioxide 19.3 mmol/L (21.0-32.0); Chloride 105 mmol/L (98-108); Globulin 2.8 g/dL (2.2-4.2); Glucose 93 mg/dL (70-99); Magnesium 2.1 mg/dL (1.5-2.2); Potassium 4.2 mmol/L (3.3-5.1)
--- NOTE | 2024-10-22 13:32 | PAT.ANE_ITS ---
Pre-Assessment Diagnosis/Proposed Procedure Planned Operative Procedure(s): (B) Lap Total Robotic Hysterectomy BSO, ERAS Anesthesia History Anesthesia History - environmental officer: Anesthesia History - environmental officer Hx Hospitalization No 10/21/24 14:13 Any Problems With Anesthesia No 10/21/24 14:13 Cholinesterase deficiency No 10/21/24 14:13 You/Your Family Experience No 10/21/24 14:13 fever (hyperthermia) with Relationship Recent Exposure to Contagious No 12/26/22 10:31 Disease Does patient have nerve No 10/21/24 14:13 stimulator Patient instructed to have device shut off --Does patient have Pacemaker or ICD? When Was Last Pacemaker Check QUESTION #4 FULL TEXT: You/Your Family Experience fever (hyperthermia) with Anesthesia Last Oral Intake Last Oral intake: Last Oral Intake NPO since Meds taken in AM with sips of water? Meds patient instructed to take am of surgery PONV PONV - environmental officer: PONV - environmental officer Female Yes 10/21/24 14:13 HX of Motion Sickness Yes 10/21/24 14:13 HX of N/V After Surgery No 10/21/24 14:13 Non-Smoker Yes 10/21/24 14:13 Duration of Surgery greater Yes 10/21/24 14:13 than 60 minutes Number of Risk Factors 4 10/21/24 14:13 PONV Score Severe Risk 10/21/24 14:13 Height & Weight Height & Weight: Anesthesia: Height & Weight Height 5 ft 9 in 09/18/24 10:34 Respiratory Assessment Respiratory Assessment - environmental officer: Respiratory Tract Infection Hx - environmental officer Hx Respiratory Tract Infection No 10/21/24 14:13 STOP Sleep Apnea STOP Sleep Apnea - environmental officer: STOP Sleep Apnea - environmental officer Hx Hypertension No 10/21/24 14:13 Hx Sleep Apnea No 10/21/24 14:13 CPAP BIPAP Do you snore loudly (louder Yes 10/21/24 14:13 than talking or can be heard Do you often feel tired/ No 10/21/24 14:13 fatigued/ sleepy during daytime? Has anyone observed you stop No 10/21/24 14:13 breathing during sleep? STOP Results Negative 10/21/24 14:13 QUESTION #5 FULL TEXT : Do you snore loudly (louder than talking or can be heard through closed doors)? Tobacco Use History Tobacco Use History - environmental officer: Tobacco Use History - environmental officer Tobacco Use Smoking Status Never smoker 10/21/24 14:13 Hx Tobacco Use No 10/21/24 14:13 Years Smoking Packs Smoked per Day Smoking Cessation Date was within the last 15 years Hx Smoking Cessation Date Hx Smoking Cessation Counseling Hematologic Medial History Hematologic Hx - environmental officer: Hematologic Medical Hx - customer retention specialist Hx of Blood Transfusion No 10/21/24 14:13 Hx of Transfusion in last 3 No 10/21/24 14:13 Months Date of Last Transfusion (if within last 3 months) Ever experience any problems No 10/21/24 14:13 with transfusion(s)? Specify any problems Hx of Preganancy in last 3 No 10/21/24 14:13 Months Nurse Filling Out Transfusion MGRIFFITH 10/21/24 14:13 & Questions: Date: 10/21/24 10/21/24 14:13 Time: 14:15 10/21/24 14:13 Patient unable to answer at this time (ie. confused, unrespo /Reproduction History /Reproductive History - environmental officer: /Reproductive Hx- environmental officer Hx Now Gestational Age (in weeks): EDC: Hx Hx Para Hx Section SAB No 08/23/24 10:38 PFSH Medical History (Updated 10/21/24 @ 14:23 by Karrie Carvalho) History of renal disease High cholesterol Heartburn Prerenal azotemia Anemia Complicated UTI (urinary tract infection) History of breast cancer Breast cancer, left Encounter for education Wears glasses Cancer Migraine headache Non-smoker History of edema History of stress test History of echocardiogram Invasive ductal carcinoma of right breast Hypercholesterolemia Home Medications ?Medication ?Instructions ?Recorded ?Last Taken ?Type lidocaine-prilocaine 2.5 %-2.5 % 1 applic topical ONCE PRN port 07/12/22 07/18/23 Rx topical cream access 30 days #30 grams olaparib 150 mg tablet (Lynparza) 300 mg (2 x 150 mg) PO BID 30 days 09/12/23 Unknown Rx #120 tabs ondansetron 8 mg disintegrating 8 mg PO Q8H PRN nausea and 09/25/23 Unknown Rx tablet vomiting #30 tabs tamoxifen 20 mg tablet 20 mg PO DAILY #90 tabs 01/0110/20/24 Rx Allergy/AdvReac Type Severity Reaction Status Date / Time sulfamethoxazole (From Allergy Intermediate rash Verified 10/21/24 14:08 Bactrim) trimethoprim (From Bactrim) Allergy Intermediate rash Verified 10/21/24 14:08 Family History Grandmother Breast cancer Paternal CVA (cerebral vascular accident) Aunt Breast cancer Paternal Surgical History (Updated 10/21/24 @ 14:23 by Karrie Carvalho) History of colonoscopy History of esophagogastroduodenoscopy (EGD) History of mastectomy, total Lymphedema History of vascular access device History of left breast biopsy Hx of breast biopsy Social History adopted: Yes household members: spouse 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 [employer] current occupational exposures/hazards: No pets and animals: No history of recent travel: No sexually active: No Smoking Status: Never smoker alcohol intake: current alcohol intake frequency: a few times a month details: Not since [place] dx substance use type: does not use well-balanced diet: daily or most days caffeine: Yes (a few times a week) Type: coffee eating out: 1-3 times/week during the past year weight has: decreased > 10 lbs what type of physical activity do you participate in: walking frequency: 3-4 times per week duration: 15-30 minutes/day seatbelt use: sometimes do you feel safe at home: Yes additional social history: Audit: Pertinent Findings Pertinent Findings EKG Perinent findings: 01/08/2023 Normal Sinus Rythmn Recommendation Anesthesia Recommendation Anesthesia recommendation: OPTIMIZED for anesthesia
--- NOTE | 2024-10-22 13:32 | PAT.ANE_ITS ---
Pre-Assessment Diagnosis/Proposed Procedure Planned Operative Procedure(s): (B) Lap Total Robotic Hysterectomy BSO, ERAS Anesthesia History Anesthesia History - supervisor extruding department: Anesthesia History - supervisor extruding department Hx Hospitalization No 10/21/24 14:13 Any Problems With Anesthesia No 10/21/24 14:13 Cholinesterase deficiency No 10/21/24 14:13 You/Your Family Experience No 10/21/24 14:13 fever (hyperthermia) with Relationship Recent Exposure to Contagious No 12/26/22 10:31 Disease Does patient have nerve No 10/21/24 14:13 stimulator Patient instructed to have device shut off --Does patient have Pacemaker or ICD? When Was Last Pacemaker Check QUESTION #4 FULL TEXT: You/Your Family Experience fever (hyperthermia) with Anesthesia Last Oral Intake Last Oral intake: Last Oral Intake NPO since Meds taken in AM with sips of water? Meds patient instructed to take am of surgery PONV PONV - supervisor extruding department: PONV - supervisor extruding department Female Yes 10/21/24 14:13 HX of Motion Sickness Yes 10/21/24 14:13 HX of N/V After Surgery No 10/21/24 14:13 Non-Smoker Yes 10/21/24 14:13 Duration of Surgery greater Yes 10/21/24 14:13 than 60 minutes Number of Risk Factors 4 10/21/24 14:13 PONV Score Severe Risk 10/21/24 14:13 Height & Weight Height & Weight: Anesthesia: Height & Weight Height 5 ft 9 in 09/18/24 10:34 Respiratory Assessment Respiratory Assessment - supervisor extruding department: Respiratory Tract Infection Hx - supervisor extruding department Hx Respiratory Tract Infection No 10/21/24 14:13 STOP Sleep Apnea STOP Sleep Apnea - supervisor extruding department: STOP Sleep Apnea - supervisor extruding department Hx Hypertension No 10/21/24 14:13 Hx Sleep Apnea No 10/21/24 14:13 CPAP BIPAP Do you snore loudly (louder Yes 10/21/24 14:13 than talking or can be heard Do you often feel tired/ No 10/21/24 14:13 fatigued/ sleepy during daytime? Has anyone observed you stop No 10/21/24 14:13 breathing during sleep? STOP Results Negative 10/21/24 14:13 QUESTION #5 FULL TEXT : Do you snore loudly (louder than talking or can be heard through closed doors)? Tobacco Use History Tobacco Use History - supervisor extruding department: Tobacco Use History - supervisor extruding department Tobacco Use Smoking Status Never smoker 10/21/24 14:13 Hx Tobacco Use No 10/21/24 14:13 Years Smoking Packs Smoked per Day Smoking Cessation Date was within the last 15 years Hx Smoking Cessation Date Hx Smoking Cessation Counseling Hematologic Medial History Hematologic Hx - supervisor extruding department: Hematologic Medical Hx - forestry engineer Hx of Blood Transfusion No 10/21/24 14:13 Hx of Transfusion in last 3 No 10/21/24 14:13 Months Date of Last Transfusion (if within last 3 months) Ever experience any problems No 10/21/24 14:13 with transfusion(s)? Specify any problems Hx of Preganancy in last 3 No 10/21/24 14:13 Months Nurse Filling Out Transfusion MGRIFFITH 10/21/24 14:13 & Questions: Date: 10/21/24 10/21/24 14:13 Time: 14:15 10/21/24 14:13 Patient unable to answer at this time (ie. confused, unrespo /Reproduction History /Reproductive History - supervisor extruding department: /Reproductive Hx- supervisor extruding department Hx Now Gestational Age (in weeks): EDC: Hx Hx Para Hx Section SAB No 08/23/24 10:38 PFSH Medical History (Updated 10/21/24 @ 14:23 by Karrie Carvalho) History of renal disease High cholesterol Heartburn Prerenal azotemia Anemia Complicated UTI (urinary tract infection) History of breast cancer Breast cancer, left Encounter for education Wears glasses Cancer Migraine headache Non-smoker History of edema History of stress test History of echocardiogram Invasive ductal carcinoma of right breast Hypercholesterolemia Home Medications ?Medication ?Instructions ?Recorded ?Last Taken ?Type lidocaine-prilocaine 2.5 %-2.5 % 1 applic topical ONCE PRN port 07/12/22 07/18/23 Rx topical cream access 30 days #30 grams olaparib 150 mg tablet (Lynparza) 300 mg (2 x 150 mg) PO BID 30 days 09/12/23 Unknown Rx #120 tabs ondansetron 8 mg disintegrating 8 mg PO Q8H PRN nausea and 09/25/23 Unknown Rx tablet vomiting #30 tabs tamoxifen 20 mg tablet 20 mg PO DAILY #90 tabs 01/0110/20/24 Rx Allergy/AdvReac Type Severity Reaction Status Date / Time sulfamethoxazole (From Allergy Intermediate rash Verified 10/21/24 14:08 Bactrim) trimethoprim (From Bactrim) Allergy Intermediate rash Verified 10/21/24 14:08 Family History Grandmother Breast cancer Paternal CVA (cerebral vascular accident) Aunt Breast cancer Paternal Surgical History (Updated 10/21/24 @ 14:23 by Karrie Carvalho) History of colonoscopy History of esophagogastroduodenoscopy (EGD) History of mastectomy, total Lymphedema History of vascular access device History of left breast biopsy Hx of breast biopsy Social History adopted: Yes household members: spouse 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 [employer] current occupational exposures/hazards: No pets and animals: No history of recent travel: No sexually active: No Smoking Status: Never smoker alcohol intake: current alcohol intake frequency: a few times a month details: Not since [place] dx substance use type: does not use well-balanced diet: daily or most days caffeine: Yes (a few times a week) Type: coffee eating out: 1-3 times/week during the past year weight has: decreased > 10 lbs what type of physical activity do you participate in: walking frequency: 3-4 times per week duration: 15-30 minutes/day seatbelt use: sometimes do you feel safe at home: Yes additional social history: Audit: Pertinent Findings Pertinent Findings EKG Perinent findings: 01/08/2023 Normal Sinus Rythmn Recommendation Anesthesia Recommendation Anesthesia recommendation: OPTIMIZED for anesthesia
[2024-10-25] VITALS (12 sets, daily range): BP systolic 128–175; BP diastolic 72–89; PULSE 56–70; RESP 16–18; TEMP 36.1–36.7; O2SAT 97–100; BMI 31.8
[2024-10-25] MEDS: Lactated Ringers 1,000 ML 40 ML IV (09:16)
[2024-10-25] MEDS: Scopolamine 1mg/72hr Patch 1 PATCH TD (09:16)
[2024-10-25] MEDS: Magnesium 1 GM over 15 mins IV (09:16)
--- NOTE | 2024-10-25 09:33 | PCM.PRE.AN2 ---
ASA Classification* ASA Classification ASA Classification: 3 Assessment & Plan Anesthesia* Anesthesia Assessment Anesthesia Assessment: Discussed sedation and/or anesthesia options, risks, benefits, and alternatives with patient/parents/legal guardian/POA. Questions invited. The patient/parents/legal guardian/POA seems to understand and agrees to proceed with anesthesia plan. Reviewed the physical assessment, medical history, allergy history and patient home medications list prior to surgery/procedure/anesthetic and documented any changes. Performed airway and anesthesia risk assessments. Anesthesia Type Anesthesia Type: General (Consider GlideScope intubation.) History Source History Obtained from:: Patient and Chart Anesthesia Focused Assessment* Temperature: 97.1 F Pulse Rate: 70 Blood Pressure: 128/84 Respiratory Rate: 18 Pulse Ox: 100 Oxygen Delivery Method: Room Air Airway Assessment Mouth opens: 2 cm Mallampati Score: IV Teeth Condition: Intact Neck Range of motion (ROM): Full ROM Comment: Short thyromental distance. Labs Anesthesia Preop lab: CBC WBC 5.1 K/mm3 (4.4-11.0) 10/22/24 08:53 10/22/24 RBC 4.02 M/mm3 (4.2-5.4) L 10/22/24 08:53 10/22/24 Hgb 12.4 g/dL (12.0-15.0) 10/22/24 08:53 10/22/24 Hct 37.5 % (37-47) 10/22/24 08:53 10/22/24 Plt Count 278 K/mm3 (150-450) 10/22/24 08:53 10/22/24 CHEMISTRY Potassium 4.2 mmol/L (3.3-5.1) 10/22/24 08:53 10/22/24 Sodium 137 mmol/L (133-145) 10/22/24 08:53 10/22/24 Magnesium 2.1 mg/dL (1.5-2.2) 10/22/24 08:53 10/22/24 Phosphorus 2.5 mg/dL (2.5-4.9) 05/22/23 10:00 05/22/23 BUN 17 mg/dL (4-19) 10/22/24 08:53 10/22/24 Creatinine 1.18 mg/dL (0.70-1.20) 10/22/24 08:53 10/22/24 Glucose 93 mg/dL (70-99) 10/22/24 08:53 10/22/24 TSH 0.765 uIU/mL (0.358-3.740) 11/23/23 16:48 11/23/23 COAG PT 13.8 SECONDS (11.7-14.9) 09/26/22 21:39 09/26/22 Urine Test Negative Negative 07/07/22 07:25 07/07/22 Pre-Assessment Diagnosis/Proposed Procedure Planned Operative Procedure(s): (B) Lap Total Robotic Hysterectomy BSO, ERAS Anesthesia History Anesthesia History - cq developer: Anesthesia History - cq developer Hx Hospitalization No 10/21/24 14:13 Any Problems With Anesthesia No 10/21/24 14:13 Cholinesterase deficiency No 10/21/24 14:13 You/Your Family Experience No 10/21/24 14:13 fever (hyperthermia) with Relationship Recent Exposure to Contagious No 10/25/24 08:53 Disease Does patient have nerve No 10/21/24 14:13 stimulator Patient instructed to have device shut off --Does patient have Pacemaker No 10/25/24 08:53 or ICD? When Was Last Pacemaker Check QUESTION #4 FULL TEXT: You/Your Family Experience fever (hyperthermia) with Anesthesia Last Oral Intake Last Oral intake: Last Oral Intake NPO since 17:00 10/25/24 08:53 Meds taken in AM with sips of Yes 10/25/24 08:53 water? Meds patient instructed to lymparza 10/25/24 08:53 take am of surgery Any additional information?: Yes Meds taken in AM with sips of water?: Yes PONV PONV - cq developer: PONV - cq developer Female Yes 10/21/24 14:13 HX of Motion Sickness Yes 10/21/24 14:13 HX of N/V After Surgery No 10/21/24 14:13 Non-Smoker Yes 10/21/24 14:13 Duration of Surgery greater Yes 10/21/24 14:13 than 60 minutes Number of Risk Factors 4 10/21/24 14:13 PONV Score Severe Risk 10/21/24 14:13 Height & Weight Height & Weight: Anesthesia: Height & Weight Height 5 ft 9 in 10/25/24 08:53 Weight: 98 kg 10/25/24 08:53 Body Mass Index (BMI) 31.8 10/25/24 08:53 Respiratory Assessment Respiratory Assessment - cq developer: Respiratory Tract Infection Hx - cq developer Hx Respiratory Tract Infection No 10/21/24 14:13 STOP Sleep Apnea STOP Sleep Apnea - cq developer: STOP Sleep Apnea - cq developer Hx Hypertension No 10/21/24 14:13 Hx Sleep Apnea No 10/21/24 14:13 CPAP BIPAP Do you snore loudly (louder Yes 10/21/24 14:13 than talking or can be heard Do you often feel tired/ No 10/21/24 14:13 fatigued/ sleepy during daytime? Has anyone observed you stop No 10/21/24 14:13 breathing during sleep? STOP Results Negative 10/21/24 14:13 QUESTION #5 FULL TEXT : Do you snore loudly (louder than talking or can be heard through closed doors)? 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 Specify any problems Hx of Preganancy in last 3 No 10/21/24 14:13 Months Nurse Filling Out Transfusion MGRIFFITH 10/21/24 14:13 & Questions: Date: 10/21/24 10/21/24 14:13 Time: 14:15 10/21/24 14:13 Patient unable to answer at this time (ie. confused, unrespo /Reproduction History /Reproductive History - cq developer: /Reproductive Hx- cq developer Hx Now Gestational Age (in weeks): EDC: Hx Hx Para Hx Section SAB No 10/14/24 09:35 Active Medications Active Medications: Current Medications Generic Name Dose Route Start Last Admin Trade Name Christoq PRN Reason Stop Dose Admin Acetaminophen 1,000 mg 10/25/24 10:20 10/25/24 09:19 Acetaminophen 500 Mg Tablet PO 10/25/24 10:21 1,000 mg PREOP ONE Administration Celecoxib 400 mg 10/25/24 10:20 10/25/24 09:19 Celecoxib 200 Mg Capsule PO 10/25/24 10:21 400 mg PREOP ONE Administration Gabapentin 600 mg 10/25/24 10:20 10/25/24 09:18 Gabapentin 600 Mg Tablet PO 10/25/24 10:21 600 mg PREOP ONE Administration Lactated Ringer's 1,000 mls @ 40 mls/hr 10/25/24 10:20 10/25/24 09:16 IV 40 mls/hr .Q25H RUBY Administration Cefazolin Sodium 2 gm/ Sodium 110 mls @ 150 mls/hr 10/25/24 10:20 Chloride IV 10/25/24 11:03 INTRAOP ONE Lactated Ringer's 1,000 mls @ 70 mls/hr 10/25/24 10:20 IV .[id number] RUBY Magnesium Sulfate 1 gm/ 102 mls @ 408 mls/hr 10/25/24 10:20 10/25/24 09:16 Dextrose IV 10/25/24 10:34 408 mls/hr PREOP ONE Administration Insulin Human Lispro 0 unit 10/25/24 10:20 Insulin Lispro 100 Unit/Ml Insuln.Pen SC Q4H PRN PRN BG >/= 180, SEE PROTOCOL Protocol Ondansetron HCl 4 mg 10/25/24 10:20 Ondansetron 4 Mg/2 Ml Vial IV 10/25/24 10:21 INTRAOP ONE Phenazopyridine HCl 190 mg 10/25/24 10:20 10/25/24 09:18 Phenazopyridine 95 Mg Tablet PO 10/25/24 10:21 190 mg PREOP ONE Administration Scopolamine HBr 1 patch 10/25/24 10:20 10/25/24 09:16 Scopolamine 1mg/72hr Patch TD 10/25/24 10:21 1 patch PREOP ONE Administration Sodium Chloride 10 - 40 ml 10/25/24 09:14 0.9% Saline Lock 10 Ml Syringe IV UD PRN Port-a-Cath (VAD)/R Port Flush Sodium Chloride 10 - 40 ml 10/25/24 09:14 0.9 % Nacl (Sterile) Posiflush 10 Ml IV UD PRN Port access or dressing change PFSH Medical History History of renal disease High cholesterol Heartburn Prerenal azotemia Anemia Complicated UTI (urinary tract infection) History of breast cancer Breast cancer, left Encounter for education Wears glasses Cancer Migraine headache Non-smoker History of edema History of stress test History of echocardiogram Invasive ductal carcinoma of right breast Hypercholesterolemia Home Medications ?Medication ?Instructions ?Recorded ?Last Taken ?Type lidocaine-prilocaine 2.5 %-2.5 % 1 applic topical ONCE PRN port 07/12/22 07/18/23 Rx topical cream access 30 days #30 grams olaparib 150 mg tablet (Lynparza) 300 mg (2 x 150 mg) PO BID 30 days 09/12/23 10/25/24 Rx #120 tabs ondansetron 8 mg disintegrating 8 mg PO Q8H PRN nausea and 09/25/23 Unknown Rx tablet vomiting #30 tabs tamoxifen 20 mg tablet 20 mg PO DAILY #90 tabs 01/18/24 10/20/24 Rx Allergy/AdvReac Type Severity Reaction Status Date / Time sulfamethoxazole (From Allergy Intermediate rash Verified 10/25/24 08:51 Bactrim) trimethoprim (From Bactrim) Allergy Intermediate rash Verified 10/25/24 08:51 Family History Grandmother Breast cancer Paternal CVA (cerebral vascular accident) Aunt Breast cancer Paternal Surgical History History of colonoscopy History of esophagogastroduodenoscopy (EGD) History of mastectomy, total Lymphedema History of vascular access device History of left breast biopsy Hx of breast biopsy Social History adopted: Yes household members: spouse 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 [employer] current occupational exposures/hazards: No pets and animals: No history of recent travel: No sexually active: No Smoking Status: Never smoker alcohol intake: current alcohol intake frequency: a few times a month details: Not since [place] dx substance use type: does not use well-balanced diet: daily or most days caffeine: Yes (a few times a week) Type: coffee eating out: 1-3 times/week during the past year weight has: decreased > 10 lbs what type of physical activity do you participate in: walking frequency: 3-4 times per week duration: 15-30 minutes/day seatbelt use: sometimes do you feel safe at home: Yes additional social history: Review of Systems (Anesthesia) ROS Narrative System reviewed and no additional complaints, except as documented.
--- NOTE | 2024-10-25 09:33 | PCM.PRE.AN2 ---
ASA Classification* ASA Classification ASA Classification: 3 Assessment & Plan Anesthesia* Anesthesia Assessment Anesthesia Assessment: Discussed sedation and/or anesthesia options, risks, benefits, and alternatives with patient/parents/legal guardian/POA. Questions invited. The patient/parents/legal guardian/POA seems to understand and agrees to proceed with anesthesia plan. Reviewed the physical assessment, medical history, allergy history and patient home medications list prior to surgery/procedure/anesthetic and documented any changes. Performed airway and anesthesia risk assessments. Anesthesia Type Anesthesia Type: General (Consider GlideScope intubation.) History Source History Obtained from:: Patient and Chart Anesthesia Focused Assessment* Temperature: 97.1 F Pulse Rate: 70 Blood Pressure: 128/84 Respiratory Rate: 18 Pulse Ox: 100 Oxygen Delivery Method: Room Air Airway Assessment Mouth opens: 2 cm Mallampati Score: IV Teeth Condition: Intact Neck Range of motion (ROM): Full ROM Comment: Short thyromental distance. Labs Anesthesia Preop lab: CBC WBC 5.1 K/mm3 (4.4-11.0) 10/22/24 08:53 10/22/24 RBC 4.02 M/mm3 (4.2-5.4) L 10/22/24 08:53 10/22/24 Hgb 12.4 g/dL (12.0-15.0) 10/22/24 08:53 10/22/24 Hct 37.5 % (37-47) 10/22/24 08:53 10/22/24 Plt Count 278 K/mm3 (150-450) 10/22/24 08:53 10/22/24 CHEMISTRY Potassium 4.2 mmol/L (3.3-5.1) 10/22/24 08:53 10/22/24 Sodium 137 mmol/L (133-145) 10/22/24 08:53 10/22/24 Magnesium 2.1 mg/dL (1.5-2.2) 10/22/24 08:53 10/22/24 Phosphorus 2.5 mg/dL (2.5-4.9) 05/22/23 10:00 05/22/23 BUN 17 mg/dL (4-19) 10/22/24 08:53 10/22/24 Creatinine 1.18 mg/dL (0.70-1.20) 10/22/24 08:53 10/22/24 Glucose 93 mg/dL (70-99) 10/22/24 08:53 10/22/24 TSH 0.765 uIU/mL (0.358-3.740) 11/23/23 16:48 11/23/23 COAG PT 13.8 SECONDS (11.7-14.9) 09/26/22 21:39 09/26/22 Urine Test Negative Negative 07/07/22 07:25 07/07/22 Pre-Assessment Diagnosis/Proposed Procedure Planned Operative Procedure(s): (B) Lap Total Robotic Hysterectomy BSO, ERAS Anesthesia History 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 When Was Last Pacemaker Check QUESTION #4 FULL TEXT: You/Your Family Experience fever (hyperthermia) with Anesthesia Last Oral Intake Last Oral intake: Last Oral Intake NPO since 17:00 10/25/24 08:53 Meds taken in AM with sips of Yes 10/25/24 08:53 water? 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 leader Female Yes 10/21/24 14:13 HX of Motion Sickness Yes 10/21/24 14:13 HX of N/V After Surgery No 10/21/24 14:13 Non-Smoker Yes 10/21/24 14:13 Duration of Surgery greater Yes 10/21/24 14:13 than 60 minutes Number of Risk Factors 4 10/21/24 14:13 PONV Score Severe Risk 10/21/24 14:13 Height & Weight Height & Weight: Anesthesia: Height & Weight Height 5 ft 9 in 10/25/24 08:53 Weight: 98 kg 10/25/24 08:53 Body Mass Index (BMI) 31.8 10/25/24 08:53 Respiratory Assessment Respiratory Assessment - landscaping crew leader: Respiratory Tract Infection Hx - landscaping crew leader Hx Respiratory Tract Infection No 10/21/24 14:13 STOP Sleep Apnea STOP Sleep Apnea - landscaping crew leader: STOP Sleep Apnea - landscaping crew leader Hx Hypertension No 10/21/24 14:13 Hx Sleep Apnea No 10/21/24 14:13 CPAP BIPAP Do you snore loudly (louder Yes 10/21/24 14:13 than talking or can be heard Do you often feel tired/ No 10/21/24 14:13 fatigued/ sleepy during daytime? Has anyone observed you stop No 10/21/24 14:13 breathing during sleep? STOP Results Negative 10/21/24 14:13 QUESTION #5 FULL TEXT : Do you snore loudly (louder than talking or can be heard through closed doors)? Tobacco Use History Tobacco Use History - landscaping crew leader: Tobacco Use History - landscaping crew leader Tobacco Use Smoking Status Never smoker 10/21/24 14:13 Hx Tobacco Use No 10/21/24 14:13 Years Smoking Packs Smoked per Day Smoking Cessation Date was within the last 15 years Hx Smoking Cessation Date Hx Smoking Cessation Counseling Hematologic Medial History Hematologic Hx - landscaping crew leader: Hematologic Medical Hx - prepress specialist Hx of Blood Transfusion No 10/21/24 14:13 Hx of Transfusion in last 3 No 10/21/24 14:13 Months Date of Last Transfusion (if within last 3 months) Ever experience any problems No 10/21/24 14:13 with transfusion(s)? Specify any problems Hx of Preganancy in last 3 No 10/21/24 14:13 Months Nurse Filling Out Transfusion MGRIFFITH 10/21/24 14:13 & Questions: Date: 10/21/24 10/21/24 14:13 Time: 14:15 10/21/24 14:13 Patient unable to answer at this time (ie. confused, unrespo /Reproduction History /Reproductive History - landscaping crew leader: /Reproductive Hx- landscaping crew leader Hx Now Gestational Age (in weeks): EDC: Hx Hx Para Hx Section SAB No 10/14/24 09:35 Active Medications Active Medications: Current Medications Generic Name Dose Route Start Last Admin Trade Name Christoq PRN Reason Stop Dose Admin Acetaminophen 1,000 mg 10/25/24 10:20 10/25/24 09:19 Acetaminophen 500 Mg Tablet PO 10/25/24 10:21 1,000 mg PREOP ONE Administration Celecoxib 400 mg 10/25/24 10:20 10/25/24 09:19 Celecoxib 200 Mg Capsule PO 10/25/24 10:21 400 mg PREOP ONE Administration Gabapentin 600 mg 10/25/24 10:20 10/25/24 09:18 Gabapentin 600 Mg Tablet PO 10/25/24 10:21 600 mg PREOP ONE Administration Lactated Ringer's 1,000 mls @ 40 mls/hr 10/25/24 10:20 10/25/24 09:16 IV 40 mls/hr .Q25H RUBY Administration Cefazolin Sodium 2 gm/ Sodium 110 mls @ 150 mls/hr 10/25/24 10:20 Chloride IV 10/25/24 11:03 INTRAOP ONE Lactated Ringer's 1,000 mls @ 70 mls/hr 10/25/24 10:20 IV .[id number] RUBY Magnesium Sulfate 1 gm/ 102 mls @ 408 mls/hr 10/25/24 10:20 10/25/24 09:16 Dextrose IV 10/25/24 10:34 408 mls/hr PREOP ONE Administration Insulin Human Lispro 0 unit 10/25/24 10:20 Insulin Lispro 100 Unit/Ml Insuln.Pen SC Q4H PRN PRN BG >/= 180, SEE PROTOCOL Protocol Ondansetron HCl 4 mg 10/25/24 10:20 Ondansetron 4 Mg/2 Ml Vial IV 10/25/24 10:21 INTRAOP ONE Phenazopyridine HCl 190 mg 10/25/24 10:20 10/25/24 09:18 Phenazopyridine 95 Mg Tablet PO 10/25/24 10:21 190 mg PREOP ONE Administration Scopolamine HBr 1 patch 10/25/24 10:20 10/25/24 09:16 Scopolamine 1mg/72hr Patch TD 10/25/24 10:21 1 patch PREOP ONE Administration Sodium Chloride 10 - 40 ml 10/25/24 09:14 0.9% Saline Lock 10 Ml Syringe IV UD PRN Port-a-Cath (VAD)/R Port Flush Sodium Chloride 10 - 40 ml 10/25/24 09:14 0.9 % Nacl (Sterile) Posiflush 10 Ml IV UD PRN Port access or dressing change PFSH Medical History History of renal disease High cholesterol Heartburn Prerenal azotemia Anemia Complicated UTI (urinary tract infection) History of breast cancer Breast cancer, left Encounter for education Wears glasses Cancer Migraine headache Non-smoker History of edema History of stress test History of echocardiogram Invasive ductal carcinoma of right breast Hypercholesterolemia Home Medications ?Medication ?Instructions ?Recorded ?Last Taken ?Type lidocaine-prilocaine 2.5 %-2.5 % 1 applic topical ONCE PRN port 07/12/22 07/18/23 Rx topical cream access 30 days #30 grams olaparib 150 mg tablet (Lynparza) 300 mg (2 x 150 mg) PO BID 30 days 09/12/23 10/25/24 Rx #120 tabs ondansetron 8 mg disintegrating 8 mg PO Q8H PRN nausea and 09/25/23 Unknown Rx tablet vomiting #30 tabs tamoxifen 20 mg tablet 20 mg PO DAILY #90 tabs 01/18/24 10/20/24 Rx Allergy/AdvReac Type Severity Reaction Status Date / Time sulfamethoxazole (From Allergy Intermediate rash Verified 10/25/24 08:51 Bactrim) trimethoprim (From Bactrim) Allergy Intermediate rash Verified 10/25/24 08:51 Family History Grandmother Breast cancer Paternal CVA (cerebral vascular accident) Aunt Breast cancer Paternal Surgical History History of colonoscopy History of esophagogastroduodenoscopy (EGD) History of mastectomy, total Lymphedema History of vascular access device History of left breast biopsy Hx of breast biopsy Social History adopted: Yes household members: spouse 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 [employer] current occupational exposures/hazards: No pets and animals: No history of recent travel: No sexually active: No Smoking Status: Never smoker alcohol intake: current alcohol intake frequency: a few times a month details: Not since CA dx substance use type: does not use well-balanced diet: daily or most days caffeine: Yes (a few times a week) Type: coffee eating out: 1-3 times/week during the past year weight has: decreased > 10 lbs what type of physical activity do you participate in: walking frequency: 3-4 times per week duration: 15-30 minutes/day seatbelt use: sometimes do you feel safe at home: Yes additional social history: Review of Systems (Anesthesia) ROS Narrative System reviewed and no additional complaints, except as documented.
--- NOTE | 2024-10-25 09:56 | PCM.HP.BLA ---
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: No Is patient in pain?: No Allergies sulfamethoxazole (From Bactrim) Allergy (Intermediate, Verified 10/14/24 09:31) rashtrimethoprim (From Bactrim) Allergy (Intermediate, Verified 10/14/24 09:31) rash Medications ?Medication ?Instructions ?Recorded ?Confirmed ?Type lidocaine-prilocaine 2.5 %-2.5 % 1 applic topical ONCE PRN port 07/12/22 10/14/24 Rx topical cream access 30 days #30 grams olaparib 150 mg tablet (Lynparza) 300 mg (2 x 150 mg) PO BID 30 days 09/12/23 10/14/24 Rx #120 tabs ondansetron 8 mg disintegrating 8 mg PO Q8H PRN nausea and 09/25/23 10/14/24 Rx tablet vomiting #30 tabs tamoxifen 20 mg tablet 20 mg PO DAILY #90 tabs 01/18/24 10/14/24 Rx Is last menstrual period known: No Post menopausal: Yes Patient : No : No PFSH Medical History Prerenal azotemia Anemia Complicated UTI (urinary tract infection) History of breast cancer Breast cancer, left Encounter for education Wears glasses Cancer Alcohol use Migraine headache Gastric reflux Non-smoker History of edema History of stress test History of echocardiogram Invasive ductal carcinoma of right breast Hypercholesterolemia Surgical History Lymphedema History of vascular access device History of left breast biopsy Hx of breast biopsy Family History Grandmother Breast cancer Paternal CVA (cerebral vascular accident)Aunt Breast cancer Paternal Social History adopted: Yes household members: spouse 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 [employer] current occupational exposures/hazards: No pets and animals: No history of recent travel: No sexually active: No Smoking Status: Never smoker alcohol intake: current alcohol intake frequency: a few times a month details: Not since CA dx substance use type: does not use well-balanced diet: daily or most days caffeine: Yes (a few times a week) Type: coffee eating out: 1-3 times/week during the past year weight has: decreased > 10 lbs what type of physical activity do you participate in: walking frequency: 3-4 times per week duration: 15-30 minutes/day seatbelt use: sometimes do you feel safe at home: Yes additional social history: HPI TRH BSO Cysto Details: ZAN FERRERA is a 54 year old who presents for a preop visit. She is status post lymph bypass for lymphedema secondary to breast cancer surgery. She is brca 2 pos as is one of her children. 2 have not been tested. We planned last year to take out her ovaries. Now that she is on Tamoxifen we have discussed taking out the uterus also . EMB was benign. ultrasound shows the following: INDINGS: Measurements: Uterus: 9.1 x 4.8 x 5.7 cm for volume of 130.0 mL Endometrial Thickness: 0.5 cm Right Ovary: 2.0 x 1.5 x 1.2 cm for volume of 2.0 mL Left Ovary: 1.7 x 1.3 x 1.1 cm for volume of 1.3 mL. Uterus: Normal size, myometrial echotexture, and contour. There are heterogeneous predominantly hypoechoic lesions at the posterior uterine body measuring 0.9 x 1.1 x 0.9 cm and near the uterine fundus measuring 1.2 x 0.8 x 1.1 cm. Tiny anechoic lesions near the endometrial stripe measuring up to 0.4 cm. Endometrium: Unremarkable. Right ovary: Normal size and echotexture. Left ovary: Normal size and echotexture. Color Doppler: Normal color flow doppler signal at both ovaries. US/Pelvic w/ Transvaginal IMPRESSION: 1. Cystic changes at the endometrium, as may be seen with endometrial hyperplasia. 2. Heterogeneous myometrial lesions measuring up to 1.2 cm, statistically likely to represent leiomyomas. History 4 Elective abortions Hx Para 3 Spontaneous abortions 1 Hx # Term Pregnancies Ectopic pregnancies Hx # Pregnancies Multiple births # of living children 3 Past Pregnancies Del. Date Name GA/Weeks Outcome Route Bth Weight [facility] 6 spontaneous 06/25/98 Bassem 09/26/01 She 07/16/03 Sindi ROS Const ROS Unobtainable: All systems reviewed & are unremarkable except as noted in H Resp Resp: Reports system reviewed and no additional complaints, except as documented; Denies cough GI GI: Reports as per HPI Psych Psych: Reports system reviewed and no additional complaints, except as documented Exam Const General: cooperative, healthy appearing, comfortable and no acute distress Resp Effort & Inspection: normal respiratory effort Skin General: no rashes or lesions noted Psych Appearance: grossly normal Speech and Movement: speech and movement normal Coding Level of Care Code Off vis,est,level 4 Diagnoses BRCA gene mutation positive in female Z15.01; Z15.02; Z15.09 Malignant neoplasm of left breast in female, estrogen receptor positive, unspecified site of breast C50.912; Z17.0 Breast location: unspecified site of breast Estrogen receptor status: positive Patient sex: female Assessment and Plan Assessment and Plan (1) BRCA gene mutation positive in female: Status: Acute (2) Breast cancer, left: Status: Chronic Qualifiers: Breast location: unspecified site of breast Estrogen receptor status: positive Patient sex: female Qualified Code(s): C50.912 - Malignant neoplasm of unspecified site of left female breast; Z17.0 - Estrogen receptor positive status [ER+] Comment: Left breast cancer invasive ductal carcinoma with lobular features, ER 95%, positive OR 95% positive, HER2 negative by FISH. Started Tamoxifen in October 2023. Plan After discussing the patient's diagnosis and treatment plan options, patient wishes to proceed with surgical management. I have discussed with the patient the risks, benefits, and alternatives of the procedure which include but are not limited to risks of anesthesia, bleeding, infection, possible damage to bowel, bladder, or surrounding vasculature which could lead to additional surgery to evaluate any complications. Patient agrees to procedure and wishes to proceed. ACOG/uptodate references given for additional information regarding procedure. plan for total robotic hysterectomy, bSO, cysto
--- NOTE | 2024-10-25 10:15 | UT_PTH ---
PATIENT: ZAN FERRERA LOC: [facility] U#:[id number] AGE/SX: 54/F ROOM: RE10/25/[address]: Dr. Selam Lorenz DO : 1970 BED: DIS: 10/25/2024 SPEC #: [id number] RECD: 10/25/24 13:50 STATUS: GEETHA PRICE #: [id number] SUMMER: 10/25/24 10:[address]: Selam Lorenz DEPT: SURGICAL PATHOLOGY RECD BY: Henry Molina ENTERED: 10/25/24 15:04 SP TYPE: UTERUS OTHR DR: Dr. Victor M Piedra MD Tissues: A - Uterus, NOS Procedures: Surgery Specimen Level V HEADER OPERATION: ERAS, laparoscopic total robotic hysterectomy BSO PRE-OP DIAGNOSIS: BRCA gene mutation positive in female TISSUE SUBMITTED: A- Uterus, cervix, bilateral fallopian tubes and ovaries MICROSCOPIC DIAGNOSIS A. Uterus, cervix, bilateral fallopian tubes and ovaries, BRCA gene mutation positive, total hysterectomy, bilateral salpingo-oopherectomy: - Cervix: no specific pathologic change. - Endometrium: atrophy. - Myometrium: adenomyosis, leiomyomata (1.4 cm). - Right ovary: no specific pathologic change. - Left ovary: no specific pathologic change. - Right fallopian tube: no specific pathologic change. - Left fallopian tube: no specific pathologic change. MICROSCOPIC DESCRIPTION Slides are reviewed. GROSS DESCRIPTION A. Received in formalin labeled with the patient's name and date of . Designated as uterus, cervix, bilateral fallopian tubes and ovaries is a 90.9 g, 7.8 x 4.9 x 3.4 cm uterus with attached adnexa. The serosa is michel-pink and focally erythematous. The attached cervix is michel-pink to red and focally sloughing, measuring 3.1 x 2.5 cm; the 1.1 cm os is eccentric and probe patent. The specimen is inked as follows: Yipppbnr-jncmuNgabgviwl-zdfqfMhglvxviube-orange. Opening reveals a 6.1 x 2.2 cm endometrial canal lined by patchy, michel-pink to red endometrium measuring up to 0.3 cm thick. The myometrium is michel-pink and somewhat fibrotic with focal, apparent cyst and measuring up to 2.0 cm thick. There are a few intramural and subserosal leiomyomas identified, 0.4 cm to 1.4 cm. The pink-purple bilateral fallopian tubes are fimbriated and measure 6.4 x 0.6 cm (L) and 6.2 x 0.5 cm (R) The michel-yellow, cerebriform ovaries are solid and measure 1.6 x 1.3 x 0.5 cm (L) and 1.8 x 1.3 x 0.8 cm (R). Drum Drier sections, to include the entirety of the adnexa (per SEE-FIM protocol) are submitted as follows: A1: Anterior cervixA2: Posterior cervixA3: Anterior endomyometriumA4: Posterior endomyometriumA5: LeiomyomasA6-A9: Left fallopian [id number]: Left [id number]: Right fallopian [id number]: Right ovary WI 10/25/2024 CPT:08440
--- NOTE | 2024-10-25 10:15 | UT_PTH ---
PATIENT: ZAN FERRERA LOC: [facility] U#:[id number] AGE/SX: 54/F ROOM: RE10/25/[address]: Dr. Selam Lorenz DO : 1970 BED: DIS: 10/25/2024 SPEC #: [id number] RECD: 10/25/24 13:50 STATUS: GEETHA PRICE #: [id number] SUMMER: 10/25/24 10:[address]: Selam Lorenz DEPT: SURGICAL PATHOLOGY RECD BY: Henry Molina ENTERED: 10/25/24 15:04 SP TYPE: UTERUS OTHR DR: Dr. Victor M Piedra MD Tissues: A - Uterus, NOS Procedures: Surgery Specimen Level V HEADER OPERATION: ERAS, laparoscopic total robotic hysterectomy BSO PRE-OP DIAGNOSIS: BRCA gene mutation positive in female TISSUE SUBMITTED: A- Uterus, cervix, bilateral fallopian tubes and ovaries MICROSCOPIC DIAGNOSIS A. Uterus, cervix, bilateral fallopian tubes and ovaries, BRCA gene mutation positive, total hysterectomy, bilateral salpingo-oopherectomy: - Cervix: no specific pathologic change. - Endometrium: atrophy. - Myometrium: adenomyosis, leiomyomata (1.4 cm). - Right ovary: no specific pathologic change. - Left ovary: no specific pathologic change. - Right fallopian tube: no specific pathologic change. - Left fallopian tube: no specific pathologic change. MICROSCOPIC DESCRIPTION Slides are reviewed. GROSS DESCRIPTION A. Received in formalin labeled with the patient's name and date of . Designated as uterus, cervix, bilateral fallopian tubes and ovaries is a 90.9 g, 7.8 x 4.9 x 3.4 cm uterus with attached adnexa. The serosa is michel-pink and focally erythematous. The attached cervix is michel-pink to red and focally sloughing, measuring 3.1 x 2.5 cm; the 1.1 cm os is eccentric and probe patent. The specimen is inked as follows: Shnhzizf-ihwicXsaugjopr-ipxznGkjfbiytuah-orange. Opening reveals a 6.1 x 2.2 cm endometrial canal lined by patchy, michel-pink to red endometrium measuring up to 0.3 cm thick. The myometrium is michel-pink and somewhat fibrotic with focal, apparent cyst and measuring up to 2.0 cm thick. There are a few intramural and subserosal leiomyomas identified, 0.4 cm to 1.4 cm. The pink-purple bilateral fallopian tubes are fimbriated and measure 6.4 x 0.6 cm (L) and 6.2 x 0.5 cm (R) The michel-yellow, cerebriform ovaries are solid and measure 1.6 x 1.3 x 0.5 cm (L) and 1.8 x 1.3 x 0.8 cm (R). Ear Mold Laboratory Technician sections, to include the entirety of the adnexa (per SEE-FIM protocol) are submitted as follows: A1: Anterior cervixA2: Posterior cervixA3: Anterior endomyometriumA4: Posterior endomyometriumA5: LeiomyomasA6-A9: Left fallopian [id number]: Left trjivC75-C47: Right fallopian [id number]-[id number]: Right ovary MD 10/25/2024 CPT:20391
--- NOTE | 2024-10-25 10:38 | DCINST_ITS ---
Discharge Instructions DC O2, CPAP, BIPAP needs Home O2 Discharge instructions: No Dressing / Incision Discharge Activity: May Shower May resume sexual activity in: 8 weeks Weight Bearing Status: Full weight bearing Lifting Restrictions: 10 pounds for 2 weeks Dressing / Incision Call your doctor if your incision/area has: Continuous Slow Oozing, Sudden I ncreased Bleeding, Increased Pain/ Swelling, Increased Redness and Foul Smelling Discharge Call your doctor if you observe: Fever of 101 or Higher, Using more than 1 pad per hour, Shortness of breath, Chest pain and Uncontrolled pain Suture Line Care: Avoid Pulling/Pushing and Avoid Pinching/Bending Remove Dressing in: 1 week (if present) Cleanse incision/area with: Soap & Water and Keep Dressing Clean & Dry Follow Up Care Please Follow Up With: Selam Lorenz DO When: Call to make an appointment with your doctor for a postop visit in 2 and 6 weeks Test Results: Test results from this visit will be discussed in further detail at your follow- up appointment, if applicable. Discharge Plan Admission Primary Reason for Your Visit: hysterectomy Attending Provider: Selam Lorenz Primary Care Provider: Victor M Piedra Instructions Print Language: Vietnamese Discharge Orders/Prescriptions Prescriptions: New ibuprofen 800 mg tablet 800 mg PO Q8H PRN (Reason: pain) Qty: 30 0RF oxycodone-acetaminophen [Percocet] 5-325 mg tablet 1 tab PO Q4H PRN (Reason: pain) 7 Days Qty: 20 0RF Continued Lynparza 150 mg tablet 300 mg PO BID 30 Days Qty: 120 11RF ondansetron 8 mg tablet,disintegrating 8 mg PO Q8H PRN (Reason: nausea and vomiting) Qty: 30 2RF tamoxifen 20 mg tablet 20 mg PO DAILY Qty: 90 3RF lidocaine-prilocaine 2.5-2.5 % cream 1 applic topical ONCE PRN (Reason: port access) 30 Days Qty: 30 2RF Other Ambulatory Orders: 12 Lead EKG (Routine) Timeframe: 20241022 Location: None Selected Ordered By: Dr. Selam Lorenz Referrals / Follow Up: Victor M Piedra MD [Primary Care Provider] - Disposition Disposition (needs filled in before D/C Order can be placed): Home, Self Care
--- NOTE | 2024-10-25 12:17 | PCM.OPRPT ---
Problems Associated Problem List Diagnoses (1) BRCA gene mutation positive in female: (2) Breast cancer in female: Multi Select Codes Urinary/Genital Urinary/Genital CPT Codes: 81391 Cystoscopy and 05509 TLH+BS/O <250gr uterus Operative Report (Standard) Operative Information Date of Procedure: 10/25/24 Pre-Operative Diagnosis: breast cancer history, BRCA positive Post-Operative Diagnosis: breast cancer history, BRCA positive Surgery/Procedure Performed: total robotic hysterectomy, BSO, cystoscopy office 365 consultant: Yes Library Media Specialist: Myrtle Boyd Tasks completed by first officer: Closing, Insert Trochanter and Retracting Additional buyer assistant?: No Type of Anesthesia: General RN Documented Start/Stop Times: Operation Date: 10/25/24 10:15 Case Time Into Pre-Op 10/25/24 08:26 Anesthesia Start 10/25/24 10:46 Into Room 10/25/24 10:46 Out of Pre-Op 10/25/24 10:46 Procedure Start 10/25/24 11:08 Procedure Start Time: 11:08 Procedure Stop Time: 12:22 Select all DRAINS/GRAFTS/IMPLANTS that apply: None Estimated Blood Loss: 50cc Specimen collected: Yes Description of specimen(s) removed: uterus, tubes, ovaries, cervix Description of surgery: Reason for surgery: This is a 54-year-old G3, P3 who presented to my office with history of breast cancer and BRCA + gene mutation. the planned procedure is for a robotic hysterectomy with BSO to prevent ovarian cancer and to prevent uterine cancer from use of tamoxifen. the risks benefits and alternatives were discussed with the patient the patient had a clear understanding of the procedure and a consent form was signed. Procedure: The patient was placed in the dorsal low lithotomy position and prepped and draped in the normal sterile fashion both abdominally and in the perineum. Her legs were placed in stirrups a Raymond catheter was inserted into the urethra without difficulty. A weighted speculum was placed in the vagina and a single-tooth tenaculum was used to grasp the anterior lip of the cervix. An advincula uterine manipulator was inserted through the cervix without complication. It was then tied into place at the 2 and 10:00 locations on the cervix. Gloves were changed and attention was turned towards the abdomen. Approximately 23 cm above the pubic symphysis in the midline, and after Marcaine injection, a 8 mm incision was made. An 8 mm trocar was inserted through the laparoscope, then inserted into the abdomen under direct visualization using the laparoscope. Good abdominal placement was noted and no complications were appreciated. An air seal device was utilized to create pneumoperitoneum. At 12 cm lateral to the midline on the left and right sides 8 mm accessory ports were placed. Next a left upper quadrant 8 mm buyer assistant port site was placed. The patient was placed in steep Trendelenburg position. The robot was docked. The hysterectomy was initiated first by taking down the round ligament on each side using the vessel sealer device. The peritoneum between the round ligament and the IP ligament was opened using electrocautery and extended the length of the IP ligament. The IP ligament was then taken down using the vessel sealer device. These areas were freed without complication the broad ligament was then and taken down using the vessel sealer device. Next the bladder flap was taken down without complication. This was done using monopolar cautery to the level of the cervical vaginal junction. After the bladder flap was created, uterine vessels were then isolated and cauterized using the vessel sealer device and EndoShears. At this point the uterine vessels were taken down further starting from the ascending branch, dissecting along the edges of the cervix to the level of the cervical vaginal junction with hemostasis appreciated. The cervical vaginal junction was then using monopolar cautery in a circumferential pattern across the superior aspect of the cervix. The specimen was delivered through the vagina and sent to pathology. The remaining vaginal cuff was then closed using a V lock suture. This was performed in a running technique. Excellent hemostasis was obtained and good closure was noted. Irrigation was then performed. All operative sites were noted to be hemostatic. A cystoscopy was performed with a 70 degree cystoscope through the urethra into the bladder without complication. The bladder was instilled with approximately 250 cc of normal saline. Intraoperative images were made. Ureteral orifices and jets were identified. Was found to have leaking from her urethra after the cystoscope was removed. This is likely consistent with stress urinary incontinence versus intrinsic sphincter deficiency. No suture material was appreciated in the bladder. The bladder was then drained and cystoscope was removed. The abdominal cavity was again examined using the laparoscope after the robot was undocked. All operative sites were noted to be hemostatic. The trochars were removed under direct visualization without complication and pneumoperitoneum was reduced. At this point the skin was then closed using 4-0 Monocryl subcuticular stitch and sealed with surgical glue. The patient tolerated the procedure well sponge lap and needle counts were correct x2 the patient was taken to the recovery room in stable condition. Surgical Findings: normal uterus, tubes, ovaries, urinary incontinence. Complications Complications: No Admit VTE Documentation VTE Present on Admission: Yes VTE Mechan Device Prophylaxis: SCD's VTE Pharm Prophylaxis ordered?: No
--- NOTE | 2024-10-25 12:17 | PCM.OPRPT ---
Problems Associated Problem List Diagnoses (1) BRCA gene mutation positive in female: (2) Breast cancer in female: Multi Select Codes Urinary/Genital Urinary/Genital CPT Codes: 61957 Cystoscopy and 49840 TLH+BS/O <250gr uterus Operative Report (Standard) Operative Information Date of Procedure: 10/25/24 Pre-Operative Diagnosis: breast cancer history, BRCA positive Post-Operative Diagnosis: breast cancer history, BRCA positive Surgery/Procedure Performed: total robotic hysterectomy, BSO, cystoscopy home fire alarm installer: Yes Cable Ferryboat Operator: Myrtle Boyd Tasks completed by sampler first: Closing, Insert Trochanter and Retracting Additional environmental emergencies assistant?: No Type of Anesthesia: General RN Documented Start/Stop Times: Operation Date: 10/25/24 10:15 Case Time Into Pre-Op 10/25/24 08:26 Anesthesia Start 10/25/24 10:46 Into Room 10/25/24 10:46 Out of Pre-Op 10/25/24 10:46 Procedure Start 10/25/24 11:08 Procedure Start Time: 11:08 Procedure Stop Time: 12:22 Select all DRAINS/GRAFTS/IMPLANTS that apply: None Estimated Blood Loss: 50cc Specimen collected: Yes Description of specimen(s) removed: uterus, tubes, ovaries, cervix Description of surgery: Reason for surgery: This is a 54-year-old G3, P3 who presented to my office with history of breast cancer and BRCA + gene mutation. the planned procedure is for a robotic hysterectomy with BSO to prevent ovarian cancer and to prevent uterine cancer from use of tamoxifen. the risks benefits and alternatives were discussed with the patient the patient had a clear understanding of the procedure and a consent form was signed. Procedure: The patient was placed in the dorsal low lithotomy position and prepped and draped in the normal sterile fashion both abdominally and in the perineum. Her legs were placed in stirrups a Raymond catheter was inserted into the urethra without difficulty. A weighted speculum was placed in the vagina and a single-tooth tenaculum was used to grasp the anterior lip of the cervix. An advincula uterine manipulator was inserted through the cervix without complication. It was then tied into place at the 2 and 10:00 locations on the cervix. Gloves were changed and attention was turned towards the abdomen. Approximately 23 cm above the pubic symphysis in the midline, and after Marcaine injection, a 8 mm incision was made. An 8 mm trocar was inserted through the laparoscope, then inserted into the abdomen under direct visualization using the laparoscope. Good abdominal placement was noted and no complications were appreciated. An air seal device was utilized to create pneumoperitoneum. At 12 cm lateral to the midline on the left and right sides 8 mm accessory ports were placed. Next a left upper quadrant 8 mm environmental emergencies assistant port site was placed. The patient was placed in steep Trendelenburg position. The robot was docked. The hysterectomy was initiated first by taking down the round ligament on each side using the vessel sealer device. The peritoneum between the round ligament and the IP ligament was opened using electrocautery and extended the length of the IP ligament. The IP ligament was then taken down using the vessel sealer device. These areas were freed without complication the broad ligament was then and taken down using the vessel sealer device. Next the bladder flap was taken down without complication. This was done using monopolar cautery to the level of the cervical vaginal junction. After the bladder flap was created, uterine vessels were then isolated and cauterized using the vessel sealer device and EndoShears. At this point the uterine vessels were taken down further starting from the ascending branch, dissecting along the edges of the cervix to the level of the cervical vaginal junction with hemostasis appreciated. The cervical vaginal junction was then using monopolar cautery in a circumferential pattern across the superior aspect of the cervix. The specimen was delivered through the vagina and sent to pathology. The remaining vaginal cuff was then closed using a V lock suture. This was performed in a running technique. Excellent hemostasis was obtained and good closure was noted. Irrigation was then performed. All operative sites were noted to be hemostatic. A cystoscopy was performed with a 70 degree cystoscope through the urethra into the bladder without complication. The bladder was instilled with approximately 250 cc of normal saline. Intraoperative images were made. Ureteral orifices and jets were identified. Was found to have leaking from her urethra after the cystoscope was removed. This is likely consistent with stress urinary incontinence versus intrinsic sphincter deficiency. No suture material was appreciated in the bladder. The bladder was then drained and cystoscope was removed. The abdominal cavity was again examined using the laparoscope after the robot was undocked. All operative sites were noted to be hemostatic. The trochars were removed under direct visualization without complication and pneumoperitoneum was reduced. At this point the skin was then closed using 4-0 Monocryl subcuticular stitch and sealed with surgical glue. The patient tolerated the procedure well sponge lap and needle counts were correct x2 the patient was taken to the recovery room in stable condition. Surgical Findings: normal uterus, tubes, ovaries, urinary incontinence. Complications Complications: No Admit VTE Documentation VTE Present on Admission: Yes VTE Mechan Device Prophylaxis: SCD's VTE Pharm Prophylaxis ordered?: No
--- NOTE | 2024-10-25 12:38 | PCM.POST.ANE ---
Anesthesia: Postop Eval I Current Vital Signs Temperature: 97.4 F Pulse Rate: 70 Blood Pressure: 149/85 Respiratory Rate: 16 Pulse Ox: 98 Assessment Airway patent: Yes Spontaneous unlabored respirations: Yes nausea: No Vomiting: No Anesthesia Complication: No Fluid Hydration Crystalloid volume administer (ml): 1,000 Total IV fluid infused: 1,000 Progress Note Anesthesia document: Postop Eval 1 completed: Yes
[2024-10-25] MEDS: HYDROcodone Bitartrate/Apap 5/325 Tablet PO (14:31)
--- NOTE | 2024-10-25 16:02 | POSTOPAN2_ITS ---
Anesthesia Postop Eval I Sum Postop Eval Completion status Anesthesia document: Postop Eval 1 completed: Yes Anesthesia Postop Eval I Summary Anesthesia Postop Eval I Summary: Anesthesia Postop Eval I: Assessment Summary Airway patent Yes 10/25/24 12:38 [email or web address] Spontaneous unlabored Yes 10/25/24 12:38 UPPER [email or web address] respirations Mental status nausea No 10/25/24 12:38 [email or web address] Vomiting No 10/25/24 12:38 [email or web address] Anesthesia Postop Eval I: Fluid Summary Crystalloid volume administer 1,000 10/25/24 12:38 [email or web address] (ml) Colloids volume administered ( ml) Blood Product volume administered (ml) Total IV fluid infused 1,000 10/25/24 12:38 [email or web address] [email or web address] Anesthesia Postop Eval I: Summary Notes Anesthesia Complication No 10/25/24 12:38 [email or web address] [email or web address] Anesthesia Complication Comment: Post-operative progress note Anesthesia: Postop Eval II Evaluation Mental status: Awake Pain Level: 3 nausea: No Vomiting: No
--- NOTE | 2024-10-25 16:02 | POSTOPAN2_ITS ---
Anesthesia Postop Eval I Sum Postop Eval Completion status Anesthesia document: Postop Eval 1 completed: Yes Anesthesia Postop Eval I Summary Anesthesia Postop Eval I Summary: Anesthesia Postop Eval I: Assessment Summary Airway patent Yes 10/25/24 12:38 ASSISTANT [email or web address] Spontaneous unlabored Yes 10/25/24 12:38 ASSISTANT [email or web address] respirations Mental status nausea No 10/25/24 12:38 ASSISTANT [email or web address] Vomiting No 10/25/24 12:38 ASSISTANT [email or web address] Anesthesia Postop Eval I: Fluid Summary Crystalloid volume administer 1,000 10/25/24 12:38 ASSISTANT [email or web address] (ml) Colloids volume administered ( ml) Blood Product volume administered (ml) Total IV fluid infused 1,000 10/25/24 12:38 ASSISTANT [email or web address] Anesthesia Postop Eval I: Summary Notes Anesthesia Complication No 10/25/24 12:38 ASSISTANT [email or web address] Anesthesia Complication Comment: Post-operative progress note Anesthesia: Postop Eval II Evaluation Mental status: Awake Pain Level: 3 nausea: No Vomiting: No
--- NOTE | 2024-10-25 16:02 | PCM.POSTANE2 ---
Anesthesia Postop Eval I Sum Postop Eval Completion status Anesthesia document: Postop Eval 1 completed: Yes Anesthesia Postop Eval I Summary Anesthesia Postop Eval I Summary: Anesthesia Postop Eval I: Assessment Summary Airway patent Yes 10/25/24 12:38 [email or web address] Spontaneous unlabored Yes 10/25/24 12:38 SOLE [email or web address] respirations Mental status nausea No 10/25/24 12:38 SOLE [email or web address] Vomiting No 10/25/24 12:38 [email or web address] [email or web address] Anesthesia Postop Eval I: Fluid Summary Crystalloid volume administer 1,000 10/25/24 12:38 [email or web address] [email or web address] (ml) Colloids volume administered ( ml) Blood Product volume administered (ml) Total IV fluid infused 1,000 10/25/24 12:38 [email or web address] [email or web address] Anesthesia Postop Eval I: Summary Notes Anesthesia Complication No 10/25/24 12:38 SOLE [email or web address] Anesthesia Complication Comment: Post-operative progress note Anesthesia: Postop Eval II Evaluation Mental status: Awake Pain Level: 3 nausea: No Vomiting: No
--- NOTE | 2024-10-25 16:02 | PCM.POSTANE2 ---
Anesthesia Postop Eval I Sum Postop Eval Completion status Anesthesia document: Postop Eval 1 completed: Yes Anesthesia Postop Eval I Summary Anesthesia Postop Eval I Summary: Anesthesia Postop Eval I: Assessment Summary Airway patent Yes 10/25/24 12:38 CONCRETE FINISHING MACHINE OPERATOR.[email or web address] Spontaneous unlabored Yes 10/25/24 12:38 CONCRETE FINISHING MACHINE OPERATOR.[email or web address] respirations Mental status nausea No 10/25/24 12:38 CONCRETE FINISHING MACHINE OPERATOR.[email or web address] Vomiting No 10/25/24 12:38 CONCRETE FINISHING MACHINE OPERATOR.[email or web address] Anesthesia Postop Eval I: Fluid Summary Crystalloid volume administer 1,000 10/25/24 12:38 CONCRETE FINISHING MACHINE OPERATOR.TNES (ml) Colloids volume administered ( ml) Blood Product volume administered (ml) Total IV fluid infused 1,000 10/25/24 12:38 CONCRETE FINISHING MACHINE OPERATOR.[email or web address] Anesthesia Postop Eval I: Summary Notes Anesthesia Complication No 10/25/24 12:38 CONCRETE FINISHING MACHINE OPERATOR.[email or web address] Anesthesia Complication Comment: Post-operative progress note Anesthesia: Postop Eval II Evaluation Mental status: Awake Pain Level: 3 nausea: No Vomiting: No
== END 2024-10-25 15:10 | disposition home or self-care (01) ==
LOC: SDC 08:22 → AC 08:23
PROVIDERS: PCP Family Medicine; Referring Provider Obstetrics & Gynecology; Visit Provider Obstetrics & Gynecology
PROC: 0UT94ZZ Resection of Uterus, Percutaneous Endoscopic Approach (ICD-10-PCS; CPT 58571; principal; 2024-10-25 09:55)
DX: C50.912 Malignant neoplasm of unspecified site of left female breast (principal); I89.0 Lymphedema, not elsewhere classified; Z17.0 Estrogen receptor positive status [ER+]; N80.03 Adenomyosis of the uterus; D25.9 Leiomyoma of uterus, unspecified; Z80.3 Family history of malignant neoplasm of breast; Z15.01 Genetic susceptibility to malignant neoplasm of breast
CPT/HCPCS: 58571; S2900; 00840; 36415; 80053; 82962; 83735; 85027; 86850; 86900; 86901; 88307; 93005; A4216; J2405; J3475